=== PATIENT | male | born 1960 | race Caucasian/White ===

== ENCOUNTER 2016-05-22 15:28 | Emergency (ER) | payer MEDICARE, MEDICAID ==
[2016-05-22] MEDS ORDERED: IPRATROPIUM/ALBUTEROL 0.5-2.5 MG/3 ML AMPUL NEB ONE (18:13)
[2016-05-22 18:19] LABS: ABSOLUTE BASOPHILS # (AUTO) 0.1 10^3/uL (0.0-0.2); ABSOLUTE EOSINOPHILS # (AUTO) 0.2 10^3/uL (0.0-0.6); ABSOLUTE LYMPHOCYTES (AUTO) 1.6 10^3/uL (0.5-4.7); ABSOLUTE MONOCYTES (AUTO) 0.6 10^3/uL (0.1-1.4); BASOPHILS % (AUTO) 0.9 % (0-2); EOSINOPHILS % (AUTO) 2.5 % (0-6); HEMATOCRIT 30.4 % (37.9-51.0); HEMOGLOBIN 9.9 g/dL (13.5-17.0); HGB HCT DIFFERENCE -0.7; LYMPHOCYTES % (AUTO) 21.8 % (13-45); MEAN CORPUSCULAR HEMOGLOBIN 24.6 pg (27.0-33.4); MEAN CORPUSCULAR HGB CONC 32.6 g/dL (32.0-36.0); MEAN CORPUSCULAR VOLUME 75 fl (80-97); MONOCYTES % (AUTO) 7.7 % (3-13); RED BLOOD COUNT 4.03 10^6/uL (4.35-5.55); RED CELL DISTRIBUTION WIDTH 18.9 % (11.5-14.0); SEGMENTED NEUTROPHILS % (AUTO) 67.1 % (42-78); WHITE BLOOD COUNT 7.4 10^3/uL (4.0-10.5)
[2016-05-22 19:02] LABS: ALANINE AMINOTRANSFERASE 32 U/L (21-72); ALBUMIN 3.4 g/dL (3.5-5.0); ALKALINE PHOSPHATASE 98 U/L (38-126); ANION GAP 8 (5-19); ASPARTATE AMINO TRANSFERASE 22 U/L (17-59); BILIRUBIN,TOTAL 0.2 mg/dL (0.2-1.3); BLOOD UREA NITROGEN 16 mg/dL (7-20); CARBON DIOXIDE 29 mmol/L (22-30); CHLORIDE 105 mmol/L (98-107); CREATININE RESULT 0.74 mg/dL (0.52-1.25); GLUCOSE 92 mg/dL (75-110); POTASSIUM 4.6 mmol/L (3.6-5.0); SODIUM 141.5 mmol/L (137-145); TOTAL PROTEIN 6.7 g/dL (6.3-8.2)
[2016-05-22 20:03] LABS: PROTHROMBIN TIME 13.1 SEC (11.4-15.4)
[2016-05-22 20:04] LABS: PARTIAL THROMBOPLASTIN TIME 32.1 SEC (23.5-35.8)
--- NOTE | 2016-05-22 20:05 | ER Document Report ---
ED Extremity Problem, Lower - General TRAVEL OUTSIDE OF THE [place] IN LAST 30 DAYS: No <KATHI MINER - Last Filed: 05/23/16 00:26> <ARSLAN WEST - Last Filed: 05/23/16 02:15> - General Chief Complaint: Leg Swelling Stated Complaint: SHORTNESS OF BREATH Notes: This is a 55-year-old male with a history of CHF COPD CVA and myocardial infarction in 2004 that presents today with shortness of breath and cough for the past 4 days. Cough is productive. Denies nausea vomiting fever or chills loss of consciousness. He is also complaining of a painful right lower extremity. He states that this has been going on for a while, but does not recall onset. Patient denies loss of consciousness. Primary care physician is Dr. Phillips. (KATHI MINER) - Related Data Allergies/Adverse Reactions: ketorolac tromethamine [From Toradol] Allergy (Unknown, Verified 05/10/16 16:48) morphine [Morphine] Allergy (Unknown, Verified 05/10/16 16:48) acetaminophen [From Tylenol] Allergy (Verified 05/10/16 16:48) lorazepam [From Ativan] Adverse Reaction (Verified 05/10/16 16:48) Past Medical History - General Information source: Patient - Social History Smoking Status: Current Every Day Smoker Family History: Reviewed & Not Pertinent - Past Medical History Cardiac Medical History: Reports: Hx Congestive Heart Failure, Hx DVT, Hx Heart Attack, Hx Hypercholesterolemia, Hx Hypertension Pulmonary Medical History: Reports: Hx COPD, Hx Pneumonia, Hx Intubation, Hx Respiratory Failure Neurological Medical History: Reports: Hx Cerebrovascular Accident Endocrine Medical History: Reports: Hx Diabetes Mellitus Type 2 Renal/ Medical History: Reports: Hx Kidney Stones Musculoskeltal Medical History: Reports Hx Arthritis Psychiatric Medical History: Reports: Hx Bipolar Disorder Denies: Hx Depression Past Surgical History: Reports: Hx Appendectomy, Hx Cholecystectomy, Hx Orthopedic Surgery - Immunizations Immunizations up to date: Yes Hx Diphtheria, Pertussis, Tetanus Vaccination: Yes Hx Pneumococcal Vaccination: 05/13/11 <KATHI MINER - Last Filed: 05/23/16 00:26> Review of Systems - Review of Systems Constitutional: denies: Chills, Fever EENT: denies: Blurred vision Cardiovascular: See HPI Respiratory: Cough, Hurts to breathe Gastrointestinal: denies: Abdominal pain Musculoskeletal: No symptoms reported Skin: No symptoms reported Hematologic/Lymphatic: No symptoms reported Neurological/Psychological: No symptoms reported <KATHI MINER - Last Filed: 05/23/16 00:26> Physical Exam - General General appearance: Appears well In distress: None - HEENT Head: Normocephalic, Atraumatic Eyes: Normal Conjunctiva: Normal - Respiratory Respiratory status: No respiratory distress. No: Tachypnea Breath sounds: Normal, Wheezing - Left expiratory wheezes - Cardiovascular Rhythm: Regular Heart sounds: Normal auscultation - Abdominal Inspection: Normal Bowel sounds: Normal Tenderness: Nontender - Back Back: Normal, CVA tenderness - Extremities General upper extremity: Normal inspection, Normal strength General lower extremity: Normal inspection, Normal strength - Neurological Cognition: Normal - Psychological Associated symptoms: Normal affect, Normal mood - Skin Skin Temperature: Warm Skin Moisture: Dry Skin Color: Normal <KATHI MINER - Last Filed: 05/23/16 00:26> Course - Laboratory Result Diagrams: 05/22/16 16:40 05/22/16 18:35 <KATHI MINER - Last Filed: 05/23/16 00:26> - Laboratory Result Diagrams: 05/22/16 16:40 05/22/16 18:35 <ARSLAN WEST - Last Filed: 05/23/16 02:15> - Re-evaluation Re-evalutation: 05/22/16 11:55 Patient was discussed with Rosalind VARGAS (KATHI MINER) 05/23/16 02:11 Patient refuses to be stuck anymore and refuses IV for CTA. At this time patient has not been tachycardic since arrival, has no chest pain and pulse oxygenation is normal on room air 96%. Patient is already on Xarelto, discussed with Dr. Iniguez, who agrees that patient does not have enough evidence for PE and is already being treated with correct medication even if he had one, with pt refusing any more care, he is stable for discharge. (ARSLAN WEST) - Vital Signs Vital signs: Temp Pulse Resp BP Pulse Ox 98.4 F 13 133/89 H 94 05/23/16 02:07 05/23/16 02:01 05/23/16 02:00 05/23/16 01:13 (KATHI MINER) (ARSLAN WEST) - Laboratory Laboratory results interpreted by me: 05/22/16 05/22/16 05/22/16 16:40 16:40 18:35 RBC 4.03 L Hgb 9.9 L Hct 30.4 L MCV 75 L MCH 24.6 L RDW 18.9 H D-Dimer 2.20 H Creatine Kinase Albumin 3.4 L 05/22/16 18:35 RBC Hgb Hct MCV MCH RDW D-Dimer Creatine Kinase 184 H Albumin (KATHI MINER) (ARSLAN WEST) Discharge <KATHI MINER - Last Filed: 05/23/16 00:26> <ARSLAN WEST - Last Filed: 05/23/16 02:15> - Discharge Clinical Impression: COPD (chronic obstructive pulmonary disease) Qualifiers: COPD type: unspecified COPD Qualified Code(s): J44.9 - Chronic obstructive pulmonary disease, unspecified Condition: Stable Instructions: Chronic Obstructive Lung Disease ([facility]) Additional Instructions: Return immediately for any new or worsening symptoms. Follow up with primary care provider, call tomorrow to make followup appointment.
[2016-05-22 20:37] LABS: CREATINE KINASE MB 3.37 ng/mL (<4.55)
[2016-05-22 20:40] LABS: TROPONIN I < 0.012 ng/mL
[2016-05-23 01:00] LABS: APPEARANCE,URINE CLEAR; BILIRUBIN,URINE NEGATIVE (NEGATIVE); GLUCOSE, URINE NEGATIVE (NEGATIVE); KETONES,URINE NEGATIVE (NEGATIVE); LEUKOCYTE ESTERASE,URINE NEGATIVE (NEGATIVE); NITRITE,URINE NEGATIVE (NEGATIVE); PROTEIN,URINE NEGATIVE (NEGATIVE); URINE SPECIFIC GRAVITY 1.011; UROBILINOGEN,URINE NEGATIVE mg/dL (<2.0)
[2016-05-23] MEDS ORDERED: ALBUTEROL SULFATE HFA (90 MCG/PUFF) 8 GM MDI (1 MDI/ER DISP) IH PRN (02:14)
[2016-05-23 03:54] VITALS: BP 130/82
--- NOTE | 2016-05-23 13:37 | EKG REPORT ---
SEVERITY:- OTHERWISE NORMAL ECG - SINUS RHYTHM LEFT AXIS DEVIATION : Confirmed by: Charlette Lorenzo MD 23-May-2016 13:37:33
== END 2016-05-23 03:54 | disposition home or self-care (01) ==
LOC: ER 15:28
DX: J44.9 Chronic obstructive pulmonary disease, unspecified (principal); I25.2 Old myocardial infarction; I10 Essential (primary) hypertension; R06.02 Shortness of breath; M79.604 Pain in right leg; R05 Cough; R07.1 Chest pain on breathing; E11.9 Type 2 diabetes mellitus without complications; F17.200 Nicotine dependence, unspecified, uncomplicated; Z86.718 Personal history of other venous thrombosis and embolism; Z87.01 Personal history of pneumonia (recurrent); Z88.8 Allergy status to other drugs, medicaments and biological substances; Z88.5 Allergy status to narcotic agent; Z88.6 Allergy status to analgesic agent; Z86.73 Personal history of transient ischemic attack (TIA), and cerebral infarction without residual deficits; Z79.01 Long term (current) use of anticoagulants
CPT/HCPCS: 93005; 94640; 99285; 36415; 82553; 82550; 85025; 85610; 85730; 80053; 81001; 84484; 85379; 83880; 93971; 71020; 93010; J3490; A9270; J7620

== ENCOUNTER 2016-05-31 12:19 | Emergency (ER) | payer MEDICARE, MEDICAID ==
[2016-05-31] MEDS ORDERED: ACETAMINOPHEN 325 MG TABLET PO ONE (12:45)
--- NOTE | 2016-05-31 12:51 | ER Document Report ---
ED Fall - General TRAVEL OUTSIDE OF THE [place] IN LAST 30 DAYS: No - General Chief Complaint: Fall Stated Complaint: FALL/ HEAD INJURY Notes: patient is a 55 year old male presents emergency department after a fall. He is at a cardiac clinic for follow-up appointment and his foot got caught and he fell out of his wheelchair. Patient's past medical history is significant for CVA with left-sided residual weakness and he is not ambulatory and dependent to his wheelchair. Patient has a 4 cm laceration on the anterior frontal part of his head with associated headache as a 5 out of 5 in severity. Patient is not on blood thinners. Denies any nausea, vomiting, confusion, altered mental status, LOC. Otherwise he denies any other complaints in regards to his fall. Also today he is complaining of left upper extremity swelling. Patient states that he has swelling that fluctuates on and off of the left arm that improves with elevation. However he states that his left hand has been persistently swollen with pain described as a vice/pressure from Mahamed in his wrist for the past 2 weeks it is not improved with his normal measures and is different from his baseline. Past medical history: CHF, COPD, CVA with left-sided residual, SC in 2004, GERD , hypertension, bipolar, depression Tetanus is up-to-date within the year (FILI RIVERA) - Related data Allergies/Adverse Reactions: ketorolac tromethamine [From Toradol] Allergy (Unknown, Verified 05/10/16 16:48) morphine [Morphine] Allergy (Unknown, Verified 05/10/16 16:48) acetaminophen [From Tylenol] Allergy (Verified 05/10/16 16:48) lorazepam [From Ativan] Adverse Reaction (Verified 05/10/16 16:48) Past Medical History - General Information source: Patient - Social History Smoking Status: Unknown if Ever Smoked Family History: Reviewed & Not Pertinent - Past Medical History Cardiac Medical History: Reports: Hx Congestive Heart Failure, Hx DVT, Hx Heart Attack, Hx Hypercholesterolemia, Hx Hypertension Pulmonary Medical History: Reports: Hx COPD, Hx Pneumonia, Hx Intubation, Hx Respiratory Failure Neurological Medical History: Reports: Hx Cerebrovascular Accident Endocrine Medical History: Reports: Hx Diabetes Mellitus Type 2 Renal/ Medical History: Reports: Hx Kidney Stones Musculoskeltal Medical History: Reports Hx Arthritis Psychiatric Medical History: Reports: Hx Bipolar Disorder Denies: Hx Depression Past Surgical History: Reports: Hx Appendectomy, Hx Cholecystectomy, Hx Orthopedic Surgery - Immunizations Immunizations up to date: Yes Hx Diphtheria, Pertussis, Tetanus Vaccination: Yes Hx Pneumococcal Vaccination: 05/13/11 Review of Systems - Review of Systems Constitutional: No symptoms reported EENT: No symptoms reported Cardiovascular: No symptoms reported Respiratory: No symptoms reported Gastrointestinal: No symptoms reported Genitourinary: No symptoms reported Male Genitourinary: No symptoms reported Musculoskeletal: No symptoms reported Skin: No symptoms reported Hematologic/Lymphatic: No symptoms reported Neurological/Psychological: See HPI Physical Exam - Vital signs Vitals: Temp Pulse Resp BP Pulse Ox 97.3 F 85 18 168/101 H 95 05/31/16 12:35 05/31/16 12:35 05/31/16 12:35 05/31/16 12:35 05/31/16 12:35 (RAMA WHITE) - Notes Notes: PHYSICAL EXAM GENERAL: Alert, interacts well. HEAD: Normocephalic, 4 cm laceration into the dermis with dried blood EYES: Pupils equal, round, and reactive to light. Extraocular movements intact. ENT: Oral mucosa moist, tongue midline. NECK: Full range of motion. Supple. Trachea midline. LUNGS: Clear to auscultation bilaterally, no wheezes, rales, or rhonchi. No respiratory distress. HEART: Regular rate and rhythm. No murmurs, gallops, or rubs. Cap reill < 2seconds ABDOMEN: Soft, nondistended, nontender. No guarding, rebound, or rigidity.. Bowel sounds present in all 4 quadrants. EXTREMITIES: Moves right extremities spontaneously, not able to move left side consistent with stroke injury. 1+ pitting edema in BLE's, tense edema of the left hand and wirst with pain to palpaiton, radial and dorsalis pedis pulses 2/ 4 bilaterally. No cyanosis. NEUROLOGICAL: Alert and oriented x3. Normal speech. PSYCH: Normal affect, normal mood. SKIN: Warm, dry, normal turgor. No rashes or lesions noted. (FILI RIVERA) Course - Laboratory Result Diagrams: 05/31/16 14:20 05/31/16 14:20 - Diagnostic Test Radiology reviewed: Reports reviewed - Re-evaluation Re-evalutation: 05/31/16 14:29 Patient was presented to me by the advanced practitioner, we discussed the patient's case imaging and lab work concerns. Patient was evaluated by myself and I agree with the providers care plan (RAMA WHITE) 05/31/16 15:26 Patient is a 55-year-old male who is hemodynamically stable, no acute distress. Head is Dr. following accident male was wheelchair and suffered a [address] of the head and neck did not show any acute injury. Lack was closed with denice. In regards to his left upper extremity swelling. No evidence of DVT on this ultrasound. Patient's headache is being controlled his by mouth medication tolerating by mouth without any difficulty without nausea or vomiting. Patient will be discharged home and can follow-up with his primary care provider as needed and as scheduled. 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 (FILI RIVERA) - Vital Signs Vital signs: Temp Pulse Resp BP Pulse Ox 97.3 F 85 18 168/101 H 95 05/31/16 12:35 05/31/16 12:35 05/31/16 12:35 05/31/16 12:35 05/31/16 12:35 (RAMA WHITE) - Laboratory Laboratory results interpreted by me: 05/31/16 05/31/16 05/31/16 14:20 14:20 14:20 RBC 4.07 L Hgb 9.6 L Hct 31.2 L MCV 77 L MCH 23.7 L MCHC 30.8 L RDW 18.2 H D-Dimer 1.55 H ALT 20 L Procedures - Laceration/Wound Repair Left Head Wound length (cm): 5 Wound's Depth, Shape: Linear Laceration pre-procedure: Betadine prep applied Wound explored: Clean, No foreign body removed Irrigated w/ Saline (mLs): 20 Wound Repaired With: Edison Number of Sutures: 8 Post-procedure wound care: Sterile dressing applied Complications: No Discharge - Discharge Clinical Impression: Laceration, Swelling of upper extremity Headache Qualifiers: Headache type: post-traumatic Headache chronicity pattern: acute headache Intractability: intractable Qualified Code(s): G44.311 - Acute post-traumatic headache, intractable Condition: Good Disposition: HOME, SELF-CARE Instructions: Antibiotic Ointment Protection ([facility]), Laceration Care ([facility]), Prophylactic Antibiotic ([facility]), Soap Cleansing ([facility]), Edema, Peripheral ([facility]) Additional Instructions: HEADACHE: The physician does not feel that the headache you are experiencing has a serious underlying cause. Most headaches are due to emotional stress, with resultant muscle tension (tension headache). Occasionally, headaches are secondary to changes in the blood vessels of the scalp (vascular headache and migraine headache). Sometimes, a headache is the first symptom of another developing illness, such as a viral infection. You have no evidence of stroke, bleeding, meningitis, or other serious cause of your headache. The treatment of headaches varies with the severity and cause of the pain. Not all headaches need pain shots. In fact, there is evidence that using narcotics for headaches may make them worse in the long run. The physician will determine the therapy that's in your best interest. If you develop a fever, if the headache is different from any you've previously experienced, or if the headache progressively worsens, then call your physician at once or go to the emergency room. ORAL NARCOTIC MEDICATION: You have been given a prescription for pain control. This medication is a narcotic. It's best taken with food, as nausea can result if taken on an empty stomach. Don't operate machinery or drive within six hours of taking this medication. Do not combine this medicine with alcohol, or with any medication which can cause sedation (such as cold tablets or sleeping pills) unless you get permission from the physician. Narcotics tend to cause constipation. If possible, drink plenty of fluids and eat a diet high in fiber and fruits. Please be aware that prescription narcotics also have the potential for abuse. People become addicted to these medications because of the general sense of wellbeing that they induce. This feeling along with a significant reduction in tension, anxiety, and aggression provides a stimulating seductive quality to these drugs. Once your pain is under control, we encourage you to discard your unused narcotics. FOLLOW-UP CARE: If you have been referred to a physician for follow-up care, call the physician s office for an appointment as you were instructed or within the next two days. If you experience worsening or a significant change in your symptoms, notify the physician immediately or return to the Emergency Department at any time for re-evaluation. Referrals: WILNER ORDAZ MD [Primary Care Provider] - Follow up as needed
[2016-05-31 14:48] LABS: ABSOLUTE EOSINOPHILS # (AUTO) 0.2 10^3/uL (0.0-0.6); ABSOLUTE LYMPHOCYTES (AUTO) 1.3 10^3/uL (0.5-4.7); ABSOLUTE MONOCYTES (AUTO) 0.7 10^3/uL (0.1-1.4); ABSOLUTE NEUT (AUTO) 5.7 10^3/uL (1.7-8.2); BASOPHILS % (AUTO) 0.5 % (0-2); EOSINOPHILS % (AUTO) 2.5 % (0-6); HEMATOCRIT 31.2 % (37.9-51.0); HEMOGLOBIN 9.6 g/dL (13.5-17.0); HGB HCT DIFFERENCE -2.4; LYMPHOCYTES % (AUTO) 16.2 % (13-45); MEAN CORPUSCULAR HEMOGLOBIN 23.7 pg (27.0-33.4); MEAN CORPUSCULAR HGB CONC 30.8 g/dL (32.0-36.0); MEAN CORPUSCULAR VOLUME 77 fl (80-97); MONOCYTES % (AUTO) 8.4 % (3-13); RED BLOOD COUNT 4.07 10^6/uL (4.35-5.55); RED CELL DISTRIBUTION WIDTH 18.2 % (11.5-14.0); SEGMENTED NEUTROPHILS % (AUTO) 72.4 % (42-78); WHITE BLOOD COUNT 7.9 10^3/uL (4.0-10.5)
[2016-05-31] MEDS ORDERED: OXYCODONE-ACETAMINOPHEN 5-325 MG TABLET PO ONE (15:08)
[2016-05-31] MEDS ORDERED: IPRATROPIUM/ALBUTEROL 0.5-2.5 MG/3 ML AMPUL NEB ONE (15:12)
[2016-05-31 15:14] LABS: ALANINE AMINOTRANSFERASE 20 U/L (21-72); ALBUMIN 3.8 g/dL (3.5-5.0); ALKALINE PHOSPHATASE 101 U/L (38-126); ANION GAP 9 (5-19); ASPARTATE AMINO TRANSFERASE 18 U/L (17-59); BILIRUBIN,TOTAL 0.4 mg/dL (0.2-1.3); BLOOD UREA NITROGEN 10 mg/dL (7-20); CARBON DIOXIDE 29 mmol/L (22-30); CHLORIDE 104 mmol/L (98-107); CREATININE RESULT 0.78 mg/dL (0.52-1.25); GLUCOSE 103 mg/dL (75-110); POTASSIUM 4.1 mmol/L (3.6-5.0); SODIUM 142.2 mmol/L (137-145); TOTAL PROTEIN 6.9 g/dL (6.3-8.2)
[2016-05-31 16:48] VITALS: BP 142/92
== END 2016-05-31 17:47 | disposition home or self-care (01) ==
LOC: ER 12:19
PROC: 0HQ1XZZ Repair Face Skin, External Approach (ICD-10-PCS; principal; 2016-05-31)
DX: G44.311 Acute post-traumatic headache, intractable (principal); S01.81XA Laceration without foreign body of other part of head, initial encounter; M79.89 Other specified soft tissue disorders; W05.0XXA Fall from non-moving wheelchair, initial encounter; I69.954 Hemiplegia and hemiparesis following unspecified cerebrovascular disease affecting left non-dominant side
CPT/HCPCS: 94640; 99285; 36415; 85025; 80053; 85379; 93971; 70450; 72125; 12013; A9270 ×2; J7620

== ENCOUNTER 2016-06-05 13:34 | Observation (INO) | payer MEDICARE, MEDICAID ==
--- NOTE | 2016-06-05 14:43 | ER Document Report ---
ED General - General Stated Complaint: CHEST PAIN TRAVEL OUTSIDE OF THE [place] IN LAST 30 DAYS: No - HPI Patient complains to provider of: chest pain Notes: Patient presents today for chest pain ongoing since 2 AM this morning. Patient was evaluated by EMS given 1 nitroglycerin. Patient states chest pain substernal now resolved. Patient denies any shortness of breath. Patient does have a history of COPD stroke with limited range of motion on the left side due to deficits. Patient states he has had a heart attack in the past with Motrin testing of his heart and greater than 2 years. Patient does state he has history of fibrillation and is on blood thinning medication. Patient denies fevers chills nausea vomiting diarrhea. Patient states he has been compliant with his medication states he also will be evaluated for swelling in his legs. Patient is a smoker continues to smoke patient is on Xarelto - Related Data Allergies/Adverse Reactions: ketorolac tromethamine [From Toradol] Allergy (Unknown, Verified 06/05/16 20:27) morphine [Morphine] Allergy (Unknown, Verified 06/05/16 20:27) acetaminophen [From Tylenol] Allergy (Verified 06/05/16 20:27) lorazepam [From Ativan] Adverse Reaction (Verified 06/05/16 20:27) Home Medications: Current Home Medications Albuterol Sulfate [Albuterol Sulfate 2.5mg/3 mL] 1 vial IH Q4HP PRN 06/05/16 [ History] Buprenorphine HCl/Naloxone HCl [Suboxone 8 mg-2 mg Sl Film] 1 each SL BID [History] Clonidine HCl [Catapres 0.2 mg Tablet] 0.2 mg PO Q12 06/05/16 [History] Cyclobenzaprine HCl [Flexeril 10 mg Tablet] 10 mg PO BID 06/05/16 [History] Dextromethorphan HBr/Quinidine [Nuedexta 20-10 mg Capsule] 1 each PO BID [History] Docusate Sodium [Colace 100 mg Capsule] 100 mg PO BID 06/05/16 [History] Doxepin HCl 100 mg PO HSP PRN 06/05/16 [History] Furosemide [Lasix 20 mg Tablet] 20 mg PO Q2HP PRN 06/05/16 [History] Lamotrigine [Lamictal] 50 mg PO QAM 06/05/16 [History] Lansoprazole [Prevacid 30 Mg Odt Tablet] 30 mg PO QAM 06/05/16 [History] Lisinopril [Prinivil] 20 mg PO QAM 06/05/16 [History] Metoprolol Succinate [Toprol Xl 50 mg Tab.sr] 50 mg PO QAM 06/05/16 [History] Paroxetine HCl [Paxil] 20 mg PO QHS 06/05/16 [History] Pregabalin [Lyrica] 300 mg PO BID 06/05/16 [History] Quetiapine Fumarate [Seroquel Xr] 300 mg PO QHS 06/05/16 [History] Past Medical History - Social History Smoking Status: Unknown if Ever Smoked Family History: Reviewed & Not Pertinent - Past Medical History Cardiac Medical History: Reports: Hx Congestive Heart Failure, Hx DVT, Hx Heart Attack, Hx Hypercholesterolemia, Hx Hypertension Pulmonary Medical History: Reports: Hx COPD, Hx Pneumonia, Hx Intubation, Hx Respiratory Failure Neurological Medical History: Reports: Hx Cerebrovascular Accident Endocrine Medical History: Reports: Hx Diabetes Mellitus Type 2 Renal/ Medical History: Reports: Hx Kidney Stones GI Medical History: Reports: Hx Gastroesophageal Reflux Disease Musculoskeltal Medical History: Reports Hx Arthritis Psychiatric Medical History: Reports: Hx Bipolar Disorder Denies: Hx Depression Past Surgical History: Reports: Hx Appendectomy, Hx Cholecystectomy, Hx Orthopedic Surgery - Immunizations Immunizations up to date: Yes Hx Diphtheria, Pertussis, Tetanus Vaccination: Yes Hx Pneumococcal Vaccination: 05/13/11 Review of Systems - Review of Systems Constitutional: No symptoms reported EENT: No symptoms reported Cardiovascular: Chest pain Respiratory: No symptoms reported Gastrointestinal: No symptoms reported Genitourinary: No symptoms reported Male Genitourinary: No symptoms reported Musculoskeletal: Leg swelling Skin: No symptoms reported Hematologic/Lymphatic: No symptoms reported Neurological/Psychological: No symptoms reported -: Yes All other systems reviewed and negative Physical Exam - Vital signs Vitals: Pulse Ox 94 06/05/16 14:28 Interpretation: Normal - General General appearance: Appears well, Alert - HEENT Head: Normocephalic, Atraumatic Eyes: Normal Pupils: PERRL - Respiratory Respiratory status: No respiratory distress Chest status: Nontender Breath sounds: Normal Chest palpation: Normal - Cardiovascular Rhythm: Regular Heart sounds: Normal auscultation Murmur: No - Abdominal Inspection: Normal Distension: No distension Bowel sounds: Normal Tenderness: Nontender Organomegaly: No organomegaly - Back Back: Normal, Nontender - Extremities General upper extremity: Normal inspection, Nontender, Normal color, Normal ROM , Normal temperature General lower extremity: Normal inspection, Nontender, Normal color, Normal ROM , Normal temperature, Normal weight bearing. No: Ezekiel's sign - Neurological Neuro grossly intact: Yes Cognition: Normal Orientation: AAOx4 [place] Coma Scale Eye Opening: Spontaneous [place] Coma Scale Verbal: Oriented [place] Coma Scale Motor: Obeys Commands [place] Coma Scale Total: 15 Sensory: Normal - Psychological Associated symptoms: Normal affect, Normal mood - Skin Skin Temperature: Warm Skin Moisture: Dry Skin Color: Normal Notes: Patient has discoloration on the second and third finger of the right hand is consistent with chronic nicotine use. Patient also has discoloration of the skin around his mouth consistent with chronic nicotine and tobacco use. Patient does have a lee was ulcer right but cheek stage I no signs of infection Course - Re-evaluation Re-evalutation: 06/05/16 22:15 Patient coming in for evaluation of chest pain. Patient is Piotr on Xarelto. Patient stories not consistent with PE. Initial lab work is negative. Discussed with PCP recommend admission for chest pain rule out. - Vital Signs Vital signs: Temp Pulse Resp BP Pulse Ox 97.6 F 4 L 142/97 H 86 L 06/05/16 17:13 06/05/16 20:01 06/05/16 20:01 06/05/16 20:01 - Laboratory Result Diagrams: 06/05/16 15:44 06/05/16 15:44 Laboratory results interpreted by me: 06/05/16 06/05/16 15:44 15:44 RBC 4.19 L Hgb 9.9 L Hct 31.8 L MCV 76 L MCH 23.6 L MCHC 31.2 L RDW 17.7 H Chloride 108 H Discharge - Discharge Clinical Impression: Sacral decubitus ulcer, stage II Obesity Qualifiers: Obesity type: unspecified obesity type Obesity severity: unspecified obesity severity Qualified Code(s): E66.9 - Obesity, unspecified Chest pain Qualifiers: Chest pain type: unspecified Qualified Code(s): R07.9 - Chest pain, unspecified Condition: Good Disposition: ADMITTED OBSERVATION Admitting Provider: [facility] Unit Admitted: Telemetry
[2016-06-05 15:56] LABS: ABSOLUTE EOSINOPHILS # (AUTO) 0.3 10^3/uL (0.0-0.6); ABSOLUTE LYMPHOCYTES (AUTO) 1.2 10^3/uL (0.5-4.7); ABSOLUTE MONOCYTES (AUTO) 0.6 10^3/uL (0.1-1.4); ABSOLUTE NEUT (AUTO) 5.1 10^3/uL (1.7-8.2); BASOPHILS % (AUTO) 0.6 % (0-2); EOSINOPHILS % (AUTO) 4.5 % (0-6); HEMATOCRIT 31.8 % (37.9-51.0); HEMOGLOBIN 9.9 g/dL (13.5-17.0); HGB HCT DIFFERENCE -2.1; LYMPHOCYTES % (AUTO) 16.3 % (13-45); MEAN CORPUSCULAR HEMOGLOBIN 23.6 pg (27.0-33.4); MEAN CORPUSCULAR HGB CONC 31.2 g/dL (32.0-36.0); MEAN CORPUSCULAR VOLUME 76 fl (80-97); MONOCYTES % (AUTO) 8.5 % (3-13); RED BLOOD COUNT 4.19 10^6/uL (4.35-5.55); RED CELL DISTRIBUTION WIDTH 17.7 % (11.5-14.0); SEGMENTED NEUTROPHILS % (AUTO) 70.1 % (42-78); WHITE BLOOD COUNT 7.2 10^3/uL (4.0-10.5)
[2016-06-05 16:02] LABS: PARTIAL THROMBOPLASTIN TIME 29.7 SEC (23.5-35.8); PROTHROMBIN TIME 12.4 SEC (11.4-15.4)
[2016-06-05 16:18] LABS: ALANINE AMINOTRANSFERASE 26 U/L (21-72); ALBUMIN 3.9 g/dL (3.5-5.0); ALKALINE PHOSPHATASE 107 U/L (38-126); ANION GAP 10 (5-19); ASPARTATE AMINO TRANSFERASE 23 U/L (17-59); BILIRUBIN,TOTAL 0.4 mg/dL (0.2-1.3); BLOOD UREA NITROGEN 9 mg/dL (7-20); CALCIUM 9.1 mg/dL (8.4-10.2); CARBON DIOXIDE 26 mmol/L (22-30); CHLORIDE 108 mmol/L (98-107); CREATINE KINASE 105 U/L (55-170); CREATININE RESULT 0.75 mg/dL (0.52-1.25); GLUCOSE 94 mg/dL (75-110); POTASSIUM 4.5 mmol/L (3.6-5.0); SODIUM 144.1 mmol/L (137-145); TOTAL PROTEIN 7.2 g/dL (6.3-8.2)
[2016-06-05 16:28] LABS: CREATINE KINASE MB 3.45 ng/mL (<4.55)
[2016-06-05 16:29] LABS: TROPONIN I < 0.012 ng/mL
--- NOTE | 2016-06-05 18:40 | EKG REPORT ---
SEVERITY:- OTHERWISE NORMAL ECG - SINUS RHYTHM LEFT AXIS DEVIATION : Confirmed by: Charlette Lorenzo MD 05-Jun-2016 18:39:51
[2016-06-05] MEDS ORDERED: (PENDING PHARMACY ID) (Doxepin Hcl [Doxepin Hcl] 100 MG) PO PRN (19:49)
[2016-06-05] MEDS ORDERED: ALBUTEROL SULFATE 0.083% NEB 2.5 MG/3 ML AMPUL NEB PRN ×2 (19:49→20:20)
[2016-06-05] MEDS ORDERED: FUROSEMIDE 20 MG TABLET PO PRN (19:49)
[2016-06-05] MEDS ORDERED: NALOXONE HCL SL SCH ×2 (20:00→21:00)
[2016-06-05] MEDS ORDERED: BUPRENORPHINE HCL SL SCH ×2 (20:00→21:00)
[2016-06-05] MEDS ORDERED: [UNRECOGNIZED DRUG - OTHER] PO SCH ×2 (20:00→21:00)
[2016-06-05] MEDS ORDERED: (PENDING PHARMACY ID) (Lisinopril [Prinivil] 20 MG) PO SCH (20:00)
[2016-06-05] MEDS ORDERED: QUINIDINE PO SCH ×2 (20:00→21:00)
[2016-06-05] MEDS ORDERED: (PENDING PHARMACY ID) (Lamotrigine [Lamictal] 50 MG) PO SCH (20:00)
[2016-06-05] MEDS ORDERED: DEXTROMETHORPHAN HBR PO SCH ×2 (20:00→21:00)
[2016-06-05] MEDS ORDERED: [UNRECOGNIZED DRUG - OTHER] SL SCH ×2 (20:00→21:00)
[2016-06-05] MEDS ORDERED: DOXEPIN HCL 25 MG CAPSULE PO PRN (20:15)
[2016-06-05] MEDS ORDERED: CLONIDINE HCL 0.2 MG TABLET PO ONE (20:45)
[2016-06-05] MEDS ORDERED: CYCLOBENZAPRINE HCL 10 MG TABLET PO ONE (20:45)
[2016-06-05] MEDS ORDERED: DOCUSATE SODIUM 100 MG CAPSULE PO ONE (21:00)
[2016-06-05] MEDS ORDERED: (PENDING PHARMACY ID) (Quetiapine Fumarate [Seroquel Xr] 300 MG) PO SCH ×2 (21:00→22:00)
[2016-06-05] MEDS ORDERED: LANSOPRAZOLE 30 MG TAB.RAP.DR PO ONE (21:00)
[2016-06-05] MEDS ORDERED: METOPROLOL SUCCINATE 50 MG TAB.SR.24H PO ONE (21:00)
[2016-06-05] MEDS: CLONIDINE HCL 0.2 MG TABLET PO SCH (22:00)
[2016-06-05] MEDS ORDERED: PAROXETINE HCL 20 MG TABLET PO SCH (22:00)
[2016-06-05 22:49] LABS: PARTIAL THROMBOPLASTIN TIME 22.6 SEC (23.5-35.8)
[2016-06-05 22:56] LABS: ANION GAP 9 (5-19); BLOOD UREA NITROGEN 11 mg/dL (7-20); CALCIUM 9.2 mg/dL (8.4-10.2); CARBON DIOXIDE 25 mmol/L (22-30); CHLORIDE 108 mmol/L (98-107); CREATININE RESULT 0.71 mg/dL (0.52-1.25); GLUCOSE 92 mg/dL (75-110); PHOSPHORUS 5.2 mg/dL (2.5-4.5); POTASSIUM 4.4 mmol/L (3.6-5.0); SODIUM 142.3 mmol/L (137-145)
[2016-06-05 23:10] LABS: CREATINE KINASE MB 3.08 ng/mL (<4.55)
[2016-06-05 23:11] LABS: TROPONIN I < 0.012 ng/mL
[2016-06-05 23:59] LABS: ABSOLUTE BASOPHILS # (AUTO) 0.1 10^3/uL (0.0-0.2); ABSOLUTE EOSINOPHILS # (AUTO) 0.3 10^3/uL (0.0-0.6); ABSOLUTE LYMPHOCYTES (AUTO) 1.5 10^3/uL (0.5-4.7); ABSOLUTE MONOCYTES (AUTO) 0.7 10^3/uL (0.1-1.4); ABSOLUTE NEUT (AUTO) 5.1 10^3/uL (1.7-8.2); BASOPHILS % (AUTO) 0.7 % (0-2); EOSINOPHILS % (AUTO) 4.4 % (0-6); HEMOGLOBIN 9.9 g/dL (13.5-17.0); HGB HCT DIFFERENCE -2.3; LYMPHOCYTES % (AUTO) 19.8 % (13-45); MEAN CORPUSCULAR HEMOGLOBIN 23.5 pg (27.0-33.4); MEAN CORPUSCULAR HGB CONC 30.8 g/dL (32.0-36.0); MEAN CORPUSCULAR VOLUME 76 fl (80-97); MONOCYTES % (AUTO) 9.4 % (3-13); RED BLOOD COUNT 4.19 10^6/uL (4.35-5.55); RED CELL DISTRIBUTION WIDTH 18.1 % (11.5-14.0); SEGMENTED NEUTROPHILS % (AUTO) 65.7 % (42-78); WHITE BLOOD COUNT 7.7 10^3/uL (4.0-10.5)
[2016-06-06] LABS: APPEARANCE,URINE CLEAR; BILIRUBIN,URINE NEGATIVE (NEGATIVE); GLUCOSE, URINE NEGATIVE (NEGATIVE); KETONES,URINE NEGATIVE (NEGATIVE); LEUKOCYTE ESTERASE,URINE NEGATIVE (NEGATIVE); NITRITE,URINE NEGATIVE (NEGATIVE); PROTEIN,URINE NEGATIVE (NEGATIVE); URINE SPECIFIC GRAVITY 1.015; UROBILINOGEN,URINE NEGATIVE mg/dL (<2.0)
[2016-06-06 05:48] LABS: CHOLESTEROL 227.34 mg/dL (0-200); Direct HDL 56 mg/dL (>40); TRIGLYCERIDES 235 mg/dL (<150)
[2016-06-06 05:58] LABS: DIRECT LDL 48 mg/dL (<100)
[2016-06-06 05:59] LABS: CREATINE KINASE MB 3.01 ng/mL (<4.55)
[2016-06-06 06:02] LABS: TROPONIN I < 0.012 ng/mL
[2016-06-06] MEDS ORDERED: LISINOPRIL 10 MG TABLET PO SCH (08:00)
[2016-06-06] MEDS ORDERED: LANSOPRAZOLE 30 MG TAB.RAP.DR PO SCH (08:00)
[2016-06-06] MEDS ORDERED: LAMOTRIGINE 100 MG TABLET PO SCH (08:00)
[2016-06-06] MEDS ORDERED: METOPROLOL SUCCINATE 50 MG TAB.SR.24H PO SCH (08:00)
[2016-06-06 08:02] VITALS: BP 177/108
[2016-06-06] MEDS ORDERED: ASPIRIN 81 MG TABLET, CHEWABLE PO SCH (10:00)
[2016-06-06] MEDS ORDERED: CYCLOBENZAPRINE HCL 10 MG TABLET PO SCH (10:00)
[2016-06-06] MEDS ORDERED: DOCUSATE SODIUM 100 MG CAPSULE PO SCH (10:00)
[2016-06-06] MEDS ORDERED: PREGABALIN 100 MG CAPSULE PO SCH (10:00)
[2016-06-06] MEDS: CLONIDINE HCL 0.2 MG TABLET PO SCH (11:51)
[2016-06-06 12:04] LABS: CREATINE KINASE MB 2.85 ng/mL (<4.55)
[2016-06-06 12:07] LABS: TROPONIN I < 0.012 ng/mL
--- NOTE | 2016-06-06 14:19 | Physician Advisory Note ---
Physician Advisor ProgressNote .: Pursuant to the plan for Kavin Messer, I have reviewed the medical record for this patient. Physician Advisor Statement: Possible documentation opportunities if attending agrees: 1. "CP, most likely due to ____" 2. "chronic Afib" [or is it paroxysmal, or ...] 3. "chronic Lt hemiparesis due to previous CVA" 4. "chronic diastolic CHF" 5. "chronic ____ anemia" [nutritional/blood loss Fe defic type? nutritional folate defic? ...] 6. ? - "Chronic Hypoxemic Respiratory Failure, with O2 sat 88% RA & slightly labored breathing in triage" [& document what doing about it] - Pt w/COPD, ongoing smoking, sat 88% & "respirations slightly labored (pt states not abnormal for him)" in initial nursing eval @ 14:28), repeated low O2 sats & low RR.... 7. "Stage I-II sacral [or Rt/Lt buttock?] decub ulcer, present on arrival..." - was noted by ED dr, but doesn't get picked up unless attending document it was truly present. As always, if concerned about any unstable VS or abnormal labs, please comment on them & note what doing about them, & please document each day the potential clinical problems you are concerned could occur if pt not kept in hospital for tx at this time. Thanks for your help with documentation accuracy/specificity improvement! Yvette Márquez MD [facility] Physician Advisor, Fellow of Hospital Medicine
--- NOTE | 2016-06-06 15:35 | PDOC H&P ---
History of Present Illness Admission Date/PCP: 06/05/16 20:19 WILNER ORDAZ, History of Present Illness: DAVIS PAGE is a 55 year old male with history of CVA, COPD, tobacco abuse, he came to the emergency room because of chest pain, the chest pain is nondescript, it is associated with coughing, the cough is dry, patient is a smoker, in the emergency room he was evaluated, a twelve-lead EKG was done it was sinus rhythm, there is no acute ST segment changes on EKG. Patient was admitted for evaluation and to rule out acute coronary syndrome done unlikely Past Medical History Cardiac Medical History: Reports: Congestive Heart Failure, DVT, Myocardial Infarction, Hyperlipidema, Hypertension Pulmonary Medical History: Reports: Chronic Obstructive Pulmonary Disease (COPD) , Intubation, Pneumonia, Respiratory Failure Neurological Medical History: Denies: Seizures Endocrine Medical History: Reports: Diabetes Mellitus Type 2 GI Medical History: Reports: Gastroesophageal Reflux Disease Musculoskeltal Medical History: Reports: Arthritis Psychiatric Medical History: Reports: Bipolar Disorder, Depression Past Surgical History Past Surgical History: Reports: Appendectomy, Cholecystectomy, Orthopedic Surgery Social History Smoking Status: Current Every Day Smoker Frequency of Alcohol Use: Occasional Hx Recreational Drug Use: - Uknown Drugs: None Hx Prescription Drug Abuse: No - uknown - Advance Directive Resuscitation Status: Full Code Family History Family History: Reviewed & Not Pertinent Parental Family History Reviewed: Yes Children Family History Reviewed: Yes Sibling(s) Family History Reviewed.: Yes Medication/Allergy Home Medications: RX: Albuterol Sulfate [Albuterol Sulfate 2.5mg/3 mL] 1 vial IH Q4HP PRN RX: Buprenorphine HCl/Naloxone HCl [Suboxone 8 mg-2 mg Sl Film] 1 each SL BID RX: Clonidine HCl [Catapres 0.2 mg Tablet] 0.2 mg PO Q12 06/05/16 RX: Cyclobenzaprine HCl [Flexeril 10 mg Tablet] 10 mg PO BID 06/05/16 RX: Dextromethorphan HBr/Quinidine [Nuedexta 20-10 mg Capsule] 1 each PO BID RX: Docusate Sodium [Colace 100 mg Capsule] 100 mg PO BID 06/05/16 RX: Doxepin HCl 100 mg PO HSP PRN 06/05/16 RX: Furosemide [Lasix 20 mg Tablet] 20 mg PO Q2HP PRN 06/05/16 RX: Lamotrigine [Lamictal] 50 mg PO QAM 06/05/16 RX: Lansoprazole [Prevacid 30 mg Odt Tablet] 30 mg PO QAM 06/05/16 RX: Lisinopril [Prinivil] 20 mg PO QAM 06/05/16 RX: Metoprolol Succinate [Toprol Xl 50 mg Tab.sr] 50 mg PO QAM 06/05/16 RX: Paroxetine HCl [Paxil] 20 mg PO QHS 06/05/16 RX: Pregabalin [Lyrica] 300 mg PO BID 06/05/16 RX: Quetiapine Fumarate [Seroquel Xr] 300 mg PO QHS 06/05/16 Azithromycin [Zithromax] 250 mg PO DAILY #0 tablet 06/06/16 Allergies/Adverse Reactions: ketorolac tromethamine [From Toradol] Allergy (Unknown, Verified 06/05/16 20:27) morphine [Morphine] Allergy (Unknown, Verified 06/05/16 20:27) acetaminophen [From Tylenol] Allergy (Verified 06/05/16 20:27) lorazepam [From Ativan] Adverse Reaction (Verified 06/05/16 20:27) Review of Systems Constitutional: ABSENT: chills, fever(s), headache(s), weight gain, weight loss Eyes: ABSENT: visual disturbances Ears: ABSENT: hearing changes Cardiovascular: PRESENT: chest pain Respiratory: PRESENT: cough Gastrointestinal: ABSENT: abdominal pain, constipation, diarrhea, hematemesis, hematochezia, nausea, vomiting Genitourinary: ABSENT: dysuria, hematuria Musculoskeletal: ABSENT: joint swelling Integumentary: ABSENT: rash, wounds Neurological: ABSENT: abnormal gait, abnormal speech, confusion, dizziness, focal weakness, syncope Psychiatric: ABSENT: anxiety, depression, homidical ideation, suicidal ideation Endocrine: ABSENT: cold intolerance, heat intolerance, menstrual abnormalities, polydipsia, polyuria Hematologic/Lymphatic: ABSENT: easy bleeding, easy bruising, lymphadenopathy Physical Exam Vital Signs: Temp Pulse Resp BP Pulse Ox 98.2 F 88 18 152/85 H 93 06/06/16 05:44 06/06/16 13:18 06/06/16 13:18 06/06/16 05:44 06/06/16 05:44 Intake & Output 06/05/16 06/06/16 06/07/16 06:59 06:59 06:59 Output Total 500 600 Balance -500 -600 Weight 115.212 kg General appearance: PRESENT: no acute distress, well-developed, well-nourished Head exam: PRESENT: atraumatic, normocephalic Eye exam: PRESENT: conjunctiva pink, EOMI, PERRLA Ear exam: PRESENT: normal external ear exam Mouth exam: PRESENT: moist, tongue midline Neck exam: PRESENT: full ROM Cardiovascular exam: PRESENT: RRR, +S1, +S2 Pulses: PRESENT: normal dorsalis pedis pul, +2 pedal pulses bilateral Vascular exam: PRESENT: normal capillary refill GI/Abdominal exam: PRESENT: normal bowel sounds, soft Rectal exam: PRESENT: deferred Extremities exam: PRESENT: other - Stage 2 sacral decubitus ulcer Neurological exam: PRESENT: alert, oriented to person, oriented to time Psychiatric exam: PRESENT: appropriate affect, normal mood Skin exam: PRESENT: dry, intact, warm Results Laboratory Results: 06/05/16 23:46 06/05/16 22:20 06/05/16 06/05/16 06/05/16 22:20 23:00 23:46 WBC 7.7 RBC 4.19 L Hgb 9.9 L Hct 32.0 L MCV 76 L MCH 23.5 L MCHC 30.8 L RDW 18.1 H Plt Count 236 Seg Neutrophils % 65.7 Lymphocytes % 19.8 Monocytes % 9.4 Eosinophils % 4.4 Basophils % 0.7 Absolute Neutrophils 5.1 Absolute Lymphocytes 1.5 Absolute Monocytes 0.7 Absolute Eosinophils 0.3 Absolute Basophils 0.1 Sodium 142.3 Potassium 4.4 Chloride 108 H Carbon Dioxide 25 Anion Gap 9 BUN 11 Creatinine 0.71 Est GFR ( Amer) > 60 Est GFR (Non-Af Amer) > 60 Glucose 92 Calcium 9.2 Phosphorus 5.2 H Triglycerides Cholesterol LDL Cholesterol Direct VLDL Cholesterol HDL Cholesterol Urine Color YELLOW Urine Appearance CLEAR Urine pH 6.0 Ur Specific [place] 1.015 Urine Protein NEGATIVE Urine Glucose (UA) NEGATIVE Urine Ketones NEGATIVE Urine Blood NEGATIVE Urine Nitrite NEGATIVE Ur Leukocyte Esterase NEGATIVE Urine WBC (Auto) 1 06/06/16 05:20 WBC RBC Hgb Hct MCV MCH MCHC RDW Plt Count Seg Neutrophils % Lymphocytes % Monocytes % Eosinophils % Basophils % Absolute Neutrophils Absolute Lymphocytes Absolute Monocytes Absolute Eosinophils Absolute Basophils Sodium Potassium Chloride Carbon Dioxide Anion Gap BUN Creatinine Est GFR ( Amer) Est GFR (Non-Af Amer) Glucose Calcium Phosphorus Triglycerides 235 H Cholesterol 227.34 H LDL Cholesterol Direct 48 VLDL Cholesterol 47.0 H HDL Cholesterol 56 Urine Color Urine Appearance Urine pH Ur Specific [place] Urine Protein Urine Glucose (UA) Urine Ketones Urine Blood Urine Nitrite Ur Leukocyte Esterase Urine WBC (Auto) 06/05/16 06/06/16 06/06/16 22:20 05:20 11:16 CK-MB (CK-2) 3.08 3.01 2.85 Troponin I < 0.012 < 0.012 < 0.012 Impressions: Chest X-Ray 06/05/16 14:28 IMPRESSION: NO ACUTE RADIOGRAPHIC FINDING IN THE CHEST. Assessment & Plan - Diagnosis (1) Chest pain Qualifiers: Chest pain type: unspecified Qualified Code(s): R07.9 - Chest pain, unspecified Is this a current diagnosis for this admission?: YesPlan: Patient was admitted because of chest pain, the chest pain is atypical in character and it is associated with cough, suggesting bronchitis (2) Acute bronchitis Qualifiers: Bronchitis organism: unspecified organism Qualified Code(s): J20.9 - Acute bronchitis, unspecified Is this a current diagnosis for this admission?: Yes
--- NOTE | 2016-06-06 15:41 | PDOC DISCHARGE SUMMARY ---
General - Admit/Disc Date/PCP Admission Date/Primary Care Provider: 06/05/16 20:19 WILNER ORDAZ, Discharge Date: 06/06/16 - Discharge Diagnosis (1) Chest pain Is this a current diagnosis for this admission?: Yes (2) Acute bronchitis Is this a current diagnosis for this admission?: Yes (3) Sacral decubitus ulcer, stage II Is this a current diagnosis for this admission?: YesSummary: This was present on admission - Additional Information Resuscitation Status: Full Code Home Medications: RX: Albuterol Sulfate [Albuterol Sulfate 2.5mg/3 mL] 1 vial IH Q4HP PRN RX: Buprenorphine HCl/Naloxone HCl [Suboxone 8 mg-2 mg Sl Film] 1 each SL BID RX: Clonidine HCl [Catapres 0.2 mg Tablet] 0.2 mg PO Q12 06/05/16 RX: Cyclobenzaprine HCl [Flexeril 10 mg Tablet] 10 mg PO BID 06/05/16 RX: Dextromethorphan HBr/Quinidine [Nuedexta 20-10 mg Capsule] 1 each PO BID RX: Docusate Sodium [Colace 100 mg Capsule] 100 mg PO BID 06/05/16 RX: Doxepin HCl 100 mg PO HSP PRN 06/05/16 RX: Furosemide [Lasix 20 mg Tablet] 20 mg PO Q2HP PRN 06/05/16 RX: Lamotrigine [Lamictal] 50 mg PO QAM 06/05/16 RX: Lansoprazole [Prevacid 30 mg Odt Tablet] 30 mg PO QAM 06/05/16 RX: Lisinopril [Prinivil] 20 mg PO QAM 06/05/16 RX: Metoprolol Succinate [Toprol Xl 50 mg Tab.sr] 50 mg PO QAM 06/05/16 RX: Paroxetine HCl [Paxil] 20 mg PO QHS 06/05/16 RX: Pregabalin [Lyrica] 300 mg PO BID 06/05/16 RX: Quetiapine Fumarate [Seroquel Xr] 300 mg PO QHS 06/05/16 Azithromycin [Zithromax] 250 mg PO DAILY #0 tablet 06/06/16 History of Present Illness History of Present Illness: DAVIS PAGE is a 55 year old male with history of CVA, COPD, tobacco abuse, he came to the emergency room because of chest pain, the chest pain is nondescript, it is associated with coughing, the cough is dry, patient is a smoker, in the emergency room he was evaluated, a twelve-lead EKG was done it was sinus rhythm, there is no acute ST segment changes on EKG. Patient was admitted for evaluation and to rule out acute coronary syndrome done unlikely Hospital Course Hospital Course: Patient was admitted for observation because of chest pain, 3 sets of cardiac enzymes were negative for acute [place]. That was associated cough that suggest acute bronchitis, he was prescribed Z-Kelby, he has stage 2 sacral decubitus ulcer that was present on admission. Physical Exam Vital Signs: Temp Pulse Resp BP Pulse Ox 98.2 F 88 18 152/85 H 93 06/06/16 05:44 06/06/16 13:18 06/06/16 13:18 06/06/16 05:44 06/06/16 05:44 Intake & Output 06/05/16 06/06/16 06/07/16 06:59 06:59 06:59 Output Total 500 600 Balance -500 -600 Weight 115.212 kg General appearance: PRESENT: no acute distress Eye exam: PRESENT: PERRLA Respiratory exam: PRESENT: clear to auscultation jarett Cardiovascular exam: PRESENT: +S1, +S2 GI/Abdominal exam: PRESENT: soft Neurological exam: PRESENT: alert Results Laboratory Results: 06/05/16 23:46 06/05/16 22:20 06/05/16 06/05/16 06/05/16 22:20 23:00 23:46 WBC 7.7 RBC 4.19 L Hgb 9.9 L Hct 32.0 L MCV 76 L MCH 23.5 L MCHC 30.8 L RDW 18.1 H Plt Count 236 Seg Neutrophils % 65.7 Lymphocytes % 19.8 Monocytes % 9.4 Eosinophils % 4.4 Basophils % 0.7 Absolute Neutrophils 5.1 Absolute Lymphocytes 1.5 Absolute Monocytes 0.7 Absolute Eosinophils 0.3 Absolute Basophils 0.1 Sodium 142.3 Potassium 4.4 Chloride 108 H Carbon Dioxide 25 Anion Gap 9 BUN 11 Creatinine 0.71 Est GFR ( Amer) > 60 Est GFR (Non-Af Amer) > 60 Glucose 92 Calcium 9.2 Phosphorus 5.2 H Triglycerides Cholesterol LDL Cholesterol Direct VLDL Cholesterol HDL Cholesterol Urine Color YELLOW Urine Appearance CLEAR Urine pH 6.0 Ur Specific [place] 1.015 Urine Protein NEGATIVE Urine Glucose (UA) NEGATIVE Urine Ketones NEGATIVE Urine Blood NEGATIVE Urine Nitrite NEGATIVE Ur Leukocyte Esterase NEGATIVE Urine WBC (Auto) 1 06/06/16 05:20 WBC RBC Hgb Hct MCV MCH MCHC RDW Plt Count Seg Neutrophils % Lymphocytes % Monocytes % Eosinophils % Basophils % Absolute Neutrophils Absolute Lymphocytes Absolute Monocytes Absolute Eosinophils Absolute Basophils Sodium Potassium Chloride Carbon Dioxide Anion Gap BUN Creatinine Est GFR ( Amer) Est GFR (Non-Af Amer) Glucose Calcium Phosphorus Triglycerides 235 H Cholesterol 227.34 H LDL Cholesterol Direct 48 VLDL Cholesterol 47.0 H HDL Cholesterol 56 Urine Color Urine Appearance Urine pH Ur Specific [place] Urine Protein Urine Glucose (UA) Urine Ketones Urine Blood Urine Nitrite Ur Leukocyte Esterase Urine WBC (Auto) 06/05/16 06/06/16 06/06/16 22:20 05:20 11:16 CK-MB (CK-2) 3.08 3.01 2.85 Troponin I < 0.012 < 0.012 < 0.012 Impressions: Chest X-Ray 06/05/16 14:28 IMPRESSION: NO ACUTE RADIOGRAPHIC FINDING IN THE CHEST.
== END 2016-06-06 17:35 | disposition home or self-care (01) ==
LOC: ER 13:34 → UNDOADMOB 18:06 → EH 18:06
PROVIDERS: ADMIT Internal Medicine; ATTEND Internal Medicine
DX: R07.9 Chest pain, unspecified (principal); J20.9 Acute bronchitis, unspecified; J44.0 Chronic obstructive pulmonary disease with (acute) lower respiratory infection; L89.152 Pressure ulcer of sacral region, stage 2; Z86.73 Personal history of transient ischemic attack (TIA), and cerebral infarction without residual deficits; Z72.0 Tobacco use; I50.9 Heart failure, unspecified; Z86.718 Personal history of other venous thrombosis and embolism; I25.2 Old myocardial infarction; E78.5 Hyperlipidemia, unspecified; I10 Essential (primary) hypertension; E11.9 Type 2 diabetes mellitus without complications; K21.9 Gastro-esophageal reflux disease without esophagitis; M19.90 Unspecified osteoarthritis, unspecified site; F31.9 Bipolar disorder, unspecified
CPT/HCPCS: 93005; 99285; 36415 ×2; 82553 ×2; 82550; 84100; 85025; 85610; 85730; 80048; 80053; 81001; 84484 ×2; 80061; 71010; 93010; G0378 ×2; A9270 ×14; J3490 ×2

== ENCOUNTER 2016-06-30 21:35 | Inpatient (IN) | payer MEDICARE, MEDICAID ==
[2016-06-30] MEDS ORDERED: NORMAL SALINE 1000 ML 1,000 ML IV ONE (23:19)
[2016-06-30] MEDS ORDERED: FENTANYL CITRATE INJ/PF 100 MCG/2 ML AMPUL IV PRN (23:19)
[2016-07-01 00:36] LABS: ALANINE AMINOTRANSFERASE 25 U/L (21-72); ALBUMIN 4.4 g/dL (3.5-5.0); ALKALINE PHOSPHATASE 119 U/L (38-126); ANION GAP 10 (5-19); ASPARTATE AMINO TRANSFERASE 28 U/L (17-59); BILIRUBIN,TOTAL 0.7 mg/dL (0.2-1.3); BLOOD UREA NITROGEN 12 mg/dL (7-20); CALCIUM 9.3 mg/dL (8.4-10.2); CARBON DIOXIDE 26 mmol/L (22-30); CHLORIDE 105 mmol/L (98-107); GLUCOSE 126 mg/dL (75-110); POTASSIUM 3.7 mmol/L (3.6-5.0); SODIUM 140.9 mmol/L (137-145); TOTAL PROTEIN 8.2 g/dL (6.3-8.2)
--- NOTE | 2016-07-01 00:37 | ER Document Report ---
ED General - General Chief Complaint: Rib Pain Stated Complaint: DIFFICULTY BREATHING Notes: Patient is a 55-year-old male with past medical history of hypertension, hyperlipidemia, prior CVA with residual left sided weakness who presents after he had a mechanical fall approximately 12 hours ago falling onto his left lower ribs. States that since that time he has had a constant, severe, sharp pain to the affected area. No history of similar injury in the past. Denies hitting his head or neck. He did not lose consciousness and has not had any vomiting, new weakness or numbness. Nothing improves the pain. States any movement or deep breath worsen the pain. He has not seen his primary care physician regarding today's concerns. TRAVEL OUTSIDE OF THE [place] IN LAST 30 DAYS: No - Related Data Allergies/Adverse Reactions: ketorolac tromethamine [From Toradol] Allergy (Unknown, Verified 06/05/16 20:27) morphine [Morphine] Allergy (Unknown, Verified 06/05/16 20:27) acetaminophen [From Tylenol] Allergy (Verified 06/05/16 20:27) lorazepam [From Ativan] Adverse Reaction (Verified 06/05/16 20:27) Past Medical History - General Information source: Patient - Social History Smoking Status: Current Every Day Smoker Frequency of alcohol use: None Drug Abuse: None Lives with: Alone Family History: Reviewed & Not Pertinent - Past Medical History Cardiac Medical History: Reports: Hx Congestive Heart Failure, Hx DVT, Hx Heart Attack, Hx Hypercholesterolemia, Hx Hypertension Pulmonary Medical History: Reports: Hx COPD, Hx Pneumonia, Hx Intubation, Hx Respiratory Failure Neurological Medical History: Reports: Hx Cerebrovascular Accident. Denies: Hx Seizures Endocrine Medical History: Reports: Hx Diabetes Mellitus Type 2 Renal/ Medical History: Reports: Hx Kidney Stones GI Medical History: Reports: Hx Gastroesophageal Reflux Disease Musculoskeltal Medical History: Reports Hx Arthritis Psychiatric Medical History: Reports: Hx Bipolar Disorder, Hx Depression Denies: Hx Schizophrenia Past Surgical History: Reports: Hx Appendectomy, Hx Cholecystectomy, Hx Orthopedic Surgery - Immunizations Immunizations up to date: Yes Hx Diphtheria, Pertussis, Tetanus Vaccination: Yes Hx Pneumococcal Vaccination: 05/13/11 Review of Systems - Review of Systems Notes: Constitutional: Negative for fever. Eyes: Negative for visual changes. ENT: Negative for facial injury Cardiovascular: Negative for chest injury. Respiratory: Negative for shortness of breath. Gastrointestinal: Negative for abdominal injury. Genitourinary: Negative for genital injury Musculoskeletal: Positive for left rib injury Skin: Negative for laceration/abrasions. Neurological: Negative for head injury. Physical Exam - Vital signs Vitals: Resp 16 06/30/16 22:11 Interpretation: Hypertensive, Tachycardic, Hypoxic, Tachypneic Notes: PHYSICAL EXAMINATION: GENERAL: Appears uncomfortable but in no acute distress HEAD: Atraumatic, normocephalic. EYES: Pupils equal round and reactive to light, extraocular movements intact, sclera anicteric, conjunctiva are normal. ENT: nares patent, no oral pharyngeal trauma. No hemotympanum, no Harvey's sign , no raccoon eyes. NECK: No midline cervical spine tenderness. Patient able to move their head to 45 bilaterally without any discomfort. LUNGS: Breath sounds clear to auscultation bilaterally and equal. No wheezes rales or rhonchi. HEART: Regular tachycardia without murmurs. CHEST WALL: There is bruising over the left lower rib spaces and over the left upper quadrant abdominal wall ABDOMEN: Soft, nontender, normoactive bowel sounds. No guarding, no rebound. EXTREMITIES: 1+ pitting edema in the bilateral lower extremities that is symmetric No long bone deformities. BACK: No midline spinal tenderness, step-offs, or deformities. NEUROLOGICAL: Face symmetric. Tongue protrudes midline. Extraocular motions intact. Pupils are 2 mm and equally reactive. Normal speech. Left-sided hemiparesis. PSYCH: Normal mood, normal affect. SKIN: Warm, Dry, normal turgor, no rashes or lesions noted. Course - Re-evaluation Re-evalutation: 07/01/16 00:35 Patient presents after a fall with left lower rib pain, sob, and luq abdominal pain. Tachycardic on arrival at 120 with associated tachypnea and hypoxemia requiring oxygen which patient does not normally use. Concern for possible splenic injury in the setting of a left lower rib injury prompted an immediate bedside FAST exam which did not demonstrate any intra-abdominal fluid. Patient' s saturations were maintained in the low 90s on nasal cannula at 2-3 L. Pain control, antiemetics, and IV fluids are being administered. A stat CT of the chest and abdomen and pelvis will be obtained given patient's tachycardia, oxygen dependence, tachypnea, and the degree of pain on palpation of the affected area with concern for possible lower rib fracture with possible splenic injury. 07/01/16 02:43 CT of the chest abdomen and pelvis does not show any acute splenic injury or bleed in the abdomen. Does show a 10th 11th rib fracture explain patient's splinting and pain as well as oxygen dependence. Patient will be admitted to the hospital given his need for supplemental oxygen and pain control. - Vital Signs Vital signs: Temp Pulse Resp BP Pulse Ox 21 H 169/99 H 91 L 07/01/16 03:00 06/30/16 23:00 07/01/16 03:00 - Laboratory Result Diagrams: 07/01/16 00:48 06/30/16 23:50 Laboratory results interpreted by me: 06/30/16 07/01/16 23:50 00:48 WBC 10.8 H RBC 4.34 L Hgb 10.2 L Hct 30.7 L MCV 71 L D MCH 23.4 L RDW 18.0 H Glucose 126 H - Diagnostic Test Radiology reviewed: Reports reviewed Discharge - Discharge Clinical Impression: Hypoxemia Ribs, multiple fractures Qualifiers: Encounter type: initial encounter Fracture type: closed Laterality: left Qualified Code(s): S22.42XA - Multiple fractures of ribs, left side, initial encounter for closed fracture Condition: Fair Disposition: ADMITTED INPATIENT Admitting Provider: Alan Unit Admitted: [facility] Referrals: WILNER ORDAZ MD [Primary Care Provider] - Follow up as needed
[2016-07-01 00:56] LABS: ABSOLUTE BASOPHILS # (AUTO) 0.1 10^3/uL (0.0-0.2); ABSOLUTE LYMPHOCYTES (AUTO) 1.5 10^3/uL (0.5-4.7); ABSOLUTE MONOCYTES (AUTO) 1.1 10^3/uL (0.1-1.4); BASOPHILS % (AUTO) 0.7 % (0-2); EOSINOPHILS % (AUTO) 0.5 % (0-6); HEMATOCRIT 30.7 % (37.9-51.0); HEMOGLOBIN 10.2 g/dL (13.5-17.0); HGB HCT DIFFERENCE -0.1; LYMPHOCYTES % (AUTO) 14.3 % (13-45); MEAN CORPUSCULAR HEMOGLOBIN 23.4 pg (27.0-33.4); MEAN CORPUSCULAR HGB CONC 33.1 g/dL (32.0-36.0); MONOCYTES % (AUTO) 10.4 % (3-13); RED BLOOD COUNT 4.34 10^6/uL (4.35-5.55); SEGMENTED NEUTROPHILS % (AUTO) 74.1 % (42-78); WHITE BLOOD COUNT 10.8 10^3/uL (4.0-10.5)
[2016-07-01 01:05] LABS: MEAN CORPUSCULAR VOLUME 71 fl (80-97)
[2016-07-01] MEDS: HYDROMORPHONE HCL INJ/PF 2 MG/ML AMPULE IV PRN ×12 (03:50→23:33)
[2016-07-01] MEDS ORDERED: HYDROMORPHONE HCL INJ/PF 2 MG/ML AMPULE IV PRN (05:29)
[2016-07-01 06:12] LABS: PROTHROMBIN TIME 14.3 SEC (11.4-15.4)
[2016-07-01 06:33] LABS: THYROID STIMULATING HORMONE 3.17 uIU/mL (0.47-4.68)
[2016-07-01] MEDS: NORMAL SALINE 1000 ML 1,000 ML IV PRN ×2 (06:35→08:11)
--- NOTE | 2016-07-01 10:33 | EKG REPORT ---
SEVERITY:- BORDERLINE ECG - SINUS TACHYCARDIA LEFT AXIS DEVIATION BORDERLINE T ABNORMALITIES, ANTERIOR LEADS : Confirmed by: Carl Goldstein 01-Jul-2016 10:33:19
[2016-07-01] MEDS ORDERED: ENOXAPARIN SODIUM INJ 40 MG/0.4 ML DISP.SYRIN SUBCUT ONE (11:00)
[2016-07-01] MEDS ORDERED: CLONIDINE HCL 0.1 MG TABLET PO ONE (11:00)
[2016-07-01] MEDS: IPRATROPIUM/ALBUTEROL 0.5-2.5 MG/3 ML AMPUL NEB PRN ×2 (11:00→19:24)
[2016-07-01] MEDS ORDERED: (PENDING PHARMACY ID) (Doxepin Hcl [Doxepin Hcl] 50 MG) PO PRN (17:16)
[2016-07-01] MEDS ORDERED: FUROSEMIDE 20 MG TABLET PO PRN (17:16)
--- NOTE | 2016-07-01 17:26 | PDOC H&P ---
[id number] History of Present Illness: DAVIS PAGE is a 55 year old male with history of hypertension, CVA with residual left-sided hemiplegia. He fell at home and he sustained fracture of left ribs, he was seen in emergency room, evaluated and he had episode of severe shortness of breath with wheezing. The acute respiratory distress could not be control in the emergency room and because of that,He was advised to be admitted into the hospital for management. He has multiple comorbid conditions including COPD, CVA with left-sided weakness, hypertension and chronic sacral decubiti ulcer Past Medical History Cardiac Medical History: Reports: Congestive Heart Failure, DVT, Myocardial Infarction, Hyperlipidema, Hypertension Pulmonary Medical History: Reports: Chronic Obstructive Pulmonary Disease (COPD) , Intubation, Pneumonia, Respiratory Failure Endocrine Medical History: Reports: Diabetes Mellitus Type 2 GI Medical History: Reports: Gastroesophageal Reflux Disease Musculoskeltal Medical History: Reports: Arthritis Psychiatric Medical History: Reports: Bipolar Disorder, Depression Past Surgical History Past Surgical History: Reports: Appendectomy, Cholecystectomy, Orthopedic Surgery Social History Lives with: Alone Smoking Status: Current Every Day Smoker Frequency of Alcohol Use: Occasional Hx Recreational Drug Use: - Uknown Drugs: None Hx Prescription Drug Abuse: No - uknown - Advance Directive Resuscitation Status: Full Code Family History Family History: Reviewed & Not Pertinent Parental Family History Reviewed: Yes Children Family History Reviewed: Yes Sibling(s) Family History Reviewed.: Yes Medication/Allergy Home Medications: Buprenorphine HCl/Naloxone HCl [Suboxone 8 mg-2 mg Sl Film] 1 film SL BID Clonidine HCl [Catapres 0.2 mg Tablet] 0.2 mg PO Q12 07/01/16 Cyclobenzaprine HCl [Flexeril 10 mg Tablet] 10 mg PO BID 07/01/16 Dextromethorphan HBr/Quinidine [Nuedexta 20-10 mg Capsule] 1 each PO BID Doxepin HCl 50 mg PO HSP PRN 07/01/16 Furosemide [Lasix] 20 mg PO Q48HP PRN 07/01/16 Lamotrigine [Lamictal] 50 mg PO QAM 07/01/16 Lansoprazole [Prevacid 30 mg Odt Tablet] 30 mg PO QAM 07/01/16 Lisinopril [Prinivil] 20 mg PO QAM 07/01/16 Metoprolol Succinate [Toprol Xl 50 mg Tab.sr] 50 mg PO QAM 07/01/16 Paroxetine HCl [Paxil] 20 mg PO DAILY 07/01/16 Pregabalin [Lyrica] 300 mg PO Q12 07/01/16 Quetiapine Fumarate [Seroquel] 600 mg PO QHS 07/01/16 Allergies/Adverse Reactions: ketorolac tromethamine [From Toradol] Allergy (Unknown, Verified 06/05/16 20:27) morphine [Morphine] Allergy (Unknown, Verified 06/05/16 20:27) acetaminophen [From Tylenol] Allergy (Verified 06/05/16 20:27) lorazepam [From Ativan] Adverse Reaction (Verified 06/05/16 20:27) Review of Systems Ears: PRESENT: as per HPI Respiratory: PRESENT: dyspnea Gastrointestinal: ABSENT: as per HPI, abdominal pain, bloating, coffee ground emesis, constipation, diarrhea, dysphagia, heartburn, hematemesis, hematochezia , melena, nausea, vomiting, other Neurological: PRESENT: abnormal gait Physical Exam Vital Signs: Temp Pulse Resp BP Pulse Ox 98.2 F 113 H 20 174/107 H 90 L 07/01/16 16:02 07/01/16 16:02 07/01/16 16:02 07/01/16 16:02 07/01/16 16:02 Intake & Output 06/30/16 07/01/16 07/02/16 06:59 06:59 06:59 Intake Total 640 Output Total 300 400 Balance -300 240 Weight 115.6 kg 115.6 kg General appearance: PRESENT: mild distress Eye exam: PRESENT: PERRLA Respiratory exam: PRESENT: chest wall tenderness, wheezes Cardiovascular exam: PRESENT: +S1, +S2 GI/Abdominal exam: PRESENT: soft Neurological exam: PRESENT: alert, other - Left side hemiplegia Results Laboratory Results: 07/01/16 07/01/16 07/01/16 06:50 06:50 11:46 Creatine Kinase 370 H 339 H Troponin I < 0.012 07/01/16 11:46 Creatine Kinase Troponin I < 0.012 Impressions: Ribs w/Chest X-Ray 06/30/16 00:00 IMPRESSION: NO PNEUMOTHORAX. NO DISPLACED RIB FRACTURES. Abdomen/Pelvis CT 07/01/16 00:00 IMPRESSION: Nondisplaced transverse fractures of the left 10th and 11th ribs posteriorly with overlying subcutaneous fat stranding likely on the basis of bruising. No evidence of trauma to solid or hollow visceral structures. No intra abdominal or retroperitoneal hemorrhage. Chest CT 07/01/16 00:00 IMPRESSION: Nondisplaced transverse fractures of the left 10th and 11th ribs posteriorly. No pneumothorax. Bibasilar dependent atelectasis. No hemothorax or pneumothorax. Assessment & Plan - Diagnosis (1) Ribs, multiple fractures Qualifiers: Encounter type: initial encounter Fracture type: closed Laterality : left Qualified Code(s): S22.42XA - Multiple fractures of ribs, left side, initial encounter for closed fracture Is this a current diagnosis for this admission?: YesPlan: Patient fell and sustained fracture of multiple ribs on the left side, he was brought in for observation because in the emergency room he developed acute wheezing episode that could not be controlled in the ER and they want him admitted to control his wheezing (2) COPD exacerbation Is this a current diagnosis for this admission?: Yes (3) Hemiplegia affecting left nondominant side Qualifiers: Hemiplegia type: flaccid Hemiplegia etiology: cerebrovascular Cerebrovascular disease type: unspecified type Qualified Code(s): G81.04 - Flaccid hemiplegia affecting left nondominant side; I67.9 - Cerebrovascular disease, unspecified Is this a current diagnosis for this admission?: Yes
[2016-07-01] MEDS ORDERED: PREGABALIN 100 MG CAPSULE PO ONE (17:45)
[2016-07-01] MEDS ORDERED: METOPROLOL SUCCINATE 50 MG TAB.SR.24H PO ONE (17:45)
[2016-07-01] MEDS ORDERED: LISINOPRIL 10 MG TABLET PO ONE (17:45)
[2016-07-01] MEDS ORDERED: DOXEPIN HCL 25 MG CAPSULE PO PRN (17:51)
[2016-07-01] MEDS ORDERED: QUINIDINE PO SCH (18:00)
[2016-07-01] MEDS ORDERED: (PENDING PHARMACY ID) (Buprenorphine Hcl/Naloxone Hcl [Suboxone 8 Mg-2 Mg Sl Film] 1 FILM) SL SCH (18:00)
[2016-07-01] MEDS ORDERED: [UNRECOGNIZED DRUG - OTHER] PO SCH (18:00)
[2016-07-01] MEDS ORDERED: DEXTROMETHORPHAN HBR PO SCH (18:00)
[2016-07-01] MEDS ORDERED: PAROXETINE HCL 20 MG TABLET PO ONE (18:00)
[2016-07-01] MEDS ORDERED: CLONIDINE HCL 0.2 MG TABLET PO SCH (18:00)
[2016-07-01] MEDS ORDERED: LAMOTRIGINE 100 MG TABLET PO ONE (18:00)
[2016-07-01] MEDS: CYCLOBENZAPRINE HCL 10 MG TABLET PO SCH (18:19)
[2016-07-01] MEDS ORDERED: LAMOTRIGINE 100 MG TABLET ONE (19:08)
[2016-07-01] MEDS: CLONIDINE HCL 0.2 MG TABLET PO SCH (21:24)
[2016-07-01] MEDS ORDERED: (PENDING PHARMACY ID) (Quetiapine Fumarate [Seroquel] 600 MG) PO SCH (22:00)
[2016-07-02] MEDS: HYDROMORPHONE HCL INJ/PF 2 MG/ML AMPULE IV PRN ×7 (02:25→17:33)
[2016-07-02] MEDS: PREGABALIN 100 MG CAPSULE PO SCH ×2 (05:03→17:33)
[2016-07-02] MEDS: CYCLOBENZAPRINE HCL 10 MG TABLET PO SCH ×2 (05:04→17:33)
[2016-07-02] MEDS ORDERED: LANSOPRAZOLE 30 MG TAB.RAP.DR PO SCH (06:00)
[2016-07-02 06:10] LABS: ABSOLUTE BASOPHILS # (AUTO) 0.2 10^3/uL (0.0-0.2); ABSOLUTE EOSINOPHILS # (AUTO) 0.3 10^3/uL (0.0-0.6); ABSOLUTE LYMPHOCYTES (AUTO) 1.5 10^3/uL (0.5-4.7); ABSOLUTE NEUT (AUTO) 7.5 10^3/uL (1.7-8.2); BASOPHILS % (AUTO) 1.6 % (0-2); EOSINOPHILS % (AUTO) 2.4 % (0-6); HEMATOCRIT 30.4 % (37.9-51.0); HEMOGLOBIN 9.6 g/dL (13.5-17.0); HGB HCT DIFFERENCE -1.6; LYMPHOCYTES % (AUTO) 14.5 % (13-45); MEAN CORPUSCULAR HEMOGLOBIN 22.7 pg (27.0-33.4); MEAN CORPUSCULAR HGB CONC 31.5 g/dL (32.0-36.0); MEAN CORPUSCULAR VOLUME 72 fl (80-97); MONOCYTES % (AUTO) 9.8 % (3-13); RED BLOOD COUNT 4.23 10^6/uL (4.35-5.55); RED CELL DISTRIBUTION WIDTH 17.8 % (11.5-14.0); SEGMENTED NEUTROPHILS % (AUTO) 71.7 % (42-78); WHITE BLOOD COUNT 10.5 10^3/uL (4.0-10.5)
[2016-07-02 06:29] LABS: ALANINE AMINOTRANSFERASE 29 U/L (21-72); ALBUMIN 3.2 g/dL (3.5-5.0); ALKALINE PHOSPHATASE 90 U/L (38-126); ANION GAP 7 (5-19); ASPARTATE AMINO TRANSFERASE 17 U/L (17-59); BILIRUBIN,TOTAL 0.5 mg/dL (0.2-1.3); BLOOD UREA NITROGEN 11 mg/dL (7-20); CARBON DIOXIDE 25 mmol/L (22-30); CHLORIDE 107 mmol/L (98-107); CREATININE RESULT 0.64 mg/dL (0.52-1.25); GLUCOSE 101 mg/dL (75-110); POTASSIUM 4.5 mmol/L (3.6-5.0); SODIUM 138.7 mmol/L (137-145)
[2016-07-02] MEDS ORDERED: (PENDING PHARMACY ID) (Lamotrigine [Lamictal] 50 MG) PO SCH (08:00)
[2016-07-02] MEDS ORDERED: ENOXAPARIN SODIUM INJ 40 MG/0.4 ML DISP.SYRIN SUBCUT SCH (08:00)
[2016-07-02] MEDS: CLONIDINE HCL 0.2 MG TABLET PO SCH ×2 (09:46→21:00)
[2016-07-02] MEDS ORDERED: LISINOPRIL 10 MG TABLET PO SCH (10:00)
[2016-07-02] MEDS ORDERED: PAROXETINE HCL 20 MG TABLET PO SCH (10:00)
[2016-07-02] MEDS ORDERED: METOPROLOL SUCCINATE 50 MG TAB.SR.24H PO SCH (10:00)
[2016-07-02] MEDS ORDERED: LAMOTRIGINE 100 MG TABLET PO SCH (10:00)
--- NOTE | 2016-07-02 19:43 | PDOC DISCHARGE SUMMARY ---
General - Admit/Disc Date/PCP Admission Date/Primary Care Provider: 07/01/16 05:25 WILNER ORDAZ MD Discharge Date: 07/02/16 - Discharge Diagnosis (1) Ribs, multiple fractures Is this a current diagnosis for this admission?: Yes (2) COPD exacerbation Is this a current diagnosis for this admission?: Yes (3) Hemiplegia affecting left nondominant side Is this a current diagnosis for this admission?: Yes - Additional Information Resuscitation Status: Full Code Discharge Diet: As Tolerated Discharge Activity: Activity As Tolerated Home Medications: Buprenorphine HCl/Naloxone HCl [Suboxone 8 mg-2 mg Sl Film] 1 film SL BID Clonidine HCl [Catapres 0.2 mg Tablet] 0.2 mg PO Q12 07/01/16 Cyclobenzaprine HCl [Flexeril 10 mg Tablet] 10 mg PO BID 07/01/16 Dextromethorphan HBr/Quinidine [Nuedexta 20-10 mg Capsule] 1 each PO BID Doxepin HCl 50 mg PO HSP PRN 07/01/16 Furosemide [Lasix] 20 mg PO Q48HP PRN 07/01/16 Lamotrigine [Lamictal] 50 mg PO QAM 07/01/16 Lansoprazole [Prevacid 30 mg Odt Tablet] 30 mg PO QAM 07/01/16 Lisinopril [Prinivil] 20 mg PO QAM 07/01/16 Metoprolol Succinate [Toprol Xl 50 mg Tab.sr] 50 mg PO QAM 07/01/16 Paroxetine HCl [Paxil] 20 mg PO DAILY 07/01/16 Pregabalin [Lyrica] 300 mg PO Q12 07/01/16 Quetiapine Fumarate [Seroquel] 600 mg PO QHS 07/01/16 History of Present Illness History of Present Illness: ADVIS PAGE is a 55 year old male with history of hypertension, CVA with residual left-sided hemiplegia. He fell at home and he sustained fracture of left ribs, he was seen in emergency room, evaluated and he had episode of severe shortness of breath with wheezing. The acute respiratory distress could not be control in the emergency room and because of that,He was advised to be admitted into the hospital for management. He has multiple comorbid conditions including COPD, CVA with left-sided weakness, hypertension and chronic sacral decubiti ulcer Hospital Course Hospital Course: Patient was admitted when he fell and sustained fracture of the left ribs, and in the emergency room he had episode of wheezing, the ED providers could not come to be wheezing and this suggested that patient needed admitted into the hospital to have controlled the wheezing. He was admitted and he was treated with bronchodilators, DuoNeb with very good results. The wheezing resolved, I saw patient on the floor today. He could be discharged home, he takes Suboxone , because of history of opioid abuse, I did not feel comfortable to prescribing opioid for pain control Physical Exam Vital Signs: Temp Pulse Resp BP Pulse Ox 97.9 F 90 18 159/88 H 97 07/02/16 12:51 07/02/16 14:00 07/02/16 12:51 07/02/16 12:51 07/02/16 12:51 Intake & Output 07/01/16 07/02/16 07/03/16 06:59 06:59 06:59 Intake Total 1688 1352 Output Total 300 850 400 Balance -300 838 952 Weight 115.6 kg 115.6 kg General appearance: PRESENT: no acute distress Eye exam: PRESENT: PERRLA Respiratory exam: PRESENT: clear to auscultation jarett Cardiovascular exam: PRESENT: +S1, +S2 GI/Abdominal exam: PRESENT: soft Neurological exam: PRESENT: alert Results Laboratory Results: 07/02/16 05:30 07/02/16 05:30 07/02/16 07/02/16 05:30 05:30 WBC 10.5 RBC 4.23 L Hgb 9.6 L Hct 30.4 L MCV 72 L MCH 22.7 L MCHC 31.5 L RDW 17.8 H Plt Count 202 Seg Neutrophils % 71.7 Lymphocytes % 14.5 Monocytes % 9.8 Eosinophils % 2.4 Basophils % 1.6 Absolute Neutrophils 7.5 Absolute Lymphocytes 1.5 Absolute Monocytes 1.0 Absolute Eosinophils 0.3 Absolute Basophils 0.2 Sodium 138.7 Potassium 4.5 Chloride 107 Carbon Dioxide 25 Anion Gap 7 BUN 11 Creatinine 0.64 Est GFR ( Amer) > 60 Est GFR (Non-Af Amer) > 60 Glucose 101 Calcium 9.0 Total Bilirubin 0.5 AST 17 ALT 29 Alkaline Phosphatase 90 Total Protein 7.0 Albumin 3.2 L 07/01/16 07/01/16 07/01/16 06:50 06:50 11:46 Creatine Kinase 370 H 339 H Troponin I < 0.012 07/01/16 11:46 Creatine Kinase Troponin I < 0.012 Impressions: Ribs w/Chest X-Ray 06/30/16 00:00 IMPRESSION: NO PNEUMOTHORAX. NO DISPLACED RIB FRACTURES. Abdomen/Pelvis CT 07/01/16 00:00 IMPRESSION: Nondisplaced transverse fractures of the left 10th and 11th ribs posteriorly with overlying subcutaneous fat stranding likely on the basis of bruising. No evidence of trauma to solid or hollow visceral structures. No intra abdominal or retroperitoneal hemorrhage. Chest CT 07/01/16 00:00 IMPRESSION: Nondisplaced transverse fractures of the left 10th and 11th ribs posteriorly. No pneumothorax. Bibasilar dependent atelectasis. No hemothorax or pneumothorax.
[2016-07-02 21:19] VITALS: BP 188/107
== END 2016-07-02 21:25 | disposition home or self-care (01) | DRG 184 ==
LOC: ER 21:35 → EH 07-01 03:40 → UNDOADMIN 07-01 03:40 → EH 07-01 05:25 → 5 07-01 09:37
PROVIDERS: ADMIT Internal Medicine; ATTEND Internal Medicine
DX: S22.42XA Multiple fractures of ribs, left side, initial encounter for closed fracture (principal); I69.354 Hemiplegia and hemiparesis following cerebral infarction affecting left non-dominant side; I10 Essential (primary) hypertension; E78.5 Hyperlipidemia, unspecified; F17.210 Nicotine dependence, cigarettes, uncomplicated; I50.9 Heart failure, unspecified; J44.9 Chronic obstructive pulmonary disease, unspecified; L89.159 Pressure ulcer of sacral region, unspecified stage; F31.9 Bipolar disorder, unspecified; K21.9 Gastro-esophageal reflux disease without esophagitis; W19.XXXA Unspecified fall, initial encounter; Y93.9 Activity, unspecified; Y92.009 Unspecified place in unspecified non-institutional (private) residence as the place of occurrence of the external cause; I25.2 Old myocardial infarction; Z86.718 Personal history of other venous thrombosis and embolism
CPT/HCPCS: 36415; 71260; 74177; 80048; 80053; 80076; 82550; 83036; 83735; 84439; 84443; 84484; 85025; 85610; 93005; 93010; 94640; 94799; 96361; 96374; 99285; J1170; J1650; J3010; J3490; J7030; J7620

== ENCOUNTER 2016-07-04 10:31 | Inpatient (IN) | payer MEDICARE, MEDICAID ==
[2016-07-04 14:18] LABS: ABSOLUTE BASOPHILS # (AUTO) 0.1 10^3/uL (0.0-0.2); ABSOLUTE EOSINOPHILS # (AUTO) 0.1 10^3/uL (0.0-0.6); ABSOLUTE LYMPHOCYTES (AUTO) 0.9 10^3/uL (0.5-4.7); ABSOLUTE NEUT (AUTO) 13.7 10^3/uL (1.7-8.2); BASOPHILS % (AUTO) 0.4 % (0-2); EOSINOPHILS % (AUTO) 0.5 % (0-6); HEMATOCRIT 29.7 % (37.9-51.0); HEMOGLOBIN 9.4 g/dL (13.5-17.0); HGB HCT DIFFERENCE -1.5; LYMPHOCYTES % (AUTO) 5.9 % (13-45); MEAN CORPUSCULAR HEMOGLOBIN 22.9 pg (27.0-33.4); MEAN CORPUSCULAR HGB CONC 31.5 g/dL (32.0-36.0); MEAN CORPUSCULAR VOLUME 73 fl (80-97); MONOCYTES % (AUTO) 6.4 % (3-13); RED BLOOD COUNT 4.08 10^6/uL (4.35-5.55); RED CELL DISTRIBUTION WIDTH 18.1 % (11.5-14.0); SEGMENTED NEUTROPHILS % (AUTO) 86.8 % (42-78); WHITE BLOOD COUNT 15.8 10^3/uL (4.0-10.5)
[2016-07-04 14:20] LABS: PROTHROMBIN TIME 13.9 SEC (11.4-15.4)
[2016-07-04 14:25] LABS: ALANINE AMINOTRANSFERASE 21 U/L (21-72); ALKALINE PHOSPHATASE 91 U/L (38-126); ANION GAP 10 (5-19); ASPARTATE AMINO TRANSFERASE 18 U/L (17-59); BILIRUBIN,TOTAL 0.4 mg/dL (0.2-1.3); BLOOD UREA NITROGEN 39 mg/dL (7-20); CALCIUM 8.9 mg/dL (8.4-10.2); CARBON DIOXIDE 24 mmol/L (22-30); CHLORIDE 102 mmol/L (98-107); CREATINE KINASE 259 U/L (55-170); GLUCOSE 90 mg/dL (75-110); POTASSIUM 4.9 mmol/L (3.6-5.0); SODIUM 135.6 mmol/L (137-145); TOTAL PROTEIN 6.7 g/dL (6.3-8.2)
[2016-07-04 14:36] LABS: CREATINE KINASE MB 6.32 ng/mL (<4.55)
[2016-07-04 14:37] LABS: TROPONIN I < 0.012 ng/mL
--- NOTE | 2016-07-04 17:03 | ER Document Report ---
ED General - General Chief Complaint: Rib Pain Stated Complaint: WEAKNESS Time seen by provider: 15:00 Mode of Arrival: Stretcher Information source: Transfer Record Notes: This is a 55-year-old man with a complicated history including CVA (left hemiparesis), diabetes, hypertension, CHF, recent fall with left-sided rib fractures, sacral decubiti, remote history of drug abuse. The patient was brought in by EMS for altered mental status and hypoxia. The patient apparently had gone to the wound clinic for evaluation. They had noted that the patient was lethargic and hypoxic and it called the ambulance. The patient is quite lethargic in the ER. When he is awoken, he does become belligerent and states that he took is Seroquel which is made him tired. He does complain of left rib pain and pain over sacral decub. He denies fever. TRAVEL OUTSIDE OF THE [place] IN LAST 30 DAYS: No - HPI Onset: Just prior to arrival Onset/Duration: Sudden Quality of pain: Dull Severity: Moderate Pain Level: 3 Associated symptoms: denies: Chills, Fever, Shortness of breath Exacerbated by: Movement Relieved by: Denies Similar symptoms previously: Yes Recently seen / treated by doctor: Yes - Related Data Allergies/Adverse Reactions: ketorolac tromethamine [From Toradol] Allergy (Unknown, Verified 07/04/16 11:13) morphine [Morphine] Allergy (Unknown, Verified 07/04/16 11:13) acetaminophen [From Tylenol] Allergy (Verified 07/04/16 11:13) lorazepam [From Ativan] Adverse Reaction (Verified 07/04/16 11:13) Home Medications: Current Home Medications Albuterol Sulfate [Proair HFA] 1 puff IH Q4 07/04/16 [History] Buprenorphine HCl/Naloxone HCl [Suboxone 8 mg-2 mg Sl Film] 1 film SL BID [History] Clonidine HCl [Catapres 0.2 mg Tablet] 0.2 mg PO Q12 07/04/16 [History] Cyclobenzaprine HCl [Flexeril 10 mg Tablet] 10 mg PO BID 07/04/16 [History] Dextromethorphan HBr/Quinidine [Nuedexta 20-10 mg Capsule] 1 tab PO Q12 [History] Doxepin HCl 50 mg PO HSP PRN 07/04/16 [History] Furosemide [Lasix] 20 mg PO Q2D 07/04/16 [History] Lamotrigine [Lamictal] 50 mg PO QAM 07/04/16 [History] Lansoprazole [Prevacid] 30 mg PO QAM 07/04/16 [History] Lisinopril [Prinivil] 20 mg PO QAM 07/04/16 [History] Metoprolol Succinate [Toprol Xl 50 mg Tab.sr] 50 mg PO QAM 07/04/16 [History] Paroxetine HCl [Paxil 20 mg Tablet] 20 mg PO DAILY 07/04/16 [History] Pregabalin [Lyrica] 300 mg PO Q12 07/04/16 [History] Quetiapine Fumarate [Seroquel] 600 mg PO QHS 07/04/16 [History] Umeclidinium Brm/Vilanterol Tr [Anoro Ellipta 62.5-25 Mcg INH] 1 puff IH DAILY 07/04/16 [History] Past Medical History - General Information source: Patient - Social History Smoking Status: Current Every Day Smoker Cigarette use (# per day): No Chew tobacco use (# tins/day): No Frequency of alcohol use: None Drug Abuse: Other - History of opiate abuse in the past: He is on Suboxone Lives with: Family Family History: Reviewed & Not Pertinent Patient has suicidal ideation: No Patient has homicidal ideation: No - Past Medical History Cardiac Medical History: Reports: Hx Congestive Heart Failure, Hx DVT, Hx Heart Attack, Hx Hypercholesterolemia, Hx Hypertension Pulmonary Medical History: Reports: Hx COPD, Hx Pneumonia, Hx Intubation, Hx Respiratory Failure Neurological Medical History: Reports: Hx Cerebrovascular Accident. Denies: Hx Seizures Endocrine Medical History: Reports: Hx Diabetes Mellitus Type 2 Renal/ Medical History: Reports: Hx Kidney Stones. Denies: Hx Peritoneal Dialysis GI Medical History: Reports: Hx Gastroesophageal Reflux Disease Musculoskeltal Medical History: Reports Hx Arthritis Psychiatric Medical History: Reports: Hx Bipolar Disorder, Hx Depression Denies: Hx Schizophrenia Past Surgical History: Reports: Hx Appendectomy, Hx Cholecystectomy, Hx Orthopedic Surgery - Immunizations Immunizations up to date: Yes Hx Diphtheria, Pertussis, Tetanus Vaccination: Yes Hx Pneumococcal Vaccination: 05/13/11 Review of Systems - Review of Systems Constitutional: denies: Chills, Fever EENT: No symptoms reported Cardiovascular: No symptoms reported Respiratory: No symptoms reported Gastrointestinal: See HPI Genitourinary: No symptoms reported Musculoskeletal: No symptoms reported Skin: See HPI Hematologic/Lymphatic: No symptoms reported Neurological/Psychological: See HPI Physical Exam - Vital signs Vitals: Pulse Ox 100 07/04/16 10:31 Notes: Physical exam: GENERAL: 55-year-old man, lethargic (sleeping), arousable with slurred speech. He is afebrile. HEAD: Atraumatic, normocephalic. EYES: Pupils equal round and reactive to light, extraocular movements intact, sclera anicteric, conjunctiva are normal. ENT: TMs normal, nares patent, oropharynx clear without exudates. Moist mucous membranes. NECK: Normal range of motion, supple without lymphadenopathy or JVD. LUNGS: Breath sounds clear to auscultation bilaterally and equal. No wheezes rales or rhonchi. HEART: Regular rate and rhythm without murmurs, rubs or gallops. ABDOMEN: Soft, normoactive bowel sounds. No tenderness to palpation. No guarding, no rebound. No masses appreciated. Sacrum: He does have an ulcer over the proximal right buttock. There is no pus drainage. There is no overlying warmth. There is a superficial eschar. EXTREMITIES: Normal range of motion, no pitting or edema. No clubbing or cyanosis. NEUROLOGICAL: Lethargic. He has left-sided hemiparesis which is chronic. He is moving his right upper and right lower extremity. Cranial nerves II through XII grossly intact. Slurred speech (I think more this is due to altered sensorium and not acute stroke). SKIN: Decubitus as mentioned above. Course - Re-evaluation Re-evalutation: 07/04/16 19:24 Note: This is a 55-year-old man that has a complicated past medical history including a recent fall with multiple left-sided rib fractures that comes in with a significantly altered mental status. Of significance, the patient does have bilateral atelectasis on chest x-ray, he does have acute kidney injury from dehydration. He does have a sacral decubitus. He does have an elevated white blood count. I do think his volume status is probably consistent with dehydration and I am concerned that as we give him fluids, it will be evident that he has an underlying pneumonia that will blossom. I have started him on IV ceftriaxone and IV azithromycin for pneumonia. I've still initiated some IV fluids. The patient has absolutely no IV access. A right groin central line was placed under ultrasound guidance under sterile technique. The right groin was used because the patient was moving his head and also in the setting of rib fractures and hypoxia, I did not want to risk hitting his lung. - Vital Signs Vital signs: Temp Pulse Resp BP Pulse Ox 98.1 F 15 128/84 H 99 07/04/16 12:35 07/04/16 19:01 07/04/16 19:01 07/04/16 19:01 - Laboratory Result Diagrams: 07/04/16 13:12 07/04/16 13:12 Laboratory results interpreted by me: 07/04/16 07/04/16 07/04/16 13:12 13:12 13:12 WBC 15.8 H RBC 4.08 L Hgb 9.4 L Hct 29.7 L MCV 73 L MCH 22.9 L MCHC 31.5 L RDW 18.1 H Seg Neutrophils % 86.8 H Lymphocytes % 5.9 L Absolute Neutrophils 13.7 H Sodium 135.6 L BUN 39 H Creatinine 1.60 H Est GFR ( Amer) 54 L Est GFR (Non-Af Amer) 45 L Creatine Kinase 259 H CK-MB (CK-2) 6.32 H Albumin 3.0 L - Diagnostic Test Radiology reviewed: Image reviewed, Reports reviewed - CT of the abdomen shows no acute intra-abdominal process. CT of the chest shows bilateral atelectasis. CT of the head shows no acute bleed. - EKG Interpretation by Me Rate: Normal Rhythm: NSR - EKG shows normal sinus rhythm with a ventricular rate of 82, no acute ST-T wave changes Procedures - Central Line Right Femoral Time completed: 15:00 Consent obtained: Yes - verbal consent obtained Central line pre-insertion: Sterile PPE donned, Chloraprep applied, Sterile drapes applied Central line size (Fr.): 18 Central line lumen type: Triple Anesthetic type: 1% Lidocaine mL's of anesthesia: 5 Ultrasound guided: Yes CM at insertion site: 21 Line secured with sutures: Yes Central line post-insertion: Blood return from lumens, Biopatch applied, Sutured , Sterile dressing applied Number of attempts: 1 Complications: No Notes: 07/04/16 19:27 MSBT (maximum sterile barrier technique) followed including cap, mask, sterile gloves, large sterile sheet, hand hygiene, sterile ultrasound probe sleeve, sterile saline for probe visualization, liberal ChloraPrep for cutaneous antisepsis both during procedure set up and immediately before Biopatch application, line stabilization with suture and sterile Tegaderm placement. Critical Care Note - Critical Care Note Total time excluding time spent on procedures (mins): 90 Discharge - Discharge Clinical Impression: pneumonia, acute kidney injury, dehydration, altered mental status Condition: Serious Disposition: ADMITTED INPATIENT [facility]mitting [facility] Admitted: [facility]
[2016-07-04] MEDS ORDERED: CEFTRIAXONE 1 GM/D5W RTU 50 ML IV ONE (17:32)
[2016-07-04] MEDS ORDERED: AZITHROMYCIN INJ 500 MG VIAL IV ONE (17:33)
[2016-07-04] MEDS: NORMAL SALINE 1000 ML 1,000 ML IV PRN (18:43)
[2016-07-04] MEDS ORDERED: IPRATROPIUM/ALBUTEROL 0.5-2.5 MG/3 ML AMPUL NEB PRN (22:00)
[2016-07-04] MEDS ORDERED: DEXTROMETHORPHAN HBR PO SCH (22:15)
[2016-07-04] MEDS ORDERED: PAROXETINE HCL 20 MG TABLET PO SCH (22:15)
[2016-07-04] MEDS ORDERED: [UNRECOGNIZED DRUG - OTHER] PO SCH (22:15)
[2016-07-04] MEDS ORDERED: (PENDING PHARMACY ID) (Umeclidinium Brm/Vilanterol Tr [Anoro Ellipta 62.5-25 Mcg Inh] 1 PU IH SCH (22:15)
[2016-07-04] MEDS ORDERED: QUINIDINE PO SCH (22:15)
[2016-07-04] MEDS ORDERED: (PENDING PHARMACY ID) (Buprenorphine Hcl/Naloxone Hcl [Suboxone 8 Mg-2 Mg Sl Film] 1 FILM) SL SCH (22:15)
[2016-07-04] MEDS ORDERED: LISINOPRIL 10 MG TABLET PO SCH (22:45)
[2016-07-04] MEDS ORDERED: LANSOPRAZOLE 30 MG TAB.RAP.DR PO SCH (22:45)
[2016-07-04] MEDS ORDERED: LEVOFLOXACIN 750 MG/D5W RTU 750 MG/150 ML RTUPB IV SCH (23:00)
[2016-07-04] MEDS ORDERED: LAMOTRIGINE 100 MG TABLET PO SCH (23:00)
[2016-07-04 23:14] LABS: THYROID STIMULATING HORMONE 1.09 uIU/mL (0.47-4.68)
[2016-07-05 02:37] LABS: ARTERIAL BLOOD BASE EXCESS -0.8 mmol/L; ARTERIAL BLOOD O2 SATURATION 91.6 % (94-98)
[2016-07-05 02:46] LABS: APPEARANCE,URINE CLEAR; BILIRUBIN,URINE NEGATIVE (NEGATIVE); GLUCOSE, URINE NEGATIVE (NEGATIVE); KETONES,URINE NEGATIVE (NEGATIVE); LEUKOCYTE ESTERASE,URINE NEGATIVE (NEGATIVE); NITRITE,URINE NEGATIVE (NEGATIVE); PROTEIN,URINE NEGATIVE (NEGATIVE); URINE SPECIFIC GRAVITY 1.012; UROBILINOGEN,URINE NEGATIVE mg/dL (<2.0)
[2016-07-05 03:07] LABS: URINE BARBITURATES SCREEN NEGATIVE; URINE METHADONE SCREEN NEGATIVE; URINE PHENCYCLIDINE SCREEN NEGATIVE
[2016-07-05 03:20] LABS: URINE OPIATES LOW UNCONFIRMED POSITIVE
[2016-07-05 05:56] LABS: ABSOLUTE EOSINOPHILS # (AUTO) 0.2 10^3/uL (0.0-0.6); ABSOLUTE LYMPHOCYTES (AUTO) 1.2 10^3/uL (0.5-4.7); ABSOLUTE MONOCYTES (AUTO) 0.7 10^3/uL (0.1-1.4); BASOPHILS % (AUTO) 0.5 % (0-2); EOSINOPHILS % (AUTO) 1.9 % (0-6); HEMATOCRIT 28.9 % (37.9-51.0); HEMOGLOBIN 9.1 g/dL (13.5-17.0); HGB HCT DIFFERENCE -1.6; MEAN CORPUSCULAR HEMOGLOBIN 22.8 pg (27.0-33.4); MEAN CORPUSCULAR HGB CONC 31.4 g/dL (32.0-36.0); MEAN CORPUSCULAR VOLUME 73 fl (80-97); MONOCYTES % (AUTO) 7.7 % (3-13); RED BLOOD COUNT 3.99 10^6/uL (4.35-5.55); RED CELL DISTRIBUTION WIDTH 17.9 % (11.5-14.0); SEGMENTED NEUTROPHILS % (AUTO) 76.9 % (42-78); WHITE BLOOD COUNT 9.1 10^3/uL (4.0-10.5)
[2016-07-05 06:11] LABS: ALANINE AMINOTRANSFERASE 20 U/L (21-72); ALBUMIN 3.3 g/dL (3.5-5.0); ALKALINE PHOSPHATASE 87 U/L (38-126); ANION GAP 7 (5-19); ASPARTATE AMINO TRANSFERASE 16 U/L (17-59); BILIRUBIN,TOTAL 0.5 mg/dL (0.2-1.3); BLOOD UREA NITROGEN 20 mg/dL (7-20); CALCIUM 8.7 mg/dL (8.4-10.2); CARBON DIOXIDE 25 mmol/L (22-30); CHLORIDE 110 mmol/L (98-107); CHOLESTEROL 171.16 mg/dL (0-200); CREATINE KINASE 200 U/L (55-170); CREATININE RESULT 0.66 mg/dL (0.52-1.25); Direct HDL 51 mg/dL (>40); GLUCOSE 87 mg/dL (75-110); LIPASE 23.2 U/L (23-300); MAGNESIUM 2.1 mg/dL (1.6-2.3); PHOSPHORUS 3.4 mg/dL (2.5-4.5); POTASSIUM 4.2 mmol/L (3.6-5.0); SODIUM 142.3 mmol/L (137-145); TOTAL PROTEIN 6.4 g/dL (6.3-8.2); TRIGLYCERIDES 158 mg/dL (<150)
[2016-07-05 06:19] LABS: DIRECT LDL 42 mg/dL (<100)
[2016-07-05 06:20] LABS: AMYLASE < 30 U/L (30-110); VLDL CHOLESTEROL 31.6 mg/dL (10-31)
[2016-07-05] MEDS ORDERED: ENOXAPARIN SODIUM INJ 40 MG/0.4 ML DISP.SYRIN SUBCUT SCH (08:00)
[2016-07-05] MEDS ORDERED: METOPROLOL SUCCINATE 50 MG TAB.SR.24H PO SCH (08:00)
--- NOTE | 2016-07-05 08:12 | EKG REPORT ---
SEVERITY:- NORMAL ECG - SINUS RHYTHM : Confirmed by: Charlette Lorenzo MD 05-Jul-2016 08:12:00
[2016-07-05] MEDS: PREGABALIN 100 MG CAPSULE PO SCH ×2 (09:05→22:46)
[2016-07-05] MEDS: NORMAL SALINE 1000 ML 1,000 ML IV PRN ×2 (09:41→17:38)
[2016-07-05] MEDS ORDERED: LEVOFLOXACIN 750 MG TABLET PO SCH (10:00)
--- NOTE | 2016-07-05 19:30 | PDOC H&P ---
History of Present Illness Admission Date/PCP: 07/04/16 22:01 WILNER ORDAZ MD History of Present Illness: DAVIS PAGE is a 55 year old male patient is well-known to me, he was just recently discharged from this hospital after he fell and sustained right-sided rib fracture. He will return to the wound clinic for evaluation of his sacral decubiti ulcer and it was noted to be altered mental status and also hypoxemic. He was then transferred to emergency room in emergency room was evaluated he was found to be lethargic CT scan of the chest was done which was negative for any acute pathology. Patient took seroquel and that is why he was lethargic . He was also found to have leukocytosis, because of leukocytosis admission was advised Past Medical History Cardiac Medical History: Reports: Congestive Heart Failure, DVT, Myocardial Infarction, Hyperlipidema, Hypertension Pulmonary Medical History: Reports: Chronic Obstructive Pulmonary Disease (COPD) , Intubation, Pneumonia, Respiratory Failure Endocrine Medical History: Reports: Diabetes Mellitus Type 2 GI Medical History: Reports: Gastroesophageal Reflux Disease Musculoskeltal Medical History: Reports: Arthritis Psychiatric Medical History: Reports: Bipolar Disorder, Depression Past Surgical History Past Surgical History: Reports: Appendectomy, Cholecystectomy, Orthopedic Surgery Social History Lives with: Family Smoking Status: Current Every Day Smoker Cigarettes Packs Per Day: 1 Frequency of Alcohol Use: Occasional Hx Recreational Drug Use: Yes - Uknown Drugs: None Hx Prescription Drug Abuse: No - uknown Family History Family History: Reviewed & Not Pertinent Parental Family History Reviewed: Yes Children Family History Reviewed: Yes Sibling(s) Family History Reviewed.: Yes Medication/Allergy Home Medications: Albuterol Sulfate [Proair HFA] 1 puff IH Q4 07/04/16 Buprenorphine HCl/Naloxone HCl [Suboxone 8 mg-2 mg Sl Film] 1 film SL BID Clonidine HCl [Catapres 0.2 mg Tablet] 0.2 mg PO Q12 07/04/16 Cyclobenzaprine HCl [Flexeril 10 mg Tablet] 10 mg PO BID 07/04/16 Dextromethorphan HBr/Quinidine [Nuedexta 20-10 mg Capsule] 1 tab PO Q12 Doxepin HCl 50 mg PO HSP PRN 07/04/16 Furosemide [Lasix] 20 mg PO Q2D 07/04/16 Lamotrigine [Lamictal] 50 mg PO QAM 07/04/16 Lansoprazole [Prevacid] 30 mg PO QAM 07/04/16 Lisinopril [Prinivil] 20 mg PO QAM 07/04/16 Metoprolol Succinate [Toprol Xl 50 mg Tab.sr] 50 mg PO QAM 07/04/16 Paroxetine HCl [Paxil 20 mg Tablet] 20 mg PO DAILY 07/04/16 Pregabalin [Lyrica] 300 mg PO Q12 07/04/16 Quetiapine Fumarate [Seroquel] 600 mg PO QHS 07/04/16 Umeclidinium Brm/Vilanterol Tr [Anoro Ellipta 62.5-25 Mcg INH] 1 puff IH DAILY 07/04/16 Levofloxacin [Levaquin 750 mg Tablet] 750 mg PO DAILY #10 tab 07/05/16 Allergies/Adverse Reactions: ketorolac tromethamine [From Toradol] Allergy (Unknown, Verified 07/04/16 11:13) morphine [Morphine] Allergy (Unknown, Verified 07/04/16 11:13) acetaminophen [From Tylenol] Allergy (Verified 07/04/16 11:13) lorazepam [From Ativan] Adverse Reaction (Verified 07/04/16 11:13) Review of Systems Constitutional: PRESENT: fatigue Ears: PRESENT: as per HPI Respiratory: PRESENT: cough Gastrointestinal: PRESENT: nausea Neurological: PRESENT: abnormal gait Endocrine: ABSENT: as per HPI, cold intolerance, flushing, heat intolerance, menstrual abnormalities, polydipsia, polyphagia, polyuria, other Physical Exam Vital Signs: Temp Pulse Resp BP Pulse Ox 97.2 F 90 18 131/80 H 94 07/05/16 15:37 07/05/16 16:00 07/05/16 16:00 07/05/16 15:37 07/05/16 16:00 Intake & Output 07/04/16 07/05/16 07/06/16 06:59 06:59 06:59 Intake Total 638 2468 Output Total 1300 Balance 638 1168 Weight 110.9 kg General appearance: PRESENT: no acute distress Head exam: PRESENT: atraumatic, normocephalic Eye exam: PRESENT: PERRLA Neck exam: PRESENT: full ROM Cardiovascular exam: PRESENT: RRR, +S1, +S2 Vascular exam: PRESENT: normal capillary refill GI/Abdominal exam: PRESENT: normal bowel sounds, soft Rectal exam: PRESENT: deferred Neurological exam: PRESENT: alert, other - Left-sided hemiplegia Results Laboratory Results: 07/05/16 05:20 07/05/16 05:20 07/05/16 07/05/16 07/05/16 01:45 02:25 05:20 WBC RBC Hgb Hct MCV MCH MCHC RDW Plt Count Seg Neutrophils % Lymphocytes % Monocytes % Eosinophils % Basophils % Absolute Neutrophils Absolute Lymphocytes Absolute Monocytes Absolute Eosinophils Absolute Basophils Carbonic Acid 1.19 HCO3/H2CO3 Ratio 20:1 ABG pH 7.40 ABG pCO2 39.7 ABG pO2 61.4 L ABG HCO3 23.9 ABG O2 Saturation 91.6 L ABG Base Excess -0.8 FiO2 0.5L Sodium 142.3 Potassium 4.2 Chloride 110 H Carbon Dioxide 25 Anion Gap 7 BUN 20 Creatinine 0.66 Est GFR ( Amer) > 60 Est GFR (Non-Af Amer) > 60 Glucose 87 Calcium 8.7 Phosphorus 3.4 Magnesium 2.1 Total Bilirubin 0.5 AST 16 L ALT 20 L Alkaline Phosphatase 87 Ammonia Total Protein 6.4 Albumin 3.3 L Triglycerides 158 H Cholesterol 171.16 LDL Cholesterol Direct 42 VLDL Cholesterol 31.6 H HDL Cholesterol 51 Amylase < 30 L Lipase 23.2 Urine Color YELLOW Urine Appearance CLEAR Urine pH 6.0 Ur Specific [place] 1.012 Urine Protein NEGATIVE Urine Glucose (UA) NEGATIVE Urine Ketones NEGATIVE Urine Blood NEGATIVE Urine Nitrite NEGATIVE Ur Leukocyte Esterase NEGATIVE 07/05/16 07/05/16 05:20 05:20 WBC 9.1 RBC 3.99 L Hgb 9.1 L Hct 28.9 L MCV 73 L MCH 22.8 L MCHC 31.4 L RDW 17.9 H Plt Count 199 Seg Neutrophils % 76.9 Lymphocytes % 13.0 Monocytes % 7.7 Eosinophils % 1.9 Basophils % 0.5 Absolute Neutrophils 7.0 Absolute Lymphocytes 1.2 Absolute Monocytes 0.7 Absolute Eosinophils 0.2 Absolute Basophils 0.0 Carbonic Acid HCO3/H2CO3 Ratio ABG pH ABG pCO2 ABG pO2 ABG HCO3 ABG O2 Saturation ABG Base Excess FiO2 Sodium Potassium Chloride Carbon Dioxide Anion Gap BUN Creatinine Est GFR ( Amer) Est GFR (Non-Af Amer) Glucose Calcium Phosphorus Magnesium Total Bilirubin AST ALT Alkaline Phosphatase Ammonia < 8.7 L Total Protein Albumin Triglycerides Cholesterol LDL Cholesterol Direct VLDL Cholesterol HDL Cholesterol Amylase Lipase Urine Color Urine Appearance Urine pH Ur Specific [place] Urine Protein Urine Glucose (UA) Urine Ketones Urine Blood Urine Nitrite Ur Leukocyte Esterase 07/05/16 07/05/16 07/05/16 00:10 00:10 05:20 Creatine Kinase 241 H 200 H Troponin I < 0.012 07/05/16 07/05/16 07/05/16 05:20 11:40 11:40 Creatine Kinase 168 Troponin I < 0.012 < 0.012 Impressions: Head CT 07/04/16 13:56 IMPRESSION: CHRONIC CHANGES OF ATROPHY AND MICROVASCULAR ISCHEMIA. Old right MCA infarct which appears stable. NO ACUTE PROCESS. Abdomen/Pelvis CT 07/04/16 13:57 IMPRESSION: No significant intra-abdominal or pelvic posttraumatic changes are identified. Findings as noted above Chest CT 07/04/16 13:57 IMPRESSION: Nondisplaced acute fracture posterior left 11th rib Bilateral dependent atelectasis. No pleural effusions. No pneumothorax. Assessment & Plan - Diagnosis (1) Toxic encephalopathy Is this a current diagnosis for this admission?: YesPlan: The excessive somnolence is most likely from seroquel, he get full consciousness in the hospital (2) Chronic obstructive pulmonary disease Qualifiers: COPD type: unspecified COPD Qualified Code(s): J44.9 - Chronic obstructive pulmonary disease, unspecified Is this a current diagnosis for this admission?: Yes (3) Sacral decubitus ulcer, stage II Is this a current diagnosis for this admission?: YesPlan: Leukocytosis is probably from the sacral decubitus ulcer
--- NOTE | 2016-07-05 19:34 | PDOC DISCHARGE SUMMARY ---
General - Admit/Disc Date/PCP Admission Date/Primary Care Provider: 07/04/16 22:01 WILNER ORDAZ MD Discharge Date: 07/05/16 - Discharge Diagnosis (1) Toxic encephalopathy Is this a current diagnosis for this admission?: Yes (2) Chronic obstructive pulmonary disease Is this a current diagnosis for this admission?: Yes (3) Sacral decubitus ulcer, stage II Is this a current diagnosis for this admission?: Yes - Additional Information Home Medications: Albuterol Sulfate [Proair HFA] 1 puff IH Q4 07/04/16 Buprenorphine HCl/Naloxone HCl [Suboxone 8 mg-2 mg Sl Film] 1 film SL BID Clonidine HCl [Catapres 0.2 mg Tablet] 0.2 mg PO Q12 07/04/16 Cyclobenzaprine HCl [Flexeril 10 mg Tablet] 10 mg PO BID 07/04/16 Dextromethorphan HBr/Quinidine [Nuedexta 20-10 mg Capsule] 1 tab PO Q12 Doxepin HCl 50 mg PO HSP PRN 07/04/16 Furosemide [Lasix] 20 mg PO Q2D 07/04/16 Lamotrigine [Lamictal] 50 mg PO QAM 07/04/16 Lansoprazole [Prevacid] 30 mg PO QAM 07/04/16 Lisinopril [Prinivil] 20 mg PO QAM 07/04/16 Metoprolol Succinate [Toprol Xl 50 mg Tab.sr] 50 mg PO QAM 07/04/16 Paroxetine HCl [Paxil 20 mg Tablet] 20 mg PO DAILY 07/04/16 Pregabalin [Lyrica] 300 mg PO Q12 07/04/16 Quetiapine Fumarate [Seroquel] 600 mg PO QHS 07/04/16 Umeclidinium Brm/Vilanterol Tr [Anoro Ellipta 62.5-25 Mcg INH] 1 puff IH DAILY 07/04/16 Levofloxacin [Levaquin 750 mg Tablet] 750 mg PO DAILY #10 tab 07/05/16 History of Present Illness History of Present Illness: DAVIS PAGE is a 55 year old male patient is well-known to me, he was just recently discharged from this hospital after he fell and sustained right-sided rib fracture. He will return to the wound clinic for evaluation of his sacral decubiti ulcer and it was noted to be altered mental status and also hypoxemic. He was then transferred to emergency room in emergency room was evaluated he was found to be lethargic CT scan of the chest was done which was negative for any acute pathology. Patient took seroquel and that is why he was lethargic . He was also found to have leukocytosis, because of leukocytosis admission was advised Hospital Course Hospital Course: Patient was admitted because of toxic encephalopathy and leukocytosis, probably due to sacral decubiti ulcer. The toxic encephalopathy is most likely from Seroquel, he was treated with IV antibiotic and the leukocytosis resolved. He had IV Levaquin. Patient wants to go home if is much better. He does not see any reason for him to stay any longer Physical Exam Vital Signs: Temp Pulse Resp BP Pulse Ox 97.2 F 90 18 131/80 H 94 07/05/16 15:37 07/05/16 16:00 07/05/16 16:00 07/05/16 15:37 07/05/16 16:00 Intake & Output 07/04/16 07/05/16 07/06/16 06:59 06:59 06:59 Intake Total 638 2468 Output Total 1300 Balance 638 1168 Weight 110.9 kg General appearance: PRESENT: no acute distress Eye exam: PRESENT: PERRLA Respiratory exam: PRESENT: clear to auscultation jarett Cardiovascular exam: PRESENT: +S1, systolic murmur GI/Abdominal exam: PRESENT: soft Results Laboratory Results: 07/05/16 05:20 07/05/16 05:20 07/05/16 07/05/16 07/05/16 01:45 02:25 05:20 WBC RBC Hgb Hct MCV MCH MCHC RDW Plt Count Seg Neutrophils % Lymphocytes % Monocytes % Eosinophils % Basophils % Absolute Neutrophils Absolute Lymphocytes Absolute Monocytes Absolute Eosinophils Absolute Basophils Carbonic Acid 1.19 HCO3/H2CO3 Ratio 20:1 ABG pH 7.40 ABG pCO2 39.7 ABG pO2 61.4 L ABG HCO3 23.9 ABG O2 Saturation 91.6 L ABG Base Excess -0.8 FiO2 0.5L Sodium 142.3 Potassium 4.2 Chloride 110 H Carbon Dioxide 25 Anion Gap 7 BUN 20 Creatinine 0.66 Est GFR ( Amer) > 60 Est GFR (Non-Af Amer) > 60 Glucose 87 Calcium 8.7 Phosphorus 3.4 Magnesium 2.1 Total Bilirubin 0.5 AST 16 L ALT 20 L Alkaline Phosphatase 87 Ammonia Total Protein 6.4 Albumin 3.3 L Triglycerides 158 H Cholesterol 171.16 LDL Cholesterol Direct 42 VLDL Cholesterol 31.6 H HDL Cholesterol 51 Amylase < 30 L Lipase 23.2 Urine Color YELLOW Urine Appearance CLEAR Urine pH 6.0 Ur Specific [place] 1.012 Urine Protein NEGATIVE Urine Glucose (UA) NEGATIVE Urine Ketones NEGATIVE Urine Blood NEGATIVE Urine Nitrite NEGATIVE Ur Leukocyte Esterase NEGATIVE 07/05/16 07/05/16 05:20 05:20 WBC 9.1 RBC 3.99 L Hgb 9.1 L Hct 28.9 L MCV 73 L MCH 22.8 L MCHC 31.4 L RDW 17.9 H Plt Count 199 Seg Neutrophils % 76.9 Lymphocytes % 13.0 Monocytes % 7.7 Eosinophils % 1.9 Basophils % 0.5 Absolute Neutrophils 7.0 Absolute Lymphocytes 1.2 Absolute Monocytes 0.7 Absolute Eosinophils 0.2 Absolute Basophils 0.0 Carbonic Acid HCO3/H2CO3 Ratio ABG pH ABG pCO2 ABG pO2 ABG HCO3 ABG O2 Saturation ABG Base Excess FiO2 Sodium Potassium Chloride Carbon Dioxide Anion Gap BUN Creatinine Est GFR ( Amer) Est GFR (Non-Af Amer) Glucose Calcium Phosphorus Magnesium Total Bilirubin AST ALT Alkaline Phosphatase Ammonia < 8.7 L Total Protein Albumin Triglycerides Cholesterol LDL Cholesterol Direct VLDL Cholesterol HDL Cholesterol Amylase Lipase Urine Color Urine Appearance Urine pH Ur Specific [place] Urine Protein Urine Glucose (UA) Urine Ketones Urine Blood Urine Nitrite Ur Leukocyte Esterase 07/05/16 07/05/16 07/05/16 00:10 00:10 05:20 Creatine Kinase 241 H 200 H Troponin I < 0.012 07/05/16 07/05/16 07/05/16 05:20 11:40 11:40 Creatine Kinase 168 Troponin I < 0.012 < 0.012 Impressions: Head CT 07/04/16 13:56 IMPRESSION: CHRONIC CHANGES OF ATROPHY AND MICROVASCULAR ISCHEMIA. Old right MCA infarct which appears stable. NO ACUTE PROCESS. Abdomen/Pelvis CT 07/04/16 13:57 IMPRESSION: No significant intra-abdominal or pelvic posttraumatic changes are identified. Findings as noted above Chest CT 07/04/16 13:57 IMPRESSION: Nondisplaced acute fracture posterior left 11th rib Bilateral dependent atelectasis. No pleural effusions. No pneumothorax.
[2016-07-05 23:46] VITALS: BP 141/71
== END 2016-07-05 23:35 | disposition home or self-care (01) | DRG 92 ==
LOC: ER 10:31 → EH 17:28 → UNDOADMIN 17:28 → EH 22:01 → 3N 23:00
PROVIDERS: ADMIT Internal Medicine; ATTEND Internal Medicine
PROC: 06HM33Z Insertion of Infusion Device into Right Femoral Vein, Percutaneous Approach (ICD-10-PCS; principal; 2016-07-04)
DX: G92 Toxic encephalopathy (principal); I69.354 Hemiplegia and hemiparesis following cerebral infarction affecting left non-dominant side; F11.20 Opioid dependence, uncomplicated; N17.9 Acute kidney failure, unspecified; T43.595A Adverse effect of other antipsychotics and neuroleptics, initial encounter; Y92.89 Other specified places as the place of occurrence of the external cause; J44.9 Chronic obstructive pulmonary disease, unspecified; I25.2 Old myocardial infarction; E11.9 Type 2 diabetes mellitus without complications; K21.9 Gastro-esophageal reflux disease without esophagitis; F31.9 Bipolar disorder, unspecified; F17.210 Nicotine dependence, cigarettes, uncomplicated; M19.90 Unspecified osteoarthritis, unspecified site; I25.9 Chronic ischemic heart disease, unspecified; D72.829 Elevated white blood cell count, unspecified; I87.2 Venous insufficiency (chronic) (peripheral); E78.5 Hyperlipidemia, unspecified; I11.0 Hypertensive heart disease with heart failure; I50.9 Heart failure, unspecified; L89.152 Pressure ulcer of sacral region, stage 2; E86.0 Dehydration; S22.31XD Fracture of one rib, right side, subsequent encounter for fracture with routine healing; W19.XXXD Unspecified fall, subsequent encounter; Z88.8 Allergy status to other drugs, medicaments and biological substances; Z88.6 Allergy status to analgesic agent; Z86.718 Personal history of other venous thrombosis and embolism; Z90.49 Acquired absence of other specified parts of digestive tract
CPT/HCPCS: 36415; 70450; 71260; 74177; 80048; 80053; 80061; 80076; 80307; 81001; 82140; 82150; 82550; 82553; 82803; 83036; 83690; 83735; 83880; 84100; 84439; 84443; 84484; 85025; 85610; 87040; 87086; 93005; 93010; 99291; C1751; J0456; J0696; J1650; J3490; J7030; J7620

== ENCOUNTER 2016-07-24 16:48 | Inpatient (IN) | payer MEDICARE, MEDICAID ==
[2016-07-24] MEDS ORDERED: IPRATROPIUM/ALBUTEROL 0.5-2.5 MG/3 ML AMPUL NEB ONE (19:17)
[2016-07-24] MEDS ORDERED: PREDNISONE 20 MG TABLET PO ONE (19:17)
--- NOTE | 2016-07-24 19:19 | ER Document Report ---
ED General - General Chief Complaint: Shortness Of Breath Stated Complaint: SHORTNESS OF BREATH Notes: Patient is a 55-year-old male with past medical history of prior CVA, frequent emergency department visits for COPD exacerbations who presents with 2 days of progressively worsening shortness of breath. States that he's been using home nebulizers without improvement of his symptoms. States this feels very similar prior COPD exacerbations. He has not seen his primary care doctor as an outpatient for this concern. He does not normally require oxygen at home and does not have available to him at home. He denies any chest pain, vomiting, fever or diaphoresis. TRAVEL OUTSIDE OF THE [place] IN LAST 30 DAYS: No - Related Data Allergies/Adverse Reactions: ketorolac tromethamine [From Toradol] Allergy (Unknown, Verified 07/04/16 11:13) morphine [Morphine] Allergy (Unknown, Verified 07/04/16 11:13) acetaminophen [From Tylenol] Allergy (Verified 07/04/16 11:13) lorazepam [From Ativan] Adverse Reaction (Verified 07/04/16 11:13) Past Medical History - General Information source: Patient - Social History Smoking Status: Current Every Day Smoker Frequency of alcohol use: None Drug Abuse: None Lives with: Alone Family History: Reviewed & Not Pertinent - Past Medical History Cardiac Medical History: Reports: Hx Congestive Heart Failure, Hx DVT, Hx Heart Attack, Hx Hypercholesterolemia, Hx Hypertension Pulmonary Medical History: Reports: Hx COPD, Hx Pneumonia, Hx Intubation, Hx Respiratory Failure Neurological Medical History: Reports: Hx Cerebrovascular Accident. Denies: Hx Seizures Endocrine Medical History: Reports: Hx Diabetes Mellitus Type 2 Renal/ Medical History: Reports: Hx Kidney Stones. Denies: Hx Peritoneal Dialysis GI Medical History: Reports: Hx Gastroesophageal Reflux Disease Musculoskeltal Medical History: Reports Hx Arthritis Psychiatric Medical History: Reports: Hx Bipolar Disorder, Hx Depression Denies: Hx Schizophrenia Past Surgical History: Reports: Hx Appendectomy, Hx Cholecystectomy, Hx Orthopedic Surgery - Immunizations Immunizations up to date: Yes Hx Diphtheria, Pertussis, Tetanus Vaccination: Yes Hx Pneumococcal Vaccination: 05/13/11 Review of Systems - Review of Systems Notes: Constitutional: Negative for fever. HENT: Negative for sore throat. Eyes: Negative for visual changes. Cardiovascular: Negative for chest pain. Respiratory: Positive for shortness of breath. Gastrointestinal: Negative for abdominal pain, vomiting or diarrhea. Genitourinary: Negative for dysuria. Musculoskeletal: Negative for back pain. Skin: Negative for rash. Neurological: Negative for headaches, weakness or numbness. 10 point ROS negative except as marked above and in HPI. Physical Exam - Vital signs Vitals: Resp 17 07/24/16 17:21 Interpretation: Hypoxic Notes: PHYSICAL EXAMINATION: GENERAL: Morbidly obese man who appears older than stated age HEAD: Atraumatic, normocephalic. EYES: Pupils equal round and reactive to light, extraocular movements intact, sclera anicteric, conjunctiva are normal. ENT: nares patent, oropharynx clear without exudates. Moderately dry mucous membranes. NECK: Normal range of motion, supple without lymphadenopathy LUNGS: Diffuse wheezing in all lung [place] moderately diminished air movement throughout. Prolonged expiratory phase. No respiratory distress. HEART: Regular rate and rhythm without murmurs ABDOMEN: Soft, nontender, normoactive bowel sounds. No guarding, no rebound. No masses appreciated. EXTREMITIES: Normal range of motion, no pitting or edema. No cyanosis. NEUROLOGICAL: Moves all extremities on command. PSYCH: Normal mood, normal affect. SKIN: Warm, Dry, normal turgor, no rashes or lesions noted. Course - Re-evaluation Re-evalutation: 07/24/16 19:17 Patient presents with a mild exacerbation of their baseline COPD. patient without significant respiratory distress although noted to be hypoxemic requiring 3-4 L by nasal cannula to maintain oxygen saturation in the 90s. Multiple attempts were made titrating the oxygen off after receiving nebulized albuterol ipratropium without any improvement. Patient continued to desaturate to the upper 70s on room air a does not have access to oxygen at home. Chest x- ray without evidence of acute pneumonia or pneumothorax. EKG unremarkable. Labs are pending at this time. Patient will likely require readmission. 07/24/16 22:34 Patient continues to have a 3-4 L oxygen requirement by nasal cannula. His laboratories are unremarkable. I discussed this case with patient's primary care physician agrees that his exacerbation today is likely due to his continued smoking and will admit given his oxygen dependence. - Vital Signs Vital signs: Temp Pulse Resp BP Pulse Ox 98.8 F 17 150/98 H 86 L 07/24/16 17:43 07/24/16 22:31 07/24/16 23:31 07/24/16 23:31 - Laboratory Result Diagrams: 07/24/16 21:56 07/24/16 21:56 Laboratory results interpreted by me: 07/24/16 07/24/16 21:56 21:56 RBC 4.31 L Hgb 9.4 L Hct 30.4 L MCV 70 L MCH 21.8 L MCHC 31.0 L RDW 18.4 H Plt Count 142 L Glucose 129 H - Diagnostic Test Radiology reviewed: Image reviewed, Reports reviewed Radiology results interpreted by me: 07/24/16 19:18 Chest x-ray: No acute infiltrate or pneumothorax - EKG Interpretation by Me Additional EKG results interpreted by me: 07/24/16 19:18 Normal sinus rhythm. Rate 88. No ST elevations or depressions. QTC is 465. Discharge - Discharge Clinical Impression: COPD with acute exacerbation, Hypoxemia Disposition: ADMITTED INPATIENT Admitting Provider: [facility] Unit Admitted: Telemetry
[2016-07-24 22:12] LABS: VENOUS BLOOD BASE EXCESS 1.3 mmol/L; VENOUS BLOOD HCO3 27.6 mmol/L (20-32); VENOUS BLOOD PCO2 52.4 mmHg (35-63); VENOUS BLOOD PH 7.34 (7.30-7.42)
[2016-07-24 22:14] LABS: HEMATOCRIT 30.4 % (37.9-51.0); HEMOGLOBIN 9.4 g/dL (13.5-17.0); HGB HCT DIFFERENCE -2.2; MEAN CORPUSCULAR HEMOGLOBIN 21.8 pg (27.0-33.4); MEAN CORPUSCULAR VOLUME 70 fl (80-97); RED BLOOD COUNT 4.31 10^6/uL (4.35-5.55); RED CELL DISTRIBUTION WIDTH 18.4 % (11.5-14.0); WHITE BLOOD COUNT 9.7 10^3/uL (4.0-10.5)
[2016-07-24 22:30] LABS: ANION GAP 10 (5-19); BLOOD UREA NITROGEN 11 mg/dL (7-20); CALCIUM 9.1 mg/dL (8.4-10.2); CARBON DIOXIDE 25 mmol/L (22-30); CHLORIDE 107 mmol/L (98-107); CREATININE RESULT 0.69 mg/dL (0.52-1.25); GLUCOSE 129 mg/dL (75-110); POTASSIUM 4.7 mmol/L (3.6-5.0); SODIUM 141.8 mmol/L (137-145)
[2016-07-24] MEDS ORDERED: MAGNESIUM SULFATE/D5W 100 ML IV SCH (22:45)
[2016-07-25] MEDS ORDERED: IPRATROPIUM/ALBUTEROL 0.5-2.5 MG/3 ML AMPUL NEB PRN (07:48)
[2016-07-25] MEDS ORDERED: DEXTROSE 50%-WATER 25 GM/50 ML DISP.SYRIN IV PRN ×2 (07:51)
[2016-07-25] MEDS ORDERED: DEXTROSE 40% GEL 15 GM TUBE PO PRN ×2 (07:51)
[2016-07-25] MEDS ORDERED: GLUCAGON,HUMAN RECOMB 1 MG INJ IM PRN (07:51)
--- NOTE | 2016-07-25 07:53 | EKG REPORT ---
SEVERITY:- OTHERWISE NORMAL ECG - SINUS RHYTHM BORDERLINE LEFT AXIS DEVIATION : Confirmed by: Charlette Lorenzo MD 25-Jul-2016 07:52:50
[2016-07-25] MEDS ORDERED: DEXTROMETHORPHAN HBR PO SCH (08:00)
[2016-07-25] MEDS ORDERED: [UNRECOGNIZED DRUG - OTHER] PO SCH (08:00)
[2016-07-25] MEDS ORDERED: ENOXAPARIN SODIUM INJ 40 MG/0.4 ML DISP.SYRIN SUBCUT SCH (08:00)
[2016-07-25] MEDS ORDERED: QUINIDINE PO SCH (08:00)
[2016-07-25] MEDS ORDERED: (PENDING PHARMACY ID) (Umeclidinium Brm/Vilanterol Tr [Anoro Ellipta 62.5-25 Mcg Inh] 1 PU IH SCH (08:00)
[2016-07-25] MEDS ORDERED: ENOXAPARIN SODIUM INJ 40 MG/0.4 ML DISP.SYRIN SUBCUT ONE (09:00)
[2016-07-25] MEDS: IPRATROPIUM/ALBUTEROL 0.5-2.5 MG/3 ML AMPUL NEB SCH ×6 (09:04→22:29)
[2016-07-25] MEDS ORDERED: PREGABALIN 100 MG CAPSULE PO ONE (10:00)
[2016-07-25] MEDS ORDERED: LAMOTRIGINE 100 MG TABLET PO ONE (10:00)
[2016-07-25] MEDS ORDERED: LISINOPRIL 10 MG TABLET PO ONE (10:00)
[2016-07-25] MEDS ORDERED: LANSOPRAZOLE 30 MG TAB.RAP.DR PO ONE (10:00)
[2016-07-25] MEDS ORDERED: (PENDING PHARMACY ID) (Buprenorphine Hcl/Naloxone Hcl [Suboxone 8 Mg-2 Mg Sl Film] 1 FILM) SL SCH (10:00)
[2016-07-25] MEDS ORDERED: QUETIAPINE FUMARATE 100 MG TABLET PO ONE (10:00)
[2016-07-25 10:53] LABS: PROTHROMBIN TIME 13.6 SEC (11.4-15.4)
[2016-07-25 10:54] LABS: PARTIAL THROMBOPLASTIN TIME 33.9 SEC (23.5-35.8)
[2016-07-25] MEDS: PREGABALIN 100 MG CAPSULE PO SCH ×2 (11:08→22:16)
[2016-07-25] MEDS: LEVOFLOXACIN 750 MG TABLET PO SCH (11:09)
[2016-07-25] MEDS: METOPROLOL SUCCINATE 50 MG TAB.SR.24H PO SCH (11:10)
[2016-07-25] MEDS: CLONIDINE HCL 0.2 MG TABLET PO SCH ×2 (11:10→22:16)
[2016-07-25] MEDS: PAROXETINE HCL 20 MG TABLET PO SCH (11:10)
[2016-07-25] MEDS: METHYLPREDNISOLONE INJ 125 MG/2 ML SDV IV SCH ×2 (11:14→19:03)
[2016-07-25 11:16] LABS: MAGNESIUM 2.5 mg/dL (1.6-2.3); PHOSPHORUS 3.9 mg/dL (2.5-4.5)
[2016-07-25 11:17] LABS: AMYLASE < 30 U/L (30-110); LIPASE < 10.0 U/L (23-300)
[2016-07-25 11:23] LABS: CREATINE KINASE MB 2.99 ng/mL (<4.55)
[2016-07-25 11:28] LABS: TROPONIN I < 0.012 ng/mL
[2016-07-25 11:41] LABS: ARTERIAL BLOOD O2 SATURATION 93.2 % (94-98)
[2016-07-25 11:45] LABS: THYROID STIMULATING HORMONE 0.89 uIU/mL (0.47-4.68)
[2016-07-25 15:42] LABS: CREATINE KINASE MB 3.62 ng/mL (<4.55)
[2016-07-25 15:46] LABS: TROPONIN I < 0.012 ng/mL
[2016-07-25] MEDS: QUETIAPINE FUMARATE 100 MG TABLET PO SCH (22:16)
[2016-07-25 23:37] LABS: TROPONIN I < 0.012 ng/mL
[2016-07-26] MEDS: IPRATROPIUM/ALBUTEROL 0.5-2.5 MG/3 ML AMPUL NEB SCH ×6 (02:16→20:48)
[2016-07-26] MEDS: METHYLPREDNISOLONE INJ 125 MG/2 ML SDV IV SCH ×3 (03:04→18:10)
[2016-07-26 06:57] LABS: ABSOLUTE LYMPHOCYTES (AUTO) 0.4 10^3/uL (0.5-4.7); ABSOLUTE MONOCYTES (AUTO) 0.2 10^3/uL (0.1-1.4); ABSOLUTE NEUT (AUTO) 5.4 10^3/uL (1.7-8.2); BASOPHILS % (AUTO) 0.2 % (0-2); HEMATOCRIT 28.4 % (37.9-51.0); HEMOGLOBIN 8.9 g/dL (13.5-17.0); HGB HCT DIFFERENCE -1.7; LYMPHOCYTES % (AUTO) 7.3 % (13-45); MEAN CORPUSCULAR HEMOGLOBIN 21.9 pg (27.0-33.4); MEAN CORPUSCULAR HGB CONC 31.3 g/dL (32.0-36.0); MEAN CORPUSCULAR VOLUME 70 fl (80-97); MONOCYTES % (AUTO) 3.6 % (3-13); RED BLOOD COUNT 4.05 10^6/uL (4.35-5.55); RED CELL DISTRIBUTION WIDTH 18.4 % (11.5-14.0); SEGMENTED NEUTROPHILS % (AUTO) 88.9 % (42-78)
[2016-07-26 07:19] LABS: ALANINE AMINOTRANSFERASE 26 U/L (21-72); ALBUMIN 3.6 g/dL (3.5-5.0); ALKALINE PHOSPHATASE 99 U/L (38-126); ANION GAP 7 (5-19); ASPARTATE AMINO TRANSFERASE 14 U/L (17-59); BILIRUBIN,TOTAL 0.4 mg/dL (0.2-1.3); BLOOD UREA NITROGEN 17 mg/dL (7-20); CALCIUM 9.6 mg/dL (8.4-10.2); CARBON DIOXIDE 26 mmol/L (22-30); CHLORIDE 108 mmol/L (98-107); CHOLESTEROL 205.55 mg/dL (0-200); CREATININE RESULT 0.64 mg/dL (0.52-1.25); Direct HDL 62 mg/dL (>40); GLUCOSE 179 mg/dL (75-110); POTASSIUM 4.7 mmol/L (3.6-5.0); SODIUM 140.9 mmol/L (137-145); TRIGLYCERIDES 68 mg/dL (<150)
[2016-07-26 07:30] LABS: DIRECT LDL 63 mg/dL (<100)
[2016-07-26 10:52] LABS: APPEARANCE,URINE CLEAR; BILIRUBIN,URINE NEGATIVE (NEGATIVE); GLUCOSE, URINE NEGATIVE (NEGATIVE); KETONES,URINE NEGATIVE (NEGATIVE); LEUKOCYTE ESTERASE,URINE NEGATIVE (NEGATIVE); NITRITE,URINE NEGATIVE (NEGATIVE); PROTEIN,URINE NEGATIVE (NEGATIVE); URINE SPECIFIC GRAVITY 1.017; UROBILINOGEN,URINE NEGATIVE mg/dL (<2.0)
[2016-07-26 11:13] LABS: URINE BARBITURATES SCREEN NEGATIVE; URINE METHADONE SCREEN NEGATIVE; URINE OPIATES LOW NEGATIVE; URINE PHENCYCLIDINE SCREEN NEGATIVE
[2016-07-26] MEDS: ENOXAPARIN SODIUM INJ 40 MG/0.4 ML DISP.SYRIN SUBCUT SCH (12:28)
[2016-07-26] MEDS: PAROXETINE HCL 20 MG TABLET PO SCH (12:29)
[2016-07-26] MEDS: CLONIDINE HCL 0.2 MG TABLET PO SCH ×2 (12:29→21:44)
[2016-07-26] MEDS: LANSOPRAZOLE 30 MG TAB.RAP.DR PO SCH (12:29)
[2016-07-26] MEDS: LISINOPRIL 10 MG TABLET PO SCH (12:30)
[2016-07-26] MEDS: METOPROLOL SUCCINATE 50 MG TAB.SR.24H PO SCH (12:30)
[2016-07-26] MEDS: LEVOFLOXACIN 750 MG TABLET PO SCH (12:30)
[2016-07-26] MEDS: PREGABALIN 100 MG CAPSULE PO SCH ×2 (12:31→21:44)
--- NOTE | 2016-07-26 13:05 | PDOC H&P ---
History of Present Illness Admission Date/PCP: 07/24/16 23:11 WILNER ORDAZ MD History of Present Illness: DAVIS PAGE is a 55 year old male, He came to the emergency room because of shortness of breath, He has very severe chronic obstructive lung disease, CVA with residual paralysis, sacral decubital ulcer. He continued to smoke cigarettes despite very severe COPD, in the emergency room he was treated for his symptoms without improvement and the emergency room physician does not feel comfortable enough to discharge him home, he wanted him admitted to the hospital. CT of the chest was done and showed no pneumonia. Past Medical History Cardiac Medical History: Reports: Congestive Heart Failure, DVT, Myocardial Infarction, Hyperlipidema, Hypertension Pulmonary Medical History: Reports: Chronic Obstructive Pulmonary Disease (COPD) , Intubation, Pneumonia, Respiratory Failure Neurological Medical History: Denies: Seizures Endocrine Medical History: Reports: Diabetes Mellitus Type 2 GI Medical History: Reports: Gastroesophageal Reflux Disease Musculoskeltal Medical History: Reports: Arthritis Psychiatric Medical History: Reports: Bipolar Disorder, Depression Past Surgical History Past Surgical History: Reports: Appendectomy, Cholecystectomy, Orthopedic Surgery Social History Lives with: Alone Smoking Status: Current Every Day Smoker Frequency of Alcohol Use: None Hx Recreational Drug Use: No Drugs: None Hx Prescription Drug Abuse: No - Advance Directive Resuscitation Status: Full Code Family History Family History: Reviewed & Not Pertinent Parental Family History Reviewed: Yes Children Family History Reviewed: Yes Sibling(s) Family History Reviewed.: Yes Medication/Allergy Home Medications: Albuterol Sulfate [Proair HFA Inhalation Aerosol 8.5 gm MDI] 1 puff IH Q4 Buprenorphine HCl/Naloxone HCl [Suboxone 8 mg-2 mg Sl Film] 1 film SL BID Clonidine HCl [Catapres 0.2 mg Tablet] 0.2 mg PO BID 07/25/16 Cyclobenzaprine HCl [Flexeril 10 mg Tablet] 10 mg PO BID PRN 07/25/16 Dextromethorphan HBr/Quinidine [Nuedexta 20-10 mg Capsule] 1 cap PO BID Furosemide [Lasix] 20 mg PO Q48HP PRN 07/25/16 Lamotrigine [Lamictal] 50 mg PO QAM 07/25/16 Lansoprazole [Prevacid] 30 mg PO QAM 07/25/16 Metoprolol Succinate [Toprol Xl 50 mg Tab.sr] 50 mg PO QAM 07/25/16 Paroxetine HCl [Paxil] 20 mg PO DAILY 07/25/16 Pregabalin [Lyrica] 300 mg PO BID 07/25/16 Quetiapine Fumarate [Seroquel] 600 mg PO QHS 07/25/16 RX: Doxepin HCl 50 mg PO QHS PRN 07/25/16 RX: Lisinopril [Prinivil] 20 mg PO QAM 07/25/16 Umeclidinium Brm/Vilanterol Tr [Anoro Ellipta 62.5-25 Mcg INH] 1 puff IH DAILY 07/25/16 Allergies/Adverse Reactions: ketorolac tromethamine [From Toradol] Allergy (Unknown, Verified 07/04/16 11:13) morphine [Morphine] Allergy (Unknown, Verified 07/04/16 11:13) acetaminophen [From Tylenol] Allergy (Verified 07/04/16 11:13) lorazepam [From Ativan] Adverse Reaction (Verified 07/04/16 11:13) Review of Systems Constitutional: ABSENT: chills, fever(s), headache(s), weight gain, weight loss Eyes: ABSENT: visual disturbances Ears: ABSENT: hearing changes Cardiovascular: PRESENT: dyspnea on exertion Respiratory: PRESENT: cough, dyspnea, sputum Gastrointestinal: ABSENT: abdominal pain, constipation, diarrhea, hematemesis, hematochezia, nausea, vomiting Genitourinary: ABSENT: dysuria, hematuria Musculoskeletal: ABSENT: joint swelling Integumentary: ABSENT: rash, wounds Neurological: ABSENT: abnormal gait, abnormal speech, confusion, dizziness, focal weakness, syncope Psychiatric: ABSENT: anxiety, depression, homidical ideation, suicidal ideation Endocrine: ABSENT: cold intolerance, heat intolerance, menstrual abnormalities, polydipsia, polyuria Hematologic/Lymphatic: ABSENT: easy bleeding, easy bruising, lymphadenopathy Physical Exam Vital Signs: Temp Pulse Resp BP Pulse Ox 98.7 F 78 18 139/98 H 92 07/26/16 08:00 07/26/16 11:56 07/26/16 11:56 07/26/16 08:00 07/26/16 11:56 Intake & Output 07/25/16 07/26/16 07/27/16 06:59 06:59 06:59 Intake Total 405 480 Output Total 500 600 Balance -500 -195 480 Weight 116.6 kg General appearance: PRESENT: mild distress Head exam: PRESENT: atraumatic, normocephalic Eye exam: PRESENT: conjunctiva pink, EOMI, PERRLA Ear exam: PRESENT: normal external ear exam Mouth exam: PRESENT: moist, tongue midline Neck exam: PRESENT: full ROM Respiratory exam: PRESENT: wheezes Cardiovascular exam: PRESENT: RRR, +S1, +S2 Pulses: PRESENT: normal dorsalis pedis pul, +2 pedal pulses bilateral Vascular exam: PRESENT: normal capillary refill GI/Abdominal exam: PRESENT: normal bowel sounds, soft Rectal exam: PRESENT: deferred Neurological exam: PRESENT: alert, awake, oriented to person, oriented to place , oriented to time, oriented to situation, CN II-XII grossly intact Psychiatric exam: PRESENT: appropriate affect, normal mood Skin exam: PRESENT: dry, intact, warm Results Laboratory Results: 07/26/16 06:24 07/26/16 06:24 07/26/16 07/26/16 07/26/16 06:24 06:24 08:56 WBC 6.0 RBC 4.05 L Hgb 8.9 L Hct 28.4 L MCV 70 L MCH 21.9 L MCHC 31.3 L RDW 18.4 H Plt Count 164 Seg Neutrophils % 88.9 H Lymphocytes % 7.3 L Monocytes % 3.6 Eosinophils % 0.0 Basophils % 0.2 Absolute Neutrophils 5.4 Absolute Lymphocytes 0.4 L Absolute Monocytes 0.2 Absolute Eosinophils 0.0 Absolute Basophils 0.0 Sodium 140.9 Potassium 4.7 Chloride 108 H Carbon Dioxide 26 Anion Gap 7 BUN 17 Creatinine 0.64 Est GFR ( Amer) > 60 Est GFR (Non-Af Amer) > 60 Glucose 179 H Calcium 9.6 Total Bilirubin 0.4 AST 14 L ALT 26 Alkaline Phosphatase 99 Total Protein 7.0 Albumin 3.6 Triglycerides 68 Cholesterol 205.55 H LDL Cholesterol Direct 63 VLDL Cholesterol 14.0 HDL Cholesterol 62 Urine Color YELLOW Urine Appearance CLEAR Urine pH 7.0 Ur Specific [place] 1.017 Urine Protein NEGATIVE Urine Glucose (UA) NEGATIVE Urine Ketones NEGATIVE Urine Blood NEGATIVE Urine Nitrite NEGATIVE Ur Leukocyte Esterase NEGATIVE Urine WBC (Auto) 0 Urine RBC (Auto) 0 03/15/17 03/15/17 03/15/17 10:32 10:32 10:32 Creatine Kinase 133 CK-MB (CK-2) 2.99 Troponin I < 0.012 NT-Pro-B Natriuret Pep 1270 H 07/25/16 07/25/16 07/25/16 15:07 16:37 22:30 Creatine Kinase 125 99 CK-MB (CK-2) 3.62 Troponin I < 0.012 NT-Pro-B Natriuret Pep 07/25/16 22:30 Creatine Kinase CK-MB (CK-2) 3.40 Troponin I < 0.012 NT-Pro-B Natriuret Pep Impressions: Chest X-Ray 07/24/16 18:38 IMPRESSION: NO ACUTE RADIOGRAPHIC FINDING IN THE CHEST. Chest CT 07/25/16 00:00 IMPRESSION: No acute consolidations or pleural effusions are identified. Chronic appearing changes are identified. There are multiple borderline enlarged mediastinal lymph nodes as noted above which appears slightly larger on the current study. Other findings as noted above Assessment & Plan - Diagnosis (1) COPD with acute exacerbation Is this a current diagnosis for this admission?: YesPlan: Patient is admitted and started on intravenous Solu-Medrol, bronchodilators (2) Chronic diastolic heart failure Is this a current diagnosis for this admission?: Yes (3) Hemiplegia affecting left nondominant side Qualifiers: Hemiplegia type: flaccid Hemiplegia etiology: cerebrovascular Cerebrovascular disease type: unspecified type Qualified Code(s): G81.04 - Flaccid hemiplegia affecting left nondominant side; I60.9 - Nontraumatic subarachnoid hemorrhage, unspecified Is this a current diagnosis for this admission?: Yes (4) Sacral decubitus ulcer, stage II Is this a current diagnosis for this admission?: Yes
[2016-07-26] MEDS ORDERED: IPRATROPIUM/ALBUTEROL 0.5-2.5 MG/3 ML AMPUL NEB PRN (13:34)
[2016-07-26] MEDS: LAMOTRIGINE 100 MG TABLET PO SCH (14:46)
[2016-07-26] MEDS: INSULIN LISPRO 100 UNIT/ML 3 ML VIAL SUBCUT PRN (16:17)
--- NOTE | 2016-07-26 19:08 | PDOC PROGRESS REPORT ---
Subjective Progress Note for:: 07/26/16 Subjective:: Patient was admitted because of acute COPD exacerbation with acute hypercapnic failure, he was seen by the bedside is responding to IV Solu-Medrol Physical Exam Vital Signs: Temp Pulse Resp BP Pulse Ox 97.5 F 91 15 129/80 H 91 L 07/26/16 12:00 07/26/16 16:54 07/26/16 16:54 07/26/16 16:54 07/26/16 16:54 Intake & Output 07/25/16 07/26/16 07/27/16 06:59 06:59 06:59 Intake Total 405 1060 Output Total 500 600 800 Balance -500 -195 260 Weight 116.6 kg General appearance: PRESENT: no acute distress Eye exam: PRESENT: PERRLA Respiratory exam: PRESENT: wheezes Cardiovascular exam: PRESENT: +S1, +S2 GI/Abdominal exam: PRESENT: soft Neurological exam: PRESENT: alert Results Laboratory Results: 07/26/16 06:24 07/26/16 06:24 07/26/16 07/26/16 07/26/16 06:24 06:24 08:56 WBC 6.0 RBC 4.05 L Hgb 8.9 L Hct 28.4 L MCV 70 L MCH 21.9 L MCHC 31.3 L RDW 18.4 H Plt Count 164 Seg Neutrophils % 88.9 H Lymphocytes % 7.3 L Monocytes % 3.6 Eosinophils % 0.0 Basophils % 0.2 Absolute Neutrophils 5.4 Absolute Lymphocytes 0.4 L Absolute Monocytes 0.2 Absolute Eosinophils 0.0 Absolute Basophils 0.0 Sodium 140.9 Potassium 4.7 Chloride 108 H Carbon Dioxide 26 Anion Gap 7 BUN 17 Creatinine 0.64 Est GFR ( Amer) > 60 Est GFR (Non-Af Amer) > 60 Glucose 179 H Calcium 9.6 Total Bilirubin 0.4 AST 14 L ALT 26 Alkaline Phosphatase 99 Total Protein 7.0 Albumin 3.6 Triglycerides 68 Cholesterol 205.55 H LDL Cholesterol Direct 63 VLDL Cholesterol 14.0 HDL Cholesterol 62 Urine Color YELLOW Urine Appearance CLEAR Urine pH 7.0 Ur Specific [place] 1.017 Urine Protein NEGATIVE Urine Glucose (UA) NEGATIVE Urine Ketones NEGATIVE Urine Blood NEGATIVE Urine Nitrite NEGATIVE Ur Leukocyte Esterase NEGATIVE Urine WBC (Auto) 0 Urine RBC (Auto) 0 03/15/17 03/15/17 03/15/17 10:32 10:32 10:32 Creatine Kinase 133 CK-MB (CK-2) 2.99 Troponin I < 0.012 NT-Pro-B Natriuret Pep 1270 H 07/25/16 07/25/16 07/25/16 15:07 16:37 22:30 Creatine Kinase 125 99 CK-MB (CK-2) 3.62 Troponin I < 0.012 NT-Pro-B Natriuret Pep 07/25/16 22:30 Creatine Kinase CK-MB (CK-2) 3.40 Troponin I < 0.012 NT-Pro-B Natriuret Pep Impressions: Chest X-Ray 07/24/16 18:38 IMPRESSION: NO ACUTE RADIOGRAPHIC FINDING IN THE CHEST. Chest CT 07/25/16 00:00 IMPRESSION: No acute consolidations or pleural effusions are identified. Chronic appearing changes are identified. There are multiple borderline enlarged mediastinal lymph nodes as noted above which appears slightly larger on the current study. Other findings as noted above Assessment & Plan - Diagnosis (1) COPD with acute exacerbation Is this a current diagnosis for this admission?: YesPlan: Continue treatment (2) Chronic diastolic heart failure Is this a current diagnosis for this admission?: Yes (3) Hemiplegia affecting left nondominant side Qualifiers: Hemiplegia type: flaccid Hemiplegia etiology: cerebrovascular Cerebrovascular disease type: unspecified type Qualified Code(s): G81.04 - Flaccid hemiplegia affecting left nondominant side; I60.9 - Nontraumatic subarachnoid hemorrhage, unspecified Is this a current diagnosis for this admission?: Yes (4) Sacral decubitus ulcer, stage II Is this a current diagnosis for this admission?: Yes
[2016-07-26] MEDS: QUETIAPINE FUMARATE 100 MG TABLET PO SCH (21:45)
[2016-07-27] MEDS: METHYLPREDNISOLONE INJ 125 MG/2 ML SDV IV SCH ×3 (02:01→17:14)
[2016-07-27] MEDS: IPRATROPIUM/ALBUTEROL 0.5-2.5 MG/3 ML AMPUL NEB SCH ×3 (07:45→19:54)
[2016-07-27] MEDS: LISINOPRIL 10 MG TABLET PO SCH (08:12)
[2016-07-27] MEDS: ENOXAPARIN SODIUM INJ 40 MG/0.4 ML DISP.SYRIN SUBCUT SCH (08:13)
[2016-07-27] MEDS: LANSOPRAZOLE 30 MG TAB.RAP.DR PO SCH (08:13)
[2016-07-27] MEDS: LAMOTRIGINE 100 MG TABLET PO SCH (08:26)
[2016-07-27] MEDS: PAROXETINE HCL 20 MG TABLET PO SCH (09:17)
[2016-07-27] MEDS: LEVOFLOXACIN 750 MG TABLET PO SCH (09:17)
[2016-07-27] MEDS: CLONIDINE HCL 0.2 MG TABLET PO SCH (09:17)
[2016-07-27] MEDS: METOPROLOL SUCCINATE 50 MG TAB.SR.24H PO SCH (09:17)
[2016-07-27] MEDS: PREGABALIN 100 MG CAPSULE PO SCH (09:17)
[2016-07-27] MEDS: INSULIN LISPRO 100 UNIT/ML 3 ML VIAL SUBCUT PRN (16:47)
--- NOTE | 2016-07-27 19:15 | PDOC PROGRESS REPORT ---
Subjective Progress Note for:: 07/27/16 Subjective:: Patient was seen by the bedside, is still wheezing, he is not ready for discharge yet Physical Exam Vital Signs: Temp Pulse Resp BP Pulse Ox 98.5 F 81 21 H 178/105 H 99 07/27/16 16:13 07/27/16 16:13 07/27/16 16:13 07/27/16 16:13 07/27/16 16:13 Intake & Output 07/26/16 07/27/16 07/28/16 06:59 06:59 06:59 Intake Total 405 1750 567 Output Total 600 1250 800 Balance -195 500 -233 Weight 116.6 kg 116.2 kg General appearance: PRESENT: mild distress Eye exam: PRESENT: PERRLA Respiratory exam: PRESENT: wheezes Cardiovascular exam: PRESENT: +S1, +S2 GI/Abdominal exam: PRESENT: soft Neurological exam: PRESENT: alert Results Laboratory Results: 07/26/16 06:24 07/26/16 06:24 07/25/16 07/25/16 07/25/16 10:32 10:32 10:32 Creatine Kinase 133 CK-MB (CK-2) 2.99 Troponin I < 0.012 NT-Pro-B Natriuret Pep 1270 H 07/25/16 07/25/16 07/25/16 15:07 16:37 22:30 Creatine Kinase 125 99 CK-MB (CK-2) 3.62 Troponin I < 0.012 NT-Pro-B Natriuret Pep 07/25/16 22:30 Creatine Kinase CK-MB (CK-2) 3.40 Troponin I < 0.012 NT-Pro-B Natriuret Pep Impressions: Chest X-Ray 07/24/16 18:38 IMPRESSION: NO ACUTE RADIOGRAPHIC FINDING IN THE CHEST. Chest CT 07/25/16 00:00 IMPRESSION: No acute consolidations or pleural effusions are identified. Chronic appearing changes are identified. There are multiple borderline enlarged mediastinal lymph nodes as noted above which appears slightly larger on the current study. Other findings as noted above Assessment & Plan - Diagnosis (1) COPD with acute exacerbation Is this a current diagnosis for this admission?: Yes (2) Chronic diastolic heart failure Is this a current diagnosis for this admission?: Yes (3) Hemiplegia affecting left nondominant side Qualifiers: Hemiplegia type: flaccid Hemiplegia etiology: cerebrovascular Cerebrovascular disease type: unspecified type Qualified Code(s): G81.04 - Flaccid hemiplegia affecting left nondominant side; I60.9 - Nontraumatic subarachnoid hemorrhage, unspecified Is this a current diagnosis for this admission?: Yes (4) Sacral decubitus ulcer, stage II Is this a current diagnosis for this admission?: Yes
[2016-07-28] MEDS: CLONIDINE HCL 0.2 MG TABLET PO SCH ×2 (00:28→09:24)
[2016-07-28] MEDS: QUETIAPINE FUMARATE 100 MG TABLET PO SCH (00:31)
[2016-07-28] MEDS: PREGABALIN 100 MG CAPSULE PO SCH ×2 (00:31→09:25)
[2016-07-28] MEDS ORDERED: ONDANSETRON HCL INJ/PF 4 MG/2 ML SDV ONE (04:52)
[2016-07-28] MEDS: METHYLPREDNISOLONE INJ 125 MG/2 ML SDV IV SCH ×2 (05:04→09:26)
[2016-07-28] MEDS ORDERED: ONDANSETRON HCL INJ/PF 4 MG/2 ML SDV IV ONE (05:15)
[2016-07-28] MEDS: LAMOTRIGINE 100 MG TABLET PO SCH (08:58)
[2016-07-28] MEDS: ENOXAPARIN SODIUM INJ 40 MG/0.4 ML DISP.SYRIN SUBCUT SCH (08:58)
[2016-07-28] MEDS: LANSOPRAZOLE 30 MG TAB.RAP.DR PO SCH (08:58)
[2016-07-28] MEDS: LISINOPRIL 10 MG TABLET PO SCH (08:58)
[2016-07-28] MEDS: PAROXETINE HCL 20 MG TABLET PO SCH (09:25)
[2016-07-28] MEDS: METOPROLOL SUCCINATE 50 MG TAB.SR.24H PO SCH (09:25)
[2016-07-28] MEDS: LEVOFLOXACIN 750 MG TABLET PO SCH (09:25)
[2016-07-28] MEDS: IPRATROPIUM/ALBUTEROL 0.5-2.5 MG/3 ML AMPUL NEB SCH ×2 (09:26→14:30)
--- NOTE | 2016-07-28 15:15 | PDOC DISCHARGE SUMMARY ---
General - Admit/Disc Date/PCP Admission Date/Primary Care Provider: 07/24/16 23:11 WILNER ORDAZ MD Discharge Date: 07/28/16 - Discharge Diagnosis (1) COPD with acute exacerbation Is this a current diagnosis for this admission?: Yes (2) Chronic diastolic heart failure Is this a current diagnosis for this admission?: Yes (3) Hemiplegia affecting left nondominant side Is this a current diagnosis for this admission?: Yes (4) Sacral decubitus ulcer, stage II Is this a current diagnosis for this admission?: Yes - Additional Information Resuscitation Status: Full Code Home Medications: Albuterol Sulfate [Proair HFA Inhalation Aerosol 8.5 gm MDI] 1 puff IH Q4 Buprenorphine HCl/Naloxone HCl [Suboxone 8 mg-2 mg Sl Film] 1 film SL BID Clonidine HCl [Catapres 0.2 mg Tablet] 0.2 mg PO BID 07/25/16 Dextromethorphan HBr/Quinidine [Nuedexta 20-10 mg Capsule] 1 cap PO BID Doxepin HCl 50 mg PO QHS PRN 07/25/16 Furosemide [Lasix] 20 mg PO Q48HP PRN 07/25/16 Lamotrigine [Lamictal] 50 mg PO QAM 07/25/16 Lansoprazole [Prevacid] 30 mg PO QAM 07/25/16 Lisinopril [Prinivil] 20 mg PO QAM 07/25/16 Metoprolol Succinate [Toprol Xl 50 mg Tab.sr] 50 mg PO QAM 07/25/16 Paroxetine HCl [Paxil] 20 mg PO DAILY 07/25/16 Pregabalin [Lyrica] 300 mg PO BID 07/25/16 Quetiapine Fumarate [Seroquel] 600 mg PO QHS 07/25/16 Metformin HCl [Metformin HCl ER] 1,000 mg PO DAILY #90 [id number] 07/28/16 Prednisone 20 mg PO DAILY #30 tablet 07/28/16 Umeclidinium Brm/Vilanterol Tr [Anoro Ellipta 62.5-25 Mcg INH] 1 puff IH DAILY # 1 07/28/16 History of Present Illness History of Present Illness: DAVIS PAGE is a 55 year old male, He came to the emergency room because of shortness of breath, He has very severe chronic obstructive lung disease, CVA with residual paralysis, sacral decubital ulcer. He continued to smoke cigarettes despite very severe COPD, in the emergency room he was treated for his symptoms without improvement and the emergency room physician does not feel comfortable enough to discharge him home, he wanted him admitted to the hospital. CT of the chest was done and showed no pneumonia. Hospital Course Hospital Course: Patient was admitted because of acute exacerbation of chronic obstructive pulmonary disease, he was treated with intravenous Solu-Medrol, bronchodilators , and IV antibiotic Levaquin with very good results. He continues to smoke cigarettes despite very severe COPD and CVA with residual hemiplegia, patient wants to go home today and to be discharged home today. Physical Exam Vital Signs: Temp Pulse Resp BP Pulse Ox 98.0 F 82 18 171/102 H 95 07/28/16 04:23 07/28/16 14:36 07/28/16 14:36 07/28/16 04:23 07/28/16 14:36 Intake & Output 07/27/16 07/28/16 07/29/16 06:59 06:59 06:59 Intake Total 1750 987 Output Total 1250 1450 Balance 500 -463 Weight 116.2 kg 118.6 kg General appearance: PRESENT: no acute distress Eye exam: PRESENT: PERRLA Respiratory exam: PRESENT: rhonchi Cardiovascular exam: PRESENT: +S1, +S2 GI/Abdominal exam: PRESENT: soft Neurological exam: PRESENT: alert, CN II-XII grossly intact Results Laboratory Results: 07/26/16 06:24 07/26/16 06:24 07/26/16 21:30 Nasophary (Mrsa Only) MRSA Surveillance Culture - Final NO MRSA RECOVERED 07/26/16 08:56 Catheterized Urine Urine Culture - Final Staph Coagulase Negative 07/25/16 07/25/16 07/25/16 10:32 10:32 10:32 Creatine Kinase 133 CK-MB (CK-2) 2.99 Troponin I < 0.012 NT-Pro-B Natriuret Pep 1270 H 07/25/16 07/25/16 07/25/16 15:07 16:37 22:30 Creatine Kinase 125 99 CK-MB (CK-2) 3.62 Troponin I < 0.012 NT-Pro-B Natriuret Pep 07/25/16 22:30 Creatine Kinase CK-MB (CK-2) 3.40 Troponin I < 0.012 NT-Pro-B Natriuret Pep Impressions: Chest X-Ray 07/24/16 18:38 IMPRESSION: NO ACUTE RADIOGRAPHIC FINDING IN THE CHEST. Chest CT 07/25/16 00:00 IMPRESSION: No acute consolidations or pleural effusions are identified. Chronic appearing changes are identified. There are multiple borderline enlarged mediastinal lymph nodes as noted above which appears slightly larger on the current study. Other findings as noted above
[2016-07-28 16:28] VITALS: BP 143/92
== END 2016-07-28 16:30 | disposition home or self-care (01) | DRG 191 ==
LOC: ER 16:48 → EH 23:11 → 5 07-25 19:48
PROVIDERS: ADMIT Internal Medicine; ATTEND Internal Medicine
PROC: 3E0F73Z Introduction of Anti-inflammatory into Respiratory Tract, Via Natural or Artificial Opening (ICD-10-PCS; principal; 2016-07-25)
DX: J44.1 Chronic obstructive pulmonary disease with (acute) exacerbation (principal); I50.32 Chronic diastolic (congestive) heart failure; I69.354 Hemiplegia and hemiparesis following cerebral infarction affecting left non-dominant side; Z68.41 Body mass index [BMI] 40.0-44.9, adult; L89.152 Pressure ulcer of sacral region, stage 2; E78.5 Hyperlipidemia, unspecified; I11.0 Hypertensive heart disease with heart failure; F31.9 Bipolar disorder, unspecified; E11.9 Type 2 diabetes mellitus without complications; I25.2 Old myocardial infarction; K21.9 Gastro-esophageal reflux disease without esophagitis; M19.90 Unspecified osteoarthritis, unspecified site; F17.210 Nicotine dependence, cigarettes, uncomplicated; E78.00 Pure hypercholesterolemia, unspecified; E66.01 Morbid (severe) obesity due to excess calories; Z86.718 Personal history of other venous thrombosis and embolism; Z79.899 Other long term (current) drug therapy; Z90.49 Acquired absence of other specified parts of digestive tract; Z88.8 Allergy status to other drugs, medicaments and biological substances; Z88.6 Allergy status to analgesic agent; Z99.81 Dependence on supplemental oxygen
CPT/HCPCS: 36415; 36600; 51701; 71010; 71250; 80048; 80061; 80076; 80307; 81001; 82140; 82150; 82550; 82553; 82803; 82962; 83036; 83690; 83735; 83880; 84100; 84439; 84443; 84484; 85025; 85027; 85610; 85730; 87040; 87086; 93005; 93010; 94640; 99285; J1650; J1815; J2405; J2930; J3490; J7512; J7620

== ENCOUNTER 2016-09-10 13:22 | Inpatient (IN) | payer MEDICARE, MEDICAID ==
--- NOTE | 2016-09-10 14:11 | ER Document Report ---
ED General - General Mode of Arrival: Medic Information source: Patient TRAVEL OUTSIDE OF THE [place] IN LAST 30 DAYS: No - HPI Patient complains to provider of: Lower back pain and hypotension Onset: Other - see notes above Associated symptoms: Other - see notes above <ANDRE LACKEY - Last Filed: 09/10/16 19:52> <RICHY VILLEGAS - Last Filed: 09/10/16 20:33> - General Chief Complaint: Low Back Pain Stated Complaint: BLOOD PRESSURE CONCERNS Notes: 56 year old male with history of a CVA (left lower extremity weakness), CHF, hypertension, hyperlipidemia, RI, and a back fracture (1990) presents to the ED via EMS complaining of lower back pain and hypotension. Patient reports that his niece called EMS because she was concerned over his back pain even though the patient did not want to come to the ED. Patient states that the pain radiates to his bilateral lower legs, and claims that this has never happened before. Patient additionally complains of having a fever yesterday, but denies shortness of breath, dizziness, diarrhea, vomiting, or changes to his bowel movements. Patient claims to have fallen 1 month ago. Patient states that his left leg is chronically weak secondary to the CVA. According to EMS report, patient was found seeping in his wheelchair on his front yard. Patient was saturating at 69% and had a pressure of 64/36. Patient's Suboxone prescription was refilled 3 days ago, but there were no pills remaining today. (ANDRE LACKEY) - Related Data Allergies/Adverse Reactions: ketorolac tromethamine [From Toradol] Allergy (Unknown, Verified 09/10/16 14:13) morphine [Morphine] Allergy (Unknown, Verified 09/10/16 14:13) acetaminophen [From Tylenol] Allergy (Verified 09/10/16 14:13) lorazepam [From Ativan] Adverse Reaction (Verified 09/10/16 14:13) Home Medications: Current Home Medications Albuterol Sulfate [Proair HFA] 1 puff IH Q4 09/10/16 [History] Buprenorphine HCl/Naloxone HCl [Buprenorphin-Naloxon 8-2 mg Sl] 1 tab SL Q12 05/29 [History] Clonidine HCl [Clonidine HCl] 0.2 mg PO Q12 09/10/16 [History] Cyclobenzaprine HCl [Flexeril 10 mg Tablet] 10 mg PO Q12 09/10/16 [History] Dextromethorphan HBr/Quinidine [Nuedexta 20-10 mg Capsule] 1 cap PO Q12 [History] Doxepin HCl 200 mg PO HSP PRN 09/10/16 [History] Furosemide [Furosemide] 20 mg PO Q48HP PRN 09/10/16 [History] Lamotrigine [Lamotrigine] 50 mg PO DAILY 09/10/16 [History] Lansoprazole [Lansoprazole] 30 mg PO DAILY 09/10/16 [History] Lisinopril [Lisinopril] 20 mg PO DAILY 09/10/16 [History] Metformin HCl [Metformin HCl ER] 1,000 mg PO DAILY 09/10/16 [History] Metoprolol Succinate [Metoprolol Succinate] 50 mg PO DAILY 09/10/16 [History] Paroxetine HCl [Paxil 20 mg Tablet] 20 mg PO DAILY 09/10/16 [History] Pregabalin [Lyrica] 300 mg PO Q12 09/10/16 [History] Quetiapine Fumarate [Quetiapine Fumarate] 600 mg PO QHS 09/10/16 [History] Umeclidinium Brm/Vilanterol Tr [Anoro Ellipta 62.5-25 Mcg INH] 1 puff IH DAILY 09/10/16 [History] Past Medical History - General Information source: Patient - Social History Smoking Status: Current Every Day Smoker Chew tobacco use (# tins/day): No Frequency of alcohol use: None Drug Abuse: None Family History: Reviewed & Not Pertinent - Past Medical History Cardiac Medical History: Reports: Hx Congestive Heart Failure, Hx DVT, Hx Heart Attack, Hx Hypercholesterolemia, Hx Hypertension Pulmonary Medical History: Reports: Hx COPD, Hx Pneumonia, Hx Intubation, Hx Respiratory Failure Neurological Medical History: Reports: Hx Cerebrovascular Accident. Denies: Hx Seizures Endocrine Medical History: Reports: Hx Diabetes Mellitus Type 2 Renal/ Medical History: Reports: Hx Kidney Stones. Denies: Hx Peritoneal Dialysis GI Medical History: Reports: Hx Gastroesophageal Reflux Disease Musculoskeltal Medical History: Reports Hx Arthritis Psychiatric Medical History: Reports: Hx Bipolar Disorder, Hx Depression Denies: Hx Schizophrenia Past Surgical History: Reports: Hx Appendectomy, Hx Cholecystectomy, Hx Orthopedic Surgery - Immunizations Immunizations up to date: Yes Hx Diphtheria, Pertussis, Tetanus Vaccination: Yes Hx Pneumococcal Vaccination: 05/13/11 <LACKEYANDRE - Last Filed: 09/10/16 19:52> Review of Systems - Review of Systems Constitutional: See HPI, Fever - Yesterday EENT: No symptoms reported Cardiovascular: No symptoms reported. denies: Dizziness Respiratory: No symptoms reported. denies: Short of breath Gastrointestinal: No symptoms reported. denies: Diarrhea, Vomiting Genitourinary: No symptoms reported Male Genitourinary: No symptoms reported Musculoskeletal: See HPI, Back pain - Lower Skin: No symptoms reported Hematologic/Lymphatic: No symptoms reported Neurological/Psychological: No symptoms reported <ANDRE LACKEY - Last Filed: 09/10/16 19:52> Physical Exam <ANDRE LACKEY - Last Filed: 09/10/16 19:52> <RICHY VILLEGAS - Last Filed: 09/10/16 20:33> - Vital signs Vitals: Temp Pulse Resp BP Pulse Ox 97.3 F 76 20 92/56 L 96 09/10/16 13:40 09/10/16 13:40 09/10/16 13:40 09/10/16 13:40 09/10/16 13:40 - Notes Notes: GENERAL: Somnolent, but interacts well. No acute distress. HEAD: Normocephalic, atraumatic. EYES: Pupils equal, round, and reactive to light. Extraocular movements intact. ENT: Oral mucosa moist, tongue midline. NECK: Full range of motion. Supple. Trachea midline. BACK: Surgical scar to the midline of the thoracolumbar junction. No step-offs , deformity, tenderness to palpation, or erythema. LUNGS: Clear to auscultation bilaterally, no wheezes, rales, or rhonchi. No respiratory distress. HEART: Regular rate and rhythm. No murmurs, gallops, or rubs. ABDOMEN: Soft, non-tender. Non-distended. Bowel sounds present in all 4 quadrants. EXTREMITIES: No edema, radial and dorsalis pedis pulses 2/4 bilaterally. No cyanosis. Negative straight leg raise on left, but positive straight-leg raise on right. 5/5 muscle strength of the right foot. No movement to the left foot (which the patient states is normal). Left knee abrasion. Right elbow abrasion and ecchymosis. NEUROLOGICAL: Alert and oriented x3. Slurred speech. Patellar DTRs 2+ bilaterally. PSYCH: Normal affect, normal mood. SKIN: Warm, dry, normal turgor. Chronic erythema to the bilateral lower extremity. 1 cm ulcer with surrounding 7 cm of erythema to the right buttock medially with no sign of exudate. (ANDRE LACKEY) Course - Laboratory Result Diagrams: 09/10/16 14:05 09/10/16 14:05 - Diagnostic Test Radiology reviewed: Image reviewed, Reports reviewed - Chest x-ray impression: Acute opacities bibasilar which are superimposed on chronic changes. Pneumonia superimposed on COPD. <ANDRE LACKEY - Last Filed: 09/10/16 19:52> - Laboratory Result Diagrams: 09/10/16 14:05 09/10/16 14:05 <RICHY VILLEGAS - Last Filed: 09/10/16 20:33> - Re-evaluation Re-evalutation: 09/10/16 17:01 Informed by the nurse that the patient has responded positively to Narcan. ( ANDRE LACKEY) 09/10/16 15:31 Patient presented with altered mental status and possible overdose of Suboxone as he had his Suboxone filled recently and is already out of it. Patient states his family still the Suboxone. Patient denies wanting to come to the hospital but states that he had some back pain. After laboratory studies have returned patient appears to be septic, he is hypotensive, has an increased oxygen requirement, has acute renal failure, chest x-ray reveals bibasilar pneumonia likely causing his hypotension and his hypoxia. I did check salicylate level as he states he is taking more BC powders than usual and this was negative. I spoke with Dr. Andres the patient's primary care physician, I recommended that the patient be admitted and go to the ICU, Dr. Andres says the patient responds very well to fluid, recommends placing the patient on IMCU instead, accepts the patient as a full admission to his service. Patient has been started on Levaquin and cefepime. (RICHY VILLEGAS) - Vital Signs Vital signs: Temp Pulse Resp BP Pulse Ox 97.4 F 76 20 119/86 H 100 09/10/16 19:09 09/10/16 19:09 09/10/16 19:09 09/10/16 19:09 09/10/16 19:09 - Laboratory Laboratory results interpreted by me: 09/10/16 09/10/16 14:05 14:05 Hgb 9.5 L Hct 30.7 L MCV 68 L MCH 21.0 L MCHC 30.8 L RDW 21.9 H BUN 22 H Creatinine 1.71 H Est GFR ( Amer) 50 L Est GFR (Non-Af Amer) 41 L Salicylates < 1.0 L Acetaminophen < 10 L - EKG Interpretation by Me Additional EKG results interpreted by me: 09/10/16 15:32 EKG shows sinus rhythm rate 78, left axis deviation, normal intervals, no ST segment elevations or depressions, there are T wave inversions noted in lead 3, aVF which are new from prior EKG on 07/24/2016. Per my interpretation. (RICHY VILLEGAS) - Consults Dr. Phillips Reason for consultation: 09/10/16 15:25 Patient was discussed with Dr. Phillips and agrees to admit the patient to IMCU. (ANDRE LACKEY) Critical Care Note - Critical Care Note Total time excluding time spent on procedures (mins): 45 <RICHY VILLEGAS - Last Filed: 09/10/16 20:33> Discharge <ANDRE LACKEY - Last Filed: 09/10/16 19:52> - Discharge Admitting Provider: Alan Unit Admitted: IMCU <RICHY VILLEGAS - Last Filed: 09/10/16 20:33> - Discharge Clinical Impression: Bilateral pneumonia Qualifiers: Pneumonia type: due to unspecified organism Lung location: lower lobe of lung Qualified Code(s): J18.9 - Pneumonia, unspecified organism Acute renal failure Qualifiers: Acute renal failure type: unspecified Qualified Code(s): N17.9 - Acute kidney failure, unspecified Sepsis Qualifiers: Sepsis type: sepsis due to unspecified organism Qualified Code(s): A41.9 - Sepsis, unspecified organism Condition: Serious Disposition: ADMITTED INPATIENT Scribe Attestation: 09/10/16 20:33 I personally performed the services described in the documentation, reviewed and edited the documentation which was dictated to the scribe in my presence, and it accurately records my words and actions. (RICHY VILLEGAS) Scribe Documentation - Scribe Written by Kezia:: Kezia Aldrich, 09/10/2016 1629 acting as scribe for :: Ravi <ANDRE LACKEY - Last Filed: 09/10/16 19:52>
[2016-09-10 14:20] LABS: ABSOLUTE BASOPHILS # (AUTO) 0.1 10^3/uL (0.0-0.2); ABSOLUTE EOSINOPHILS # (AUTO) 0.1 10^3/uL (0.0-0.6); ABSOLUTE LYMPHOCYTES (AUTO) 1.6 10^3/uL (0.5-4.7); BASOPHILS % (AUTO) 0.8 % (0-2); EOSINOPHILS % (AUTO) 1.3 % (0-6); HEMATOCRIT 30.7 % (37.9-51.0); HEMOGLOBIN 9.5 g/dL (13.5-17.0); HGB HCT DIFFERENCE -2.2; LYMPHOCYTES % (AUTO) 18.7 % (13-45); MEAN CORPUSCULAR HGB CONC 30.8 g/dL (32.0-36.0); MEAN CORPUSCULAR VOLUME 68 fl (80-97); MONOCYTES % (AUTO) 11.2 % (3-13); RED BLOOD COUNT 4.51 10^6/uL (4.35-5.55); RED CELL DISTRIBUTION WIDTH 21.9 % (11.5-14.0); WHITE BLOOD COUNT 8.8 10^3/uL (4.0-10.5)
[2016-09-10 14:21] LABS: PROTHROMBIN TIME 13.7 SEC (11.4-15.4)
[2016-09-10 14:42] LABS: ALANINE AMINOTRANSFERASE 28 U/L (21-72); ALBUMIN 3.6 g/dL (3.5-5.0); ALKALINE PHOSPHATASE 106 U/L (38-126); ANION GAP 11 (5-19); ASPARTATE AMINO TRANSFERASE 29 U/L (17-59); BILIRUBIN,DIRECT 0.2 mg/dL (0.0-0.4); BILIRUBIN,TOTAL 0.4 mg/dL (0.2-1.3); BLOOD UREA NITROGEN 22 mg/dL (7-20); CALCIUM 8.7 mg/dL (8.4-10.2); CARBON DIOXIDE 24 mmol/L (22-30); CHLORIDE 104 mmol/L (98-107); CREATININE RESULT 1.71 mg/dL (0.52-1.25); GLUCOSE 77 mg/dL (75-110); POTASSIUM 4.4 mmol/L (3.6-5.0); TOTAL PROTEIN 6.6 g/dL (6.3-8.2)
[2016-09-10] MEDS ORDERED: NALOXONE HCL INJ/PF 0.4 MG/1 ML SDV IV ONE (14:42)
[2016-09-10] MEDS ORDERED: NORMAL SALINE 1000 ML 1,000 ML IV ONE (14:42)
[2016-09-10 14:53] LABS: ALCOHOL < 10 mg/dL (NONE DETECTED)
[2016-09-10] MEDS ORDERED: CEFEPIME 1 GM/D5W RTU 50 ML IV ONE (15:23)
[2016-09-10] MEDS ORDERED: NORMAL SALINE 1000 ML 1,000 ML IV PRN (15:24)
[2016-09-10] MEDS ORDERED: LEVOFLOXACIN 750 MG/D5W RTU 150 ML IV SCH (16:00)
[2016-09-10 16:19] LABS: VENOUS BLOOD BASE EXCESS -1.8 mmol/L; VENOUS BLOOD HCO3 24.7 mmol/L (20-32); VENOUS BLOOD PCO2 49.7 mmHg (35-63); VENOUS BLOOD PH 7.31 (7.30-7.42)
--- NOTE | 2016-09-10 18:16 | EKG REPORT ---
SEVERITY:- BORDERLINE ECG - SINUS RHYTHM BORDERLINE LEFT AXIS DEVIATION BORDERLINE T ABNORMALITIES, INFERIOR LEADS : Confirmed by: Jose Luis White MD 10-Sep-2016 18:15:51
[2016-09-10] MEDS ORDERED: DEXTROSE 50%-WATER 25 GM/50 ML DISP.SYRIN IV PRN ×2 (20:26)
[2016-09-10] MEDS ORDERED: DEXTROSE 40% GEL 15 GM TUBE PO PRN ×2 (20:26)
[2016-09-10] MEDS ORDERED: GLUCAGON,HUMAN RECOMB 1 MG INJ SUBCUT PRN (20:26)
[2016-09-10] MEDS: ALBUTEROL SULFATE 0.083% NEB 2.5 MG/3 ML AMPUL NEB SCH (21:48)
[2016-09-10] MEDS ORDERED: ENOXAPARIN SODIUM INJ 40 MG/0.4 ML DISP.SYRIN SUBCUT ONE (22:00)
[2016-09-10 22:04] LABS: ARTERIAL BLOOD BASE EXCESS -7.6 mmol/L; ARTERIAL BLOOD O2 SATURATION 93.4 % (94-98)
[2016-09-11] MEDS: ALBUTEROL SULFATE 0.083% NEB 2.5 MG/3 ML AMPUL NEB SCH ×6 (00:12→10:00)
[2016-09-11 01:56] LABS: APPEARANCE,URINE CLEAR; BILIRUBIN,URINE NEGATIVE (NEGATIVE); GLUCOSE, URINE NEGATIVE (NEGATIVE); KETONES,URINE NEGATIVE (NEGATIVE); LEUKOCYTE ESTERASE,URINE NEGATIVE (NEGATIVE); NITRITE,URINE NEGATIVE (NEGATIVE); PROTEIN,URINE NEGATIVE (NEGATIVE); URINE SPECIFIC GRAVITY 1.005; UROBILINOGEN,URINE NEGATIVE mg/dL (<2.0)
[2016-09-11 06:01] LABS: ABSOLUTE EOSINOPHILS # (AUTO) 0.1 10^3/uL (0.0-0.6); ABSOLUTE LYMPHOCYTES (AUTO) 1.6 10^3/uL (0.5-4.7); ABSOLUTE MONOCYTES (AUTO) 0.8 10^3/uL (0.1-1.4); ABSOLUTE NEUT (AUTO) 3.8 10^3/uL (1.7-8.2); BASOPHILS % (AUTO) 0.7 % (0-2); EOSINOPHILS % (AUTO) 1.2 % (0-6); HEMATOCRIT 33.2 % (37.9-51.0); HEMOGLOBIN 10.1 g/dL (13.5-17.0); HGB HCT DIFFERENCE -2.9; MEAN CORPUSCULAR HEMOGLOBIN 21.1 pg (27.0-33.4); MEAN CORPUSCULAR HGB CONC 30.5 g/dL (32.0-36.0); MEAN CORPUSCULAR VOLUME 69 fl (80-97); RED CELL DISTRIBUTION WIDTH 21.6 % (11.5-14.0); SEGMENTED NEUTROPHILS % (AUTO) 60.1 % (42-78); WHITE BLOOD COUNT 6.3 10^3/uL (4.0-10.5)
[2016-09-11] MEDS: NORMAL SALINE 1000 ML 1,000 ML IV PRN ×2 (06:14→10:17)
[2016-09-11 06:18] LABS: ALANINE AMINOTRANSFERASE 31 U/L (21-72); ALBUMIN 3.6 g/dL (3.5-5.0); ALKALINE PHOSPHATASE 105 U/L (38-126); ANION GAP 12 (5-19); ASPARTATE AMINO TRANSFERASE 34 U/L (17-59); BILIRUBIN,DIRECT 0.3 mg/dL (0.0-0.4); BILIRUBIN,TOTAL 0.5 mg/dL (0.2-1.3); BLOOD UREA NITROGEN 13 mg/dL (7-20); CALCIUM 8.9 mg/dL (8.4-10.2); CARBON DIOXIDE 24 mmol/L (22-30); CHLORIDE 112 mmol/L (98-107); CREATININE RESULT 0.83 mg/dL (0.52-1.25); GLUCOSE 95 mg/dL (75-110); SODIUM 147.9 mmol/L (137-145); TOTAL PROTEIN 6.9 g/dL (6.3-8.2)
[2016-09-11 06:27] LABS: POTASSIUM 5.4 mmol/L (3.6-5.0)
--- NOTE | 2016-09-11 07:49 | EKG REPORT ---
SEVERITY:- OTHERWISE NORMAL ECG - SINUS RHYTHM BORDERLINE LEFT AXIS DEVIATION : Confirmed by: Jose Luis White MD 11-Sep-2016 07:48:48
[2016-09-11] MEDS ORDERED: ENOXAPARIN SODIUM INJ 40 MG/0.4 ML DISP.SYRIN SUBCUT SCH (08:00)
[2016-09-11] MEDS ORDERED: CEFTRIAXONE 1 GM/D5W RTU 50 ML IV SCH (10:00)
[2016-09-11] MEDS ORDERED: ALBUTEROL SULFATE 0.083% NEB 2.5 MG/3 ML AMPUL NEB PRN (11:50)
[2016-09-11] MEDS ORDERED: ALBUTEROL SULFATE 0.083% NEB 2.5 MG/3 ML AMPUL NEB SCH (14:00)
[2016-09-11] MEDS ORDERED: LEVOFLOXACIN 750 MG/D5W RTU 750 MG/150 ML RTUPB IV SCH (18:00)
[2016-09-11 18:51] VITALS: BP 119/86
--- NOTE | 2016-09-11 19:17 | PDOC H&P ---
History of Present Illness Admission Date/PCP: 09/10/16 20:26 WILNER ORDAZ MD History of Present Illness: DAVIS PAGE is a 56 year old male, he came to the emergency room because of low blood pressure on low back pain, ERS multiple comorbid conditions including CVA with left sided hemiplegia. In the emergency room he was evaluated the blood work revealed serum creatinine of 1.7 there was a concern he may have pneumonia I reviewed the record from the emergency room according to EMS report when EMS arrived at his residence he was found sleeping in his wheelchair on his front yard the oxygen saturation was 69% on the blood pressure was 64/36, both the blood pressure recorded emergency room was 119/86, there is no fever he was afebrile on the pulse oximetry was 100% oxygen saturation. When I saw him on the floor it was virtually lethargic hardly able to get any history from this patient due to in the record it was stated that the Suboxone prescription bottle that was filled 3 days ago was already empty. Patient does not look septic to me, his condition is more consistent with toxic encephalopathy, is on medication for blood pressure the blood pressure is relatively low but is still perfusing he was treated with IV fluid normal saline there was improvement in the blood pressure., He has no chest symptoms the chest x-ray that was done suggests infiltrate at the bases but he has chronic obstructive lung disease still actively smoking cigarettes . In the emergency room he was given Narcan on he responded to the antidote but when he arrived on the floor he became lethargic again suggesting to me that it is more consistent with toxic encephalopathy. He was monitored for 24 hours, when I saw him today on the floor, he is awake responsive coherent, back to his baseline and he wants to go home. As I indicated he probably overdosed himself on suboxone, I again advised him of the need for complete smoking cessation and initiate therapeutic lifestyle modification otherwise he would not do well. He could be discharged home, he is clinically stable, is not short of breath, there is no wheezing, is sitting down eating normally the blood pressure is normal Past Medical History Cardiac Medical History: Reports: DVT, Myocardial Infarction, Hyperlipidema, Hypertension, Other - Chronic diastolic heart failure Pulmonary Medical History: Reports: Chronic Obstructive Pulmonary Disease (COPD) , Intubation, Pneumonia, Respiratory Failure Endocrine Medical History: Reports: Diabetes Mellitus Type 2 GI Medical History: Reports: Gastroesophageal Reflux Disease Musculoskeltal Medical History: Reports: Arthritis Psychiatric Medical History: Reports: Bipolar Disorder, Depression Past Surgical History Past Surgical History: Reports: Appendectomy, Cholecystectomy, Orthopedic Surgery Social History Smoking Status: Current Every Day Smoker Cigarettes Packs Per Day: 1 Number of Years Smokin Last Time Smoked: 09/10/16 Frequency of Alcohol Use: None Hx Recreational Drug Use: No Drugs: None Hx Prescription Drug Abuse: No Family History Family History: Reviewed & Not Pertinent Parental Family History Reviewed: Yes Children Family History Reviewed: Yes Sibling(s) Family History Reviewed.: Yes Medication/Allergy Home Medications: Albuterol Sulfate [Proair HFA] 1 puff IH Q4 09/10/16 Buprenorphine HCl/Naloxone HCl [Buprenorphin-Naloxon 8-2 mg Sl] 1 tab SL Q12 05/29 Clonidine HCl 0.2 mg PO Q12 09/10/16 Dextromethorphan HBr/Quinidine [Nuedexta 20-10 mg Capsule] 1 cap PO Q12 Furosemide 20 mg PO Q48HP PRN 09/10/16 Lamotrigine 50 mg PO DAILY 09/10/16 Lansoprazole 30 mg PO DAILY 09/10/16 Lisinopril 20 mg PO DAILY 09/10/16 Metformin HCl [Metformin HCl ER] 1,000 mg PO DAILY 09/10/16 Metoprolol Succinate 50 mg PO DAILY 09/10/16 Paroxetine HCl [Paxil 20 mg Tablet] 20 mg PO DAILY 09/10/16 Pregabalin [Lyrica] 300 mg PO Q12 09/10/16 Quetiapine Fumarate 600 mg PO QHS 09/10/16 Umeclidinium Brm/Vilanterol Tr [Anoro Ellipta 62.5-25 Mcg INH] 1 puff IH DAILY 09/10/16 Allergies/Adverse Reactions: ketorolac tromethamine [From Toradol] Allergy (Unknown, Verified 09/10/16 14:13) morphine [Morphine] Allergy (Unknown, Verified 09/10/16 14:13) acetaminophen [From Tylenol] Allergy (Verified 09/10/16 14:13) lorazepam [From Ativan] Adverse Reaction (Verified 09/10/16 14:13) Review of Systems ROS unobtainable: Due to mental status Physical Exam Vital Signs: Temp Pulse Resp BP Pulse Ox 98.2 F 90 20 119/86 H 96 09/11/16 18:48 09/11/16 18:48 09/11/16 18:48 09/11/16 18:48 09/11/16 18:48 Intake & Output 09/10/16 09/11/16 09/12/16 06:59 06:59 06:59 Intake Total 1440 2281 Output Total 2200 Balance 1440 81 Weight 116.2 kg General appearance: PRESENT: other - Patient in a state of stupor Eye exam: PRESENT: PERRLA Respiratory exam: PRESENT: clear to auscultation jarett Cardiovascular exam: PRESENT: +S1, +S2 Neurological exam: PRESENT: alert, other - Left-sided paralysis Results Laboratory Results: 09/11/16 05:04 09/11/16 05:04 09/10/16 09/11/16 09/11/16 21:45 01:30 05:04 WBC 6.3 RBC 4.80 Hgb 10.1 L Hct 33.2 L MCV 69 L MCH 21.1 L MCHC 30.5 L RDW 21.6 H Plt Count 192 Seg Neutrophils % 60.1 Lymphocytes % 26.0 Monocytes % 12.0 Eosinophils % 1.2 Basophils % 0.7 Absolute Neutrophils 3.8 Absolute Lymphocytes 1.6 Absolute Monocytes 0.8 Absolute Eosinophils 0.1 Absolute Basophils 0.0 Carbonic Acid 1.17 HCO3/H2CO3 Ratio 15:1 ABG pH 7.29 L ABG pCO2 38.9 ABG pO2 73.8 L ABG HCO3 18.4 L ABG O2 Saturation 93.4 L ABG Base Excess -7.6 FiO2 3.5 L Sodium Potassium Chloride Carbon Dioxide Anion Gap BUN Creatinine Est GFR ( Amer) Est GFR (Non-Af Amer) Glucose Calcium Total Bilirubin AST ALT Alkaline Phosphatase Total Protein Albumin Urine Color STRAW Urine Appearance CLEAR Urine pH 6.0 Ur Specific [place] 1.005 Urine Protein NEGATIVE Urine Glucose (UA) NEGATIVE Urine Ketones NEGATIVE Urine Blood NEGATIVE Urine Nitrite NEGATIVE Ur Leukocyte Esterase NEGATIVE Urine WBC (Auto) 0 Urine RBC (Auto) 0 09/11/16 05:04 WBC RBC Hgb Hct MCV MCH MCHC RDW Plt Count Seg Neutrophils % Lymphocytes % Monocytes % Eosinophils % Basophils % Absolute Neutrophils Absolute Lymphocytes Absolute Monocytes Absolute Eosinophils Absolute Basophils Carbonic Acid HCO3/H2CO3 Ratio ABG pH ABG pCO2 ABG pO2 ABG HCO3 ABG O2 Saturation ABG Base Excess FiO2 Sodium 147.9 H Potassium 5.4 H D Chloride 112 H Carbon Dioxide 24 Anion Gap 12 BUN 13 Creatinine 0.83 Est GFR ( Amer) > 60 Est GFR (Non-Af Amer) > 60 Glucose 95 Calcium 8.9 Total Bilirubin 0.5 AST 34 ALT 31 Alkaline Phosphatase 105 Total Protein 6.9 Albumin 3.6 Urine Color Urine Appearance Urine pH Ur Specific [place] Urine Protein Urine Glucose (UA) Urine Ketones Urine Blood Urine Nitrite Ur Leukocyte Esterase Urine WBC (Auto) Urine RBC (Auto) 09/10/16 09/10/16 20:42 20:42 Creatine Kinase 1041 H Troponin I < 0.012 Impressions: Chest X-Ray 09/10/16 13:25 IMPRESSION: Acute opacities bibasilar which are superimposed on chronic changes. Pneumonia superimposed on COPD. Lumbar Spine X-Ray 09/10/16 14:34 IMPRESSION: No acute finding. Assessment & Plan - Diagnosis (1) Toxic encephalopathy Is this a current diagnosis for this admission?: YesPlan: He has toxic encephalopathy, with associated metabolic acidosis, most likely from drug overdose. Patient was monitored for 24 hours and is stable now is awake oriented to be discharged to home he was empirically treated with IV antibiotic because of concern he may have pneumonia but he has no chest symptoms patient is awake is not coughing so pneumonitis is rule out (2) Chronic diastolic heart failure Is this a current diagnosis for this admission?: Yes (3) HTN (hypertension) Qualifiers: Hypertension type: essential hypertension Qualified Code(s): I10 - Essential (primary) hypertension Is this a current diagnosis for this admission?: Yes
--- NOTE | 2016-09-11 19:20 | PDOC DISCHARGE SUMMARY ---
General - Admit/Disc Date/PCP Admission Date/Primary Care Provider: 09/10/16 20:26 WILNER ORDAZ MD Discharge Date: 09/11/16 - Discharge Diagnosis (1) Toxic encephalopathy Is this a current diagnosis for this admission?: Yes (2) Chronic diastolic heart failure Is this a current diagnosis for this admission?: Yes (3) HTN (hypertension) Is this a current diagnosis for this admission?: Yes (4) Acute kidney injury Is this a current diagnosis for this admission?: YesSummary: Due to dehydration - Additional Information Discharge Activity: Activity As Tolerated, Balance Activity w/Rest Home Medications: Albuterol Sulfate [Proair HFA] 1 puff IH Q4 09/10/16 Buprenorphine HCl/Naloxone HCl [Buprenorphin-Naloxon 8-2 mg Sl] 1 tab SL Q12 05/29 Clonidine HCl 0.2 mg PO Q12 09/10/16 Dextromethorphan HBr/Quinidine [Nuedexta 20-10 mg Capsule] 1 cap PO Q12 Furosemide 20 mg PO Q48HP PRN 09/10/16 Lamotrigine 50 mg PO DAILY 09/10/16 Lansoprazole 30 mg PO DAILY 09/10/16 Lisinopril 20 mg PO DAILY 09/10/16 Metformin HCl [Metformin HCl ER] 1,000 mg PO DAILY 09/10/16 Metoprolol Succinate 50 mg PO DAILY 09/10/16 Paroxetine HCl [Paxil 20 mg Tablet] 20 mg PO DAILY 09/10/16 Pregabalin [Lyrica] 300 mg PO Q12 09/10/16 Quetiapine Fumarate 600 mg PO QHS 09/10/16 Umeclidinium Brm/Vilanterol Tr [Anoro Ellipta 62.5-25 Mcg INH] 1 puff IH DAILY 09/10/16 History of Present Illness History of Present Illness: DAVIS PAGE is a 56 year old male, he came to the emergency room because of low blood pressure on low back pain, ERS multiple comorbid conditions including CVA with left sided hemiplegia. In the emergency room he was evaluated the blood work revealed serum creatinine of 1.7 there was a concern he may have pneumonia I reviewed the record from the emergency room according to EMS report when EMS arrived at his residence he was found sleeping in his wheelchair on his front yard the oxygen saturation was 69% on the blood pressure was 64/36, both the blood pressure recorded emergency room was 119/86, there is no fever he was afebrile on the pulse oximetry was 100% oxygen saturation. When I saw him on the floor it was virtually lethargic hardly able to get any history from this patient due to in the record it was stated that the Suboxone prescription bottle that was filled 3 days ago was already empty. Patient does not look septic to me, his condition is more consistent with toxic encephalopathy, is on medication for blood pressure the blood pressure is relatively low but is still perfusing he was treated with IV fluid normal saline there was improvement in the blood pressure., He has no chest symptoms the chest x-ray that was done suggests infiltrate at the bases but he has chronic obstructive lung disease still actively smoking cigarettes . In the emergency room he was given Narcan on he responded to the antidote but when he arrived on the floor he became lethargic again suggesting to me that it is more consistent with toxic encephalopathy. He was monitored for 24 hours, when I saw him today on the floor, he is awake responsive coherent, back to his baseline and he wants to go home. As I indicated he probably overdosed himself on suboxone, I again advised him of the need for complete smoking cessation and initiate therapeutic lifestyle modification otherwise he would not do well. He could be discharged home, he is clinically stable, is not short of breath, there is no wheezing, is sitting down eating normally the blood pressure is normal Hospital Course Hospital Course: Patient was admitted for observation and management of toxic encephalopathy, there was no clinical evidence of pneumonia, it was suspected on the basis of chest x-ray, he was empirically treated with IV antibiotic but more importantly he was today with IV fluid, kidney failure and is improved that was acute kidney injury due to dehydration Physical Exam Vital Signs: Temp Pulse Resp BP Pulse Ox 98.2 F 90 20 119/86 H 96 09/11/16 18:48 09/11/16 18:48 09/11/16 18:48 09/11/16 18:48 09/11/16 18:48 Intake & Output 09/10/16 09/11/16 09/12/16 06:59 06:59 06:59 Intake Total 1440 2281 Output Total 2200 Balance 1440 81 Weight 116.2 kg General appearance: PRESENT: no acute distress, well-developed, well-nourished Head exam: PRESENT: atraumatic, normocephalic Eye exam: PRESENT: conjunctiva pink, EOMI, PERRLA. ABSENT: scleral icterus Ear exam: PRESENT: normal external ear exam Mouth exam: PRESENT: moist, tongue midline Neck exam: PRESENT: full ROM Respiratory exam: PRESENT: clear to auscultation jarett Cardiovascular exam: PRESENT: RRR, +S1, +S2 Pulses: PRESENT: normal dorsalis pedis pul, +2 pedal pulses bilateral Vascular exam: PRESENT: normal capillary refill GI/Abdominal exam: PRESENT: normal bowel sounds, soft Rectal exam: PRESENT: deferred Neurological exam: PRESENT: alert, other - Left-sided paralysis Psychiatric exam: PRESENT: appropriate affect, normal mood Skin exam: PRESENT: dry, intact, warm Results Laboratory Results: 09/11/16 05:04 09/11/16 05:04 09/10/16 09/11/16 09/11/16 21:45 01:30 05:04 WBC 6.3 RBC 4.80 Hgb 10.1 L Hct 33.2 L MCV 69 L MCH 21.1 L MCHC 30.5 L RDW 21.6 H Plt Count 192 Seg Neutrophils % 60.1 Lymphocytes % 26.0 Monocytes % 12.0 Eosinophils % 1.2 Basophils % 0.7 Absolute Neutrophils 3.8 Absolute Lymphocytes 1.6 Absolute Monocytes 0.8 Absolute Eosinophils 0.1 Absolute Basophils 0.0 Carbonic Acid 1.17 HCO3/H2CO3 Ratio 15:1 ABG pH 7.29 L ABG pCO2 38.9 ABG pO2 73.8 L ABG HCO3 18.4 L ABG O2 Saturation 93.4 L ABG Base Excess -7.6 FiO2 3.5 L Sodium Potassium Chloride Carbon Dioxide Anion Gap BUN Creatinine Est GFR ( Amer) Est GFR (Non-Af Amer) Glucose Calcium Total Bilirubin AST ALT Alkaline Phosphatase Total Protein Albumin Urine Color STRAW Urine Appearance CLEAR Urine pH 6.0 Ur Specific [place] 1.005 Urine Protein NEGATIVE Urine Glucose (UA) NEGATIVE Urine Ketones NEGATIVE Urine Blood NEGATIVE Urine Nitrite NEGATIVE Ur Leukocyte Esterase NEGATIVE Urine WBC (Auto) 0 Urine RBC (Auto) 0 09/11/16 05:04 WBC RBC Hgb Hct MCV MCH MCHC RDW Plt Count Seg Neutrophils % Lymphocytes % Monocytes % Eosinophils % Basophils % Absolute Neutrophils Absolute Lymphocytes Absolute Monocytes Absolute Eosinophils Absolute Basophils Carbonic Acid HCO3/H2CO3 Ratio ABG pH ABG pCO2 ABG pO2 ABG HCO3 ABG O2 Saturation ABG Base Excess FiO2 Sodium 147.9 H Potassium 5.4 H D Chloride 112 H Carbon Dioxide 24 Anion Gap 12 BUN 13 Creatinine 0.83 Est GFR ( Amer) > 60 Est GFR (Non-Af Amer) > 60 Glucose 95 Calcium 8.9 Total Bilirubin 0.5 AST 34 ALT 31 Alkaline Phosphatase 105 Total Protein 6.9 Albumin 3.6 Urine Color Urine Appearance Urine pH Ur Specific [place] Urine Protein Urine Glucose (UA) Urine Ketones Urine Blood Urine Nitrite Ur Leukocyte Esterase Urine WBC (Auto) Urine RBC (Auto) 09/10/16 09/10/16 20:42 20:42 Creatine Kinase 1041 H Troponin I < 0.012 Impressions: Chest X-Ray 09/10/16 13:25 IMPRESSION: Acute opacities bibasilar which are superimposed on chronic changes. Pneumonia superimposed on COPD. Lumbar Spine X-Ray 09/10/16 14:34 IMPRESSION: No acute finding.
== END 2016-09-11 19:45 | disposition home or self-care (01) | DRG 917 ==
LOC: ER 13:22 → EH 16:12 → UNDOADMIN 16:12 → EH 19:07 → 3W 19:07 → EH 20:26 → 3W 20:26
PROVIDERS: ADMIT Internal Medicine; ATTEND Internal Medicine
PROC: 3E0F73Z Introduction of Anti-inflammatory into Respiratory Tract, Via Natural or Artificial Opening (ICD-10-PCS; principal; 2016-09-10)
DX: T50.7X1A Poisoning by analeptics and opioid receptor antagonists, accidental (unintentional), initial encounter (principal); G92 Toxic encephalopathy; I50.32 Chronic diastolic (congestive) heart failure; N17.9 Acute kidney failure, unspecified; I69.354 Hemiplegia and hemiparesis following cerebral infarction affecting left non-dominant side; J44.9 Chronic obstructive pulmonary disease, unspecified; I11.0 Hypertensive heart disease with heart failure; F17.210 Nicotine dependence, cigarettes, uncomplicated; E86.0 Dehydration; E78.5 Hyperlipidemia, unspecified; E11.9 Type 2 diabetes mellitus without complications; K21.9 Gastro-esophageal reflux disease without esophagitis; M19.90 Unspecified osteoarthritis, unspecified site; F31.9 Bipolar disorder, unspecified; I25.2 Old myocardial infarction; Z86.718 Personal history of other venous thrombosis and embolism; Z90.49 Acquired absence of other specified parts of digestive tract; Z88.8 Allergy status to other drugs, medicaments and biological substances; Z88.6 Allergy status to analgesic agent; Z79.899 Other long term (current) drug therapy
CPT/HCPCS: 36415; 36600; 71010; 72110; 80053; 80307; 81001; 82550; 82803; 82962; 83036; 83605; 84484; 85025; 85610; 87040; 87086; 93005; 93010; 94640; 99291; J0692; J0696; J1650; J1956; J2310; J3490; J7030

== ENCOUNTER 2016-09-13 11:05 | Emergency (ER) | payer MEDICARE, MEDICAID ==
--- NOTE | 2016-09-13 11:39 | ER Document Report ---
ED Fall - General Chief Complaint: Fall Stated Complaint: FALL Mode of Arrival: Medic Information source: Patient, Transfer Record Notes: [facility] and states that he got tangled in his wheelchair and fell. Patient does have a history of occasional falls at home due to his left-sided weakness after a CVA in the past. Witnesses state that they felt that patient might have had a stroke as he seemed to be out of it at the time. Patient presently awake, alert and oriented. Patient's only complaint is of sacral pain that he attributes to his decubitus ulcer to the sacral area. Patient is treating his sacral wound with dressings at home that his niece helps him with. Patient denies any chest pain , back pain, abdominal pain, or shortness of breath. Family does report that patient still smokes anywhere from 3-4 packs of cigarettes a day. Patient does wear home oxygen as needed at home. Patient denies any injury after the fall. TRAVEL OUTSIDE OF THE [place] IN LAST 30 DAYS: No - HPI Occurred: Just prior to arrival Where: Public place Context: Tripped Associated symptoms: None Quality of pain: Other Pain Level: 2 - Pain only to chronic decubitus ulcer - Related data Allergies/Adverse Reactions: ketorolac tromethamine [From Toradol] Allergy (Unknown, Verified 09/10/16 14:13) morphine [Morphine] Allergy (Unknown, Verified 09/10/16 14:13) acetaminophen [From Tylenol] Allergy (Verified 09/10/16 14:13) lorazepam [From Ativan] Adverse Reaction (Verified 09/10/16 14:13) Past Medical History - General Information source: Patient, Relative - Social History Smoking Status: Current Every Day Smoker - 4 packs per day Cigarette use (# per day): Yes Smoking Education Provided: Yes - for at least 4 minutes Frequency of alcohol use: None Drug Abuse: Prescription drugs - Narcotics in the past Lives with: Family Family History: Reviewed & Not Pertinent - Past Medical History Cardiac Medical History: Reports: Hx Congestive Heart Failure, Hx DVT, Hx Heart Attack, Hx Hypercholesterolemia, Hx Hypertension Pulmonary Medical History: Reports: Hx COPD, Hx Pneumonia, Hx Intubation, Hx Respiratory Failure Neurological Medical History: Reports: Hx Cerebrovascular Accident. Denies: Hx Seizures Endocrine Medical History: Reports: Hx Diabetes Mellitus Type 2 Renal/ Medical History: Reports: Hx Kidney Stones. Denies: Hx Peritoneal Dialysis GI Medical History: Reports: Hx Gastroesophageal Reflux Disease Musculoskeltal Medical History: Reports Hx Arthritis Psychiatric Medical History: Reports: Hx Bipolar Disorder, Hx Depression Denies: Hx Schizophrenia Past Surgical History: Reports: Hx Appendectomy, Hx Cholecystectomy, Hx Orthopedic Surgery - Immunizations Immunizations up to date: Yes Hx Diphtheria, Pertussis, Tetanus Vaccination: Yes Hx Pneumococcal Vaccination: 05/13/11 Review of Systems - Review of Systems Constitutional: No symptoms reported. denies: Fever, Recent illness EENT: No symptoms reported Cardiovascular: No symptoms reported. denies: Chest pain, Dizziness Respiratory: No symptoms reported. denies: Cough, Short of breath Gastrointestinal: No symptoms reported. denies: Abdominal pain, Diarrhea, Nausea, Vomiting Genitourinary: No symptoms reported. denies: Dysuria, Flank pain Male Genitourinary: No symptoms reported Musculoskeletal: No symptoms reported. denies: Back pain Skin: Other - Decubitus ulcer Hematologic/Lymphatic: No symptoms reported Neurological/Psychological: Confusion - Family report that patient will occasionally have episodes where he seems confused that this started even when he was in the hospital. Family states that they were told that he early dementia., Dementia - Mild early Physical Exam - Vital signs Vitals: Pulse Ox 97 09/13/16 06:00 - General General appearance: Appears well, Alert In distress: None - HEENT Head: Normocephalic, Atraumatic - Respiratory Respiratory status: No respiratory distress Chest status: Nontender Breath sounds: Rhonchi, Other - Coarse breath sounds bilaterally with occasional rhonchi Chest palpation: Normal - Cardiovascular Rhythm: Tachycardia Heart sounds: S1 appreciated, S2 appreciated Murmur: No - Abdominal Inspection: Obese Distension: No distension Bowel sounds: Normal Tenderness: Nontender Organomegaly: No organomegaly - Back Back: Normal, Nontender. No: CVA tenderness - Extremities General upper extremity: Other - Left upper extremity hemiparesis General lower extremity: Other - Left lower extremity hemiparesis Shoulder: Normal, Nontender Arm: Normal, Nontender Elbow: Normal, Nontender Forearm: Normal, Nontender Wrist: Normal, Nontender Hand: Normal, Nontender Hip: Nontender Thigh: Nontender Knee: Normal, Nontender Ankle: Normal, Nontender Foot: Normal, Nontender - Neurological Neuro grossly intact: Yes Baker Coma Scale Eye Opening: Spontaneous Manuelito Coma Scale Verbal: Oriented Baker Coma Scale Motor: Obeys Commands - L hemiparesis Manuelito Coma Scale Total: 15 Motor strength normal: RUE, RLE Additional motor exam normals: Hemiplegia - Left-sided weakness - Psychological Associated symptoms: Normal affect, Normal mood - Skin Skin Temperature: Warm Skin Moisture: Dry Skin Color: Ecchymosis - RUE (consistent with hx of recent hospital admission/ iv attempts) Skin irregularity: Decubitus ulcer - stage II Sacral decubitus ulcer 7x6 cm, with 1.5 cm stage III decubitus ulcer to right buttock, Erythema Course - Re-evaluation Re-evalutation: 09/13/16 13:42 Patient assisted to stand at bedside by nurse, urine specimen collected. Patient became dyspneic standing at bedside, heart rate 130s and oxygen saturation 90% on room air. After patient returned to resting position on stretcher, heart rate return back to 90's and oxygen saturation returned to 95% on room air. 09/13/16 14:[address] Shaw regarding patient presentation, reviewed patient's CT head report and comparison CT head report from June this year. No significant change in asymmetric ventricle enlargement on scan. Suspects that patient's dyspnea on exertion and tachycardia with exertion that resolves when he is at rest is likely a result of his chronic long-standing COPD in the setting of continued heavy smoking. Does not recommend any additional testing at this time. Does recommend consultation with patient's primary doctor prior to discharge patient home once ABG results are reported. 09/13/16 15:[address] Ordaz recommends outpatient follow-up with him in the office on Saturday or Saturday of next week. Does not recommend any additional testing. Discussed patient's treatment for her headache pain management. Given patient's allergies and the fact that he is on Suboxone, patient is unable to take [id number] pain medication or prescription narcotics. - Vital Signs Vital signs: Temp Pulse Resp BP Pulse Ox 97.8 F 105 H 18 187/121 H 97 09/13/16 11:10 09/13/16 15:55 09/13/16 15:55 09/13/16 15:55 09/13/16 15:55 - Laboratory Result Diagrams: 09/13/16 11:44 09/13/16 12:59 Laboratory results interpreted by me: 09/13/16 09/13/16 09/13/16 11:44 12:59 13:14 Hgb 10.3 L Hct 33.4 L MCV 67 L MCH 20.9 L MCHC 31.0 L RDW 22.0 H ABG pH ABG pO2 ABG HCO3 ABG Total CO2 ABG O2 Saturation Sodium 145.2 H BUN 4 L Creatine Kinase 254 H Urine Blood SMALL H Ur Leukocyte Esterase TRACE H 09/13/16 14:20 Hgb Hct MCV MCH MCHC RDW ABG pH 7.47 H ABG pO2 59.5 L ABG HCO3 27.5 H ABG Total CO2 28.6 H ABG O2 Saturation 92.3 L Sodium BUN Creatine Kinase Urine Blood Ur Leukocyte Esterase Labs- Entire Visit 09/13/16 09/13/16 09/13/16 11:44 11:44 11:44 WBC 9.0 RBC 4.96 Hgb 10.3 L Hct 33.4 L MCV 67 L MCH 20.9 L MCHC 31.0 L RDW 22.0 H Plt Count 246 Seg Neutrophils % 67.0 Lymphocytes % 19.8 Monocytes % 10.6 Eosinophils % 0.8 Basophils % 1.8 Absolute Neutrophils 6.0 Absolute Lymphocytes 1.8 Absolute Monocytes 0.9 Absolute Eosinophils 0.1 Absolute Basophils 0.2 Carbonic Acid HCO3/H2CO3 Ratio ABG pH ABG pCO2 ABG pO2 ABG HCO3 ABG Total CO2 ABG O2 Saturation ABG Base Excess FiO2 Sodium Cancelled Potassium Cancelled Chloride Cancelled Carbon Dioxide Cancelled Anion Gap Cancelled BUN Cancelled Creatinine Cancelled Est GFR ( Amer) Cancelled Est GFR (Non-Af Amer) Cancelled Glucose Cancelled Lactic Acid Calcium Cancelled Magnesium Cancelled Total Bilirubin Cancelled Direct Bilirubin Cancelled Indirect Bilirubin Cancelled Neonat Total Bilirubin Cancelled AST Cancelled ALT Cancelled Alkaline Phosphatase Cancelled Creatine Kinase Cancelled CK-MB (CK-2) 2.21 Troponin I < 0.012 Total Protein Cancelled Albumin Cancelled Urine Color Urine Appearance Urine pH Ur Specific [place] Urine Protein Urine Glucose (UA) Urine Ketones Urine Blood Urine Nitrite Urine Bilirubin Urine Urobilinogen Ur Leukocyte Esterase Urine WBC (Auto) Urine RBC (Auto) Squamous Epi Cells Auto Urine Ascorbic Acid Urine Opiates Screen Urine Methadone Screen Ur Barbiturates Screen Ur Phencyclidine Scrn Ur Amphetamines Screen U Benzodiazepines Scrn Urine Cocaine Screen U Marijuana (THC) Screen Serum Alcohol Cancelled 09/13/16 09/13/16 09/13/16 12:59 12:59 13:14 WBC RBC Hgb Hct MCV MCH MCHC RDW Plt Count Seg Neutrophils % Lymphocytes % Monocytes % Eosinophils % Basophils % Absolute Neutrophils Absolute Lymphocytes Absolute Monocytes Absolute Eosinophils Absolute Basophils Carbonic Acid HCO3/H2CO3 Ratio ABG pH ABG pCO2 ABG pO2 ABG HCO3 ABG Total CO2 ABG O2 Saturation ABG Base Excess FiO2 Sodium 145.2 H Potassium 4.0 Chloride 106 Carbon Dioxide 25 Anion Gap 14 BUN 4 L Creatinine 0.68 Est GFR ( Amer) > 60 Est GFR (Non-Af Amer) > 60 Glucose 109 Lactic Acid 1.1 Calcium 9.7 Magnesium 1.7 Total Bilirubin 0.7 Direct Bilirubin 0.3 Indirect Bilirubin Not Reportable Neonat Total Bilirubin Not Reportable AST 24 ALT 39 Alkaline Phosphatase 116 Creatine Kinase 254 H CK-MB (CK-2) Troponin I Total Protein 7.5 Albumin 4.2 Urine Color YELLOW Urine Appearance CLEAR Urine pH 7.0 Ur Specific [place] 1.004 Urine Protein NEGATIVE Urine Glucose (UA) NEGATIVE Urine Ketones NEGATIVE Urine Blood SMALL H Urine Nitrite NEGATIVE Urine Bilirubin NEGATIVE Urine Urobilinogen NEGATIVE Ur Leukocyte Esterase TRACE H Urine WBC (Auto) 8 Urine RBC (Auto) 1 Squamous Epi Cells Auto <1 Urine Ascorbic Acid NEGATIVE Urine Opiates Screen Urine Methadone Screen Ur Barbiturates Screen Ur Phencyclidine Scrn Ur Amphetamines Screen U Benzodiazepines Scrn Urine Cocaine Screen U Marijuana (THC) Screen Serum Alcohol < 10 09/13/16 09/13/16 13:14 14:20 WBC RBC Hgb Hct MCV MCH MCHC RDW Plt Count Seg Neutrophils % Lymphocytes % Monocytes % Eosinophils % Basophils % Absolute Neutrophils Absolute Lymphocytes Absolute Monocytes Absolute Eosinophils Absolute Basophils Carbonic Acid 1.16 HCO3/H2CO3 Ratio 23:1 ABG pH 7.47 H ABG pCO2 38.6 ABG pO2 59.5 L ABG HCO3 27.5 H ABG Total CO2 28.6 H ABG O2 Saturation 92.3 L ABG Base Excess 3.6 FiO2 ROOM AIR Sodium Potassium Chloride Carbon Dioxide Anion Gap BUN Creatinine Est GFR ( Amer) Est GFR (Non-Af Amer) Glucose Lactic Acid Calcium Magnesium Total Bilirubin Direct Bilirubin Indirect Bilirubin Neonat Total Bilirubin AST ALT Alkaline Phosphatase Creatine Kinase CK-MB (CK-2) Troponin I Total Protein Albumin Urine Color Urine Appearance Urine pH Ur Specific [place] Urine Protein Urine Glucose (UA) Urine Ketones Urine Blood Urine Nitrite Urine Bilirubin Urine Urobilinogen Ur Leukocyte Esterase Urine WBC (Auto) Urine RBC (Auto) Squamous Epi Cells Auto Urine Ascorbic Acid Urine Opiates Screen NEGATIVE Urine Methadone Screen NEGATIVE Ur Barbiturates Screen NEGATIVE Ur Phencyclidine Scrn NEGATIVE Ur Amphetamines Screen NEGATIVE U Benzodiazepines Scrn NEGATIVE Urine Cocaine Screen NEGATIVE U Marijuana (THC) Screen NEGATIVE Serum Alcohol 09/13/16 19:31 - Diagnostic Test Radiology reviewed: Reports reviewed Discharge - Discharge Clinical Impression: Tobacco abuse, Sacral decubitus ulcer, stage II, History of COPD Fall Qualifiers: Encounter type: initial encounter Qualified Code(s): W19.XXXA - Unspecified fall, initial encounter HTN (hypertension) Qualifiers: Hypertension type: unspecified secondary hypertension Qualified Code(s): I15.9 - Secondary hypertension, unspecified Condition: Stable Disposition: HOME, SELF-CARE Instructions: Chronic Obstructive Lung Disease ([facility]), Stop Smoking ([facility]), High Blood Pressure, Requiring Treatment ([facility]) Additional Instructions: Return immediately for any new or worsening symptoms Followup with your primary care provider, call tomorrow to make a followup appointment Follow up with Dr. Wakefield on Saturday for recheck Wear your oxygen at home as prescribed continue to dress your sacral wound at home Blood pressure was elevated today, have your doctor recheck this on Saturday You have had your evening dose of clonidine here in the ER today Forms: Elevated Blood Pressure Referrals: WILNER ORDAZ MD [Primary Care Provider] - 09/17/16
[2016-09-13 12:07] LABS: ABSOLUTE BASOPHILS # (AUTO) 0.2 10^3/uL (0.0-0.2); ABSOLUTE EOSINOPHILS # (AUTO) 0.1 10^3/uL (0.0-0.6); ABSOLUTE LYMPHOCYTES (AUTO) 1.8 10^3/uL (0.5-4.7); ABSOLUTE MONOCYTES (AUTO) 0.9 10^3/uL (0.1-1.4); BASOPHILS % (AUTO) 1.8 % (0-2); EOSINOPHILS % (AUTO) 0.8 % (0-6); HEMATOCRIT 33.4 % (37.9-51.0); HEMOGLOBIN 10.3 g/dL (13.5-17.0); HGB HCT DIFFERENCE -2.5; LYMPHOCYTES % (AUTO) 19.8 % (13-45); MEAN CORPUSCULAR HEMOGLOBIN 20.9 pg (27.0-33.4); MEAN CORPUSCULAR VOLUME 67 fl (80-97); MONOCYTES % (AUTO) 10.6 % (3-13); RED BLOOD COUNT 4.96 10^6/uL (4.35-5.55)
[2016-09-13 12:36] LABS: CREATINE KINASE MB 2.21 ng/mL (<4.55); TROPONIN I < 0.012 ng/mL
[2016-09-13] MEDS ORDERED: CEFTRIAXONE RTU 1 GM/D5W 50 ML IV ONE (13:21)
[2016-09-13 13:39] LABS: APPEARANCE,URINE CLEAR; BILIRUBIN,URINE NEGATIVE (NEGATIVE); GLUCOSE, URINE NEGATIVE (NEGATIVE); KETONES,URINE NEGATIVE (NEGATIVE); LEUKOCYTE ESTERASE,URINE TRACE (NEGATIVE); NITRITE,URINE NEGATIVE (NEGATIVE); PROTEIN,URINE NEGATIVE (NEGATIVE); URINE SPECIFIC GRAVITY 1.004; UROBILINOGEN,URINE NEGATIVE mg/dL (<2.0)
[2016-09-13 13:41] LABS: ALANINE AMINOTRANSFERASE 39 U/L (21-72); ALBUMIN 4.2 g/dL (3.5-5.0); ALKALINE PHOSPHATASE 116 U/L (38-126); ANION GAP 14 (5-19); ASPARTATE AMINO TRANSFERASE 24 U/L (17-59); BILIRUBIN,DIRECT 0.3 mg/dL (0.0-0.4); BILIRUBIN,TOTAL 0.7 mg/dL (0.2-1.3); BLOOD UREA NITROGEN 4 mg/dL (7-20); CALCIUM 9.7 mg/dL (8.4-10.2); CARBON DIOXIDE 25 mmol/L (22-30); CHLORIDE 106 mmol/L (98-107); CREATINE KINASE 254 U/L (55-170); CREATININE RESULT 0.68 mg/dL (0.52-1.25); GLUCOSE 109 mg/dL (75-110); MAGNESIUM 1.7 mg/dL (1.6-2.3); SODIUM 145.2 mmol/L (137-145); TOTAL PROTEIN 7.5 g/dL (6.3-8.2)
[2016-09-13 13:42] LABS: ALCOHOL < 10 mg/dL (NONE DETECTED)
[2016-09-13 13:50] LABS: URINE BARBITURATES SCREEN NEGATIVE; URINE METHADONE SCREEN NEGATIVE; URINE OPIATES LOW NEGATIVE; URINE PHENCYCLIDINE SCREEN NEGATIVE
[2016-09-13 14:32] LABS: ARTERIAL BLOOD BASE EXCESS 3.6 mmol/L; ARTERIAL BLOOD O2 SATURATION 92.3 % (94-98)
[2016-09-13] MEDS ORDERED: CLONIDINE HCL 0.1 MG TABLET PO ONE ×2 (15:20→15:43)
[2016-09-13 16:33] VITALS: BP 187/121
--- NOTE | 2016-09-14 08:02 | EKG REPORT ---
SEVERITY:- ABNORMAL ECG - SINUS TACHYCARDIA LEFT ANTERIOR FASCICULAR BLOCK BORDERLINE T ABNORMALITIES, DIFFUSE LEADS : Confirmed by: Jose Luis White MD 14-Sep-2016 08:01:19
== END 2016-09-13 16:30 | disposition home or self-care (01) ==
LOC: ER 11:05
DX: L89.152 Pressure ulcer of sacral region, stage 2 (principal); I15.9 Secondary hypertension, unspecified; J44.9 Chronic obstructive pulmonary disease, unspecified; M53.3 Sacrococcygeal disorders, not elsewhere classified; R53.1 Weakness; W05.0XXA Fall from non-moving wheelchair, initial encounter; Z91.81 History of falling; F17.210 Nicotine dependence, cigarettes, uncomplicated; Z99.81 Dependence on supplemental oxygen
CPT/HCPCS: 93005; 99285; 96374; 36415; 87040; 82553; 80307 ×2; 82803; 82550; 83605; 83735; 85025; 80053; 81001; 84484; 71010; 70450; 93010; A9270; J0696

== ENCOUNTER → 2016-09-20 | Outpatient (CLI) | payer MEDICARE, MEDICAID ==
[2016-09-20 14:29] LABS: ALANINE AMINOTRANSFERASE 31 U/L (21-72); ALBUMIN 4.4 g/dL (3.5-5.0); ALKALINE PHOSPHATASE 118 U/L (38-126); ANION GAP 13 (5-19); ASPARTATE AMINO TRANSFERASE 23 U/L (17-59); BILIRUBIN,DIRECT 0.3 mg/dL (0.0-0.4); BILIRUBIN,TOTAL 0.3 mg/dL (0.2-1.3); BLOOD UREA NITROGEN 14 mg/dL (7-20); CALCIUM 9.8 mg/dL (8.4-10.2); CARBON DIOXIDE 26 mmol/L (22-30); CHLORIDE 106 mmol/L (98-107); CHOLESTEROL 272.89 mg/dL (0-200); CREATININE RESULT 0.72 mg/dL (0.52-1.25); Direct HDL 69 mg/dL (>40); GLUCOSE 85 mg/dL (75-110); POTASSIUM 4.8 mmol/L (3.6-5.0); SODIUM 145.2 mmol/L (137-145); TOTAL PROTEIN 7.8 g/dL (6.3-8.2); TRIGLYCERIDES 339 mg/dL (<150)
[2016-09-20 14:41] LABS: DIRECT LDL 44 mg/dL (<100)
[2016-09-20 14:42] LABS: APPEARANCE,URINE CLEAR; BILIRUBIN,URINE NEGATIVE (NEGATIVE); GLUCOSE, URINE NEGATIVE (NEGATIVE); KETONES,URINE NEGATIVE (NEGATIVE); LEUKOCYTE ESTERASE,URINE TRACE (NEGATIVE); NITRITE,URINE NEGATIVE (NEGATIVE); PROTEIN,URINE NEGATIVE (NEGATIVE); URINE SPECIFIC GRAVITY 1.003; UROBILINOGEN,URINE NEGATIVE mg/dL (<2.0)
[2016-09-20 14:47] LABS: FREE T3 3.69 pg/mL (2.77-5.27)
[2016-09-20 15:00] LABS: THYROID STIMULATING HORMONE 1.35 uIU/mL (0.47-4.68)
[2016-09-20 15:05] LABS: THYROID STIMULATING HORMONE 1.35 uIU/mL (0.47-4.68)
[2016-09-20 15:09] LABS: ADD HIVPANEL? NO; HIV (1 AND 2) ANTIBODY NEGATIVE (NEGATIVE)
[2016-09-20 15:18] LABS: VLDL CHOLESTEROL 67.8 mg/dL (10-31)
[2016-09-20 15:19] LABS: ADD HIVPANEL? NO; ALANINE AMINOTRANSFERASE 31 U/L (21-72); ALBUMIN 4.4 g/dL (3.5-5.0); ALKALINE PHOSPHATASE 118 U/L (38-126); ANION GAP 13 (5-19); ASPARTATE AMINO TRANSFERASE 23 U/L (17-59); BILIRUBIN,DIRECT 0.3 mg/dL (0.0-0.4); BILIRUBIN,TOTAL 0.3 mg/dL (0.2-1.3); BLOOD UREA NITROGEN 14 mg/dL (7-20); CALCIUM 9.8 mg/dL (8.4-10.2); CARBON DIOXIDE 26 mmol/L (22-30); CHLORIDE 106 mmol/L (98-107); CHOLESTEROL 272.89 mg/dL (0-200); CREATININE RESULT 0.72 mg/dL (0.52-1.25); DIRECT LDL 44 mg/dL (<100); Direct HDL 69 mg/dL (>40); GLUCOSE 85 mg/dL (75-110); HIV (1 AND 2) ANTIBODY NEGATIVE (NEGATIVE); POTASSIUM 4.8 mmol/L (3.6-5.0); SODIUM 145.2 mmol/L (137-145); TOTAL PROTEIN 7.8 g/dL (6.3-8.2); TRIGLYCERIDES 339 mg/dL (<150); VLDL CHOLESTEROL 67.8 mg/dL (10-31)
== END ==
LOC: OD 11:59
PROVIDERS: ATTEND Emergency Medicine
DX: E11.42 Type 2 diabetes mellitus with diabetic polyneuropathy (principal); B18.2 Chronic viral hepatitis C; F11.20 Opioid dependence, uncomplicated
CPT/HCPCS: 36415; 80053; 80061; 81001; 82977; 84439; 84443; 84481; 86592; 86701

== ENCOUNTER 2016-11-20 14:33 | Emergency (ER) | payer MEDICARE, MEDICAID ==
[2016-11-20] MEDS ORDERED: NORMAL SALINE 1000 ML 1,000 ML IV PRN (14:59)
[2016-11-20 15:43] LABS: ALANINE AMINOTRANSFERASE 45 U/L (21-72); ALKALINE PHOSPHATASE 99 U/L (38-126); ANION GAP 12 (5-19); ASPARTATE AMINO TRANSFERASE 31 U/L (17-59); BILIRUBIN,DIRECT 0.3 mg/dL (0.0-0.4); BILIRUBIN,TOTAL 0.4 mg/dL (0.2-1.3); BLOOD UREA NITROGEN 17 mg/dL (7-20); CALCIUM 9.1 mg/dL (8.4-10.2); CARBON DIOXIDE 21 mmol/L (22-30); CHLORIDE 109 mmol/L (98-107); CREATININE RESULT 1.15 mg/dL (0.52-1.25); GLUCOSE 73 mg/dL (75-110); POTASSIUM 4.7 mmol/L (3.6-5.0); SODIUM 141.7 mmol/L (137-145); TOTAL PROTEIN 7.3 g/dL (6.3-8.2)
[2016-11-20 15:58] LABS: ABSOLUTE BASOPHILS # (AUTO) 0.1 10^3/uL (0.0-0.2); ABSOLUTE EOSINOPHILS # (AUTO) 0.2 10^3/uL (0.0-0.6); ABSOLUTE LYMPHOCYTES (AUTO) 1.7 10^3/uL (0.5-4.7); ABSOLUTE MONOCYTES (AUTO) 0.7 10^3/uL (0.1-1.4); ABSOLUTE NEUT (AUTO) 5.3 10^3/uL (1.7-8.2); BASOPHILS % (AUTO) 1.2 % (0-2); EOSINOPHILS % (AUTO) 2.1 % (0-6); HEMATOCRIT 34.5 % (37.9-51.0); HEMOGLOBIN 10.5 g/dL (13.5-17.0); LYMPHOCYTES % (AUTO) 21.6 % (13-45); MEAN CORPUSCULAR HEMOGLOBIN 21.4 pg (27.0-33.4); MEAN CORPUSCULAR HGB CONC 30.4 g/dL (32.0-36.0); MEAN CORPUSCULAR VOLUME 71 fl (80-97); MONOCYTES % (AUTO) 9.1 % (3-13); RED BLOOD COUNT 4.89 10^6/uL (4.35-5.55); RED CELL DISTRIBUTION WIDTH 20.9 % (11.5-14.0); VENOUS BLOOD BASE EXCESS -3.1 mmol/L; VENOUS BLOOD HCO3 23.2 mmol/L (20-32); VENOUS BLOOD PH 7.31 (7.30-7.42)
--- NOTE | 2016-11-20 16:39 | RADIOLOGY REPORT (SQ) ---
EXAM DESCRIPTION: CHEST SINGLE VIEW COMPLETED DATE/TIME: 11/20/2016 4:30 pm REASON FOR STUDY: altered COMPARISON: 09/13/2016. EXAM PARAMETERS: NUMBER OF VIEWS: One view. TECHNIQUE: Single frontal radiographic view of the chest acquired. RADIATION DOSE: NA LIMITATIONS: None. FINDINGS: LUNGS AND PLEURA: Mild chronic scarring. No infiltrates, masses or pneumothorax. No pleur al effusion. MEDIASTINUM AND HILAR STRUCTURES: No masses. Contour normal. HEART AND VASCULAR STRUCTURES: Heart upper limits of normal in size. Normal vasculature. BONES: No acute findings. HARDWARE: None in the chest. OTHER: No other significant finding. IMPRESSION: NO ACUTE RADIOGRAPHIC FINDING IN THE CHEST. TECHNICAL DOCUMENTATION: JOB ID: [id number]
[2016-11-20 16:47] LABS: APPEARANCE,URINE CLEAR; BILIRUBIN,URINE NEGATIVE (NEGATIVE); GLUCOSE, URINE NEGATIVE (NEGATIVE); KETONES,URINE NEGATIVE (NEGATIVE); LEUKOCYTE ESTERASE,URINE NEGATIVE (NEGATIVE); NITRITE,URINE NEGATIVE (NEGATIVE); PROTEIN,URINE NEGATIVE (NEGATIVE); URINE SPECIFIC GRAVITY 1.009; UROBILINOGEN,URINE NEGATIVE mg/dL (<2.0)
--- NOTE | 2016-11-20 16:47 | ER Document Report ---
ED General - General Chief Complaint: Low Blood Pressure Stated Complaint: ALTERED MENTAL STATUS Time Seen by Provider: 11/20/16 14:34 Mode of Arrival: Medic Information source: Patient Notes: 56-year-old male history of UTIs hypotension sepsis in the past presents with complaints of low blood pressure. Patient notes that his needle loom setter doubled his blood pressure medication. Patient denies any fevers or chills nausea vomiting diarrhea patient wishes to be discharged immediately upon arrival TRAVEL OUTSIDE OF THE [place] IN LAST 30 DAYS: No - HPI Onset: Just prior to arrival Onset/Duration: Sudden Quality of pain: No pain Severity: Mild Pain Level: Denies Associated symptoms: Weakness Exacerbated by: Denies Relieved by: Denies Similar symptoms previously: Yes Recently seen / treated by doctor: Yes - Related Data Allergies/Adverse Reactions: ketorolac tromethamine [From Toradol] Allergy (Unknown, Verified 11/20/16 15:34) morphine [Morphine] Allergy (Unknown, Verified 11/20/16 15:34) acetaminophen [From Tylenol] Allergy (Verified 11/20/16 15:34) lorazepam [From Ativan] Adverse Reaction (Verified 11/20/16 15:34) Past Medical History - Social History Smoking Status: Current Every Day Smoker Cigarette use (# per day): Yes Chew tobacco use (# tins/day): No Smoking Education Provided: No Frequency of alcohol use: None Drug Abuse: None Family History: Reviewed & Not Pertinent - Past Medical History Cardiac Medical History: Reports: Hx Congestive Heart Failure, Hx DVT, Hx Heart Attack, Hx Hypercholesterolemia, Hx Hypertension Pulmonary Medical History: Reports: Hx COPD, Hx Pneumonia, Hx Intubation, Hx Respiratory Failure Neurological Medical History: Reports: Hx Cerebrovascular Accident. Denies: Hx Seizures Endocrine Medical History: Reports: Hx Diabetes Mellitus Type 2 Renal/ Medical History: Reports: Hx Kidney Stones. Denies: Hx Peritoneal Dialysis GI Medical History: Reports: Hx Gastroesophageal Reflux Disease Musculoskeltal Medical History: Reports Hx Arthritis Psychiatric Medical History: Reports: Hx Bipolar Disorder, Hx Depression Denies: Hx Schizophrenia Past Surgical History: Reports: Hx Appendectomy, Hx Cholecystectomy, Hx Orthopedic Surgery - Immunizations Immunizations up to date: Yes Hx Diphtheria, Pertussis, Tetanus Vaccination: Yes Hx Pneumococcal Vaccination: 05/13/11 Review of Systems - Review of Systems Notes: REVIEW OF SYSTEMS: CONSTITUTIONAL : Denies fever, chills, or sweats. Denies recent illness. EENT: Denies eye, ear, throat, or mouth pain or symptoms. Denies nasal or sinus congestion or discharge. Denies throat, tongue, or mouth swelling or difficulty swallowing. CARDIOVASCULAR: Denies chest pain. Denies palpitations or racing or irregular heart beat. Denies ankle edema. RESPIRATORY: Denies cough, cold, or chest congestion. Denies shortness of breath, difficulty breathing, or wheezing. GASTROINTESTINAL: Denies abdominal pain or distention. Denies nausea, vomiting , or diarrhea. Denies blood in vomitus, stools, or per rectum. Denies black, tarry stools. Denies constipation. GENITOURINARY: Denies difficulty urinating, painful urination, burning, frequency, blood in urine, or discharge. MUSCULOSKELETAL: Denies back or neck pain or stiffness. Denies joint pain or swelling. SKIN: Denies rash, lesions or sores. HEMATOLOGIC : Denies easy bruising or bleeding. LYMPHATIC: Denies swollen, enlarged glands. NEUROLOGICAL: Admits to weakness PSYCHIATRIC: Denies anxiety or stress. Denies depression, suicidal ideation, or homicidal ideation. ALL OTHER SYSTEMS REVIEWED AND NEGATIVE. Dictation was performed using [employer] voice recognition software PHYSICAL EXAMINATION: GENERAL: Chronically ill-appearing male with a hypotensive HEAD: Atraumatic, normocephalic. EYES: Pupils equal round and reactive to light, extraocular movements intact, sclera anicteric, conjunctiva are normal. ENT: Nares patent, oropharynx clear without exudates. Moist mucous membranes. NECK: Normal range of motion, supple without lymphadenopathy LUNGS: Breath sounds clear to auscultation bilaterally and equal. No wheezes rales or rhonchi. HEART: Regular rate and rhythm without murmurs ABDOMEN: Soft, nontender, nondistended abdomen. No guarding, no rebound. No masses appreciated. Musculoskeletal: Normal range of motion, no pitting or edema. No cyanosis. NEUROLOGICAL: Cranial nerves grossly intact. Normal speech, normal gait. Normal sensory, motor exams PSYCH: Normal mood, normal affect. SKIN: Warm, Dry, normal turgor, no rashes or lesions noted. Physical Exam - Vital signs Vitals: Resp Pulse Ox 12 93 11/20/16 14:49 11/20/16 14:49 Course - Re-evaluation Re-evalutation: 11/20/16 16:45 Patient was initially noted to be hypotensive, it appears his home medication blood pressures were increased by his needle loom setter yesterday, I believe this is the cause that he has no symptoms otherwise. Patient is not willing to wait for complete evaluation, he is demanding to leave, has already fallen once since he refuses to stay in bed. Patient is alert oriented has no neurological deficits wishes to leave and is normotensive After performing a Medical Screening Examination, I spoke with the patient at length in regards to leaving the hospital against medical advice. I do not believe the patient should leave but the patient is alert oriented x4, understands the risks and benefits of staying and leaving including disability and . Pt understands that he can return at any time for further care and is more than welcome to do so. Pt verbalizes this understanding. 11/20/16 16:47 Patient has an abrasion to the left knee after a fall, maximus able to ambulate 11/20/16 19:24 - Vital Signs Vital signs: Temp Pulse Resp BP Pulse Ox 17 114/51 L 100 11/20/16 19:05 11/20/16 19:05 11/20/16 15:42 - Laboratory Result Diagrams: 11/20/16 15:40 11/20/16 15:06 Laboratory results interpreted by me: 11/20/16 11/20/16 15:06 15:40 Hgb 10.5 L Hct 34.5 L MCV 71 L MCH 21.4 L MCHC 30.4 L RDW 20.9 H Chloride 109 H Carbon Dioxide 21 L Glucose 73 L - Diagnostic Test Radiology reviewed: Image reviewed, Reports reviewed Discharge - Discharge Clinical Impression: leaving ama, Weakness Hypotension Qualifiers: Hypotension type: unspecified hypotension type Qualified Code(s): I95.9 - Hypotension, unspecified Condition: Fair Disposition: AGAINST MEDICAL ADVICE Referrals: WILNER ORDAZ MD [Primary Care Provider] - Follow up tomorrow
--- NOTE | 2016-11-20 19:06 | EKG REPORT ---
SEVERITY:- ABNORMAL ECG - SINUS RHYTHM BORDERLINE LEFT AXIS DEVIATION EARLY TRANSITION : Confirmed by: Jose Luis White MD 20-Nov-2016 19:05:20
[2016-11-20 19:57] VITALS: BP 155/108
== END 2016-11-20 19:57 | disposition left against medical advice (07) ==
LOC: ER 14:33
DX: R53.1 Weakness (principal); I95.9 Hypotension, unspecified; R41.82 Altered mental status, unspecified; S80.212A Abrasion, left knee, initial encounter; W19.XXXA Unspecified fall, initial encounter; F17.210 Nicotine dependence, cigarettes, uncomplicated; I50.9 Heart failure, unspecified; E11.9 Type 2 diabetes mellitus without complications; E78.00 Pure hypercholesterolemia, unspecified; I11.0 Hypertensive heart disease with heart failure; J44.9 Chronic obstructive pulmonary disease, unspecified; I25.2 Old myocardial infarction; Z88.6 Allergy status to analgesic agent; Z86.73 Personal history of transient ischemic attack (TIA), and cerebral infarction without residual deficits; Z86.718 Personal history of other venous thrombosis and embolism; Z87.442 Personal history of urinary calculi; Z90.49 Acquired absence of other specified parts of digestive tract; Z87.440 Personal history of urinary (tract) infections
CPT/HCPCS: 93005; 99285; 96360; 36415; 87040; 87086; 85025; 80053; 81001; 82803; 83605; 71010; 93010; J7030

== ENCOUNTER 2016-12-10 22:26 | Emergency (ER) | payer MEDICARE, MEDICAID ==
--- NOTE | 2016-12-10 22:40 | ER Document Report ---
ED General - General Stated Complaint: CHEST PAIN Time Seen by Provider: 12/10/16 22:32 Notes: Patient is a 56-year-old male who has a history of previous VT as well as CHF and COPD. He still smokes. He said around midday today he started having some pressure in his chest which gradually worsened and he started to feel short of breath. He is also had increased fluid accumulation in his lower extremities. He does not wear oxygen at home. Paramedics arrived he had shortness of breath and his oxygen saturation was around 89-90%. No recent fevers or infections. No vomiting. He says he had an VT in 2004 but no cardiac stents. No other complaints at this time. His primary care doctor is Dr. Ordaz. TRAVEL OUTSIDE OF THE [place] IN LAST 30 DAYS: No - Related Data Allergies/Adverse Reactions: ketorolac tromethamine [From Toradol] Allergy (Unknown, Verified 11/20/16 15:34) morphine [Morphine] Allergy (Unknown, Verified 11/20/16 15:34) acetaminophen [From Tylenol] Allergy (Verified 11/20/16 15:34) lorazepam [From Ativan] Adverse Reaction (Verified 11/20/16 15:34) Past Medical History - Social History Smoking Status: Current Every Day Smoker Frequency of alcohol use: None Drug Abuse: None Family History: Reviewed & Not Pertinent - Past Medical History Cardiac Medical History: Reports: Hx Congestive Heart Failure, Hx DVT, Hx Heart Attack, Hx Hypercholesterolemia, Hx Hypertension Pulmonary Medical History: Reports: Hx COPD, Hx Pneumonia, Hx Intubation, Hx Respiratory Failure Neurological Medical History: Reports: Hx Cerebrovascular Accident. Denies: Hx Seizures Endocrine Medical History: Reports: Hx Diabetes Mellitus Type 2 Renal/ Medical History: Reports: Hx Kidney Stones. Denies: Hx Peritoneal Dialysis GI Medical History: Reports: Hx Gastroesophageal Reflux Disease Musculoskeltal Medical History: Reports Hx Arthritis Psychiatric Medical History: Reports: Hx Bipolar Disorder, Hx Depression Denies: Hx Schizophrenia Past Surgical History: Reports: Hx Appendectomy, Hx Cholecystectomy, Hx Orthopedic Surgery - Immunizations Immunizations up to date: Yes Hx Diphtheria, Pertussis, Tetanus Vaccination: Yes Hx Pneumococcal Vaccination: 05/13/11 Review of Systems - Review of Systems Notes: My Normal Review Basic REVIEW OF SYSTEMS: CONSTITUTIONAL : Denies fever, chills, or sweats. Denies recent illness. EENT: Denies eye, ear, throat, or mouth pain or symptoms. Denies nasal or sinus congestion. CARDIOVASCULAR: Chest pressure RESPIRATORY: Difficulty breathing. GASTROINTESTINAL: Denies abdominal pain. Denies nausea, vomiting, or diarrhea. Denies constipation. Last BM: GENITOURINARY: Denies difficulty urinating, painful urination, burning, frequency, or blood in urine. MUSCULOSKELETAL: Lower extremity edema SKIN: Denies rash or skin lesions. NEUROLOGICAL: Denies altered mental status or loss of consciousness. Denies headache. Denies weakness or paralysis or loss of use of either side. Denies problems with gait or speech. Denies sensory or motor loss. ALL OTHER SYSTEMS REVIEWED AND NEGATIVE. Physical Exam - Vital signs Vitals: Resp BP Pulse Ox 12 162/98 H 100 12/10/16 22:36 12/10/16 22:36 12/10/16 22:36 - Notes Notes: General Appearance: Well nourished, alert, cooperative, no acute distress, no obvious discomfort. Vitals: reviewed, See vital signs table. Head: no swelling or tenderness to the head Eyes: PERRL, EOMI, Conjuctiva clear Mouth: No decreasd moisture Neck: Supple, no neck tenderness, No thyromegaly Lungs: some scattered wheezing, No rales, No rhonci, No accessory muscle use, good air exchange bilaterally. Heart: Normal rate, Regular rythm, No murmur, no rub Abdomen: Normal BS, soft, No rigidity, No abdominal tenderness, No guarding, no rebound, no abdominal masses, no organomegaly Extremities: strength 5/5 in all extremities, good pulses in all extremities, no swelling or tenderness in the extremities, 3+ bilateral lower extremity edema. Skin: warm, dry, appropriate color, no rash Neuro: speech clear, oriented x 3, normal affect, responds appropriately to questions. Course - Re-evaluation Re-evalutation: 12/11/16 02:48 I went to reevaluate the patient. He was sitting in the hallway because he had urinated in his bed. Patient says that his chest pain is gone and he feels better and he wants to go home. When I listen to his lungs he still some wheezing. I talked to him at length about my concern that he has multiple cardiac risk factors they had chest pain was pressure sensation and was uncomfortable. I informed him that I cannot fully rule out impending VT without admitting him to the hospital. Patient says that he still wants to go home. I informed him that if he goes home there is potential that he could have a heart attack and or that his breathing to get worse and he could . Patient shows understanding of this but still refuses to stay. I informed him that I cannot hold him against as well as he is awake alert and appropriate in answering my questions appropriately. I informed him that despite him want to leave AGAINST MEDICAL ADVICE I still strongly encourage him to return to ER anytime so that we can give him help as needed. Patient agrees and will be discharged AGAINST MEDICAL ADVICE as he requests. Dictation of this chart was performed using voice recognition software; therefore, there may be some unintended grammatical errors. - Vital Signs Vital signs: Temp Pulse Resp BP Pulse Ox 12 134/77 H 95 12/11/16 01:04 12/11/16 01:04 12/11/16 01:04 - Laboratory Result Diagrams: 12/10/16 23:15 12/10/16 23:15 Laboratory results interpreted by me: 12/10/16 23:15 Hgb 11.4 L Hct 35.4 L MCV 72 L MCH 23.0 L RDW 21.3 H Discharge - Discharge Clinical Impression: Chest pain, Bronchitis, Lower extremity edema Condition: Stable Disposition: AGAINST MEDICAL ADVICE Additional Instructions: You have some bronchitis with wheezing and also presented with chest pain. As discussed with you, I feel that you should stay in the hospital to have your heart more thoroughly checked out to help rule out impending heart attack. If you go home there is a chance you could have a heart attack and . Also, your breathing could get worse which could lead to a heart beauty specialist and cause your . I respect your decision to go home,but still want you to have a very low threshold to return to the ER if you have any recurrent chest pain, difficulty breathing, or change your mind about being admitted. Referrals: WILNER ORDAZ MD [Primary Care Provider] - Follow up tomorrow
--- NOTE | 2016-12-10 22:58 | RADIOLOGY REPORT (SQ) ---
EXAM DESCRIPTION: CHEST SINGLE VIEW COMPLETED DATE/TIME: 12/10/2016 10:50 pm REASON FOR STUDY: cp COMPARISON: None. EXAM PARAMETERS: NUMBER OF VIEWS: One view. TECHNIQUE: Single frontal radiographic view of the chest acquired. RADIATION DOSE: NA LIMITATIONS: None. FINDINGS: LUNGS AND PLEURA: No opacities, masses or pneumothorax. No pleural effusion. Minimal line ar density is identified in the left lung base most consistent with subsegmental atelectasis MEDIASTINUM AND HILAR STRUCTURES: No masses. Contour normal. HEART AND VASCULAR STRUCTURES: Heart normal in size. Normal vasculature. BONES: No acute findings. HARDWARE: None in the chest. OTHER: No other significant finding. IMPRESSION: NO ACUTE RADIOGRAPHIC FINDING IN THE CHEST. TECHNICAL DOCUMENTATION: JOB ID: [id number]
[2016-12-10 23:27] LABS: ABSOLUTE BASOPHILS # (AUTO) 0.1 10^3/uL (0.0-0.2); ABSOLUTE EOSINOPHILS # (AUTO) 0.3 10^3/uL (0.0-0.6); ABSOLUTE LYMPHOCYTES (AUTO) 1.8 10^3/uL (0.5-4.7); ABSOLUTE MONOCYTES (AUTO) 0.8 10^3/uL (0.1-1.4); ABSOLUTE NEUT (AUTO) 4.4 10^3/uL (1.7-8.2); BASOPHILS % (AUTO) 1.1 % (0-2); HEMATOCRIT 35.4 % (37.9-51.0); HEMOGLOBIN 11.4 g/dL (13.5-17.0); HGB HCT DIFFERENCE -1.2; LYMPHOCYTES % (AUTO) 24.1 % (13-45); MEAN CORPUSCULAR HGB CONC 32.1 g/dL (32.0-36.0); MEAN CORPUSCULAR VOLUME 72 fl (80-97); RED BLOOD COUNT 4.94 10^6/uL (4.35-5.55); RED CELL DISTRIBUTION WIDTH 21.3 % (11.5-14.0); SEGMENTED NEUTROPHILS % (AUTO) 59.8 % (42-78); WHITE BLOOD COUNT 7.3 10^3/uL (4.0-10.5)
[2016-12-10] MEDS ORDERED: NITROGLYCERIN 2% OINTMENT 1 GM PACKET TP ONE (23:34)
[2016-12-10 23:39] LABS: ALANINE AMINOTRANSFERASE 30 U/L (21-72); ALBUMIN 4.1 g/dL (3.5-5.0); ALKALINE PHOSPHATASE 89 U/L (38-126); ANION GAP 8 (5-19); ASPARTATE AMINO TRANSFERASE 19 U/L (17-59); BILIRUBIN,DIRECT 0.3 mg/dL (0.0-0.4); BILIRUBIN,TOTAL 0.4 mg/dL (0.2-1.3); BLOOD UREA NITROGEN 11 mg/dL (7-20); CALCIUM 9.2 mg/dL (8.4-10.2); CARBON DIOXIDE 28 mmol/L (22-30); CHLORIDE 104 mmol/L (98-107); CREATINE KINASE 144 U/L (55-170); CREATININE RESULT 0.86 mg/dL (0.52-1.25); GLUCOSE 95 mg/dL (75-110); POTASSIUM 4.7 mmol/L (3.6-5.0); SODIUM 139.8 mmol/L (137-145); TOTAL PROTEIN 7.4 g/dL (6.3-8.2)
[2016-12-11] MEDS ORDERED: IPRATROPIUM/ALBUTEROL 0.5-2.5 MG/3 ML AMPUL NEB ONE ×2 (00:14→02:40)
[2016-12-11] MEDS ORDERED: FUROSEMIDE INJ/PF 40 MG/4 ML SDV IV ONE (00:14)
[2016-12-11 01:14] LABS: CREATINE KINASE MB 1.61 ng/mL (<4.55)
[2016-12-11 01:15] LABS: TROPONIN I < 0.012 ng/mL
[2016-12-11 02:00] VITALS: BP 134/77
--- NOTE | 2016-12-11 08:03 | EKG REPORT ---
SEVERITY:- OTHERWISE NORMAL ECG - SINUS RHYTHM LEFT AXIS DEVIATION : Confirmed by: Jose Luis White MD 11-Dec-2016 08:03:17
== END 2016-12-11 03:31 | disposition left against medical advice (07) ==
LOC: ER 22:26
DX: R07.9 Chest pain, unspecified (principal); J40 Bronchitis, not specified as acute or chronic; R60.0 Localized edema; I25.2 Old myocardial infarction; I50.9 Heart failure, unspecified; J44.9 Chronic obstructive pulmonary disease, unspecified; F17.200 Nicotine dependence, unspecified, uncomplicated; Z99.81 Dependence on supplemental oxygen
CPT/HCPCS: 93005; 94640; 99285; 96374; 36415; 82553; 82550; 85025; 80053; 84484; 83880; 71010; 93010; A9270 ×2; J1940; J7620

== ENCOUNTER 2016-12-11 16:51 | Observation (INO) | payer MEDICARE, MEDICAID ==
--- NOTE | 2016-12-11 18:52 | ER Document Report ---
ED General - General Stated Complaint: LEG PAIN Time Seen by Provider: 12/11/16 17:57 Notes: This is a 56-year-old male with heart failure who was seen here in the ED last night for intermittent chest pressure and leg edema, returns for further evaluation. He complains of 1 week of leg redness and pain, there is water in my legs" which is constant and worsening. Reports compliance with all of his medications. He still having intermittent chest pressure the last episode which was 2-3 hours ago and he is not sure if he had a stress test recently. TRAVEL OUTSIDE OF THE [place] IN LAST 30 DAYS: No - Related Data Allergies/Adverse Reactions: ketorolac tromethamine [From Toradol] Allergy (Unknown, Verified 11/20/16 15:34) morphine [Morphine] Allergy (Unknown, Verified 11/20/16 15:34) acetaminophen [From Tylenol] Allergy (Verified 11/20/16 15:34) lorazepam [From Ativan] Adverse Reaction (Verified 11/20/16 15:34) Past Medical History - General Information source: Patient - Social History Smoking Status: Current Every Day Smoker Smoking Education Provided: Yes - The patient ED visit today was directly related to their abuse of tobacco. Family History: Reviewed & Not Pertinent - Past Medical History Cardiac Medical History: Reports: Hx Congestive Heart Failure, Hx DVT, Hx Heart Attack, Hx Hypercholesterolemia, Hx Hypertension Pulmonary Medical History: Reports: Hx COPD, Hx Pneumonia, Hx Intubation, Hx Respiratory Failure Neurological Medical History: Reports: Hx Cerebrovascular Accident. Denies: Hx Seizures Endocrine Medical History: Reports: Hx Diabetes Mellitus Type 2 Renal/ Medical History: Reports: Hx Kidney Stones. Denies: Hx Peritoneal Dialysis GI Medical History: Reports: Hx Gastroesophageal Reflux Disease Musculoskeltal Medical History: Reports Hx Arthritis Psychiatric Medical History: Reports: Hx Bipolar Disorder, Hx Depression Denies: Hx Schizophrenia Past Surgical History: Reports: Hx Appendectomy, Hx Cholecystectomy, Hx Orthopedic Surgery - Immunizations Immunizations up to date: Yes Hx Diphtheria, Pertussis, Tetanus Vaccination: Yes Hx Pneumococcal Vaccination: 05/13/11 Review of Systems - Review of Systems Notes: REVIEW OF SYSTEMS GEN: Weakness and functional decline ENT: Denies sore throat, nasal discharge, ear pain EYES: Denies blurry vision, eye pain, discharge CV: Denies chest pain, palpitations, edema RESP: Denies cough, shortness of breath, wheezing GI: Denies abdominal pain, nausea, vomiting, diarrhea MSK: Leg edema SKIN: Denies rash, skin lesions LYMPH: Denies swollen glands/lymph nodes NEURO: Denies headache, focal weakness or numbness, dizziness PSYCH: Denies depression, suicidal or homicidal ideation PHYSICAL EXAMINATION General: No acute distress, well-nourished Head: Atraumatic, normocephalic ENT: Mouth normal, oropharynx moist, no exudates or tonsillar enlargement Eyes: Conjunctiva normal, pupils equal, lids normal Neck: No JVD, supple, no guarding CVS: Normal rate, regular rhythm, no murmurs Resp: No resp distress, equal and normal breath sounds bilaterally GI: Nondistended, soft, no tenderness to palpation, no rebound or guarding Ext: Pitting bilateral leg edema from the knees down, warm erythema of both legs equally which ends abruptly at the sock line bilaterally. No tenderness or fluctuance. Back: No CVA or midline TTP Skin: No rash, warm Lymphatic: No lymphadeopathy noted Neuro: Awake, alert. Face symmetric. GCS 15. Physical Exam - Vital signs Vitals: Resp Pulse Ox 21 H 99 12/11/16 18:29 12/11/16 18:29 Course - Re-evaluation Re-evalutation: 12/11/16 18:52 56-year-old male with history of heart failure intermittent chest pressure returns with similar symptoms. His leg edema is likely chronic and given its bilateral nature and lack of tenderness or fever is not likely related to cellulitis. More likely to be venous stasis versus heart failure in the setting of chronic venous disease with some dermatitis. I believe he requires antibiotics. Most concerning is his intermittent history of chest pressure in the setting of known cardiac disease, which will necessitate admission. Today rather than repeating his entire workup from yesterday, I will simply repeat an EKG and admit him. 12/11/16 19:29 EKG is unchanged. Troponin and BNP are pending. Patient was seen by Dr. Ordaz I will page for admission. 12/11/16 20:56 Troponin and BNP are negative the patient is still slightly short of breath on oxygen. He was accepted by Dr. Ordaz for admission. - Vital Signs Vital signs: Temp Pulse Resp BP Pulse Ox 13 167/106 H 99 12/11/16 20:01 12/11/16 20:01 12/11/16 20:01 - EKG Interpretation by Me Rate: Normal - If acute ST or T-wave changes. Discharge - Discharge Clinical Impression: Chest pain Qualifiers: Chest pain type: other chest pain Qualified Code(s): R07.89 - Other chest pain ; R07.8 - Other chest pain Condition: Good Disposition: ADMITTED OBSERVATION Admitting Provider: Alan Unit Admitted: Telemetry Referrals: WILNER ORDAZ MD [Primary Care Provider] - Follow up as needed
[2016-12-11] MEDS ORDERED: HYDRALAZINE HCL INJ/PF 20 MG/1 ML SDV IV ONE (22:55)
[2016-12-11] MEDS ORDERED: HYDRALAZINE HCL INJ/PF 20 MG/1 ML SDV ONE (22:59)
[2016-12-12] MEDS ORDERED: DEXTROSE 50%-WATER SYRINGE 25 GM/50 ML DOSE IV PRN (01:06)
[2016-12-12] MEDS ORDERED: GLUCAGON,HUMAN RECOMB 1 MG INJ IM PRN (01:06)
[2016-12-12] MEDS ORDERED: DEXTROSE 50%-WATER SYRINGE 12.5 GM/25 ML DOSE IV PRN (01:06)
[2016-12-12] MEDS ORDERED: DEXTROSE 40% GEL 15 GM TUBE PO PRN (01:06)
[2016-12-12] MEDS ORDERED: DEXTROSE 40% GEL 15 GM TUBE X 2 PO PRN (01:06)
[2016-12-12] MEDS ORDERED: INSULIN LISPRO 100 UNIT/ML 3 ML VIAL SUBCUT PRN (01:06)
[2016-12-12 01:46] LABS: CREATINE KINASE MB 1.53 ng/mL (<4.55)
[2016-12-12 01:50] LABS: TROPONIN I < 0.012 ng/mL
--- NOTE | 2016-12-12 07:47 | EKG REPORT ---
SEVERITY:- OTHERWISE NORMAL ECG - SINUS RHYTHM BORDERLINE LEFT AXIS DEVIATION : Confirmed by: Jose Luis White MD 12-Dec-2016 07:47:18
[2016-12-12] MEDS ORDERED: DOXEPIN HCL 200 MG PO PRN (10:16)
[2016-12-12] MEDS ORDERED: DOXEPIN HCL 25 MG CAPSULE PO PRN (10:27)
[2016-12-12 10:29] LABS: CREATINE KINASE MB 1.12 ng/mL (<4.55)
[2016-12-12 10:33] LABS: TROPONIN I < 0.012 ng/mL
[2016-12-12] MEDS ORDERED: CYCLOBENZAPRINE HCL 10 MG TABLET PO ONE (11:00)
[2016-12-12] MEDS ORDERED: LANSOPRAZOLE 30 MG TAB.RAP.DR PO ONE (11:00)
[2016-12-12] MEDS ORDERED: LISINOPRIL 10 MG TABLET PO ONE (11:00)
[2016-12-12] MEDS ORDERED: METOPROLOL SUCCINATE 50 MG TAB.SR.24H PO ONE (11:00)
[2016-12-12] MEDS ORDERED: PREGABALIN 100 MG CAPSULE PO ONE (11:00)
[2016-12-12] MEDS ORDERED: CLONIDINE HCL 0.2 MG TABLET PO ONE (11:00)
[2016-12-12] MEDS: FUROSEMIDE 20 MG TABLET PO PRN (11:16)
[2016-12-12] MEDS ORDERED: LAMOTRIGINE 100 MG TABLET PO ONE (11:30)
[2016-12-12 16:49] LABS: ABSOLUTE BASOPHILS # (AUTO) 0.1 10^3/uL (0.0-0.2); ABSOLUTE EOSINOPHILS # (AUTO) 0.1 10^3/uL (0.0-0.6); ABSOLUTE LYMPHOCYTES (AUTO) 1.5 10^3/uL (0.5-4.7); ABSOLUTE MONOCYTES (AUTO) 0.6 10^3/uL (0.1-1.4); ABSOLUTE NEUT (AUTO) 4.6 10^3/uL (1.7-8.2); BASOPHILS % (AUTO) 0.9 % (0-2); EOSINOPHILS % (AUTO) 1.9 % (0-6); HEMATOCRIT 36.2 % (37.9-51.0); HEMOGLOBIN 11.5 g/dL (13.5-17.0); HGB HCT DIFFERENCE -1.7; MEAN CORPUSCULAR HEMOGLOBIN 22.7 pg (27.0-33.4); MEAN CORPUSCULAR HGB CONC 31.7 g/dL (32.0-36.0); MEAN CORPUSCULAR VOLUME 72 fl (80-97); MONOCYTES % (AUTO) 8.8 % (3-13); RED BLOOD COUNT 5.05 10^6/uL (4.35-5.55); RED CELL DISTRIBUTION WIDTH 20.8 % (11.5-14.0); SEGMENTED NEUTROPHILS % (AUTO) 66.4 % (42-78); WHITE BLOOD COUNT 6.9 10^3/uL (4.0-10.5)
[2016-12-12 17:01] LABS: ALANINE AMINOTRANSFERASE 26 U/L (21-72); ALKALINE PHOSPHATASE 79 U/L (38-126); ANION GAP 11 (5-19); ASPARTATE AMINO TRANSFERASE 22 U/L (17-59); BILIRUBIN,DIRECT 0.4 mg/dL (0.0-0.4); BILIRUBIN,TOTAL 0.4 mg/dL (0.2-1.3); BLOOD UREA NITROGEN 12 mg/dL (7-20); CALCIUM 9.2 mg/dL (8.4-10.2); CARBON DIOXIDE 22 mmol/L (22-30); CHLORIDE 107 mmol/L (98-107); CREATINE KINASE 106 U/L (55-170); CREATININE RESULT 0.79 mg/dL (0.52-1.25); GLUCOSE 133 mg/dL (75-110); POTASSIUM 4.6 mmol/L (3.6-5.0); SODIUM 139.6 mmol/L (137-145); TOTAL PROTEIN 7.1 g/dL (6.3-8.2)
[2016-12-12 17:13] LABS: CREATINE KINASE MB 1.37 ng/mL (<4.55)
[2016-12-12 17:19] LABS: TROPONIN I < 0.012 ng/mL
--- NOTE | 2016-12-12 17:48 | PDOC H&P ---
History of Present Illness Admission Date/PCP: 12/12/16 00:20 WILNER ORDAZ MD History of Present Illness: DAVIS PAGE is a 56 year old male, He came to the emergency room for evaluation of chest pain, he has multiple comorbid conditions including CVA, COPD, tobacco abuse. He presently resides at assisted living facility, he was in the emergency room the day before, at that time he was offered hospital admission but in left emergency room AGAINST MEDICAL ADVICE he returned to the emergency room today because of the chest pain persisted and was again advised to be admitted to the hospital and at this time he is agreeable to being hospitalized for evaluation of the chest pain. Past Medical History Cardiac Medical History: Reports: DVT, Myocardial Infarction, Hyperlipidema, Hypertension Pulmonary Medical History: Reports: Chronic Obstructive Pulmonary Disease (COPD) , Intubation, Pneumonia, Respiratory Failure Neurological Medical History: Denies: Seizures Endocrine Medical History: Reports: Diabetes Mellitus Type 2 GI Medical History: Reports: Gastroesophageal Reflux Disease Musculoskeltal Medical History: Reports: Arthritis Psychiatric Medical History: Reports: Bipolar Disorder, Depression Past Surgical History Past Surgical History: Reports: Appendectomy, Cholecystectomy, Orthopedic Surgery Social History Smoking Status: Current Every Day Smoker Frequency of Alcohol Use: None Hx Recreational Drug Use: No Drugs: None Hx Prescription Drug Abuse: No Family History Family History: Reviewed & Not Pertinent Parental Family History Reviewed: Yes Children Family History Reviewed: Yes Sibling(s) Family History Reviewed.: Yes Medication/Allergy Home Medications: Albuterol Sulfate [Proair Hfa Inhalation Aerosol 8.5 gm Mdi] 1 puff IH Q4 Buprenorphine HCl [Subutex 8 mg Sublingual Tablet] 1 tab SL BID 12/12/16 Clonidine HCl [Catapres 0.2 mg Tablet] 0.2 mg PO Q12 12/12/16 Cyclobenzaprine HCl [Flexeril 10 mg Tablet] 10 mg PO Q12 12/12/16 Dextromethorphan HBr/Quinidine [Nuedexta 20-10 mg Capsule] 1 each PO Q12 Doxepin HCl 200 mg PO HSP PRN 12/12/16 Furosemide [Lasix 20 mg Tablet] 20 mg PO Q2DAYS PRN 12/12/16 Lamotrigine [Lamictal 100 mg Tablet] 200 mg PO QAM 12/12/16 Lansoprazole [Prevacid] 30 mg PO QAM 12/12/16 Lisinopril [Prinivil] 20 mg PO QAM 12/12/16 Metformin HCl [Metformin HCl ER] 1,000 mg PO DAILY 12/12/16 Metoprolol Succinate [Toprol Xl 50 mg Tab.sr] 50 mg PO QAM 12/12/16 Paroxetine HCl [Paxil] 20 mg PO QHS 12/12/16 Pregabalin [Lyrica 100 Mg Capsule] 300 mg PO Q12 12/12/16 Quetiapine Fumarate 400 mg PO QHS 12/12/16 Umeclidinium Brm/Vilanterol Tr [Anoro Ellipta 62.5-25 Mcg INH] 1 each IH DAILY 12/12/16 Allergies/Adverse Reactions: ketorolac tromethamine [From Toradol] Allergy (Unknown, Verified 11/20/16 15:34) morphine [Morphine] Allergy (Unknown, Verified 11/20/16 15:34) acetaminophen [From Tylenol] Allergy (Verified 11/20/16 15:34) lorazepam [From Ativan] Adverse Reaction (Verified 11/20/16 15:34) Review of Systems Constitutional: ABSENT: chills, fever(s), headache(s), weight gain, weight loss Eyes: ABSENT: visual disturbances Ears: ABSENT: hearing changes Cardiovascular: PRESENT: chest pain Respiratory: ABSENT: cough, hemoptysis Gastrointestinal: ABSENT: abdominal pain, constipation, diarrhea, hematemesis, hematochezia, nausea, vomiting Genitourinary: ABSENT: dysuria, hematuria Musculoskeletal: ABSENT: joint swelling Integumentary: ABSENT: rash, wounds Neurological: ABSENT: abnormal gait, abnormal speech, confusion, dizziness, focal weakness, syncope Psychiatric: ABSENT: anxiety, depression, homidical ideation, suicidal ideation Endocrine: ABSENT: cold intolerance, heat intolerance, menstrual abnormalities, polydipsia, polyuria Hematologic/Lymphatic: ABSENT: easy bleeding, easy bruising, lymphadenopathy Physical Exam Vital Signs: Temp Pulse Resp BP Pulse Ox 97.7 F 71 17 124/69 98 12/12/16 15:28 12/12/16 15:28 12/12/16 15:28 12/12/16 15:28 12/12/16 15:28 Intake & Output 12/11/16 12/12/16 12/13/16 06:59 06:59 06:59 Intake Total 240 Output Total 1100 Balance -860 Weight 113.3 kg General appearance: PRESENT: no acute distress Head exam: PRESENT: atraumatic, normocephalic Eye exam: PRESENT: PERRLA Ear exam: PRESENT: normal external ear exam Mouth exam: PRESENT: moist, tongue midline Neck exam: PRESENT: full ROM Respiratory exam: PRESENT: clear to auscultation jarett Cardiovascular exam: PRESENT: RRR, +S1, +S2 Vascular exam: PRESENT: normal capillary refill GI/Abdominal exam: PRESENT: normal bowel sounds, soft Rectal exam: PRESENT: deferred Neurological exam: PRESENT: alert Skin exam: PRESENT: dry, intact, warm Results Laboratory Results: 12/12/16 16:38 12/12/16 16:38 12/12/16 12/12/16 16:38 16:38 WBC 6.9 RBC 5.05 Hgb 11.5 L Hct 36.2 L MCV 72 L MCH 22.7 L MCHC 31.7 L RDW 20.8 H Plt Count 147 L Seg Neutrophils % 66.4 Lymphocytes % 22.0 Monocytes % 8.8 Eosinophils % 1.9 Basophils % 0.9 Absolute Neutrophils 4.6 Absolute Lymphocytes 1.5 Absolute Monocytes 0.6 Absolute Eosinophils 0.1 Absolute Basophils 0.1 Sodium 139.6 Potassium 4.6 Chloride 107 Carbon Dioxide 22 Anion Gap 11 BUN 12 Creatinine 0.79 Est GFR ( Amer) > 60 Est GFR (Non-Af Amer) > 60 Glucose 133 H Calcium 9.2 Total Bilirubin 0.4 AST 22 ALT 26 Alkaline Phosphatase 79 Total Protein 7.1 Albumin 4.0 12/12/16 12/12/16 12/12/16 00:48 00:48 09:17 Creatine Kinase 129 119 CK-MB (CK-2) 1.53 Troponin I < 0.012 12/12/16 12/12/16 12/12/16 09:17 16:38 16:38 Creatine Kinase 106 CK-MB (CK-2) 1.12 1.37 Troponin I < 0.012 < 0.012 Assessment & Plan - Diagnosis (1) Chest pain Qualifiers: Chest pain type: unspecified Qualified Code(s): R07.9 - Chest pain, unspecified Is this a current diagnosis for this admission?: YesPlan: Patient of multiple risk factors for ischemic heart disease he be admitted to the hospital on a nuclear cardiac stress test will be done before discharge
[2016-12-12] MEDS ORDERED: (PENDING PHARMACY ID) (Buprenorphine Hcl [Subutex 8 Mg Sublingual Tablet] 1 TAB) SL SCH (18:00)
[2016-12-12] MEDS: METFORMIN HCL 500 MG TABLET PO SCH (18:30)
[2016-12-12] MEDS: ALBUTEROL SULFATE HFA (90 MCG/PUFF) 200 PUFF/8.5 GM MDI IH SCH ×3 (18:31→22:11)
[2016-12-12] MEDS ORDERED: DEXTROMETHORPHAN HBR PO SCH (22:00)
[2016-12-12] MEDS ORDERED: QUETIAPINE FUMARATE 100 MG TABLET PO SCH (22:00)
[2016-12-12] MEDS ORDERED: PAROXETINE HCL 20 MG TABLET PO SCH (22:00)
[2016-12-12] MEDS ORDERED: [UNRECOGNIZED DRUG - OTHER] PO SCH (22:00)
[2016-12-12] MEDS ORDERED: QUINIDINE PO SCH (22:00)
[2016-12-12] MEDS: CYCLOBENZAPRINE HCL 10 MG TABLET PO SCH (22:11)
[2016-12-12] MEDS: PREGABALIN 100 MG CAPSULE PO SCH (22:11)
[2016-12-12] MEDS: CLONIDINE HCL 0.2 MG TABLET PO SCH (22:11)
[2016-12-13] MEDS: ALBUTEROL SULFATE HFA (90 MCG/PUFF) 200 PUFF/8.5 GM MDI IH SCH ×5 (01:36→17:21)
[2016-12-13] MEDS ORDERED: (PENDING PHARMACY ID) (Lansoprazole [Prevacid] 30 MG) PO SCH (08:00)
[2016-12-13] MEDS ORDERED: LANSOPRAZOLE 30 MG TAB.RAP.DR PO SCH (08:00)
[2016-12-13] MEDS ORDERED: (PENDING PHARMACY ID) (Lisinopril [Prinivil] 20 MG) PO SCH (08:00)
[2016-12-13] MEDS ORDERED: METOPROLOL SUCCINATE 50 MG TAB.SR.24H PO SCH (10:00)
[2016-12-13] MEDS ORDERED: LISINOPRIL 10 MG TABLET PO SCH (10:00)
[2016-12-13] MEDS ORDERED: (PENDING PHARMACY ID) (Metformin Hcl [Metformin Hcl Er] 1,000 MG) PO SCH (10:00)
[2016-12-13] MEDS ORDERED: (PENDING PHARMACY ID) (Umeclidinium Brm/Vilanterol Tr [Anoro Ellipta 62.5-25 Mcg Inh] 1 EA IH SCH (10:00)
[2016-12-13] MEDS ORDERED: LAMOTRIGINE 100 MG TABLET PO SCH (10:00)
[2016-12-13] MEDS: CYCLOBENZAPRINE HCL 10 MG TABLET PO SCH (10:26)
[2016-12-13] MEDS: CLONIDINE HCL 0.2 MG TABLET PO SCH (10:26)
[2016-12-13] MEDS: PREGABALIN 100 MG CAPSULE PO SCH (10:27)
[2016-12-13] MEDS: FUROSEMIDE 20 MG TABLET PO PRN (10:27)
[2016-12-13] MEDS: METFORMIN HCL 500 MG TABLET PO SCH ×2 (10:27→17:21)
[2016-12-13] MEDS ORDERED: REGADENOSON INJ 0.4 MG/5 ML DISP.SYRIN IV ONE (11:32)
[2016-12-13] MEDS ORDERED: AMINOPHYLLINE INJ/PF 250 MG/10 ML SDV IV ONE (11:32)
--- NOTE | 2016-12-13 12:25 | DRAGON STRESS TEST REPORT ---
INTRAVENOUS LEXISCAN CARDIOLITE STRESS TEST USING SINGLE PHOTON EMMISION COMPUTERIZED TOMOGRAPHIC. DATE OF PROCEDURE: December 13, 2016 INDICATION : Chest pain CARDIAC RISK FACTORS: Diabetes, hypertension, tobacco abuse. RESTING EKG: Sinus rhythm, no baseline ST-T wave changes noted. STRESS EKG: No significant changes noted with LexiScan bolus REASON FOR TERMINATION: Protocol. PROCEDURE REPORT: Baseline heart rate 86 beats per minute with blood pressure of 93/57. Patient had no significant complaints. Heart rate at 2 minutes post bolus 104 with a blood pressure of 80/48. 3 minutes post bolus heart rate 102 with blood pressure of 104/54. No significant EKG changes were noted. Patient had no significant complaints during the procedure or postprocedure. Patient injected with Aminophyllin 75 mg at 3 minutes or later after Lexiscan bolus. CONCLUSIONS: Normal EKG and hemodynamic response to IV LexiScan. NUCLEAR DATA: At rest the patient was given 14.77 millicuries of technetium 99 sestamibi injected intravenously. As per protocol rest gated SPECT images were obtained. Subsequently the patient was given intravenous LexiScan at a dose of 0.4 mg in 5 mL intravenously, followed by flush with normal saline. Subsequently the stress dose of 46.2 millicuries of technetium 99 sestamibi was injected intravenously. As per protocol stress gated images were obtained. NUCLEAR INTERPRETATION: Both raw and processed data were used for interpretation. Visual, qualitative, computer-generated quantitative data was used. There was good myocardial uptake of technetium compound. Motion artifact and soft tissue attenuations were noted. Increased visceral uptake was noted. Mild to moderate decreased uptake was noted in the inferior wall, part of which is due to diaphragmatic attenuation. Feel that patient had mild ischemia in the distal inferior wall along with a mild to moderate fixed defect in the basal and mid inferior wall. EKG gated imaging showed LV EF at 59 %, rest and stress gated EF similar visually with mild basal inferior wall hypokinesia. T. I D. ratio was 1.14. Lung heart ratio noted to be within normal limits 0.38. No significant extracardiac and abnormal radiotracer activities were noted. RV free wall uptake was noted to be WNL. IMPRESSION: Also refer to comments under nuclear interpretation. Also test results needs to be interpreted in the context of pretest probability. 1. There is scintigraphic evidence of LexiScan induced mild myocardial ischemia in the distal inferior wall. 2. There is scintigraphic evidence of mild myocardial infarction/scar, involving the basal and mid inferior wall. 3. EKG gated imaging shows left ejection fraction of approximately 59 % with mild basal inferior wall hypokinesia. 4. Clinical correlation requested as occasionally single vessel disease or balanced ischemia could be missed. In approximately 10% of the cases Lexiscan may not cause adequate vasodilatory stress. RECOMMENDATIONS: Aggressive risk factor modification, medical therapy. Clinical correlation with echocardiogram derived ejection fraction. Inability to exercise by itself can lead to increased cardiovascular event risks. Consider cardiology consultation and or follow-up if clinically indicated. I AM AVAILABLE FOR CARDIOLOGY CONSULTATION AND FOLLOWUP IF REQUESTED BY PMD Carl Goldstein M.D., PAULA Hamper Maker master control engineer, Board certified in cardiovascular diseases, Nuclear cardiology, Echocardiography Cardiac CT and cardiac MRI Ph. [phone] [facility] PSYCHIATR[facility] CENTERMassimo
[2016-12-13 16:03] VITALS: BP 97/67
--- NOTE | 2016-12-13 19:35 | PDOC CONSULTATION ---
Consultation Consult Date: 12/13/16 Attending physician:: WILNER ORDAZ Consult reason:: Abn Stress Test History of Present Illness Admission Date/PCP: 12/12/16 00:20 WILNER ORDAZ MD Patient complains of: History of chest pain History of Present Illness: DAVIS PAGE is a 56 year old male, He came to the emergency room for evaluation of chest pain, he has multiple comorbid conditions including CVA, COPD, tobacco abuse. He presently resides at assisted living facility, he was in the emergency room the day before, at that time he was offered hospital admission but in left emergency room AGAINST MEDICAL ADVICE he returned to the emergency room today because of the chest pain persisted and was again advised to be admitted to the hospital and at this time he is agreeable to being hospitalized for evaluation of the chest pain. I interviewed patient at around 7 PM. He claims that he is no longer having chest pain. He denied any shortness of breath. He is noted to ambulate but drags his left feet. He is wanting to go home and claims that he would sign out AMA. Patient chart was reviewed. His cardiac enzymes have been negative. His electrocardiogram does not show any acute ST-T wave changes. Past Medical History Cardiac Medical History: Reports: Congestive Heart Failure, DVT, Myocardial Infarction, Hyperlipidema, Hypertension Pulmonary Medical History: Reports: Chronic Obstructive Pulmonary Disease (COPD) , Intubation, Pneumonia, Respiratory Failure Neurological Medical History: Denies: Seizures Endocrine Medical History: Reports: Diabetes Mellitus Type 2 GI Medical History: Reports: Gastroesophageal Reflux Disease Musculoskeltal Medical History: Reports: Arthritis Psychiatric Medical History: Reports: Bipolar Disorder, Depression Past Surgical History Past Surgical History: Reports: Appendectomy, Cholecystectomy, Orthopedic Surgery Social History Information Source: Patient Smoking Status: Current Every Day Smoker Frequency of Alcohol Use: None Hx Recreational Drug Use: No Drugs: None Hx Prescription Drug Abuse: No - Advance Directive Resuscitation Status: Full Code Surrogate healthcare decision maker:: Patient does not want to identify a surrogate decision-maker. Family History Family History: CAD Parental Family History Reviewed: Yes Children Family History Reviewed: Yes Sibling(s) Family History Reviewed.: Yes Medication/Allergy Home Medications: Albuterol Sulfate [Proair Hfa Inhalation Aerosol 8.5 gm Mdi] 1 puff IH Q4 Buprenorphine HCl [Subutex 8 mg Sublingual Tablet] 1 tab SL BID 12/12/16 Clonidine HCl [Catapres 0.2 mg Tablet] 0.2 mg PO Q12 12/12/16 Cyclobenzaprine HCl [Flexeril 10 mg Tablet] 10 mg PO Q12 12/12/16 Dextromethorphan HBr/Quinidine [Nuedexta 20-10 mg Capsule] 1 each PO Q12 Doxepin HCl 200 mg PO HSP PRN 12/12/16 Furosemide [Lasix 20 mg Tablet] 20 mg PO Q2DAYS PRN 12/12/16 Lamotrigine [Lamictal 100 mg Tablet] 200 mg PO QAM 12/12/16 Lansoprazole [Prevacid] 30 mg PO QAM 12/12/16 Lisinopril [Prinivil] 20 mg PO QAM 12/12/16 Metformin HCl [Metformin HCl ER] 1,000 mg PO DAILY 12/12/16 Metoprolol Succinate [Toprol Xl 50 mg Tab.sr] 50 mg PO QAM 12/12/16 Paroxetine HCl [Paxil] 20 mg PO QHS 12/12/16 Pregabalin [Lyrica 100 Mg Capsule] 300 mg PO Q12 12/12/16 Quetiapine Fumarate 400 mg PO QHS 12/12/16 Umeclidinium Brm/Vilanterol Tr [Anoro Ellipta 62.5-25 Mcg INH] 1 each IH DAILY 12/12/16 Allergies/Adverse Reactions: ketorolac tromethamine [From Toradol] Allergy (Unknown, Verified 11/20/16 15:34) morphine [Morphine] Allergy (Unknown, Verified 11/20/16 15:34) acetaminophen [From Tylenol] Allergy (Verified 11/20/16 15:34) lorazepam [From Ativan] Adverse Reaction (Verified 11/20/16 15:34) Review of Systems Review of Systems: Please see history of present illness and past medical history as wall. Constitutional: No fever or chills reported. Head : No recent chronic headaches, recent head injury. Eyes: No recent eye pain, diplopia, redness, discharge, acute visual changes. Ears: No recent chronic ear pain, acute hearing loss, ear discharge. Oral cavity: No recent ulcerations, bleeding, oral cavity discomfort. Neck: No recent acute neck pain reported. Hematologic: No recent easy bruising or bleeding or hematologic malignancy reported. Lymphatic: No recent lymphatic malignancy, chronic lymphadenopathy reported yet Cardiovascular system review: See history of present illness. Respiratory system review: No recent chronic cough, hemoptysis, blood clots in the lungs reported. Mild Shortness of breath on exertion Gastrointestinal system review: Negative for any recent acute or chronic abdominal pain, hematemesis, melena, recent change in bowel habits. Genitourinary system review: No recent acute or chronic hematuria, flank pain, UTI etc. reported. Skin system review: Negative for any recent abnormal bruising, no rash, no pruritus reported. Neurologic: Positive prior history of strokes, patient denies seizure disorder. Psychologic: History of bipolar disorder reported. Musculoskeletal: Minor aches and pains reported. No acute joint swelling reported. Endocrine: No recent polyuria, polydipsia, recent heat or cold intolerance. Physical Exam Vital Signs: Temp Pulse Resp BP Pulse Ox 98.2 F 81 16 97/67 L 96 12/13/16 15:52 12/13/16 15:52 12/13/16 15:52 12/13/16 15:52 12/13/16 15:52 Intake & Output 12/12/16 12/13/16 12/14/16 06:59 06:59 06:59 Intake Total 240 1333 845 Output Total 1100 1825 275 Balance -860 -492 570 Weight 113.3 kg Exam: GENERAL: well-nourished and in no acute distress. Alert and oriented x3 HEAD: Atraumatic, normocephalic. EYES: Pupils equal round and reactive to light, extraocular movements intact, sclera anicteric, conjunctiva are normal. ENT: TMs normal, nares patent, oropharynx clear without exudates. Moist mucous membranes. No oral ulcerations or bleeding gums noted NECK: supple without lymphadenopathy. Trachea is central. No cervical or axillary lymphadenopathy noted. Carotids are 2+, JVD WNL LUNGS: Respiration seems nonlabored, no significant accessory muscle action noted. Breath sounds clear to auscultation bilaterally and equal noted. No wheezes rales or rhonchi noted. No significant dullness noted on percussion. CHEST: Palpation of the chest wall shows no significant chest wall tenderness. No other significant abnormalities noted. HEART: [place] [employer], No PSH, 1/6 KATLYN aortic area, 1/6 ramos systolic murmur mitral area, no rubs, no gallops. ABDOMEN: Soft, no significant tenderness appreciated, normoactive bowel sounds. No guarding, no rebound. No rigidity noted . No masses appreciated. EXTREMITIES: Pedal pulses are 1-2+, no calf tenderness noted. No clubbing or cyanosis.trace to 1+ pedal edema noted NEUROLOGICAL: Focused neurological exam showed evidence of left hemiparesis, left upper extremity much more weaker. Patient able to ambulate but drags his left. His speech just slightly impaired. PSYCH: Normal mood, normal affect. Judgment and insight within normal limits. SKIN: No significant ecchymosis, rash, ulcerations or signs of pruritus noted. MUSCULOSKELETAL EXAM: No significant joint swelling noted. Results Laboratory Results: 12/12/16 16:38 12/12/16 16:38 12/12/16 04:10 Nasophary (Mrsa Only) MRSA Surveillance Culture - Final NO MRSA RECOVERED 12/12/16 12/12/16 12/12/16 00:48 00:48 09:17 Creatine Kinase 129 119 CK-MB (CK-2) 1.53 Troponin I < 0.012 12/12/16 12/12/16 12/12/16 09:17 16:38 16:38 Creatine Kinase 106 CK-MB (CK-2) 1.12 1.37 Troponin I < 0.012 < 0.012 EKG Comments: Sinus rhythm, left axis deviation, cannot rule out prior inferior FL, no acute ST-T wave changes are noted. Assessment & Plan - Diagnosis (1) Chest pain, unspecified Qualifiers: Chest pain type: other chest pain Qualified Code(s): R07.89 - Other chest pain; R07.8 - Other chest pain Is this a current diagnosis for this admission?: Yes (2) Hypertension Qualifiers: Hypertension type: essential hypertension Qualified Code(s): I10 - Essential (primary) hypertension Is this a current diagnosis for this admission?: Yes (3) Chronic obstructive pulmonary disease Qualifiers: COPD type: unspecified COPD Qualified Code(s): J44.9 - Chronic obstructive pulmonary disease, unspecified Is this a current diagnosis for this admission?: Yes (4) Hemiplegia affecting left nondominant side Qualifiers: Hemiplegia type: unspecified type Hemiplegia etiology: cerebrovascular Cerebrovascular disease type: unspecified Qualified Code(s): I69.954 - Hemiplegia and hemiparesis following unspecified cerebrovascular disease affecting left non-dominant side Is this a current diagnosis for this admission?: Yes - Notes Notes: Chest pain: Clinically felt to be noncardiac. Patient may have underlying CAD based on stress test report. Stress test interpretation was somewhat technically difficult but did show distal inferior wall ischemia and mild to moderate fixed defect in the basal and mid inferior wall. No other high-risk features were noted. Feel that based on patient comorbid diagnosis and cardiac enzymes, EKG are negative and also since patient not having any chest pain anymore, feel that medical management is appropriate at this time with aggressive risk factor modification. Recommend statins, beta-chandan, MADAY inhibitor and antiplatelet therapy which patient is already on. Patient will benefit from smoking cessation. Hypertension: Reasonably well controlled. Blood pressure goal in this patient is 135/85 or less. This was discussed with the patient. Currently blood pressure under reasonable control. Better medication for this patient are MADAY inhibitor/ARB/beta chandan etc. discussed side effects of uncontrolled hypertension and also severe hypotension. History of cerebrovascular accident: Recommend statin therapy. Review of chart shows that patient has a history of paroxysmal atrial fibrillation, therefore may consider chronic anticoagulation. However patient is noted to be somewhat noncompliant. COPD: patient encouraged to avoid first-hand and secondhand smoking. Patient also advised to avoid environmental pollutants. Patient to use bronchodilator and steroid therapy as has been prescribed by PMD and other specialists. - Time Time Spent: 30 to 50 Minutes - CODE STATUS was discussed, patient remains full code. Surrogate decision-maker unchanged. Multiple medical problems were addressed. More than 50% of the time spent coordinating care, discussing management plans with involved caregivers. Management plans discussed with involved personnels. Medical decision making was of moderate to high complexity , patient's has multiple comorbidities. Medications reviewed and adjusted accordingly: Yes
--- NOTE | 2016-12-13 20:42 | PDOC DISCHARGE SUMMARY ---
General - Admit/Disc Date/PCP Admission Date/Primary Care Provider: 12/12/16 00:20 WILNER ORDAZ MD Discharge Date: 12/13/16 - Discharge Diagnosis (1) Chest pain Is this a current diagnosis for this admission?: Yes (2) Hypertension Is this a current diagnosis for this admission?: Yes (3) Chronic obstructive pulmonary disease Is this a current diagnosis for this admission?: Yes (4) Hemiplegia affecting left nondominant side Is this a current diagnosis for this admission?: Yes - Additional Information Resuscitation Status: Full Code Home Medications: Albuterol Sulfate [Proair Hfa Inhalation Aerosol 8.5 gm Mdi] 1 puff IH Q4 Buprenorphine HCl [Subutex 8 mg Sublingual Tablet] 1 tab SL BID 12/12/16 Clonidine HCl [Catapres 0.2 mg Tablet] 0.2 mg PO Q12 12/12/16 Cyclobenzaprine HCl [Flexeril 10 mg Tablet] 10 mg PO Q12 12/12/16 Dextromethorphan HBr/Quinidine [Nuedexta 20-10 mg Capsule] 1 each PO Q12 Doxepin HCl 200 mg PO HSP PRN 12/12/16 Furosemide [Lasix 20 mg Tablet] 20 mg PO Q2DAYS PRN 12/12/16 Lamotrigine [Lamictal 100 mg Tablet] 200 mg PO QAM 12/12/16 Lansoprazole [Prevacid] 30 mg PO QAM 12/12/16 Lisinopril [Prinivil] 20 mg PO QAM 12/12/16 Metformin HCl [Metformin HCl ER] 1,000 mg PO DAILY 12/12/16 Metoprolol Succinate [Toprol Xl 50 mg Tab.sr] 50 mg PO QAM 12/12/16 Paroxetine HCl [Paxil] 20 mg PO QHS 12/12/16 Pregabalin [Lyrica 100 Mg Capsule] 300 mg PO Q12 12/12/16 Quetiapine Fumarate 400 mg PO QHS 12/12/16 Umeclidinium Brm/Vilanterol Tr [Anoro Ellipta 62.5-25 Mcg INH] 1 each IH DAILY 12/12/16 History of Present Illness History of Present Illness: DAVIS PAGE is a 56 year old male, He came to the emergency room for evaluation of chest pain, he has multiple comorbid conditions including CVA, COPD, tobacco abuse. He presently resides at assisted living facility, he was in the emergency room the day before, at that time he was offered hospital admission but in left emergency room AGAINST MEDICAL ADVICE he returned to the emergency room today because of the chest pain persisted and was again advised to be admitted to the hospital and at this time he is agreeable to being hospitalized for evaluation of the chest pain. Hospital Course Hospital Course: Patient was admitted for evaluation of chest pain he had a Cardiolite Lexiscan stress test done today, it showed reversible ischemia consultation was requested from cardiology. Patient left AMA before evaluation was complete. Physical Exam Vital Signs: Temp Pulse Resp BP Pulse Ox 98.2 F 81 16 97/67 L 96 12/13/16 15:52 12/13/16 15:52 12/13/16 15:52 12/13/16 15:52 12/13/16 15:52 Intake & Output 12/12/16 12/13/16 12/14/16 06:59 06:59 06:59 Intake Total 240 1333 845 Output Total 1100 1825 275 Balance -860 -492 570 Weight 113.3 kg General appearance: PRESENT: no acute distress Eye exam: PRESENT: PERRLA Respiratory exam: PRESENT: clear to auscultation jarett Cardiovascular exam: PRESENT: +S1, +S2 GI/Abdominal exam: PRESENT: soft Results Laboratory Results: 12/12/16 16:38 12/12/16 16:38 12/12/16 04:10 Nasophary (Mrsa Only) MRSA Surveillance Culture - Final NO MRSA RECOVERED 12/12/16 12/12/16 12/12/16 00:48 00:48 09:17 Creatine Kinase 129 119 CK-MB (CK-2) 1.53 Troponin I < 0.012 12/12/16 12/12/16 12/12/16 09:17 16:38 16:38 Creatine Kinase 106 CK-MB (CK-2) 1.12 1.37 Troponin I < 0.012 < 0.012 Plan Time Spent: Less than 30 Minutes - Patient left AMA, AGAINST MEDICAL ADVICE
== END 2016-12-13 19:45 | disposition left against medical advice (07) ==
LOC: ER 16:51 → UNDOADMOB 21:34 → EH 21:34 → 5 12-12 → EH 12-12 → 5 12-12 00:20
PROVIDERS: ADMIT Internal Medicine; ATTEND Internal Medicine
DX: R07.89 Other chest pain (principal); J44.9 Chronic obstructive pulmonary disease, unspecified; I69.954 Hemiplegia and hemiparesis following unspecified cerebrovascular disease affecting left non-dominant side; R94.39 Abnormal result of other cardiovascular function study; I11.0 Hypertensive heart disease with heart failure; I50.9 Heart failure, unspecified; E11.9 Type 2 diabetes mellitus without complications; K21.9 Gastro-esophageal reflux disease without esophagitis; F17.200 Nicotine dependence, unspecified, uncomplicated; I25.2 Old myocardial infarction; R01.1 Cardiac murmur, unspecified; I48.0 Paroxysmal atrial fibrillation; F31.9 Bipolar disorder, unspecified; L30.9 Dermatitis, unspecified; Z79.899 Other long term (current) drug therapy; Z79.84 Long term (current) use of oral hypoglycemic drugs; Z53.21 Procedure and treatment not carried out due to patient leaving prior to being seen by health care provider; Z86.718 Personal history of other venous thrombosis and embolism; Z90.49 Acquired absence of other specified parts of digestive tract; Z82.49 Family history of ischemic heart disease and other diseases of the circulatory system
CPT/HCPCS: 93005; 99285; 96374; 36415 ×2; 82553; 82962 ×2; 82550; 85025; 80053; 84484 ×2; 83880; 93017; 78452; 93010; G0378 ×3; A9500; J2785; A9270 ×20; J0360; J0280; J3490; Q9969

== ENCOUNTER → 2016-12-27 | Outpatient (CLI) | payer MEDICARE, MEDICAID ==
[2016-12-27 13:24] LABS: ALANINE AMINOTRANSFERASE 28 U/L (21-72); ALKALINE PHOSPHATASE 65 U/L (38-126); ANION GAP 10 (5-19); ASPARTATE AMINO TRANSFERASE 30 U/L (17-59); BILIRUBIN,DIRECT 0.4 mg/dL (0.0-0.4); BILIRUBIN,TOTAL 0.4 mg/dL (0.2-1.3); BLOOD UREA NITROGEN 12 mg/dL (7-20); CALCIUM 9.3 mg/dL (8.4-10.2); CARBON DIOXIDE 24 mmol/L (22-30); CHLORIDE 107 mmol/L (98-107); CREATININE RESULT 0.82 mg/dL (0.52-1.25); GLUCOSE 95 mg/dL (75-110); POTASSIUM 4.9 mmol/L (3.6-5.0); SODIUM 140.5 mmol/L (137-145)
== END ==
LOC: OD 10:44
PROVIDERS: ATTEND Internal Medicine Cardiovascular Disease
DX: R06.02 Shortness of breath (principal)
CPT/HCPCS: 36415; 80053; 83880

== ENCOUNTER 2017-02-04 14:46 | Observation (INO) | payer MEDICARE, MEDICAID ==
--- NOTE | 2017-02-04 15:15 | ER Document Report ---
ED General - General Stated Complaint: CHEST PAIN Time Seen by Provider: 02/04/17 15:02 Mode of Arrival: Medic Information source: Patient Notes: This is a 56-year-old man with a history of diabetes, CVA (left hemiparesis), COPD, [place] in the past. The patient is brought in by EMS with left-sided chest pain since 8 PM last night. Patient states he was given 3 nitroglycerin without relief. Patient states that his left-sided pain radiating to the left shoulder. The patient also complains of fevers, chills And worsening infection to the lower legs. TRAVEL OUTSIDE OF THE [place] IN LAST 30 DAYS: No - HPI Onset: Yesterday Onset/Duration: Gradual Quality of pain: Dull Severity: Mild Pain Level: 2 Associated symptoms: Chills, Fever. denies: Nausea, Vomiting, Shortness of breath Exacerbated by: Denies Relieved by: Denies Similar symptoms previously: Yes Recently seen / treated by doctor: Yes - Related Data Allergies/Adverse Reactions: ketorolac tromethamine [From Toradol] Allergy (Unknown, Verified 11/20/16 15:34) morphine [Morphine] Allergy (Unknown, Verified 11/20/16 15:34) acetaminophen [From Tylenol] Allergy (Verified 11/20/16 15:34) lorazepam [From Ativan] Adverse Reaction (Verified 11/20/16 15:34) Past Medical History - General Information source: Patient - Social History Smoking Status: Current Every Day Smoker Cigarette use (# per day): Yes - 1 pack per day Chew tobacco use (# tins/day): No Smoking Education Provided: Yes - 5 minutes Frequency of alcohol use: None Drug Abuse: None Lives with: Other Family History: CAD Patient has suicidal ideation: No Patient has homicidal ideation: No - Past Medical History Cardiac Medical History: Reports: Hx Congestive Heart Failure, Hx DVT, Hx Heart Attack, Hx Hypercholesterolemia, Hx Hypertension Pulmonary Medical History: Reports: Hx COPD, Hx Pneumonia, Hx Intubation, Hx Respiratory Failure Neurological Medical History: Reports: Hx Cerebrovascular Accident. Denies: Hx Seizures Endocrine Medical History: Reports: Hx Diabetes Mellitus Type 2 Renal/ Medical History: Reports: Hx Kidney Stones. Denies: Hx Peritoneal Dialysis GI Medical History: Reports: Hx Gastroesophageal Reflux Disease Musculoskeltal Medical History: Reports Hx Arthritis Psychiatric Medical History: Reports: Hx Bipolar Disorder, Hx Depression Denies: Hx Schizophrenia Past Surgical History: Reports: Hx Appendectomy, Hx Cholecystectomy, Hx Orthopedic Surgery - Immunizations Immunizations up to date: Yes Hx Diphtheria, Pertussis, Tetanus Vaccination: Yes Hx Pneumococcal Vaccination: 05/13/11 Review of Systems - Review of Systems Constitutional: Chills, Fever EENT: No symptoms reported Cardiovascular: See HPI Respiratory: No symptoms reported Gastrointestinal: No symptoms reported Genitourinary: No symptoms reported Male Genitourinary: No symptoms reported Musculoskeletal: See HPI Skin: See HPI Hematologic/Lymphatic: No symptoms reported Neurological/Psychological: No symptoms reported Physical Exam - Vital signs Vitals: Temp Pulse Resp BP Pulse Ox 97.6 F 76 24 H 117/63 97 02/04/17 15:17 02/04/17 15:17 02/04/17 15:17 02/04/17 15:17 02/04/17 15:17 Notes: Physical exam: GENERAL: 56-year-old man, alert and oriented 3, no acute distress HEAD: Atraumatic, normocephalic. EYES: Pupils equal round and reactive to light, extraocular movements intact, sclera anicteric, conjunctiva are normal. ENT: TMs normal, nares patent, oropharynx clear without exudates. Moist mucous membranes. NECK: Normal range of motion, supple without obvious mass or JVD. LUNGS: Breath sounds clear to auscultation bilaterally and equal. No wheezes rales or rhonchi. HEART: Regular rate and rhythm without murmurs, rubs or gallops. ABDOMEN: Soft, normoactive bowel sounds. No tenderness to palpation. No guarding, no rebound. No masses appreciated. EXTREMITIES: Left toe amputations Right lower extremity: Erythema to the lower extremity with loss of nails to the toes with some discharge. Chronic lower extremity edema. NEUROLOGICAL: Cranial nerves II through XII grossly intact. Slurred speech ( baseline per patient), left hemiparesis PSYCH: Normal mood, normal affect. Course - Vital Signs Vital signs: Temp Pulse Resp BP Pulse Ox 97.6 F 76 24 H 117/63 97 02/04/17 15:17 02/04/17 15:36 02/04/17 15:17 02/04/17 15:17 02/04/17 15:17 - Laboratory Result Diagrams: 02/04/17 16:55 02/04/17 16:55 Laboratory results interpreted by me: 02/04/17 02/04/17 16:55 16:55 Hgb 10.5 L Hct 32.8 L MCV 74 L MCH 23.8 L RDW 21.3 H Direct Bilirubin 0.5 H - Diagnostic Test Radiology reviewed: Image reviewed, Reports reviewed - Chest x-ray shows no infiltrates. Good placement of IJ line - EKG Interpretation by Me Rate: Normal Rhythm: NSR - EKG shows normal sinus rhythm with a left anterior hemiblock, no acute ST-T wave changes Procedures - Central Line Right Time completed: 18:33 Consent obtained: No Central line pre-insertion: Chloraprep applied, Sterile drapes applied Central line size (Fr.): 18 Central line lumen type: Triple Anesthetic type: 1% Lidocaine mL's of anesthesia: 4 Ultrasound guided: Yes CM at insertion site: 17 Line secured with sutures: Yes Central line post-insertion: Blood return from lumens, Biopatch applied, Sutured , Sterile dressing applied, Position confirmed w/ CXR Number of attempts: 1 Complications: No Discharge - Discharge Clinical Impression: Diabetic foot, acute chest pain Condition: Stable Disposition: ADMITTED INPATIENT Admitting Provider: [facility] Unit Admitted: Telemetry
[2017-02-04] MEDS ORDERED: ASPIRIN 81 MG TABLET, CHEWABLE PO ONE (15:16)
[2017-02-04] MEDS ORDERED: HYDROMORPHONE HCL INJ/PF 2 MG/ML AMPULE IV ONE (15:18)
--- NOTE | 2017-02-04 16:16 | RADIOLOGY REPORT (SQ) ---
EXAM DESCRIPTION: CHEST SINGLE VIEW/ portable COMPLETED DATE/TIME: 02/04/2017 3:59 pm REASON FOR STUDY: cp COMPARISON: 12/10/2016 EXAM PARAMETERS: NUMBER OF VIEWS: One view. TECHNIQUE: Single frontal radiographic view of the chest acquired. RADIATION DOSE: NA LIMITATIONS: Shallow inspiration. Patient body habitus. FINDINGS: LUNGS AND PLEURA: No developing infiltrates or pleural effusion. Few heavy bibasilar edwin ings again seen, stable finding. MEDIASTINUM AND HILAR STRUCTURES: Stable appearance. HEART AND VASCULAR STRUCTURES: Heart is stable. No overt CHF. BONES: No acute findings. HARDWARE: None in the chest. OTHER: No other significant finding. IMPRESSION: Limited filming. Nothing acute. TECHNICAL DOCUMENTATION: JOB ID: [id number]
[2017-02-04 17:18] LABS: ABSOLUTE EOSINOPHILS # (AUTO) 0.1 10^3/uL (0.0-0.6); ABSOLUTE MONOCYTES (AUTO) 0.6 10^3/uL (0.1-1.4); ABSOLUTE NEUT (AUTO) 3.7 10^3/uL (1.7-8.2); BASOPHILS % (AUTO) 0.7 % (0-2); EOSINOPHILS % (AUTO) 2.2 % (0-6); HEMATOCRIT 32.8 % (37.9-51.0); HEMOGLOBIN 10.5 g/dL (13.5-17.0); HGB HCT DIFFERENCE -1.3; LYMPHOCYTES % (AUTO) 30.9 % (13-45); MEAN CORPUSCULAR HEMOGLOBIN 23.8 pg (27.0-33.4); MEAN CORPUSCULAR HGB CONC 32.2 g/dL (32.0-36.0); MEAN CORPUSCULAR VOLUME 74 fl (80-97); MONOCYTES % (AUTO) 8.6 % (3-13); RED BLOOD COUNT 4.44 10^6/uL (4.35-5.55); RED CELL DISTRIBUTION WIDTH 21.3 % (11.5-14.0); SEGMENTED NEUTROPHILS % (AUTO) 57.6 % (42-78); WHITE BLOOD COUNT 6.5 10^3/uL (4.0-10.5)
[2017-02-04 17:26] LABS: ALANINE AMINOTRANSFERASE 27 U/L (21-72); ALBUMIN 3.9 g/dL (3.5-5.0); ALKALINE PHOSPHATASE 52 U/L (38-126); ANION GAP 8 (5-19); ASPARTATE AMINO TRANSFERASE 21 U/L (17-59); BILIRUBIN,DIRECT 0.5 mg/dL (0.0-0.4); BILIRUBIN,TOTAL 0.5 mg/dL (0.2-1.3); BLOOD UREA NITROGEN 19 mg/dL (7-20); CALCIUM 9.1 mg/dL (8.4-10.2); CARBON DIOXIDE 28 mmol/L (22-30); CHLORIDE 106 mmol/L (98-107); CREATINE KINASE 148 U/L (55-170); CREATININE RESULT 1.15 mg/dL (0.52-1.25); GLUCOSE 88 mg/dL (75-110); POTASSIUM 4.6 mmol/L (3.6-5.0); SODIUM 141.8 mmol/L (137-145); TOTAL PROTEIN 6.8 g/dL (6.3-8.2)
--- NOTE | 2017-02-04 17:33 | RADIOLOGY REPORT (SQ) ---
EXAM DESCRIPTION: CHEST SINGLE VIEW COMPLETED DATE/TIME: 02/04/2017 5:20 pm REASON FOR STUDY: s/p right IJ COMPARISON: 02/04/2017: 1552 hours EXAM PARAMETERS: NUMBER OF VIEWS: One view. TECHNIQUE: Single frontal radiographic view of the chest acquired. RADIATION DOSE: NA LIMITATIONS: None. FINDINGS: LUNGS AND PLEURA: Right IJ tubing now seen, the tip overlying the SVC. No pneumothorax. Lungs Stable. MEDIASTINUM AND HILAR STRUCTURES: Stable HEART AND VASCULAR STRUCTURES: Heart stable. BONES: No acute findings. HARDWARE: Right IJ tubing. Tip overlying the SVC. OTHER: No other significant finding. IMPRESSION: Right IJ tubing. Tip overlying the SVC. No pneumothorax. TECHNICAL DOCUMENTATION: JOB ID: [id number]
[2017-02-04 17:38] LABS: CREATINE KINASE MB 2.14 ng/mL (<4.55)
[2017-02-04 17:42] LABS: TROPONIN I < 0.012 ng/mL
[2017-02-04] MEDS ORDERED: PIPERACILLIN/TAZOBACTAM 3.375 GM VIAL IV ONE (18:35)
--- NOTE | 2017-02-04 21:01 | EKG REPORT ---
SEVERITY:- ABNORMAL ECG - SINUS RHYTHM LEFT ANTERIOR FASCICULAR BLOCK : Confirmed by: Charlette Lorenzo MD 04-Feb-2017 21:00:46
[2017-02-04] MEDS ORDERED: MAG HYDROX/AL HYDROX/SIMETH SUSP 30 ML UDCUP PO PRN (21:45)
[2017-02-04] MEDS ORDERED: [UNRECOGNIZED DRUG - OTHER] PO SCH (21:45)
[2017-02-04] MEDS ORDERED: ACETAMINOPHEN 325 MG TABLET PO PRN (21:45)
[2017-02-04] MEDS ORDERED: BUPRENORPHINE HCL 8 MG SL SCH (21:45)
[2017-02-04] MEDS ORDERED: (PENDING PHARMACY ID) (Ranolazine [Ranexa] 1,000 MG) PO SCH (21:45)
[2017-02-04] MEDS ORDERED: NITROGLYCERIN 0.4 MG/TAB 25 TAB/BOTTLE SL PRN (21:45)
[2017-02-04] MEDS ORDERED: ALBUTEROL SULFATE HFA (90 MCG/PUFF) 8 GM MDI (1 MDI/ER DISP) IH PRN (21:45)
[2017-02-04] MEDS ORDERED: (PENDING PHARMACY ID) (Quetiapine Fumarate [Seroquel] 400 MG) PO SCH (21:45)
[2017-02-04] MEDS ORDERED: GLUCAGON,HUMAN RECOMB 1 MG INJ IM PRN (21:51)
[2017-02-04] MEDS ORDERED: DEXTROSE 40% GEL 15 GM TUBE PO PRN ×2 (21:51)
[2017-02-04] MEDS ORDERED: DEXTROSE 50%-WATER 25 GM/50 ML DISP.SYRIN IV PRN ×2 (21:51)
[2017-02-04] MEDS ORDERED: INSULIN REG, HUMAN 100 UNIT/ML 3 ML VIAL (PYX) SUBCUT PRN (21:51)
[2017-02-04] MEDS ORDERED: FENOFIBRATE NANOCRYSTALLIZED 145 MG TABLET PO ONE (22:00)
[2017-02-04] MEDS ORDERED: (PENDING PHARMACY ID) (Melatonin [Melatonin] 3 MG) PO SCH (22:00)
[2017-02-04] MEDS ORDERED: METOPROLOL SUCCINATE 50 MG TAB.SR.24H PO ONE (22:30)
[2017-02-04] MEDS: RANOLAZINE 500 MG TAB.SR.12H PO SCH (22:40)
[2017-02-04] MEDS: CLINDAMYCIN 300 MG/D5W RTU 300 MG/50 ML RTUPB IV SCH (22:41)
[2017-02-04 23:48] LABS: CREATINE KINASE MB 1.84 ng/mL (<4.55)
[2017-02-04 23:52] LABS: TROPONIN I < 0.012 ng/mL
[2017-02-05 04:31] LABS: CREATINE KINASE MB 1.79 ng/mL (<4.55)
[2017-02-05 04:37] LABS: TROPONIN I < 0.012 ng/mL
[2017-02-05] MEDS: CLINDAMYCIN 300 MG/D5W RTU 300 MG/50 ML RTUPB IV SCH ×3 (05:52→21:47)
[2017-02-05] MEDS ORDERED: (PENDING PHARMACY ID) (Lamotrigine [Lamictal] 200 MG) PO SCH (08:00)
[2017-02-05] MEDS: FUROSEMIDE 40 MG TABLET PO SCH (11:17)
[2017-02-05] MEDS: FENOFIBRATE NANOCRYSTALLIZED 145 MG TABLET PO SCH (11:18)
[2017-02-05] MEDS: RIVAROXABAN 10 MG TABLET PO SCH (11:18)
[2017-02-05] MEDS: METOPROLOL SUCCINATE 50 MG TAB.SR.24H PO SCH (11:18)
[2017-02-05] MEDS: QUETIAPINE FUMARATE 100 MG TABLET PO SCH (11:18)
[2017-02-05] MEDS: PREGABALIN 100 MG CAPSULE PO SCH ×2 (11:19→18:53)
[2017-02-05] MEDS: LAMOTRIGINE 100 MG TABLET PO SCH (11:20)
[2017-02-05] MEDS: RANOLAZINE 500 MG TAB.SR.12H PO SCH ×2 (11:20→21:47)
[2017-02-05 12:56] LABS: CREATINE KINASE MB 1.89 ng/mL (<4.55)
[2017-02-05 12:59] LABS: TROPONIN I < 0.012 ng/mL
--- NOTE | 2017-02-05 21:15 | PDOC H&P ---
History of Present Illness Admission Date/PCP: 02/04/17 21:47 WILNER ORDAZ MD History of Present Illness: [place] PAGE is a 56 year old male, He has a history of PAD, CVA with left hemiplegia, chronic atrial fibrillation he came to the emergency room for evaluation of atypical chest pain and cellulitis of the left foot. Patient is presently a resident of assisted living facility at [facility]. The 3 sets of cardiac enzymes were negative for acute AR he was admitted for observation and management of his symptoms. Patient continued to smoke cigarettes despite multiple comorbid conditions and cardiovascular syndromes Past Medical History Cardiac Medical History: Reports: Congestive Heart Failure, DVT, Myocardial Infarction, Hyperlipidema, Hypertension Pulmonary Medical History: Reports: Chronic Obstructive Pulmonary Disease (COPD) , Intubation, Pneumonia, Respiratory Failure Neurological Medical History: Denies: Seizures Endocrine Medical History: Reports: Diabetes Mellitus Type 2 GI Medical History: Reports: Gastroesophageal Reflux Disease Musculoskeltal Medical History: Reports: Arthritis Psychiatric Medical History: Reports: Bipolar Disorder, Depression Past Surgical History Past Surgical History: Reports: Appendectomy, Cholecystectomy, Orthopedic Surgery Social History Lives with: Other Smoking Status: Current Every Day Smoker Frequency of Alcohol Use: None Hx Recreational Drug Use: No Drugs: None Hx Prescription Drug Abuse: No Family History Family History: CAD Parental Family History Reviewed: Yes Children Family History Reviewed: Yes Sibling(s) Family History Reviewed.: Yes Medication/Allergy Home Medications: Acetaminophen [Tylenol 325 mg Tablet] 650 mg PO Q4HP PRN 02/04/17 Albuterol Sulfate [Proair HFA] 1 puff IH Q4HP PRN 02/04/17 Buprenorphine HCl [Subutex 8 mg Sublingual Tablet] 8 mg SL BID 02/04/17 Fenofibrate Nanocrystallized [Tricor 145 mg Tablet] 145 mg PO DAILY 02/04/17 Furosemide [Lasix 40 mg Tablet] 40 mg PO QAM 02/04/17 Lamotrigine [Lamictal] 200 mg PO QAM 02/04/17 Mag Hydrox/Al Hydrox/Simeth [Maalox Suspension] 30 ml PO Q4HP PRN 02/04/17 Melatonin 3 mg PO QHS 02/04/17 Metoprolol Succinate [Toprol Xl 50 mg Tab.sr] 50 mg PO DAILY 02/04/17 Nitroglycerin [Nitrostat 0.4 mg (1/150 Gr) Tabs 25/Bottle] 1 tab SL Q5MP PRN Pregabalin [Lyrica] 300 mg PO BID 02/04/17 Quetiapine Fumarate [Seroquel] 400 mg PO DAILY 02/04/17 Ranolazine [Ranexa] 1,000 mg PO BID 02/04/17 Rivaroxaban [Xarelto] 20 mg PO DAILY 02/04/17 Umeclidinium Brm/Vilanterol Tr [Anoro Ellipta 62.5-25 Mcg INH] 1 inh PO DAILY Allergies/Adverse Reactions: ketorolac tromethamine [From Toradol] Allergy (Unknown, Verified 11/20/16 15:34) morphine [Morphine] Allergy (Unknown, Verified 11/20/16 15:34) acetaminophen [From Tylenol] Allergy (Verified 11/20/16 15:34) lorazepam [From Ativan] Adverse Reaction (Verified 11/20/16 15:34) Review of Systems Constitutional: PRESENT: fever(s) Eyes: ABSENT: visual disturbances Ears: ABSENT: hearing changes Cardiovascular: PRESENT: chest pain Respiratory: ABSENT: cough, hemoptysis Gastrointestinal: ABSENT: abdominal pain, constipation, diarrhea, hematemesis, hematochezia, nausea, vomiting Genitourinary: ABSENT: dysuria, hematuria Musculoskeletal: ABSENT: joint swelling Integumentary: ABSENT: rash, wounds Neurological: ABSENT: abnormal gait, abnormal speech, confusion, dizziness, focal weakness, syncope Psychiatric: ABSENT: anxiety, depression, homidical ideation, suicidal ideation Endocrine: ABSENT: cold intolerance, heat intolerance, menstrual abnormalities, polydipsia, polyuria Hematologic/Lymphatic: ABSENT: easy bleeding, easy bruising, lymphadenopathy Physical Exam Vital Signs: Temp Pulse Resp BP Pulse Ox 97.6 F 58 L 20 101/68 96 02/05/17 19:21 02/05/17 19:21 02/05/17 19:21 02/05/17 19:21 02/05/17 19:21 Intake & Output 02/04/17 02/05/17 02/06/17 06:59 06:59 06:59 Intake Total 575 720 Output Total 625 1000 Balance -50 -280 Weight 117.6 kg General appearance: PRESENT: no acute distress, well-developed, well-nourished Head exam: PRESENT: atraumatic, normocephalic Eye exam: PRESENT: conjunctiva pink, EOMI, PERRLA Ear exam: PRESENT: normal external ear exam Mouth exam: PRESENT: moist, tongue midline Neck exam: PRESENT: full ROM Respiratory exam: PRESENT: rhonchi Cardiovascular exam: PRESENT: RRR, +S1, +S2 Pulses: PRESENT: other - There is diminished pulses of the left foot is cool GI/Abdominal exam: PRESENT: normal bowel sounds, soft Rectal exam: PRESENT: deferred Extremities exam: PRESENT: other - There is redness swelling of left foot Neurological exam: PRESENT: alert, motor sensory deficit - Left-sided hemiplegia Psychiatric exam: PRESENT: appropriate affect, normal mood Skin exam: PRESENT: dry, intact, warm. ABSENT: cyanosis, rash Results Laboratory Results: 02/04/17 02/04/17 02/05/17 22:30 22:30 04:00 Creatine Kinase 129 120 CK-MB (CK-2) 1.84 Troponin I < 0.012 02/05/17 02/05/17 02/05/17 04:00 11:50 11:50 Creatine Kinase 126 CK-MB (CK-2) 1.79 1.89 Troponin I < 0.012 < 0.012 Impressions: Chest X-Ray 02/04/17 17:07 IMPRESSION: Right IJ tubing. Tip overlying the SVC. No pneumothorax. Assessment & Plan - Diagnosis (1) Chest pain Qualifiers: Chest pain type: unspecified Qualified Code(s): R07.9 - Chest pain, unspecified Is this a current diagnosis for this admission?: Yes (2) Cellulitis and abscess of foot Is this a current diagnosis for this admission?: Yes Plan: Patient is admitted for management with IV antibiotic (3) PAD (peripheral artery disease) Is this a current diagnosis for this admission?: Yes (4) Atrial fibrillation Qualifiers: Atrial fibrillation type: paroxysmal Qualified Code(s): I48.0 - Paroxysmal atrial fibrillation Is this a current diagnosis for this admission?: Yes (5) Chronic diastolic heart failure Is this a current diagnosis for this admission?: Yes (6) Chronic obstructive pulmonary disease Qualifiers: COPD type: unspecified COPD Qualified Code(s): J44.9 - Chronic obstructive pulmonary disease, unspecified Is this a current diagnosis for this admission?: Yes (7) Chronic respiratory failure Qualifiers: Respiratory failure complication: hypercapnia Qualified Code(s): J96.12 - Chronic respiratory failure with hypercapnia Is this a current diagnosis for this admission?: Yes
[2017-02-06] MEDS: CLINDAMYCIN 300 MG/D5W RTU 300 MG/50 ML RTUPB IV SCH ×2 (05:44→13:10)
[2017-02-06] MEDS: FUROSEMIDE 40 MG TABLET PO SCH (08:23)
[2017-02-06] MEDS: LAMOTRIGINE 100 MG TABLET PO SCH (08:24)
[2017-02-06] MEDS: PREGABALIN 100 MG CAPSULE PO SCH (09:29)
[2017-02-06] MEDS: RIVAROXABAN 10 MG TABLET PO SCH (09:29)
[2017-02-06] MEDS: METOPROLOL SUCCINATE 50 MG TAB.SR.24H PO SCH (09:29)
[2017-02-06] MEDS: QUETIAPINE FUMARATE 100 MG TABLET PO SCH (09:30)
[2017-02-06] MEDS: FENOFIBRATE NANOCRYSTALLIZED 145 MG TABLET PO SCH (09:30)
[2017-02-06] MEDS: RANOLAZINE 500 MG TAB.SR.12H PO SCH (09:32)
[2017-02-06] MEDS ORDERED: NORMAL SALINE 1000 ML 1,000 ML IV PRN (12:15)
--- NOTE | 2017-02-06 12:58 | XCELERA REPORT ---
[address] [address] Lower Extremity Arterial Evaluation Name: [place] PAGE Age: 56 yrs Gender: Male : 1960 Patient Status: Inpatient Patient Location: [address] [place] [address] Study Date: 02/06/2017 09:55 AM Procedure: A color flow and duplex scan of the lower extremity arteries was performed bilaterally with velocity and waveform analysis. Ankle brachial indicies performed. Reason For Study: PAD Ordering Physician: WILNER ORDAZ Performed By: Harish Kelsey Measurements and Calculations Right Left SECURITY SYSTEMS MANAGER PSV 168.9 161.1 cm/sec Prox PFA PSV -134.6 -166.0 cm/sec Dist SFA PSV -113.9 -156.2 cm/sec Dist Pop A PSV 128.1 144.4 cm/sec Prox RULA PSV 77.6 cm/sec Dist RULA PSV 70.7 53.1 cm/sec Dist LEAD PHARMACY TECHNICIAN PSV -72.2 46.2 cm/sec Adilson Pedis PSV -101.7 -72.9 cm/sec Right Side Arterial Evaluation Normal velocity and triphasic waveforms noted from the Common Femoral artery to the infregeniculate vessels. 0 % stenosis noted. Ankle Brachial index is 1.41. Left Side Arterial Evaluation Normal velocity and triphasic waveforms noted from the Common Femoral artery to the Anterior Tibial artery. Biphasic with preserved velocity in the Posterior Tibial artery. . 0-19 % stenosis noted. In the Posterior Tibial artery. Ankle Brachial index is 1.36. Interpretation Summary No hemodynamically significant lesions in the right lower extremity only, on duplex imaging, at rest. Mild hemodynamically significant lesions in the left lower extremity only, on duplex imaging, at rest. : WILNER ORDAZ > Zaid Garrett
[2017-02-06 15:07] VITALS: BP 112/72
--- NOTE | 2017-02-06 15:39 | PDOC TRANSFER SUMMARY ---
General - Admit/Disc Date/PCP Admission Date/Primary Care Provider: 02/04/17 21:47 WILNER ORDAZ MD Discharge Date: 02/06/17 - Discharge Diagnosis (1) Chest pain Is this a current diagnosis for this admission?: Yes (2) Cellulitis and abscess of foot Is this a current diagnosis for this admission?: Yes (3) PAD (peripheral artery disease) Is this a current diagnosis for this admission?: Yes (4) Atrial fibrillation Is this a current diagnosis for this admission?: Yes (5) Chronic diastolic heart failure Is this a current diagnosis for this admission?: Yes (6) Chronic obstructive pulmonary disease Is this a current diagnosis for this admission?: Yes (7) Chronic respiratory failure Is this a current diagnosis for this admission?: Yes - Additional Information Discharge Diet: Diabetic Home Medications: Acetaminophen [Tylenol 325 mg Tablet] 650 mg PO Q4HP PRN 02/04/17 Albuterol Sulfate [Proair HFA] 1 puff IH Q4HP PRN 02/04/17 Buprenorphine HCl [Subutex 8 mg Sublingual Tablet] 8 mg SL BID 02/04/17 Fenofibrate Nanocrystallized [Tricor 145 mg Tablet] 145 mg PO DAILY 02/04/17 Furosemide [Lasix 40 mg Tablet] 40 mg PO QAM 02/04/17 Lamotrigine [Lamictal] 200 mg PO QAM 02/04/17 Mag Hydrox/Al Hydrox/Simeth [Maalox Suspension] 30 ml PO Q4HP PRN 02/04/17 Melatonin 3 mg PO QHS 02/04/17 Metoprolol Succinate [Toprol Xl 50 mg Tab.sr] 50 mg PO DAILY 02/04/17 Nitroglycerin [Nitrostat 0.4 mg (1/150 Gr) Tabs 25/Bottle] 1 tab SL Q5MP PRN Pregabalin [Lyrica] 300 mg PO BID 02/04/17 Quetiapine Fumarate [Seroquel] 400 mg PO DAILY 02/04/17 Ranolazine [Ranexa] 1,000 mg PO BID 02/04/17 Rivaroxaban [Xarelto] 20 mg PO DAILY 02/04/17 Umeclidinium Brm/Vilanterol Tr [Anoro Ellipta 62.5-25 Mcg INH] 1 inh PO DAILY Clindamycin HCl 300 mg PO Q8H #21 capsule 02/06/17 History of Present Illness Admission Date/PCP: 02/04/17 21:47 WILNER ORDAZ MD History of Present Illness: [place] PAGE is a 56 year old male, He has a history of PAD, CVA with left hemiplegia, chronic atrial fibrillation he came to the emergency room for evaluation of atypical chest pain and cellulitis of the left foot. Patient is presently a resident of assisted living facility at [facility]. The 3 sets of cardiac enzymes were negative for acute PR he was admitted for observation and management of his symptoms. Patient continued to smoke cigarettes despite multiple comorbid conditions and cardiovascular syndromes Hospital Course Hospital Course: Patient was admitted for the management of chest pain, cellulitis of the left foot, he was treated with IV antibiotic clindamycin. 3 sets of cardiac enzymes were negative for any acute PR. He has history of PAD, arterial Doppler was done, it did not show any significant hemodynamic lesion., He had episode of low blood pressure requiring IV fluid therapy Physical Exam Vital Signs: Temp Pulse Resp BP Pulse Ox 98 F 80 18 112/72 97 02/06/17 15:01 02/06/17 15:01 02/06/17 15:01 02/06/17 15:01 02/06/17 15:01 Intake & Output 02/05/17 02/06/17 02/07/17 06:59 06:59 06:59 Intake Total 575 2440 300 Output Total 625 2250 1200 Balance -50 190 -900 Weight 117.6 kg 116.8 kg General appearance: PRESENT: no acute distress Eye exam: PRESENT: PERRLA Respiratory exam: PRESENT: clear to auscultation jarett Cardiovascular exam: PRESENT: +S1, +S2 GI/Abdominal exam: PRESENT: soft Neurological exam: PRESENT: alert, CN II-XII grossly intact, motor sensory deficit - There is left-sided hemiparesis Results Laboratory Results: 02/04/17 22:30 Nasophary (Mrsa Only) MRSA Surveillance Culture - Final MRSA RECOVERED 02/04/17 02/04/17 02/05/17 22:30 22:30 04:00 Creatine Kinase 129 120 CK-MB (CK-2) 1.84 Troponin I < 0.012 02/05/17 02/05/17 02/05/17 04:00 11:50 11:50 Creatine Kinase 126 CK-MB (CK-2) 1.79 1.89 Troponin I < 0.012 < 0.012 Impressions: Chest X-Ray 02/04/17 17:07 IMPRESSION: Right IJ tubing. Tip overlying the SVC. No pneumothorax.
== END 2017-02-06 17:09 | disposition home health service (06) ==
LOC: ER 14:46 → UNDOADMOB 18:49 → INTOOBSV 18:49 → EH 18:49 → 4N 20:37 → EH 21:47 → OBSVTOIN 21:47 → 4N 21:47 → INTOOBSV 21:47 → 4N 02-05 08:37
PROVIDERS: ADMIT Internal Medicine; ATTEND Internal Medicine
PROC: HZ31ZZZ Individual Counseling for Substance Abuse Treatment, Behavioral (ICD-10-PCS; principal; 2017-02-04)
PROC: 02HV33Z Insertion of Infusion Device into Superior Vena Cava, Percutaneous Approach (ICD-10-PCS; 2017-02-04)
PROC: B548ZZA Ultrasonography of Superior Vena Cava, Guidance (ICD-10-PCS; 2017-02-04)
DX: R07.89 Other chest pain (principal); L02.612 Cutaneous abscess of left foot; L03.116 Cellulitis of left lower limb; I73.9 Peripheral vascular disease, unspecified; I48.2 Chronic atrial fibrillation; I69.354 Hemiplegia and hemiparesis following cerebral infarction affecting left non-dominant side; I50.32 Chronic diastolic (congestive) heart failure; I11.0 Hypertensive heart disease with heart failure; I44.4 Left anterior fascicular block; J44.9 Chronic obstructive pulmonary disease, unspecified; F17.210 Nicotine dependence, cigarettes, uncomplicated; J96.12 Chronic respiratory failure with hypercapnia; I95.9 Hypotension, unspecified; E11.9 Type 2 diabetes mellitus without complications; E78.5 Hyperlipidemia, unspecified; I25.2 Old myocardial infarction; Z82.49 Family history of ischemic heart disease and other diseases of the circulatory system; Z86.718 Personal history of other venous thrombosis and embolism; Z90.49 Acquired absence of other specified parts of digestive tract; Z89.422 Acquired absence of other left toe(s); Z79.899 Other long term (current) drug therapy; Z79.02 Long term (current) use of antithrombotics/antiplatelets
CPT/HCPCS: 93005; 99406; 99285; 96374; 36415; 82553 ×2; 82962 ×3; 82550 ×2; 85025; 80053; 84484 ×2; 93925 ×2; 71010; 93010; 36556; 76937; G0378 ×3; C1751; J3490 ×3; A9270 ×19; J1170; J7030; J2543

== ENCOUNTER 2017-02-18 13:27 | Emergency (ER) | payer MEDICARE, MEDICAID ==
[2017-02-18 14:01] VITALS: BP 114/84
--- NOTE | 2017-02-18 15:02 | RADIOLOGY REPORT (SQ) ---
EXAM DESCRIPTION: CHEST PA/LAT COMPLETED DATE/TIME: 02/18/2017 2:48 pm REASON FOR STUDY: fall/pain COMPARISON: 05/22/2016 EXAM PARAMETERS: NUMBER OF VIEWS: two views TECHNIQUE: Digital Frontal and Lateral radiographic views of the chest acquired. RADIATION DOSE: NA LIMITATIONS: none FINDINGS: LUNGS AND PLEURA: There is subsegmental atelectasis in the lung bases. There is no infilt rate or effusion. There is no pneumothorax. MEDIASTINUM AND HILAR STRUCTURES: No masses or contour abnormalities. HEART AND VASCULAR STRUCTURES: Heart normal size. No evidence for failure. BONES: Old rib fractures on the right. HARDWARE: None in the chest. OTHER: No other significant finding. IMPRESSION: NO SIGNIFICANT RADIOGRAPHIC FINDING IN THE CHEST. TECHNICAL DOCUMENTATION: JOB ID: [id number] [employer]- All Rights Reserved
--- NOTE | 2017-02-18 15:03 | RADIOLOGY REPORT (SQ) ---
EXAM DESCRIPTION: WRIST LEFT 3 VIEWS COMPLETED DATE/TIME: 02/18/2017 2:48 pm REASON FOR STUDY: fall/pain COMPARISON: None. NUMBER OF VIEWS: Three views. TECHNIQUE: AP, lateral, and oblique radiographic images acquired of the left wrist. LIMITATIONS: None. FINDINGS: MINERALIZATION: Normal. BONES: There is a nondisplaced comminuted fracture of the distal radius and there is a fracture of th e ulnar styloid. SOFT TISSUES: No soft tissue swelling. No foreign body. OTHER: No other significant finding. IMPRESSION: Fractures as described. TECHNICAL DOCUMENTATION: JOB ID: [id number] [employer]- All Rights Reserved
[2017-02-18] MEDS ORDERED: OXYCODONE-ACETAMINOPHEN 5-325 MG TABLET PO ONE (15:41)
--- NOTE | 2017-02-18 15:49 | ER Document Report ---
ED General - General Chief Complaint: Shortness Of Breath Stated Complaint: FALL WRIST,LEG PAIN Time Seen by Provider: 02/18/17 14:16 Mode of Arrival: Wheelchair Information source: Patient Notes: Patient presents with severe left wrist pain. Patient states this happened approximately 2 hours before arrival. He states he lost his balance and fell and landed on his left arm. He states he also injured his right lower leg. Patient states that he fell because he lost his balance. He states he has had several previous strokes that have caused him to have weakness on the left side as well as complete paralysis of the left upper extremity. He states this is what made him fall. He states the pain is constant and severe. It radiates up the left arm. It is worse if it is moved and better when it is rested. It is sharp. He denies any loss of consciousness. TRAVEL OUTSIDE OF THE [place] IN LAST 30 DAYS: No - Related Data Allergies/Adverse Reactions: ketorolac tromethamine [From Toradol] Allergy (Unknown, Verified 11/20/16 15:34) morphine [Morphine] Allergy (Unknown, Verified 11/20/16 15:34) acetaminophen [From Tylenol] Allergy (Verified 11/20/16 15:34) lorazepam [From Ativan] Adverse Reaction (Verified 11/20/16 15:34) Past Medical History - Social History Smoking Status: Current Every Day Smoker Chew tobacco use (# tins/day): No Frequency of alcohol use: None Drug Abuse: None Family History: CAD Patient has suicidal ideation: No Patient has homicidal ideation: No - Past Medical History Cardiac Medical History: Reports: Hx Congestive Heart Failure, Hx DVT, Hx Heart Attack, Hx Hypercholesterolemia, Hx Hypertension Pulmonary Medical History: Reports: Hx COPD, Hx Pneumonia, Hx Intubation, Hx Respiratory Failure Neurological Medical History: Reports: Hx Cerebrovascular Accident. Denies: Hx Seizures Endocrine Medical History: Reports: Hx Diabetes Mellitus Type 2 Renal/ Medical History: Reports: Hx Kidney Stones. Denies: Hx Peritoneal Dialysis GI Medical History: Reports: Hx Gastroesophageal Reflux Disease Musculoskeltal Medical History: Reports Hx Arthritis Psychiatric Medical History: Reports: Hx Bipolar Disorder, Hx Depression Denies: Hx Schizophrenia Past Surgical History: Reports: Hx Appendectomy, Hx Cholecystectomy, Hx Orthopedic Surgery - Immunizations Immunizations up to date: Yes Hx Diphtheria, Pertussis, Tetanus Vaccination: Yes Hx Pneumococcal Vaccination: 05/13/11 Review of Systems - Review of Systems Constitutional: denies: Chills, Fever Cardiovascular: denies: Chest pain, Palpitations Gastrointestinal: denies: Abdominal pain, Vomiting Neurological/Psychological: denies: Lost consciousness, Headaches -: Yes All other systems reviewed and negative Physical Exam - Vital signs Vitals: Temp Pulse Resp BP Pulse Ox 98.3 F 90 20 114/84 97 02/18/17 13:58 02/18/17 13:58 02/18/17 13:58 02/18/17 13:58 02/18/17 13:58 Interpretation: Normal - General General appearance: Appears well, Alert - HEENT Head: Normocephalic, Atraumatic Eyes: Normal Pupils: PERRL - Respiratory Respiratory status: No respiratory distress Chest status: Nontender Breath sounds: Normal Chest palpation: Normal - Cardiovascular Rhythm: Regular Heart sounds: Normal auscultation Murmur: No - Abdominal Inspection: Normal Distension: No distension Bowel sounds: Normal Tenderness: Nontender Organomegaly: No organomegaly - Back Back: Normal, Nontender - Extremities General upper extremity: Edema, Normal color, Normal temperature, Other - Left upper extremity has swelling to the hand and wrist. Wrist is tender to palpation. I do not palpate a radial pulse however I can get one with Doppler. Capillary refill is normal. Hand is warm. I cannot do a neurological motor exam because patient has a previous paralysis of this extremity secondary to a stroke. Patient also states that it is been swollen for about 3 months and is not sure why. General lower extremity: Nontender, Edema, Normal color, Normal ROM, Normal temperature. No: Ezekiel's sign - Neurological Neuro grossly intact: Yes Cognition: Normal Orientation: AAOx4 [place] Coma Scale Eye Opening: Spontaneous [place] Coma Scale Verbal: Oriented Manuelito Coma Scale Motor: Obeys Commands [place] Coma Scale Total: 15 Speech: Normal Sensory: Normal - Psychological Associated symptoms: Normal affect, Normal mood - Skin Skin Temperature: Warm Skin Moisture: Dry Skin Color: Normal, Other - Except patient does have a small abrasion to the right lower lateral leg. Course - Re-evaluation Re-evalutation: 02/18/17 15:53 Although patient has a decreased pulse -exam is somewhat difficult secondary to chronic paralysis and edema of this extremity. Other signs of compartment syndrome such as paresthesias, cold extremity, decreased capillary refill, are not present. Patient does have a good pulse with Doppler. At this time I have given him precautions about compartment syndrome. - Vital Signs Vital signs: Temp Pulse Resp BP Pulse Ox 98.3 F 90 20 114/84 97 02/18/17 13:58 02/18/17 13:58 02/18/17 13:58 02/18/17 13:58 02/18/17 13:58 - Diagnostic Test Radiology reviewed: Image reviewed, Reports reviewed - Patient has a distal radius and ulnar fracture. Chest x-ray was unremarkable for new pathology. Procedures - Immobilization Left Wrist Time completed: 15:48 Pre-Proc Neuro Vasc Exam: Other - Patient does have a decreased radial pulse as mentioned in physical exam there is no change after immobilization. Immobilizer type: Sugar tong, Sling Performed by: Provider assisted, RN Post-Proc Neuro Vasc Exam: Other Alignment checked and good: Yes Discharge - Discharge Clinical Impression: Distal radius fracture, left, Distal end of ulna fracture, closed Condition: Stable Disposition: HOME, SELF-CARE Instructions: Fractured Radius and Ulna ([facility]), Compartment Syndrome Cautions ( [facility]) Additional Instructions: You need to call Dr. De La Torre as soon as possible to arrange follow up. Prescriptions: Oxycodone HCl/Acetaminophen [Percocet 5-325 mg Tablet] 1 - 2 tab PO Q4H PRN #15 tablet PRN Reason: Referrals: ACE PEREZ MD [ACTIVE STAFF] - Follow up tomorrow
== END 2017-02-18 16:30 | disposition home or self-care (01) ==
LOC: ER 13:27
PROC: 2W3DX1Z Immobilization of Left Lower Arm using Splint (ICD-10-PCS; principal; 2017-02-18)
DX: S52.612A Displaced fracture of left ulna styloid process, initial encounter for closed fracture (principal); S52.592A Other fractures of lower end of left radius, initial encounter for closed fracture; S80.811A Abrasion, right lower leg, initial encounter; W19.XXXA Unspecified fall, initial encounter; Y93.89 Activity, other specified; R60.9 Edema, unspecified; I69.354 Hemiplegia and hemiparesis following cerebral infarction affecting left non-dominant side; I10 Essential (primary) hypertension; I25.2 Old myocardial infarction; J44.9 Chronic obstructive pulmonary disease, unspecified; E11.9 Type 2 diabetes mellitus without complications; F17.200 Nicotine dependence, unspecified, uncomplicated; Z88.8 Allergy status to other drugs, medicaments and biological substances; Z88.5 Allergy status to narcotic agent; Z88.6 Allergy status to analgesic agent
CPT/HCPCS: 99284; 71020; 73110; 29125; A9270

== ENCOUNTER 2017-04-21 01:28 | Emergency (ER) | payer MEDICARE, MEDICAID ==
[2017-04-21] MEDS ORDERED: DIPH/PERTUSS(ACELL)/TETANUS VAC/PF 0.5 ML SYR (>=10YO) IM ONE (01:45)
[2017-04-21] MEDS ORDERED: OXYCODONE-ACETAMINOPHEN 5-325 MG TABLET PO ONE (01:47)
[2017-04-21] MEDS ORDERED: BACITRACIN ZINC OINTMENT 15 GM TP ONE (01:48)
--- NOTE | 2017-04-21 01:50 | ER Document Report ---
ED General - General Chief Complaint: Toe Injury Stated Complaint: TOE PAIN Time Seen by Provider: 04/21/17 01:44 Mode of Arrival: Stretcher Information source: Patient, Emergency Med Personnel TRAVEL OUTSIDE OF THE [place] IN LAST 30 DAYS: No - HPI Notes: Patient is a 56-year-old male confined to a motorized wheelchair, nonambulatory , presents with report that he accidentally drove his wheelchair up underneath the dresser and injured his right great toenail which was partially amputated. There was minimal amount of bleeding. He denies any bony tenderness. He reports no other injury. He is unaware of his last tetanus shot. - Related Data Allergies/Adverse Reactions: ketorolac tromethamine [From Toradol] Allergy (Unknown, Verified 11/20/16 15:34) morphine [Morphine] Allergy (Unknown, Verified 11/20/16 15:34) acetaminophen [From Tylenol] Allergy (Verified 11/20/16 15:34) lorazepam [From Ativan] Adverse Reaction (Verified 11/20/16 15:34) Past Medical History - General Information source: Patient, Transfer Record - Social History Smoking Status: Current Every Day Smoker Frequency of alcohol use: None Drug Abuse: None Lives with: Shelter Family History: CAD Patient has suicidal ideation: No Patient has homicidal ideation: No - Past Medical History Cardiac Medical History: Reports: Hx Congestive Heart Failure, Hx DVT, Hx Heart Attack, Hx Hypercholesterolemia, Hx Hypertension Pulmonary Medical History: Reports: Hx COPD, Hx Pneumonia, Hx Intubation, Hx Respiratory Failure Neurological Medical History: Reports: Hx Cerebrovascular Accident. Denies: Hx Seizures Endocrine Medical History: Reports: Hx Diabetes Mellitus Type 2 Renal/ Medical History: Reports: Hx Kidney Stones. Denies: Hx Peritoneal Dialysis GI Medical History: Reports: Hx Gastroesophageal Reflux Disease Musculoskeltal Medical History: Reports Hx Arthritis Psychiatric Medical History: Reports: Hx Bipolar Disorder, Hx Depression Denies: Hx Schizophrenia Past Surgical History: Reports: Hx Appendectomy, Hx Cholecystectomy, Hx Orthopedic Surgery - Immunizations Immunizations up to date: Yes Hx Diphtheria, Pertussis, Tetanus Vaccination: Yes Hx Pneumococcal Vaccination: 05/13/11 Review of Systems - Review of Systems Notes: REVIEW OF SYSTEMS: CONSTITUTIONAL : Denies fever, chills, or sweats. Denies recent illness. EENT: Denies eye, ear, throat, or mouth pain or symptoms. Denies nasal or sinus congestion or discharge. Denies throat, tongue, or mouth swelling or difficulty swallowing. CARDIOVASCULAR: Denies chest pain. Denies palpitations or racing or irregular heart beat. Denies ankle edema. RESPIRATORY: Denies cough, cold, or chest congestion. Denies shortness of breath, difficulty breathing, or wheezing. GASTROINTESTINAL: Denies abdominal pain or distention. Denies nausea, vomiting , or diarrhea. Denies blood in vomitus, stools, or per rectum. Denies black, tarry stools. Denies constipation. GENITOURINARY: Denies difficulty urinating, painful urination, burning, frequency, blood in urine, or discharge. MUSCULOSKELETAL: Denies back or neck pain or stiffness. Denies joint pain or swelling. SKIN: Isolated toenail avulsion on the right great toe. HEMATOLOGIC : Denies easy bruising or bleeding. LYMPHATIC: Denies swollen, enlarged glands. NEUROLOGICAL: Denies confusion or altered mental status. Denies passing out or loss of consciousness. Denies dizziness or lightheadedness. Denies headache. Denies weakness or paralysis or loss of use of either side. Denies problems with gait or speech. Denies sensory loss, numbness, or tingling. Denies seizures. PSYCHIATRIC: Denies anxiety or stress. Denies depression, suicidal ideation, or homicidal ideation. ALL OTHER SYSTEMS REVIEWED AND NEGATIVE. Dictation was performed using [employer] voice recognition software Physical Exam - Vital signs Vitals: Temp Pulse Resp BP Pulse Ox 98.4 F 87 20 102/72 94 04/21/17 01:41 04/21/17 01:41 04/21/17 01:41 04/21/17 01:41 04/21/17 01:41 - Notes Notes: PHYSICAL EXAMINATION: GENERAL: Well-appearing, well-nourished and in no acute distress. HEAD: Atraumatic, normocephalic. EYES: Pupils equal round and reactive to light, extraocular movements intact, sclera anicteric, conjunctiva are normal. ENT: Nares patent, oropharynx clear without exudates. Moist mucous membranes. NECK: Normal range of motion, supple without lymphadenopathy LUNGS: Coarse breath sounds bilaterally. No significant wheezes or rales. HEART: Regular rate and rhythm without murmurs ABDOMEN: Soft, nontender, nondistended abdomen. No guarding, no rebound. No masses appreciated. Musculoskeletal: Normal range of motion. No cyanosis. 2+ bilateral lower extremity edema which patient states is chronic. NEUROLOGICAL: Cranial nerves grossly intact. no gross unilateral motor or sensory deficits noted. PSYCH: Normal mood, normal affect. SKIN: Warm, Dry, normal turgor. Patient has near complete avulsion of the right great toe nail. The toenail is barely hanging and was very gently removed during exam. The nail bed had no bleeding and appeared otherwise reasonably intact. There is no proximal erythema or adenopathy. There is no obvious laceration. There was a good range of motion to the toe without any bony tenderness noted. No proximal erythema or adenopathy. It is notable that the patient has no great toenail on the left, stating he had a similar injury previously with his motorized wheelchair in the past. Course - Re-evaluation Re-evalutation: 04/21/17 02:04 Wound area was cleaned and antibiotic ointment was applied. Patient was given Percocet and a tetanus shot. No clinical suggestion for neurovascular compromise or bony injury. No tendon injury. - Vital Signs Vital signs: Temp Pulse Resp BP Pulse Ox 98.4 F 87 20 102/72 94 04/21/17 01:41 04/21/17 01:41 04/21/17 01:41 04/21/17 01:41 04/21/17 01:41 Discharge - Discharge Clinical Impression: Toenail avulsion Qualifiers: Encounter type: initial encounter Qualified Code(s): S91.209A - Unspecified open wound of unspecified toe(s) with damage to nail, initial encounter Condition: Stable Disposition: HOME, SELF-CARE Instructions: Dressing Instructions for Open Wounds ([facility]) Additional Instructions: Apply antibiotic ointment to the wound twice a day. Keep the wound clean and dry. Return to the emergency department in case of fever, red streaks, severe pain or swelling. Referrals: DIVINA MANSFIELD DPM [ACTIVE STAFF] - Follow up as needed
[2017-04-21 03:18] VITALS: BP 113/69
== END 2017-04-21 03:16 | disposition home or self-care (01) ==
LOC: ER 01:28
DX: S91.209A Unspecified open wound of unspecified toe(s) with damage to nail, initial encounter (principal); W22.09XA Striking against other stationary object, initial encounter; Y92.009 Unspecified place in unspecified non-institutional (private) residence as the place of occurrence of the external cause; F17.200 Nicotine dependence, unspecified, uncomplicated; I50.9 Heart failure, unspecified; E78.00 Pure hypercholesterolemia, unspecified; I11.0 Hypertensive heart disease with heart failure; J44.9 Chronic obstructive pulmonary disease, unspecified; E11.9 Type 2 diabetes mellitus without complications; K21.9 Gastro-esophageal reflux disease without esophagitis; Z86.73 Personal history of transient ischemic attack (TIA), and cerebral infarction without residual deficits; I25.2 Old myocardial infarction; Z86.718 Personal history of other venous thrombosis and embolism; Z87.442 Personal history of urinary calculi; Z88.6 Allergy status to analgesic agent; Z90.49 Acquired absence of other specified parts of digestive tract; Z23 Encounter for immunization
CPT/HCPCS: 99283; 90471; 90715; A9270; J3490

== ENCOUNTER 2017-06-05 10:43 | Inpatient (IN) | payer MEDICARE, MEDICAID ==
--- NOTE | 2017-06-05 11:15 | ER Document Report ---
ED Respiratory Problem - General Mode of Arrival: Stretcher Information source: Patient TRAVEL OUTSIDE OF THE [place] IN LAST 30 DAYS: No - HPI Onset: This morning <MINNIE ALVAREZ - Last Filed: 06/06/17 09:09> <DAVIDDIVINA Gwendolyn - Last Filed: 06/11/17 20:46> - General Chief Complaint: Breathing Difficulty Stated Complaint: DIFFICULTY BREATHING Notes: Patient is a 56 year old male with a history of CHF, ME, type 2 diabetes, renal failure, and COPD presents to the emergency department via EMS from an assisted living facility complaining of shortness of breath. EMS states they were called to the scene due to the patient behaving abnormally and confused. At bedside patient is on BiPAP and states he has been having shortness of breath that has progressively gotten worse this morning. Upon arrival to the emergency department the patient was 79% on room air. Patient denies any pain or oxygen use at home. EMS gave the patient 975 of Tylenol due to a fever of 101.8. Patient currently takes Xarelto. Patient's PCP is Dr. Carlos. (MINNIE ALVAREZ) - Related Data Allergies/Adverse Reactions: ketorolac tromethamine [From Toradol] Allergy (Unknown, Verified 11/20/16 15:34) morphine [Morphine] Allergy (Unknown, Verified 11/20/16 15:34) acetaminophen [From Tylenol] Allergy (Verified 11/20/16 15:34) lorazepam [From Ativan] Adverse Reaction (Verified 11/20/16 15:34) Past Medical History - General Information source: Patient - Social History Smoking Status: Current Every Day Smoker Family History: CAD Patient has suicidal ideation: No Patient has homicidal ideation: No - Past Medical History Cardiac Medical History: Reports: Hx Congestive Heart Failure, Hx DVT, Hx Heart Attack, Hx Hypercholesterolemia, Hx Hypertension Pulmonary Medical History: Reports: Hx COPD, Hx Pneumonia, Hx Intubation, Hx Respiratory Failure Neurological Medical History: Reports: Hx Cerebrovascular Accident Endocrine Medical History: Reports: Hx Diabetes Mellitus Type 2 Renal/ Medical History: Reports: Hx Kidney Stones GI Medical History: Reports: Hx Gastroesophageal Reflux Disease Musculoskeltal Medical History: Reports Hx Arthritis Psychiatric Medical History: Reports: Hx Bipolar Disorder, Hx Depression Past Surgical History: Reports: Hx Appendectomy, Hx Cholecystectomy, Hx Orthopedic Surgery - Immunizations Immunizations up to date: Yes Hx Diphtheria, Pertussis, Tetanus Vaccination: Yes Hx Pneumococcal Vaccination: 05/13/11 <MINNIE ALVAREZ - Last Filed: 06/06/17 09:09> Review of Systems - Review of Systems Constitutional: No symptoms reported EENT: No symptoms reported Cardiovascular: No symptoms reported Respiratory: See HPI, Short of breath Gastrointestinal: No symptoms reported Genitourinary: No symptoms reported Male Genitourinary: No symptoms reported Musculoskeletal: No symptoms reported Skin: No symptoms reported Hematologic/Lymphatic: No symptoms reported Neurological/Psychological: See HPI, Confusion - per EMS -: Yes All other systems reviewed and negative <MINNIE ALVAREZ - Last Filed: 06/06/17 09:09> Physical Exam <MINNIE ALVAREZ - Last Filed: 06/06/17 09:09> <DAVIDDIVINA Snow - Last Filed: 06/11/17 20:46> - Vital signs Vitals: Resp BP Pulse Ox 15 112/82 83 L 06/05/17 10:49 06/05/17 10:49 06/05/17 10:49 - Notes Notes: GENERAL: Alert, interacts well. Respiratory distress. HEAD: Normocephalic, atraumatic. EYES: Appear normal. Pupils equal, round, and reactive to light. ENT: Moist mucus membranes, tongue midline. NECK: Full range of motion. Supple. Trachea midline. LUNGS: Coarse breath sounds. Respiratory distress. HEART: Tachycardic. No murmurs, gallops, or rubs. ABDOMEN: Soft, non-tender. Non-distended. Normal bowel sounds. EXTREMITIES: Moves all 4 extremities spontaneously. Stasis dermatitis in the BLE , +2 pitting edema. Left hand is erythematous with swollen digits, not tender to palpation, FROM of wrist and digits. NEUROLOGICAL: Alert and oriented x3. Normal speech. PSYCH: Normal affect, normal mood. (MINNIE ALVAREZ) Course - Laboratory Result Diagrams: 06/06/17 05:52 06/06/17 05:52 - EKG Interpretation by Pr EKG shows normal: Sinus rhythm Rate: Tachycardia Rhythm: NSR - Consults Dr. Ferrer Time consulted: 12:10 - Admits patient to Tele. <MINNIE ALVAREZ - Last Filed: 06/06/17 09:09> - Laboratory Result Diagrams: 06/07/17 05:58 06/07/17 05:58 <DIVINA HERNANDEZ - Last Filed: 06/11/17 20:46> - Vital Signs Vital signs: Temp Pulse Resp BP Pulse Ox 98.2 F 76 16 133/88 H 92 06/07/17 15:33 06/07/17 20:03 06/07/17 20:03 06/07/17 15:33 06/07/17 20:03 - Laboratory Laboratory results interpreted by me: 06/05/17 06/05/17 10:50 10:50 WBC 17.8 H Hgb 11.2 L Hct 34.8 L MCV 75 L MCH 24.1 L RDW 18.3 H Seg Neuts % (Manual) 85 H Lymphocytes % (Manual) 7 L Abs Neuts (Manual) 15.8 H BUN 24 H Creatinine 1.34 H Est GFR (Non-Af Amer) 55 L Glucose 123 H Discharge - Discharge Admitting Provider: Hospitalist - [facility] Unit Admitted: Telemetry <MINNIE ALVAREZ - Last Filed: 06/06/17 09:09> <DIVINA HERNANDEZ - Last Filed: 06/11/17 20:46> - Discharge Clinical Impression: Shortness of breath, Influenza B Pneumonia Qualifiers: Pneumonia type: due to unspecified organism Laterality: bilateral Lung location : lower lobe of lung Qualified Code(s): J18.9 - Pneumonia, unspecified organism Condition: Fair Disposition: ADMITTED INPATIENT Scribe Attestation: 06/11/17 20:46 I personally performed the services described documentation, reviewed and edited the documentation which was dictated to describe my presence, and it accurately records my words and actions. (DIVINA HERNANDEZ) Scribe Documentation - Scribe Written by Kezia:: Kezia Lizarraga, 06/05/2017 11:26 acting as scribe for :: David <MINNIE ALVAREZ - Last Filed: 06/06/17 09:09>
[2017-06-05 11:19] LABS: HEMATOCRIT 34.8 % (37.9-51.0); HEMOGLOBIN 11.2 g/dL (13.5-17.0); MEAN CORPUSCULAR HEMOGLOBIN 24.1 pg (27.0-33.4); MEAN CORPUSCULAR HGB CONC 32.2 g/dL (32.0-36.0); MEAN CORPUSCULAR VOLUME 75 fl (80-97); PLATELET COUNT 188 10^3/uL (150-450); RED BLOOD COUNT 4.64 10^6/uL (4.35-5.55); RED CELL DISTRIBUTION WIDTH 18.3 % (11.5-14.0); WHITE BLOOD COUNT 17.8 10^3/uL (4.0-10.5)
--- NOTE | 2017-06-05 11:29 | RADIOLOGY REPORT (SQ) ---
EXAM DESCRIPTION: CHEST SINGLE VIEW COMPLETED DATE/TIME: 06/05/2017 11:17 am REASON FOR STUDY: shortness of breath, room air sat 79 COMPARISON: Chest films 02/18/2017, 02/04/2017 CT chest 07/04/2016 EXAM PARAMETERS: NUMBER OF VIEWS: One view. TECHNIQUE: Single frontal radiographic view of the chest acquired. RADIATION DOSE: NA LIMITATIONS: Lordotic portable chest film, obese patient FINDINGS: LUNGS AND PLEURA: Chronic appearing scarring in the right lung base. No gross perihilar pulmonary edema, pneumothorax, pleural effusions, or dense consolidation worrisome for pneumonia. MEDIASTINUM AND HILAR STRUCTURES: No masses. Contour normal. HEART AND VASCULAR STRUCTURES: Cardiac silhouette size accentuated by lordotic portable technique. B orderline cardiomegaly BONES: No acute findings. HARDWARE: None in the chest. OTHER: No other significant finding. IMPRESSION: Limited study. Atelectasis or scarring at the right lung base. Otherwise unremarkable TECHNICAL DOCUMENTATION: JOB ID: [id number] [employer]- All Rights Reserved
[2017-06-05 11:31] LABS: ALANINE AMINOTRANSFERASE 32 U/L (21-72); ALBUMIN 3.9 g/dL (3.5-5.0); ALKALINE PHOSPHATASE 49 U/L (38-126); ANION GAP 9 (5-19); ASPARTATE AMINO TRANSFERASE 18 U/L (17-59); BILIRUBIN,DIRECT 0.2 mg/dL (0.0-0.4); BILIRUBIN,TOTAL 0.5 mg/dL (0.2-1.3); BLOOD UREA NITROGEN 24 mg/dL (7-20); CALCIUM 9.5 mg/dL (8.4-10.2); CARBON DIOXIDE 27 mmol/L (22-30); CHLORIDE 103 mmol/L (98-107); GLUCOSE 123 mg/dL (75-110); POTASSIUM 4.9 mmol/L (3.6-5.0); SODIUM 139.2 mmol/L (137-145); TOTAL PROTEIN 6.9 g/dL (6.3-8.2)
[2017-06-05 11:46] LABS: NT PRO BNP 125 pg/mL (5-900)
[2017-06-05 11:47] LABS: TROPONIN I < 0.012 ng/mL
[2017-06-05 11:48] LABS: ABSOLUTE LYMPHOCYTES# (MANUAL) 1.2 10^3/uL (0.5-4.7); ABSOLUTE MONOCYTES # (MANUAL) 0.5 10^3/uL (0.1-1.4); ABSOLUTE NEUTROPHILS# (MANUAL) 15.8 10^3/uL (1.7-8.2); ANISOCYTOSIS 2+; BAND NEUTROPHILS % (MANUAL) 4 % (3-5); BASOPHILS % (MANUAL) 1 % (0-2); EOSINOPHILS % (MANUAL) 0 % (0-6); HYPOCHROMASIA SLIGHT; LYMPHOCYTES % (MANUAL) 7 % (13-45); MONOCYTES % (MANUAL) 3 % (3-13); OVALOCYTES SLIGHT; PLATELET COMMENT ADEQUATE; POIKILOCYTOSIS SLIGHT; SEGMENTED NEUTROPHILS % (MAN) 85 % (42-78); TOTAL CELLS COUNTED 100; TOXIC GRANULATION 1+; TOXIC VACUOLATION PRESENT
[2017-06-05] MEDS ORDERED: NORMAL SALINE 1000 ML 250 ML IV PRN (11:58)
[2017-06-05] MEDS ORDERED: PIPERACILLIN/TAZOBACTAM 3.375 GM VIAL IV ONE (12:06)
[2017-06-05] MEDS ORDERED: VANCOMYCIN HCL INJ 1000 MG VIAL IV ONE (12:07)
[2017-06-05 12:29] LABS: A TYPE INFLUENZA AG NEGATIVE (NEGATIVE); B INFLUENZA AG POSITIVE (NEGATIVE)
[2017-06-05 12:36] LABS: VENOUS BLOOD BASE EXCESS 1.4 mmol/L; VENOUS BLOOD HCO3 26.8 mmol/L (20-32); VENOUS BLOOD PCO2 45.4 mmHg (35-63); VENOUS BLOOD PH 7.39 (7.30-7.42)
[2017-06-05] MEDS ORDERED: OSELTAMIVIR PHOSPHATE 75 MG CAPSULE PO ONE (12:41)
[2017-06-05] MEDS ORDERED: FUROSEMIDE INJ/PF 100 MG/10 ML SDV IV ONE (12:43)
[2017-06-05] MEDS ORDERED: ONDANSETRON HCL INJ/PF 4 MG/2 ML SDV IV PRN (13:00)
[2017-06-05] MEDS ORDERED: ALBUTEROL SULFATE 0.083% NEB 2.5 MG/3 ML AMPUL NEB PRN (13:00)
[2017-06-05 13:12] LABS: APPEARANCE,URINE CLEAR; BILIRUBIN,URINE NEGATIVE (NEGATIVE); COLOR,URINE STRAW; GLUCOSE, URINE NEGATIVE (NEGATIVE); KETONES,URINE NEGATIVE (NEGATIVE); LEUKOCYTE ESTERASE,URINE NEGATIVE (NEGATIVE); NITRITE,URINE NEGATIVE (NEGATIVE); PROTEIN,URINE NEGATIVE (NEGATIVE); URINE SPECIFIC GRAVITY 1.005; UROBILINOGEN,URINE NEGATIVE mg/dL (<2.0)
[2017-06-05] MEDS ORDERED: FUROSEMIDE INJ/PF 20 MG/2 ML SDV IV SCH (13:15)
[2017-06-05] MEDS ORDERED: GLUCAGON,HUMAN RECOMB 1 MG INJ IM PRN (13:20)
[2017-06-05] MEDS ORDERED: DEXTROSE 50%-WATER 25 GM/50 ML DISP.SYRIN IV PRN ×2 (13:20)
[2017-06-05] MEDS ORDERED: DEXTROSE 40% GEL 15 GM TUBE PO PRN ×2 (13:20)
[2017-06-05] MEDS ORDERED: METHYLPREDNISOLONE INJ 40 MG/1 ML SDV IV SCH (13:30)
[2017-06-05] MEDS: IPRATROPIUM/ALBUTEROL 0.5-2.5 MG/3 ML AMPUL NEB SCH ×2 (15:21→20:34)
[2017-06-05] MEDS: HEPARIN SOD (PORCINE) 5,000 UNIT/ML 1 ML SYRINGE SUBCUT SCH ×2 (16:24→22:09)
[2017-06-05] MEDS ORDERED: FUROSEMIDE INJ/PF 40 MG/4 ML SDV IV SCH (18:00)
[2017-06-05] MEDS ORDERED: NITROGLYCERIN 0.4 MG/TAB 25 TAB/BOTTLE SL PRN (18:14)
[2017-06-05] MEDS: OSELTAMIVIR PHOSPHATE 75 MG CAPSULE PO SCH (18:20)
[2017-06-05] MEDS: METHYLPREDNISOLONE INJ 40 MG/1 ML SDV IV SCH (18:20)
--- NOTE | 2017-06-05 18:33 | PDOC H&P ---
History of Present Illness Admission Date/PCP: June 05, 2017 Patient complains of: Unable to obtain due to mental status History of Present Illness: DAVIS PAGE is a 56 year old male who arrived to emergency room via ambulance after getting call from local local assisted living facility. EMS was called because patient appeared to be confused and short of breath. Upon arrival to emergency room patient was saturating at 79% on room air. Patient required to be placed on BiPAP. Patient was also found to be febrile. During the course of evaluation in emergency room patient tested positive for influenza B. The hospitalist service was contacted for the purpose of managing respiratory failure. It is not worth it to mention that history gathering had been difficult due to mental status. Past Medical History Cardiac Medical History: Reports: Congestive Heart Failure, DVT, Myocardial Infarction, Hyperlipidema, Hypertension Pulmonary Medical History: Reports: Chronic Obstructive Pulmonary Disease (COPD) , Intubation, Pneumonia, Respiratory Failure Neurological Medical History: Denies: Seizures Endocrine Medical History: Reports: Diabetes Mellitus Type 2 GI Medical History: Reports: Gastroesophageal Reflux Disease Musculoskeltal Medical History: Reports: Arthritis Psychiatric Medical History: Reports: Bipolar Disorder, Depression Past Surgical History Past Surgical History: Reports: Appendectomy, Cholecystectomy, Orthopedic Surgery Social History Smoking Status: Current Every Day Smoker Frequency of Alcohol Use: None Hx Recreational Drug Use: No Drugs: None Hx Prescription Drug Abuse: No - Advance Directive Resuscitation Status: Full Code Family History Family History: CAD Parental Family History Reviewed: Yes Children Family History Reviewed: Yes Sibling(s) Family History Reviewed.: Yes Medication/Allergy Home Medications: Acetaminophen [Tylenol 325 mg Tablet] 650 mg PO Q4HP PRN 06/05/17 Albuterol Sulfate [Proair HFA] 1 puff IH Q4HP PRN 06/05/17 Buprenorphine HCl [Subutex 8 mg Sublingual Tablet] 8 mg SL Q12 06/05/17 Calcium Carbonate [Calcium] 1,200 mg PO DAILY 06/05/17 Fenofibrate Nanocrystallized [Tricor 145 mg Tablet] 145 mg PO DAILY 06/05/17 Furosemide [Lasix 40 mg Tablet] 60 mg PO DAILY 06/05/17 Lamotrigine [Lamictal] 50 mg PO DAILY 06/05/17 Mag Hydrox/Al Hydrox/Simeth [Maalox Suspension] 30 ml PO Q4HP PRN 06/05/17 Melatonin [Melatin] 3 mg PO QHS 06/05/17 Metoprolol Succinate [Toprol Xl 50 mg Tab.sr] 50 mg PO DAILY 06/05/17 Nitroglycerin [Nitrostat 0.4 mg (1/150 Gr) Tabs 25/Bottle] 1 tab SL Q5MP PRN Potassium Chloride [Klor-Con M20] 20 meq PO DAILY 06/05/17 Pregabalin [Lyrica] 300 mg PO Q12 06/05/17 Quetiapine Fumarate [Seroquel] 800 mg PO QHS 06/05/17 Ranolazine [Ranexa 500 mg Tab.sr] 500 mg PO Q12 06/05/17 Rivaroxaban [Xarelto] 20 mg PO DAILY 06/05/17 Umeclidinium Brm/Vilanterol Tr [Anoro Ellipta 62.5-25 Mcg INH] 1 puff IH DAILY 06/05/17 Allergies/Adverse Reactions: ketorolac tromethamine [From Toradol] Allergy (Unknown, Verified 11/20/16 15:34) morphine [Morphine] Allergy (Unknown, Verified 11/20/16 15:34) acetaminophen [From Tylenol] Allergy (Verified 11/20/16 15:34) lorazepam [From Ativan] Adverse Reaction (Verified 11/20/16 15:34) Review of Systems ROS unobtainable: Due to mental status Physical Exam Vital Signs: Temp Pulse Resp BP Pulse Ox 19 106/79 96 06/05/17 12:44 06/05/17 12:44 06/05/17 12:44 Intake & Output 06/04/17 06/05/17 06/06/17 06:59 06:59 06:59 Weight 115.666 kg General appearance: PRESENT: no acute distress, morbidly obese Head exam: PRESENT: atraumatic, normocephalic Eye exam: PRESENT: conjunctiva pink, EOMI, PERRLA Ear exam: PRESENT: normal external ear exam Mouth exam: PRESENT: moist, neck supple Neck exam: ABSENT: JVD, lymphadenopathy, tenderness, thyromegaly Respiratory exam: PRESENT: clear to auscultation jarett Cardiovascular exam: PRESENT: RRR. ABSENT: diastolic murmur, systolic murmur Vascular exam: PRESENT: normal capillary refill GI/Abdominal exam: PRESENT: normal bowel sounds, other - Edema noted to pelvic area. ABSENT: tenderness Rectal exam: PRESENT: deferred Extremities exam: PRESENT: full ROM, other - 4+ pitting edema. ABSENT: joint swelling, tenderness Neurological exam: PRESENT: alert, other - Somnolent but arousable and responding when calling his name Skin exam: PRESENT: dry, normal color Results Laboratory Results: 06/05/17 10:50 06/05/17 10:50 06/05/17 06/05/17 06/05/17 10:50 10:50 10:50 WBC 17.8 H RBC 4.64 Hgb 11.2 L Hct 34.8 L MCV 75 L MCH 24.1 L MCHC 32.2 RDW 18.3 H Plt Count 188 Seg Neutrophils % Not Reportable Lymphocytes % Not Reportable Monocytes % Not Reportable Eosinophils % Not Reportable Basophils % Not Reportable Absolute Neutrophils Not Reportable Absolute Lymphocytes Not Reportable Absolute Monocytes Not Reportable Absolute Eosinophils Not Reportable Absolute Basophils Not Reportable VBG pH VBG pCO2 VBG HCO3 VBG Base Excess Sodium 139.2 Potassium 4.9 Chloride 103 Carbon Dioxide 27 Anion Gap 9 BUN 24 H Creatinine 1.34 H Est GFR ( Amer) > 60 Est GFR (Non-Af Amer) 55 L Glucose 123 H Lactic Acid 1.7 Calcium 9.5 Magnesium Total Bilirubin 0.5 AST 18 ALT 32 Alkaline Phosphatase 49 Total Protein 6.9 Albumin 3.9 Urine Color Urine Appearance Urine pH Ur Specific [place] Urine Protein Urine Glucose (UA) Urine Ketones Urine Blood Urine Nitrite Ur Leukocyte Esterase Urine WBC (Auto) Urine RBC (Auto) 06/05/17 06/05/17 06/05/17 10:50 10:50 12:53 WBC RBC Hgb Hct MCV MCH MCHC RDW Plt Count Seg Neutrophils % Lymphocytes % Monocytes % Eosinophils % Basophils % Absolute Neutrophils Absolute Lymphocytes Absolute Monocytes Absolute Eosinophils Absolute Basophils VBG pH 7.39 VBG pCO2 45.4 VBG HCO3 26.8 VBG Base Excess 1.4 Sodium Potassium Chloride Carbon Dioxide Anion Gap BUN Creatinine Est GFR ( Amer) Est GFR (Non-Af Amer) Glucose Lactic Acid Calcium Magnesium 1.9 Total Bilirubin AST ALT Alkaline Phosphatase Total Protein Albumin Urine Color STRAW Urine Appearance CLEAR Urine pH 7.0 Ur Specific [place] 1.005 Urine Protein NEGATIVE Urine Glucose (UA) NEGATIVE Urine Ketones NEGATIVE Urine Blood NEGATIVE Urine Nitrite NEGATIVE Ur Leukocyte Esterase NEGATIVE Urine WBC (Auto) 0 Urine RBC (Auto) 1 06/05/17 10:50 Troponin I < 0.012 NT-Pro-B Natriuret Pep 125 Impressions: Chest X-Ray 06/05/17 11:02 IMPRESSION: Limited study. Atelectasis or scarring at the right lung base. Otherwise unremarkable Assessment & Plan - Diagnosis (1) Influenza B Is this a current diagnosis for this admission?: Yes Plan: To order Tamiflu (2) Encephalopathy Is this a current diagnosis for this admission?: Yes Plan: Likely relates to hypoxemia. Will continue BiPAP (3) Acute and chronic respiratory failure Qualifiers: Respiratory failure complication: hypoxia and hypercapnia Qualified Code(s) : J96.21 - Acute and chronic respiratory failure with hypoxia; J96.22 - Acute and chronic respiratory failure with hypercapnia; J96.22 - Acute and chronic respiratory failure with hypercapnia; J96.22 - Acute and chronic respiratory failure with hypercapnia Is this a current diagnosis for this admission?: Yes Plan: Will continue BiPAP (4) Anasarca Is this a current diagnosis for this admission?: Yes Plan: Likely this relates to biventricular failure.. To place on IV Lasix and will monitor closely as he may display cardiorenal syndrome (5) Anemia Qualifiers: Anemia type: unspecified type Qualified Code(s): D64.9 - Anemia, unspecified Is this a current diagnosis for this admission?: Yes Plan: Long-standing and to trend (6) Chronic atrial fibrillation Is this a current diagnosis for this admission?: Yes Plan: Continue Xarelto as outpatient (7) Morbid obesity with BMI of 50.0-59.9, adult Is this a current diagnosis for this admission?: Yes Plan: Suspect patient may be pickwickian (8) CKD (chronic kidney disease) stage 2, GFR 60-89 ml/min Is this a current diagnosis for this admission?: Yes Plan: Will trend since will be placed on IV Lasix (9) Bipolar disorder Qualifiers: Active/Remission status: remission status unspecified Qualified Code(s): F31.9 - Bipolar disorder, unspecified Is this a current diagnosis for this admission?: Yes Plan: Will continue outpatient regimen since concern about decompensation - Time Time Spent: 50 to 70 Minutes Medications reviewed and adjusted accordingly: Yes Anticipated discharge: Acute Rehab Within: within 72 hours - Inpatient Certification Based on my medical assessment, after consideration of the patient's comorbidities, presenting symptoms, or acuity I expect that the services needed warrant INPATIENT care.: Yes I certify that my determination is in accordance with my understanding of Medicare's requirements for reasonable and necessary INPATIENT services [42 CFR 412.3e].: Yes Medical Necessity: Need Close Monitoring Due to Risk of Patient Decompensation, Need For Continuous Telemetry Monitoring
[2017-06-05] MEDS ORDERED: BUPRENORPHINE HCL 8 MG SL SCH (22:00)
[2017-06-05] MEDS ORDERED: (PENDING PHARMACY ID) (Quetiapine Fumarate [Seroquel] 800 MG) PO SCH (22:00)
[2017-06-05] MEDS ORDERED: BUPRENORPHINE HCL 2 MG SUBLINGUAL TABLET SL SCH (22:00)
[2017-06-05] MEDS: QUETIAPINE FUMARATE 100 MG TABLET PO SCH (22:04)
[2017-06-05] MEDS: BUPRENORPHINE HCL 2 MG SUBLINGUAL TABLET SL SCH (22:06)
[2017-06-05] MEDS: PREGABALIN 100 MG CAPSULE PO SCH (22:07)
[2017-06-05] MEDS: RANOLAZINE 500 MG TAB.SR.12H PO SCH (22:08)
[2017-06-06] MEDS ORDERED: NORMAL SALINE 1000 ML 1,000 ML IV PRN (01:11)
[2017-06-06] MEDS ORDERED: NORMAL SALINE 1000 ML 1,000 ML IV ONE (01:11)
[2017-06-06] MEDS: METHYLPREDNISOLONE INJ 40 MG/1 ML SDV IV SCH ×3 (03:10→21:44)
[2017-06-06] MEDS: HEPARIN SOD (PORCINE) 5,000 UNIT/ML 1 ML SYRINGE SUBCUT SCH (05:16)
[2017-06-06 06:24] LABS: HEMATOCRIT 34.4 % (37.9-51.0); HEMOGLOBIN 10.8 g/dL (13.5-17.0); MEAN CORPUSCULAR HEMOGLOBIN 23.8 pg (27.0-33.4); MEAN CORPUSCULAR HGB CONC 31.4 g/dL (32.0-36.0); MEAN CORPUSCULAR VOLUME 76 fl (80-97); PLATELET COUNT 177 10^3/uL (150-450); RED BLOOD COUNT 4.55 10^6/uL (4.35-5.55)
[2017-06-06 06:45] LABS: ANION GAP 9 (5-19); BLOOD UREA NITROGEN 25 mg/dL (7-20); CARBON DIOXIDE 27 mmol/L (22-30); CHLORIDE 106 mmol/L (98-107); GLUCOSE 150 mg/dL (75-110); MAGNESIUM 2.2 mg/dL (1.6-2.3); SODIUM 142.2 mmol/L (137-145)
[2017-06-06 06:54] LABS: ABSOLUTE LYMPHOCYTES# (MANUAL) 0.7 10^3/uL (0.5-4.7); ABSOLUTE MONOCYTES # (MANUAL) 0.1 10^3/uL (0.1-1.4); ABSOLUTE NEUTROPHILS# (MANUAL) 13.2 10^3/uL (1.7-8.2); BAND NEUTROPHILS % (MANUAL) 1 % (3-5); BASOPHILS % (MANUAL) 0 % (0-2); EOSINOPHILS % (MANUAL) 0 % (0-6); LYMPHOCYTES % (MANUAL) 5 % (13-45); MONOCYTES % (MANUAL) 1 % (3-13); SEGMENTED NEUTROPHILS % (MAN) 93 % (42-78); TOTAL CELLS COUNTED 100
[2017-06-06 06:55] LABS: ANISOCYTOSIS 1+; PLATELET COMMENT ADEQUATE; TOXIC GRANULATION SLIGHT
[2017-06-06] MEDS: IPRATROPIUM/ALBUTEROL 0.5-2.5 MG/3 ML AMPUL NEB SCH ×3 (08:42→20:02)
[2017-06-06] MEDS ORDERED: (PENDING PHARMACY ID) (Lamotrigine [Lamictal] 50 MG) PO SCH (10:00)
[2017-06-06] MEDS ORDERED: (PENDING PHARMACY ID) (Calcium Carbonate [Calcium] 1,200 MG) PO SCH (10:00)
[2017-06-06] MEDS ORDERED: (PENDING PHARMACY ID) (Potassium Chloride [Klor-Con M20] 20 MEQ) PO SCH (10:00)
[2017-06-06] MEDS: FENOFIBRATE NANOCRYSTALLIZED 145 MG TABLET PO SCH (10:47)
[2017-06-06] MEDS: RIVAROXABAN 10 MG TABLET PO SCH (10:51)
[2017-06-06] MEDS: RANOLAZINE 500 MG TAB.SR.12H PO SCH ×2 (10:51→21:44)
[2017-06-06] MEDS: POTASSIUM CHLORIDE 10 MEQ TABLET.SA PO SCH (10:51)
[2017-06-06] MEDS: PREGABALIN 100 MG CAPSULE PO SCH ×2 (10:51→21:43)
[2017-06-06] MEDS: LAMOTRIGINE 25 MG TAB.CHEW PO SCH (10:51)
[2017-06-06] MEDS: METOPROLOL SUCCINATE 50 MG TAB.SR.24H PO SCH (10:51)
[2017-06-06] MEDS: CALCIUM CARBONATE 500 MG TABLET PO SCH (10:51)
[2017-06-06] MEDS: DOCUSATE SODIUM 100 MG CAPSULE PO SCH (10:53)
[2017-06-06 11:49] LABS: ARTERIAL BLOOD BASE EXCESS 2.4 mmol/L; ARTERIAL BLOOD H2CO3 1.25 mmol/L (1.05-1.35); ARTERIAL BLOOD O2 SATURATION 91.4 % (94-98); ARTERIAL BLOOD PCO2 41.6 mmHg (35-45); ARTERIAL BLOOD PH 7.43 (7.35-7.45); ARTERIAL BLOOD PO2 59.4 mmHg (80-100); ARTERIAL BLOOD TOTAL CO2 28.3 mmol/L (23-27)
[2017-06-06 11:50] LABS: ARTERIAL BLOOD FIO2 4L
--- NOTE | 2017-06-06 11:56 | EKG REPORT ---
SEVERITY:- ABNORMAL ECG - SINUS TACHYCARDIA VENTRICULAR PREMATURE COMPLEX BORDERLINE LEFT AXIS DEVIATION LOW VOLTAGE THROUGHOUT BORDERLINE T ABNORMALITIES, ANTERIOR LEADS : Confirmed by: Carl Goldstein 06-Jun-2017 11:55:27
[2017-06-06] MEDS ORDERED: NICOTINE 21 MG/24 HR PATCH.TD24 TD PRN (12:57)
--- NOTE | 2017-06-06 13:14 | PDOC PROGRESS REPORT ---
Subjective Progress Note for:: 06/06/17 Subjective:: Patient states that he feels better and would like to go home he denies using oxygen. He denies getting flu vaccine. He admits that he wants to go back so he can smoke. Review of systems All organ systems evaluated and negative except as in subjective All laboratories and significant diagnostics have been reviewed Reason For Visit: ACUTE RESPIRATORY FAILURE INFLUENZA B, ANASARCA Physical Exam Vital Signs: Temp Pulse Resp BP Pulse Ox 97.5 F 86 10 L 98/65 L 93 06/06/17 04:00 06/06/17 04:00 06/06/17 04:00 06/06/17 04:00 06/06/17 04:00 Intake & Output 06/05/17 06/06/17 06/07/17 06:59 06:59 06:59 Intake Total 363 Output Total 3750 Balance -3387 Weight 123.1 kg General appearance: PRESENT: no acute distress, cooperative, morbidly obese Head exam: PRESENT: atraumatic, normocephalic Eye exam: PRESENT: EOMI, PERRLA Ear exam: PRESENT: normal external ear exam, TM's normal bilaterally Mouth exam: PRESENT: moist, neck supple Neck exam: PRESENT: full ROM. ABSENT: JVD, lymphadenopathy, tenderness Respiratory exam: PRESENT: decreased breath sounds. ABSENT: clear to auscultation jarett Cardiovascular exam: PRESENT: RRR. ABSENT: diastolic murmur, systolic murmur Vascular exam: PRESENT: normal capillary refill GI/Abdominal exam: PRESENT: normal bowel sounds, soft. ABSENT: tenderness - 3+ edema Extremities exam: PRESENT: full ROM. ABSENT: clubbing Musculoskeletal exam: PRESENT: ambulatory Neurological exam: PRESENT: alert, awake, oriented to person, oriented to place , oriented to time, oriented to situation, reflexes normal, CN II-XII grossly intact Psychiatric exam: PRESENT: appropriate affect, normal mood Skin exam: PRESENT: intact, normal color Results Laboratory Results: 06/06/17 05:52 06/06/17 05:52 06/06/17 06/06/17 05:52 05:52 WBC 14.0 H RBC 4.55 Hgb 10.8 L Hct 34.4 L MCV 76 L MCH 23.8 L MCHC 31.4 L RDW 18.0 H Plt Count 177 Seg Neutrophils % Not Reportable Lymphocytes % Not Reportable Monocytes % Not Reportable Eosinophils % Not Reportable Basophils % Not Reportable Absolute Neutrophils Not Reportable Absolute Lymphocytes Not Reportable Absolute Monocytes Not Reportable Absolute Eosinophils Not Reportable Absolute Basophils Not Reportable Sodium 142.2 Potassium 4.0 Chloride 106 Carbon Dioxide 27 Anion Gap 9 BUN 25 H Creatinine 1.11 Est GFR ( Amer) > 60 Est GFR (Non-Af Amer) > 60 Glucose 150 H Calcium 9.0 Magnesium 2.2 06/05/17 06/05/17 14:55 18:30 Troponin I < 0.012 0.020 Impressions: Chest X-Ray 06/05/17 11:02 IMPRESSION: Limited study. Atelectasis or scarring at the right lung base. Otherwise unremarkable Assessment & Plan - Diagnosis (1) Influenza B Is this a current diagnosis for this admission?: Yes Plan: Continue Tamiflu (2) Encephalopathy Is this a current diagnosis for this admission?: Yes Plan: Due to hypoxemia. Improved since admission. (3) Acute and chronic respiratory failure Qualifiers: Respiratory failure complication: hypoxia and hypercapnia Qualified Code(s) : J96.21 - Acute and chronic respiratory failure with hypoxia; J96.22 - Acute and chronic respiratory failure with hypercapnia; J96.22 - Acute and chronic respiratory failure with hypercapnia; J96.22 - Acute and chronic respiratory failure with hypercapnia Is this a current diagnosis for this admission?: Yes Plan: Acute component mostly resolved with patient remaining hypoxemic patient removing BiPAP. Will continue with oxygen supplementation. To consult case management as patient more likely will require oxygen supplementation on discharge (4) Anasarca Is this a current diagnosis for this admission?: Yes Plan: Likely this relates to biventricular failure. Of Lasix due to decrease blood pressure. Echocardiogram result pending (5) Anemia Qualifiers: Anemia type: unspecified type Qualified Code(s): D64.9 - Anemia, unspecified Is this a current diagnosis for this admission?: Yes Plan: Stable (6) Chronic atrial fibrillation Is this a current diagnosis for this admission?: Yes Plan: Continue Xarelto as outpatient (7) Morbid obesity with BMI of 50.0-59.9, adult Is this a current diagnosis for this admission?: Yes Plan: Suspect patient may be pickwickian (8) CKD (chronic kidney disease) stage 2, GFR 60-89 ml/min Is this a current diagnosis for this admission?: Yes Plan: Stable (9) Bipolar disorder Qualifiers: Active/Remission status: remission status unspecified Qualified Code(s): F31.9 - Bipolar disorder, unspecified Is this a current diagnosis for this admission?: Yes Plan: Will continue outpatient regimen since concern about decompensation (10) Tobacco abuse Is this a current diagnosis for this admission?: Yes Plan: To place on nicotine patch (11) Tobacco abuse counseling Is this a current diagnosis for this admission?: Yes Plan: Educated about quitting - Time Time Spent with patient: 15-24 minutes Medications reviewed and adjusted accordingly: Yes Anticipated discharge: Other - SHAMA Within: within 24 hours - Inpatient Certification Based on my medical assessment, after consideration of the patient's comorbidities, presenting symptoms, or acuity I expect that the services needed warrant INPATIENT care.: Yes I certify that my determination is in accordance with my understanding of Medicare's requirements for reasonable and necessary INPATIENT services [42 CFR 412.3e].: Yes Medical Necessity: Need Close Monitoring Due to Risk of Patient Decompensation
[2017-06-06] MEDS: INSULIN LISPRO 100 UNIT/ML 3 ML VIAL SUBCUT PRN ×2 (13:48→17:35)
[2017-06-06] MEDS: BUPRENORPHINE HCL 2 MG SUBLINGUAL TABLET SL SCH ×2 (14:59→21:43)
[2017-06-06] MEDS: OSELTAMIVIR PHOSPHATE 75 MG CAPSULE PO SCH (17:35)
[2017-06-06] MEDS: QUETIAPINE FUMARATE 100 MG TABLET PO SCH (21:44)
[2017-06-07] MEDS: INSULIN LISPRO 100 UNIT/ML 3 ML VIAL SUBCUT PRN ×4 (00:27→17:47)
[2017-06-07 06:18] LABS: ABSOLUTE LYMPHOCYTES (AUTO) 0.6 10^3/uL (0.5-4.7); ABSOLUTE MONOCYTES (AUTO) 0.4 10^3/uL (0.1-1.4); ABSOLUTE NEUT (AUTO) 10.2 10^3/uL (1.7-8.2); BASOPHILS % (AUTO) 0.4 % (0-2); HEMATOCRIT 33.8 % (37.9-51.0); HEMOGLOBIN 10.8 g/dL (13.5-17.0); LYMPHOCYTES % (AUTO) 5.5 % (13-45); MEAN CORPUSCULAR HEMOGLOBIN 24.1 pg (27.0-33.4); MEAN CORPUSCULAR HGB CONC 31.9 g/dL (32.0-36.0); MEAN CORPUSCULAR VOLUME 75 fl (80-97); MONOCYTES % (AUTO) 3.3 % (3-13); PLATELET COUNT 186 10^3/uL (150-450); RED BLOOD COUNT 4.49 10^6/uL (4.35-5.55); RED CELL DISTRIBUTION WIDTH 18.1 % (11.5-14.0); SEGMENTED NEUTROPHILS % (AUTO) 90.8 % (42-78); TOTAL CELLS COUNTED % (AUTO) 100 %; WHITE BLOOD COUNT 11.3 10^3/uL (4.0-10.5)
[2017-06-07 06:31] LABS: ANION GAP 10 (5-19); BLOOD UREA NITROGEN 28 mg/dL (7-20); CALCIUM 9.2 mg/dL (8.4-10.2); CARBON DIOXIDE 25 mmol/L (22-30); CHLORIDE 107 mmol/L (98-107); GLUCOSE 192 mg/dL (75-110); MAGNESIUM 2.3 mg/dL (1.6-2.3); POTASSIUM 4.6 mmol/L (3.6-5.0); SODIUM 141.6 mmol/L (137-145)
[2017-06-07] MEDS: IPRATROPIUM/ALBUTEROL 0.5-2.5 MG/3 ML AMPUL NEB SCH ×3 (08:07→20:02)
[2017-06-07] MEDS: METHYLPREDNISOLONE INJ 40 MG/1 ML SDV IV SCH (10:47)
[2017-06-07] MEDS: DOCUSATE SODIUM 100 MG CAPSULE PO SCH (10:47)
[2017-06-07] MEDS: LAMOTRIGINE 25 MG TAB.CHEW PO SCH (10:47)
[2017-06-07] MEDS: RANOLAZINE 500 MG TAB.SR.12H PO SCH (10:47)
[2017-06-07] MEDS: PREGABALIN 100 MG CAPSULE PO SCH (10:47)
[2017-06-07] MEDS: METOPROLOL SUCCINATE 50 MG TAB.SR.24H PO SCH (10:47)
[2017-06-07] MEDS: FENOFIBRATE NANOCRYSTALLIZED 145 MG TABLET PO SCH (10:47)
[2017-06-07] MEDS: BUPRENORPHINE HCL 2 MG SUBLINGUAL TABLET SL SCH (10:47)
[2017-06-07] MEDS: CALCIUM CARBONATE 500 MG TABLET PO SCH (10:47)
[2017-06-07] MEDS: POTASSIUM CHLORIDE 10 MEQ TABLET.SA PO SCH (10:47)
[2017-06-07] MEDS: RIVAROXABAN 10 MG TABLET PO SCH (10:47)
--- NOTE | 2017-06-07 14:31 | PDOC DISCHARGE SUMMARY ---
General - Admit/Disc Date/PCP Admission Date/Primary Care Provider: 06/05/17 13:43 Discharge Date: 06/07/17 - Discharge Diagnosis (1) Influenza B Is this a current diagnosis for this admission?: Yes (2) Encephalopathy Is this a current diagnosis for this admission?: Yes (3) Acute and chronic respiratory failure Is this a current diagnosis for this admission?: Yes (4) Anasarca Is this a current diagnosis for this admission?: Yes (5) Anemia Is this a current diagnosis for this admission?: Yes (6) Chronic atrial fibrillation Is this a current diagnosis for this admission?: Yes (7) Morbid obesity with BMI of 50.0-59.9, adult Is this a current diagnosis for this admission?: Yes (8) CKD (chronic kidney disease) stage 2, GFR 60-89 ml/min Is this a current diagnosis for this admission?: Yes (9) Bipolar disorder Is this a current diagnosis for this admission?: Yes (10) Tobacco abuse Is this a current diagnosis for this admission?: Yes (11) Tobacco abuse counseling Is this a current diagnosis for this admission?: Yes - Additional Information Resuscitation Status: Full Code Prescriptions: Oseltamivir Phosphate [Tamiflu 75 mg Capsule] 75 mg PO QPM #2 capsule Home Medications: Acetaminophen [Tylenol 325 mg Tablet] 650 mg PO Q4HP PRN 06/05/17 Albuterol Sulfate [Proair HFA] 1 puff IH Q4HP PRN 06/05/17 Buprenorphine HCl [Subutex 8 mg Sublingual Tablet] 8 mg SL Q12 06/05/17 Calcium Carbonate [Calcium] 1,200 mg PO DAILY 06/05/17 Fenofibrate Nanocrystallized [Tricor 145 mg Tablet] 145 mg PO DAILY 06/05/17 Furosemide [Lasix 40 mg Tablet] 60 mg PO DAILY 06/05/17 Lamotrigine [Lamictal] 50 mg PO DAILY 06/05/17 Mag Hydrox/Al Hydrox/Simeth [Maalox Suspension] 30 ml PO Q4HP PRN 06/05/17 Melatonin [Melatin] 3 mg PO QHS 06/05/17 Metoprolol Succinate [Toprol Xl 50 mg Tab.sr] 50 mg PO DAILY 06/05/17 Nitroglycerin [Nitrostat 0.4 mg (1/150 Gr) Tabs 25/Bottle] 1 tab SL Q5MP PRN Potassium Chloride [Klor-Con M20] 20 meq PO DAILY 06/05/17 Pregabalin [Lyrica] 300 mg PO Q12 06/05/17 Quetiapine Fumarate [Seroquel] 800 mg PO QHS 06/05/17 Ranolazine [Ranexa 500 mg Tab.sr] 500 mg PO Q12 06/05/17 Rivaroxaban [Xarelto] 20 mg PO DAILY 06/05/17 Umeclidinium Brm/Vilanterol Tr [Anoro Ellipta 62.5-25 Mcg INH] 1 puff IH DAILY 06/05/17 Oseltamivir Phosphate [Tamiflu 75 mg Capsule] 75 mg PO QPM #2 capsule 06/07/17 History of Present Illness History of Present Illness: DAVIS PAGE is a 56 year old male who arrived to emergency room via ambulance after getting call from local local assisted living facility. EMS was called because patient appeared to be confused and short of breath. Upon arrival to emergency room patient was saturating at 79% on room air. Patient required to be placed on BiPAP. Patient was also found to be febrile. During the course of evaluation in emergency room patient tested positive for influenza B. The hospitalist service was contacted for the purpose of managing respiratory failure. It is not worth it to mention that history gathering had been difficult due to mental status. Hospital Course Hospital Course: Patient was placed initially on BiPAP which as patient improved proceeded to remove it from its face. However patient required contact continuation of supplementation with oxygen. On discharge he is to continue 2 L of O2 by nasal cannula and recommend primary care provider to evaluate if may continue needing oxygen supplementation. He was treated with Lasix IV on admission which then had to discontinue because of mild asymptomatic hypotension. Patient likely an element of right-sided failure possibly due to sleep apnea. Recommend primary care provider to evaluate patient for sleep apnea if had not done so. Patient had been educated about quitting smoking. On admission patient tested positive for influenza B and he was started on Tamiflu with 2 days remaining of therapy on discharge. Patient is to resume outpatient medication regimen. Since patient had achieved maximum benefit of hospitalization stay prompted to discharge under stable condition Physical Exam Vital Signs: Temp Pulse Resp BP Pulse Ox 98.3 F 90 16 95/64 L 91 L 06/07/17 04:27 06/07/17 04:27 06/07/17 04:27 06/07/17 04:27 06/07/17 04:27 Intake & Output 06/06/17 06/07/17 06/08/17 06:59 06:59 06:59 Intake Total 363 1560 Output Total 3750 2024 Balance -9851 -441 Weight 123.1 kg 116.3 kg General appearance: PRESENT: no acute distress, cooperative, morbidly obese Head exam: PRESENT: atraumatic, normocephalic Eye exam: PRESENT: conjunctiva pink, EOMI, PERRLA Ear exam: PRESENT: normal external ear exam, TM's normal bilaterally Mouth exam: PRESENT: moist, neck supple Neck exam: PRESENT: full ROM, JVD. ABSENT: tenderness, thyromegaly Respiratory exam: PRESENT: clear to auscultation jarett Cardiovascular exam: PRESENT: RRR. ABSENT: diastolic murmur, systolic murmur Vascular exam: PRESENT: normal capillary refill GI/Abdominal exam: PRESENT: normal bowel sounds, soft. ABSENT: tenderness Extremities exam: PRESENT: full ROM, +2 edema. ABSENT: clubbing Musculoskeletal exam: PRESENT: ambulatory, full ROM Neurological exam: PRESENT: alert, awake, oriented to person, oriented to place , oriented to time, oriented to situation, CN II-XII grossly intact Psychiatric exam: PRESENT: appropriate affect, normal mood Skin exam: PRESENT: dry, normal color Results Laboratory Results: 06/07/17 05:58 06/07/17 05:58 06/06/17 06/07/17 06/07/17 11:30 05:58 05:58 WBC 11.3 H RBC 4.49 Hgb 10.8 L Hct 33.8 L MCV 75 L MCH 24.1 L MCHC 31.9 L RDW 18.1 H Plt Count 186 Seg Neutrophils % 90.8 H Lymphocytes % 5.5 L Monocytes % 3.3 Eosinophils % 0.0 Basophils % 0.4 Absolute Neutrophils 10.2 H Absolute Lymphocytes 0.6 Absolute Monocytes 0.4 Absolute Eosinophils 0.0 Absolute Basophils 0.0 Carbonic Acid 1.25 HCO3/H2CO3 Ratio 21:1 ABG pH 7.43 ABG pCO2 41.6 ABG pO2 59.4 L ABG HCO3 27.0 H ABG O2 Saturation 91.4 L ABG Base Excess 2.4 FiO2 4L Sodium 141.6 Potassium 4.6 Chloride 107 Carbon Dioxide 25 Anion Gap 10 BUN 28 H Creatinine 0.89 Est GFR ( Amer) > 60 Est GFR (Non-Af Amer) > 60 Glucose 192 H Calcium 9.2 Magnesium 2.3 06/05/17 06/05/17 14:55 18:30 Troponin I < 0.012 0.020 Impressions: Chest X-Ray 06/05/17 11:02 IMPRESSION: Limited study. Atelectasis or scarring at the right lung base. Otherwise unremarkable Plan Discharge Plan: Discharge to assisted living facility Time Spent: Less than 30 Minutes
[2017-06-07 16:38] VITALS: BP 133/88
[2017-06-07] MEDS: OSELTAMIVIR PHOSPHATE 75 MG CAPSULE PO SCH (17:47)
--- NOTE | 2017-06-07 19:31 | XCELERA REPORT ---
[address] [address] Transthoracic Echocardiogram Report Name: DAVIS PAGE Age: 56 yrs Gender: Male : 1960 Patient Status: Inpatient Patient Location: [address] [place] [address] Study Date: 06/07/2017 09:48 AM Height: 70 in Weight: 255 lb BSA: 2.3 m2 Procedure: A complete two-dimensional transthoracic echocardiogram was performed (2D, M-mode, spectral and color flow Doppler). The study was technically difficult with many images being suboptimal in quality. Reason For Study: [email or web address] Ordering Physician: DIOMEDES BARRAGAN Performed By: Jessica Marks Interpretation Summary The study was technically difficult with many images being suboptimal in quality. The left ventricular ejection fraction is normal. LV diastolic function could not be adequately assessed. There is borderline concentric left ventricular hypertrophy. The left ventricle is grossly normal size. Wall motion cannot be accurately commented on, but no definite regional wall motion abnormalities noted. The right ventricular systolic function is normal. The left atrial size is normal. The right atrium is normal. There is no mitral regurgitation noted. There is no mitral valve stenosis. There is no aortic valve stenosis No aortic regurgitation is present. There is a trace or physiologic amount of tricuspid regurgitation Tricuspid regurgitation jet envelope not well defined to measure RV systolic pressure accurately. The aortic root is not well visualized but is probably normal size. The inferior vena cava was not well visualized There is no pericardial effusion. MMode/2D Measurements & Calculations RVDd: 3.1 cm LVIDd: 4.3 cm FS: 28.9 % Ao root diam: 3.5 cm IVSd: 1.00 cm LVIDs: 3.0 cm EDV(Teich): 81.1 ml LVPWd: 0.98 cmESV(Teich): 35.8 ml Ao root area: 9.7 cm2 EF(Teich): 55.9 % LA dimension: 3.4 cm LVOT diam: 2.0 cm LVOT area: 3.3 cm2 Doppler Measurements & Calculations MV E max lani: MV P1/2t max lani: Ao V2 max: LV V1 max P.3 cm/sec 92.8 cm/sec 118.9 cm/sec 4.5 mmHg MV A max lani: MV P1/2t: 73.1 msec Ao max PG: LV V1 max: 72.1 cm/sec MVA(P1/2t): 3.0 cm2 5.7 mmHg 106.6 cm/sec MV E/A: 1.3 MV dec slope: JENNIFER(V,D): 2.9 cm2 371.9 cm/sec2 PA V2 max: 99.7 cm/sec PA max P.0 mmHg Left Ventricle The left ventricle is grossly normal size. There is borderline concentric left ventricular hypertrophy. The left ventricular ejection fraction is normal. LV diastolic function could not be adequately assessed. Wall motion cannot be accurately commented on, but no definite regional wall motion abnormalities noted. Right Ventricle The right ventricle is grossly normal size. There is normal right ventricular wall thickness. The right ventricular systolic function is normal. Atria The right atrium is normal. The left atrial size is normal. Interarterial septum not well visualized and not well dopplered. Cannot comment on ASD/PFO presence. Mitral Valve The mitral valve is grossly normal. There is no mitral valve stenosis. There is no mitral regurgitation noted. Aortic Valve The aortic valve is not well visualized secondary to technical limitations. There is no aortic valve stenosis. No aortic regurgitation is present. Tricuspid Valve The tricuspid valve is not well visualized secondary to technical limitations. There is no tricuspid stenosis. There is a trace or physiologic amount of tricuspid regurgitation. Tricuspid regurgitation jet envelope not well defined to measure RV systolic pressure accurately. Pulmonic Valve The pulmonic valve is not well visualized. Great Vessels The aortic root is not well visualized but is probably normal size. The inferior vena cava was not well visualized. Effusions There is no pericardial effusion. : DIOMEDES BARRAGAN > Carl Goldstein
== END 2017-06-07 20:31 | DRG 865 ==
LOC: ER 10:43 → EH 13:43 → 3S 06-06 02:37
PROVIDERS: ADMIT Family Medicine; ATTEND Family Medicine
PROC: 5A09457 Assistance with Respiratory Ventilation, 24-96 Consecutive Hours, Continuous Positive Airway Pressure (ICD-10-PCS; principal; 2017-06-05)
PROC: 3E0F73Z Introduction of Anti-inflammatory into Respiratory Tract, Via Natural or Artificial Opening (ICD-10-PCS; 2017-06-05)
DX: J10.81 Influenza due to other identified influenza virus with encephalopathy (principal); J96.21 Acute and chronic respiratory failure with hypoxia; J96.22 Acute and chronic respiratory failure with hypercapnia; Z68.43 Body mass index [BMI] 50.0-59.9, adult; I13.0 Hypertensive heart and chronic kidney disease with heart failure and stage 1 through stage 4 chronic kidney disease, or unspecified chronic kidney disease; I48.2 Chronic atrial fibrillation; E66.01 Morbid (severe) obesity due to excess calories; N18.2 Chronic kidney disease, stage 2 (mild); F31.9 Bipolar disorder, unspecified; F17.210 Nicotine dependence, cigarettes, uncomplicated; I95.9 Hypotension, unspecified; G47.30 Sleep apnea, unspecified; E78.00 Pure hypercholesterolemia, unspecified; D63.1 Anemia in chronic kidney disease; J44.9 Chronic obstructive pulmonary disease, unspecified; E11.22 Type 2 diabetes mellitus with diabetic chronic kidney disease; K21.9 Gastro-esophageal reflux disease without esophagitis; M19.90 Unspecified osteoarthritis, unspecified site; Z86.73 Personal history of transient ischemic attack (TIA), and cerebral infarction without residual deficits; I25.2 Old myocardial infarction; Z79.899 Other long term (current) drug therapy; Z99.81 Dependence on supplemental oxygen; Z86.718 Personal history of other venous thrombosis and embolism; Z90.49 Acquired absence of other specified parts of digestive tract; Z88.6 Allergy status to analgesic agent; Z88.8 Allergy status to other drugs, medicaments and biological substances; Z82.49 Family history of ischemic heart disease and other diseases of the circulatory system
CPT/HCPCS: 36415; 36600; 71045; 80048; 80053; 81001; 82140; 82803; 82962; 83605; 83735; 83880; 84484; 85025; 87040; 87804; 93005; 93010; 93306; 94640; 94660; 96365; 96375; 99285; J0571; J1644; J1815; J1940; J2543; J2920; J3370; J3490; J7030; J7620

== ENCOUNTER 2017-06-11 12:57 | Emergency (ER) | payer MEDICARE, MEDICAID ==
--- NOTE | 2017-06-11 14:58 | ER Document Report ---
HPI - HPI Patient complains to provider of: Low oxygen saturation Onset: Just prior to arrival Onset/Duration: Sudden Quality of pain: No pain Pain Level: Denies Context: Patient is a resident of [facility] in [facility]. A home health nurse came to evaluate patient and noticed that patient was not wearing his oxygen and that his oxygen saturation was in the low 80s. Oxygen was applied and it only went up to 87-92%. Per the home health protocol they are required to have a patient sent to the hospital for evaluation. Patient presently denies any cough, cold symptoms, dyspnea, chest pain or fever. Patient does have home oxygen that he is supposed to wear, but states that he does not always wear it and that he is still smoking 1 pack per day. She states he takes his oxygen off whenever he smokes. States that he does not have any complaints is uncertain why the had to send him here for evaluation. Associated Symptoms: None. denies: Chest pain, Nonproductive cough, Productive cough, Headache, Nausea, Vomiting Exacerbated by: Denies Relieved by: Denies Similar symptoms previously: No Recently seen / treated by doctor: Yes - ROS ROS below otherwise negative: Yes Systems Reviewed and Negative: Yes All other systems reviewed and negative - CONSTITUTIONAL Constitutional: DENIES: Fever, Chills - NEURO Neurology: DENIES: Headache - CARDIOVASCULAR Cardiovascular: DENIES: Chest pain - RESPIRATORY Respiratory: DENIES: Trouble Breathing, Coughing - GASTROINTESTINAL Gastrointestinal: DENIES: Patient vomiting - REPRODUCTIVE Reproductive: DENIES: : - MUSCULOSKELETAL Musculoskeletal: DENIES: Back Pain - DERM Skin Color: Normal Skin Problems: None Past Medical History - General Information source: Patient - Social History Smoking Status: Current Every Day Smoker Smoking Education Provided: Yes Frequency of alcohol use: None Drug Abuse: None Lives with: [facility] - Assisted-living Family History: Reviewed & Not Pertinent, CAD Patient has suicidal ideation: No Patient has homicidal ideation: No - Past Medical History Cardiac Medical History: Reports: Hx Congestive Heart Failure, Hx DVT, Hx Heart Attack, Hx Hypercholesterolemia, Hx Hypertension Pulmonary Medical History: Reports: Hx COPD, Hx Pneumonia, Hx Intubation, Hx Respiratory Failure Neurological Medical History: Reports: Hx Cerebrovascular Accident. Denies: Hx Seizures Endocrine Medical History: Reports: Hx Diabetes Mellitus Type 2 Renal/ Medical History: Reports: Hx Kidney Stones. Denies: Hx Peritoneal Dialysis GI Medical History: Reports: Hx Gastroesophageal Reflux Disease Musculoskeltal Medical History: Reports Hx Arthritis Psychiatric Medical History: Reports: Hx Bipolar Disorder, Hx Depression Denies: Hx Schizophrenia Past Surgical History: Reports: Hx Appendectomy, Hx Cholecystectomy, Hx Orthopedic Surgery - Immunizations Immunizations up to date: Yes Hx Diphtheria, Pertussis, Tetanus Vaccination: Yes Hx Pneumococcal Vaccination: 05/13/11 Vertical Provider Document - CONSTITUTIONAL Agree With Documented VS: Yes Exam Limitations: No Limitations General Appearance: WD/WN, No Apparent Distress Notes: Left-sided weakness - INFECTION CONTROL TRAVEL OUTSIDE OF THE [place] IN LAST 30 DAYS: No - HEENT HEENT: Atraumatic, Normal ENT Exam, Normocephalic - NECK Neck: Normal Inspection, Supple. negative: Lymphadenopathy-Left, Lymphadenopathy-Right - RESPIRATORY Respiratory: Breath Sounds Normal, No Respiratory Distress, Chest Non-Tender. negative: Rhonchi, Wheezing O2 Sat by Pulse Oximetry: 94 - CARDIOVASCULAR Cardiovascular: Regular Rate, Regular Rhythm, No Murmur - GI/ABDOMEN Gastrointestinal: Abdomen Soft, Abdomen Non-Tender - BACK Back: Normal Inspection - MUSCULOSKELETAL/EXTREMETIES Musculoskeletal/Extremeties: LISA CONNELLY - NEURO Level of Consciousness: Awake, Alert, Appropriate Motor/Sensory: No Motor Deficit - DERM Integumentary: Warm, Dry Course - Re-evaluation Re-evalutation: 06/11/17 14:40 Spoke with home health rig supervisor who states that home health nurse found patient with his oxygen saturation in the low to mid 80s her visit. Patient at this time was not wearing his home oxygen. Nurse rig supervisor reports that nurse placed the oxygen on patient but the highest oxygen saturation she got was 87-92 %. Per home health protocol this requires patient to be evaluated. Patient presently denies any complaints, no shortness of breath, no dyspnea, no chest pain no cough or cold symptoms at this time. Patient does acknowledge that he still smokes 1 pack per day of cigarettes and that he takes his oxygen off whenever he smokes to avoid fire hazards. 06/11/17 14:[address] loomis regarding patient presentation, recommends obtaining chest x-ray, no additional labs advised at this time given patient without any complaints or objective dyspnea with stable vital signs. 06/11/17 15:41 Patient in room oxygen off after he returned from x-ray. Oxygen saturation 89% on room air. Patient continues to deny any difficulty breathing or chest pain. Oxygen applied, oxygen saturation returned to the 90s - Vital Signs Vital signs: Temp Pulse Resp BP Pulse Ox 97.6 F 100 20 113/85 94 06/11/17 13:08 06/11/17 13:08 06/11/17 13:08 06/11/17 13:08 06/11/17 13:08 - Diagnostic Test Radiology reviewed: Reports reviewed Discharge - Discharge Clinical Impression: reported low oxygen saturation, History of COPD Condition: Stable Disposition: HOME, SELF-CARE Instructions: Chronic Obstructive Lung Disease ([facility]) Additional Instructions: Return immediately for any new or worsening symptoms Followup with your primary care provider, call tomorrow to make a followup appointment Wear your oxygen at home as directed Referrals: SANDHYA ENG MD [NO LOCAL MD] - Follow up tomorrow
--- NOTE | 2017-06-11 15:24 | RADIOLOGY REPORT (SQ) ---
EXAM DESCRIPTION: CHEST PA/LAT COMPLETED DATE/TIME: 06/11/2017 3:11 pm REASON FOR STUDY: reported low sats COMPARISON: CT chest 07/25/2016 Chest films 09/10/2016, 11/20/2016, 02/04/2017, 02/18/2017 EXAM PARAMETERS: NUMBER OF VIEWS: two views TECHNIQUE: Digital Frontal and Lateral radiographic views of the chest acquired. RADIATION DOSE: NA LIMITATIONS: none FINDINGS: LUNGS AND PLEURA: Bandlike scarring in the right lateral lung base related old healed ches t trauma with old healed rib fractures. No fluffy alveolar infiltrates worrisome for edema or pneumonia. No pleural effusions. No pneumotho rax. MEDIASTINUM AND HILAR STRUCTURES: No masses or contour abnormalities. HEART AND VASCULAR STRUCTURES: Heart normal size. No evidence for failure. BONES: Stable T3 vertebra plana compression deformity. Multiple old healed right lateral rib fractur es. HARDWARE: Inferior vena cava filter below the hemidiaphragms. OTHER: No other significant finding. IMPRESSION: No acute findings TECHNICAL DOCUMENTATION: JOB ID: [id number] [email or web address] All Rights Reserved
[2017-06-11 16:17] VITALS: BP 143/89
== END 2017-06-11 17:07 | disposition home or self-care (01) ==
LOC: ER 12:57
DX: J44.9 Chronic obstructive pulmonary disease, unspecified (principal); R06.02 Shortness of breath; Z99.81 Dependence on supplemental oxygen; F17.200 Nicotine dependence, unspecified, uncomplicated
CPT/HCPCS: 71046; 99285

== ENCOUNTER 2017-06-21 17:30 | Emergency (ER) | payer MEDICARE, MEDICAID ==
--- NOTE | 2017-06-21 19:51 | ER Document Report ---
ED General - General Chief Complaint: Weakness Stated Complaint: GENERAL WEAKNESS Time Seen by Provider: 06/21/17 19:22 Mode of Arrival: Ambulatory Information source: Patient Notes: 56-year-old male multiple medical histories presents with complaints of 1 day duration of cough congestion fevers chills sore throat. Patient unsure if he has been exposed to the flu TRAVEL OUTSIDE OF THE [place] IN LAST 30 DAYS: No - HPI Onset: Yesterday Onset/Duration: Persistent Quality of pain: Achy Severity: Mild Pain Level: 1 Associated symptoms: Body/muscle aches, Productive cough, Fever, Weakness Exacerbated by: Denies Relieved by: Denies Similar symptoms previously: No Recently seen / treated by doctor: Yes - Related Data Allergies/Adverse Reactions: ketorolac tromethamine [From Toradol] Allergy (Unknown, Verified 06/21/17 17:31) morphine [Morphine] Allergy (Unknown, Verified 06/21/17 17:31) acetaminophen [From Tylenol] Allergy (Verified 06/21/17 17:31) lorazepam [From Ativan] Adverse Reaction (Verified 06/21/17 17:31) Past Medical History - Social History Smoking Status: Current Every Day Smoker Cigarette use (# per day): Yes Chew tobacco use (# tins/day): No Smoking Education Provided: Yes - Patient counselled regarding cessation for 4 minutes Frequency of alcohol use: None Drug Abuse: None Family History: Reviewed & Not Pertinent, CAD Patient has suicidal ideation: No Patient has homicidal ideation: No - Past Medical History Cardiac Medical History: Reports: Hx Congestive Heart Failure, Hx DVT, Hx Heart Attack, Hx Hypercholesterolemia, Hx Hypertension Pulmonary Medical History: Reports: Hx COPD, Hx Pneumonia, Hx Intubation, Hx Respiratory Failure Neurological Medical History: Reports: Hx Cerebrovascular Accident. Denies: Hx Seizures Endocrine Medical History: Reports: Hx Diabetes Mellitus Type 2 Renal/ Medical History: Reports: Hx Kidney Stones. Denies: Hx Peritoneal Dialysis GI Medical History: Reports: Hx Gastroesophageal Reflux Disease Musculoskeltal Medical History: Reports Hx Arthritis Psychiatric Medical History: Reports: Hx Bipolar Disorder, Hx Depression Denies: Hx Schizophrenia Past Surgical History: Reports: Hx Appendectomy, Hx Cholecystectomy, Hx Orthopedic Surgery - Immunizations Immunizations up to date: Yes Hx Diphtheria, Pertussis, Tetanus Vaccination: Yes Hx Pneumococcal Vaccination: 05/13/11 Review of Systems - Review of Systems Notes: REVIEW OF SYSTEMS: CONSTITUTIONAL : Denies fever, chills, or sweats. Denies recent illness. EENT: Denies eye, ear, throat, or mouth pain or symptoms. Denies nasal or sinus congestion or discharge. Denies throat, tongue, or mouth swelling or difficulty swallowing. CARDIOVASCULAR: Denies chest pain. Denies palpitations or racing or irregular heart beat. Denies ankle edema. RESPIRATORY: Admits to cough congestion GASTROINTESTINAL: Denies abdominal pain or distention. Denies nausea, vomiting , or diarrhea. Denies blood in vomitus, stools, or per rectum. Denies black, tarry stools. Denies constipation. GENITOURINARY: Denies difficulty urinating, painful urination, burning, frequency, blood in urine, or discharge. MUSCULOSKELETAL: Denies back or neck pain or stiffness. Denies joint pain or swelling. SKIN: Denies rash, lesions or sores. HEMATOLOGIC : Denies easy bruising or bleeding. LYMPHATIC: Denies swollen, enlarged glands. NEUROLOGICAL: Denies confusion or altered mental status. Denies passing out or loss of consciousness. Denies dizziness or lightheadedness. Denies headache. Denies weakness or paralysis or loss of use of either side. Denies problems with gait or speech. Denies sensory loss, numbness, or tingling. Denies seizures. PSYCHIATRIC: Denies anxiety or stress. Denies depression, suicidal ideation, or homicidal ideation. ALL OTHER SYSTEMS REVIEWED AND NEGATIVE. Dictation was performed using [employer] voice recognition software PHYSICAL EXAMINATION: GENERAL: chroniclly ill appearing , no difference from baseline HEAD: Atraumatic, normocephalic. EYES: Pupils equal round and reactive to light, extraocular movements intact, sclera anicteric, conjunctiva are normal. ENT: Nares patent, oropharynx clear without exudates. Moist mucous membranes. NECK: Normal range of motion, supple without lymphadenopathy LUNGS: Breath sounds clear to auscultation bilaterally and equal. No wheezes rales or rhonchi. HEART: Regular rate and rhythm without murmurs ABDOMEN: Soft, nontender, nondistended abdomen. No guarding, no rebound. No masses appreciated. Musculoskeletal: Normal range of motion, no pitting or edema. No cyanosis. NEUROLOGICAL: chronic defict, no new complaints PSYCH: Normal mood, normal affect. SKIN: Warm, Dry, normal turgor, no rashes or lesions noted. Physical Exam - Vital signs Vitals: Temp Pulse Resp BP Pulse Ox 98.4 F 101 H 20 167/118 H 96 06/21/17 17:47 06/21/17 17:47 06/21/17 17:47 06/21/17 17:47 06/21/17 17:47 Course - Re-evaluation Re-evalutation: 06/21/17 20:30 Initially upon arrival patient was noted to be tachycardic however on reevaluation patient is in no distress, he looks well, chest x-ray was performed no pneumonia was noted, given patient's complaints I will therefore treat him as the fluids we do not have the capabilities to test at this time, he does have enough comorbidities that treatment with Tamiflu does outweigh the risks which have been discussed with the patient After performing a Medical Screening Examination, I estimate there is LOW risk for ACUTE CORONARY SYNDROME, PULMONARY EMBOLI, RESPIRATORY FAILURE, SEPSIS OR MENINGITIS, thus I consider the discharge disposition reasonable. I have reevaluated this patient multiple times and no significant life threatening changes are noted. The patient and I have discussed the diagnosis and risks, and we agree with discharging home with close follow-up. We also discussed returning to the Emergency Department immediately if new or worsening symptoms occur. We have discussed the symptoms which are most concerning (e.g., changing or worsening pain, trouble swallowing or breathing, neck stiffness, fever) that necessitate immediate return. - Vital Signs Vital signs: Temp Pulse Resp BP Pulse Ox 98.4 F 101 H 20 167/118 H 96 06/21/17 17:47 06/21/17 17:47 06/21/17 17:47 06/21/17 17:47 06/21/17 17:47 - Diagnostic Test Radiology reviewed: Image reviewed, Reports reviewed - No acute abnormality Discharge - Discharge Clinical Impression: Flu-like symptoms, Productive cough Condition: Stable Disposition: HOME, SELF-CARE Instructions: Influenza ([facility]) Additional Instructions: Return immediately if there are any other concerns Prescriptions: Oseltamivir Phosphate [Tamiflu 75 mg Capsule] 75 mg PO BID #10 capsule
--- NOTE | 2017-06-21 20:22 | RADIOLOGY REPORT (SQ) ---
EXAM DESCRIPTION: CHEST SINGLE VIEW COMPLETED DATE/TIME: 06/21/2017 8:06 pm REASON FOR STUDY: productive cough COMPARISON: 06/11/2017. EXAM PARAMETERS: NUMBER OF VIEWS: One view. TECHNIQUE: Single frontal radiographic view of the chest acquired. RADIATION DOSE: NA LIMITATIONS: None. FINDINGS: LUNGS AND PLEURA: No opacities, masses or pneumothorax. No pleural effusion. MEDIASTINUM AND HILAR STRUCTURES: No masses. Contour normal. HEART AND VASCULAR STRUCTURES: Heart normal in size. Normal vasculature. BONES: No acute findings. Old rib fractures. HARDWARE: None in the chest. OTHER: No other significant finding. IMPRESSION: NO ACUTE RADIOGRAPHIC FINDING IN THE CHEST. TECHNICAL DOCUMENTATION: JOB ID: [id number] [employer]- All Rights Reserved
[2017-06-21] MEDS ORDERED: OSELTAMIVIR PHOSPHATE 75 MG CAPSULE PO ONE (21:16)
[2017-06-21 21:26] VITALS: BP 166/116
[2017-06-21] MEDS ORDERED: ACETAMINOPHEN 325 MG TABLET PO ONE (22:05)
[2017-06-21] MEDS ORDERED: ACETAMINOPHEN 325 MG TABLET ONE (22:05)
== END 2017-06-21 22:07 | disposition home or self-care (01) ==
LOC: ER 17:30
DX: R05 Cough (principal); R53.1 Weakness; M79.1 Myalgia; R50.9 Fever, unspecified; F17.210 Nicotine dependence, cigarettes, uncomplicated; I50.9 Heart failure, unspecified; E78.00 Pure hypercholesterolemia, unspecified; I11.0 Hypertensive heart disease with heart failure; Z86.718 Personal history of other venous thrombosis and embolism; I25.2 Old myocardial infarction; Z90.49 Acquired absence of other specified parts of digestive tract
CPT/HCPCS: 99406; 99285; 71045; A9270 ×2; J3490

== ENCOUNTER 2017-07-08 16:43 | Emergency (ER) | payer MEDICARE, MEDICAID ==
[2017-07-08] MEDS ORDERED: VANCOMYCIN HCL INJ 1000 MG VIAL IV ONE (17:26)
--- NOTE | 2017-07-08 17:27 | ER Document Report ---
ED Medical Screen (RME) - General Chief Complaint: Wound Infection Stated Complaint: LEFT LEG INJURY Time Seen by Provider: 07/08/17 17:25 Notes: sent in by home health nurse due to possible cellulitis TRAVEL OUTSIDE OF THE [place] IN LAST 30 DAYS: No - Related Data Allergies/Adverse Reactions: ketorolac tromethamine [From Toradol] Allergy (Unknown, Verified 07/08/17 16:44) morphine [Morphine] Allergy (Unknown, Verified 07/08/17 16:44) acetaminophen [From Tylenol] Allergy (Verified 07/08/17 16:44) lorazepam [From Ativan] Adverse Reaction (Verified 07/08/17 16:44) Past Medical History - Social History Chew tobacco use (# tins/day): No Frequency of alcohol use: None Drug Abuse: None - Past Medical History Cardiac Medical History: Reports: Hx Congestive Heart Failure, Hx DVT, Hx Heart Attack, Hx Hypercholesterolemia, Hx Hypertension Pulmonary Medical History: Reports: Hx COPD, Hx Pneumonia, Hx Intubation, Hx Respiratory Failure Neurological Medical History: Reports: Hx Cerebrovascular Accident. Denies: Hx Seizures Endocrine Medical History: Reports: Hx Diabetes Mellitus Type 2 Renal/ Medical History: Reports: Hx Kidney Stones. Denies: Hx Peritoneal Dialysis GI Medical History: Reports: Hx Gastroesophageal Reflux Disease Musculoskeltal Medical History: Reports Hx Arthritis Psychiatric Medical History: Reports: Hx Bipolar Disorder, Hx Depression Denies: Hx Schizophrenia Past Surgical History: Reports: Hx Appendectomy, Hx Cholecystectomy, Hx Orthopedic Surgery - Immunizations Immunizations up to date: Yes Hx Diphtheria, Pertussis, Tetanus Vaccination: Yes History of Influenza Vaccine for 02/2017 - 07/2017 Season: Yes Physical Exam - Vital signs Vitals: Temp Pulse Resp BP Pulse Ox 98.1 F 93 22 H 130/82 H 91 L 07/08/17 16:49 07/08/17 16:49 07/08/17 16:49 07/08/17 16:49 07/08/17 16:49 Course - Vital Signs Vital signs: Temp Pulse Resp BP Pulse Ox 98.1 F 93 22 H 130/82 H 91 L 07/08/17 16:49 07/08/17 16:49 07/08/17 16:49 07/08/17 16:49 07/08/17 16:49
[2017-07-08 19:07] LABS: ABSOLUTE EOSINOPHILS # (AUTO) 0.1 10^3/uL (0.0-0.6); ABSOLUTE LYMPHOCYTES (AUTO) 1.3 10^3/uL (0.5-4.7); ABSOLUTE MONOCYTES (AUTO) 0.8 10^3/uL (0.1-1.4); ABSOLUTE NEUT (AUTO) 6.2 10^3/uL (1.7-8.2); BASOPHILS % (AUTO) 0.5 % (0-2); EOSINOPHILS % (AUTO) 1.5 % (0-6); HEMATOCRIT 36.3 % (37.9-51.0); HEMOGLOBIN 11.7 g/dL (13.5-17.0); LYMPHOCYTES % (AUTO) 15.1 % (13-45); MEAN CORPUSCULAR HEMOGLOBIN 24.3 pg (27.0-33.4); MEAN CORPUSCULAR HGB CONC 32.1 g/dL (32.0-36.0); MEAN CORPUSCULAR VOLUME 76 fl (80-97); MONOCYTES % (AUTO) 9.3 % (3-13); PLATELET COUNT 194 10^3/uL (150-450); RED BLOOD COUNT 4.79 10^6/uL (4.35-5.55); RED CELL DISTRIBUTION WIDTH 19.3 % (11.5-14.0); SEGMENTED NEUTROPHILS % (AUTO) 73.6 % (42-78); TOTAL CELLS COUNTED % (AUTO) 100 %; WHITE BLOOD COUNT 8.5 10^3/uL (4.0-10.5)
[2017-07-08 19:16] LABS: ALANINE AMINOTRANSFERASE 34 U/L (21-72); ALKALINE PHOSPHATASE 58 U/L (38-126); ANION GAP 9 (5-19); ASPARTATE AMINO TRANSFERASE 17 U/L (17-59); BILIRUBIN,DIRECT 0.4 mg/dL (0.0-0.4); BILIRUBIN,TOTAL 0.4 mg/dL (0.2-1.3); BLOOD UREA NITROGEN 19 mg/dL (7-20); CALCIUM 8.8 mg/dL (8.4-10.2); CARBON DIOXIDE 26 mmol/L (22-30); CHLORIDE 106 mmol/L (98-107); GLUCOSE 94 mg/dL (75-110); POTASSIUM 4.5 mmol/L (3.6-5.0); SODIUM 140.7 mmol/L (137-145); TOTAL PROTEIN 6.8 g/dL (6.3-8.2)
[2017-07-08] MEDS ORDERED: CEPHALEXIN 500 MG CAPSULE PO ONE (20:14)
[2017-07-08] MEDS ORDERED: IPRATROPIUM/ALBUTEROL 0.5-2.5 MG/3 ML AMPUL NEB ONE (20:14)
[2017-07-08] MEDS ORDERED: SULFAMETHOXAZOLE/TRIMETHOPRIM 800-160 MG TABLET PO ONE (20:14)
--- NOTE | 2017-07-08 20:19 | ER Document Report ---
ED Wound - General Chief Complaint: Wound Infection Stated Complaint: LEFT LEG INJURY Time Seen by Provider: 07/08/17 17:25 Notes: Patient is a 56-year-old male comes emergency department for chief complaint of wound to his left outer lower leg area, he states he scraped it on something a couple weeks ago, he cannot remember, he states that over the past couple of days the area has become red and tender to the touch. He has had some clear drainage, no foul smell, no fever or chills, no nausea or vomiting. He does smoke, he does have insulin-dependent diabetes, hx of DVT (on xarelto). He is at assisted living, nurse evaluated him today and was concerned and told him to come be evaluated. He denies any other complaints. TRAVEL OUTSIDE OF THE [place] IN LAST 30 DAYS: No - Related Data Allergies/Adverse Reactions: ketorolac tromethamine [From Toradol] Allergy (Unknown, Verified 07/08/17 16:44) morphine [Morphine] Allergy (Unknown, Verified 07/08/17 16:44) acetaminophen [From Tylenol] Allergy (Verified 07/08/17 16:44) lorazepam [From Ativan] Adverse Reaction (Verified 07/08/17 16:44) Past Medical History - General Information source: Patient - Social History Smoking Status: Current Every Day Smoker Chew tobacco use (# tins/day): No Smoking Education Provided: Yes - <3 min Frequency of alcohol use: None Drug Abuse: None Lives with: [facility] Family History: Reviewed & Not Pertinent, CAD Patient has suicidal ideation: No Patient has homicidal ideation: No - Past Medical History Cardiac Medical History: Reports: Hx Congestive Heart Failure, Hx DVT, Hx Heart Attack, Hx Hypercholesterolemia, Hx Hypertension Pulmonary Medical History: Reports: Hx COPD, Hx Pneumonia, Hx Intubation, Hx Respiratory Failure Neurological Medical History: Reports: Hx Cerebrovascular Accident. Denies: Hx Seizures Endocrine Medical History: Reports: Hx Diabetes Mellitus Type 2 Renal/ Medical History: Reports: Hx Kidney Stones. Denies: Hx Peritoneal Dialysis GI Medical History: Reports: Hx Gastroesophageal Reflux Disease Musculoskeltal Medical History: Reports Hx Arthritis Psychiatric Medical History: Reports: Hx Bipolar Disorder, Hx Depression Denies: Hx Schizophrenia Past Surgical History: Reports: Hx Appendectomy, Hx Cholecystectomy, Hx Orthopedic Surgery - Immunizations Immunizations up to date: Yes Hx Diphtheria, Pertussis, Tetanus Vaccination: Yes Hx Pneumococcal Vaccination: 05/13/11 Review of Systems - Review of Systems Constitutional: No symptoms reported EENT: No symptoms reported Cardiovascular: No symptoms reported Respiratory: No symptoms reported Gastrointestinal: No symptoms reported Genitourinary: No symptoms reported Male Genitourinary: No symptoms reported Musculoskeletal: See HPI Skin: See HPI Hematologic/Lymphatic: No symptoms reported Neurological/Psychological: No symptoms reported Physical Exam - Vital signs Vitals: Temp Pulse Resp BP Pulse Ox 98.1 F 93 22 H 130/82 H 91 L 07/08/17 16:49 07/08/17 16:49 07/08/17 16:49 07/08/17 16:49 07/08/17 16:49 - General General appearance: Appears well In distress: None - HEENT Head: Normocephalic, Atraumatic Eyes: Normal Conjunctiva: Normal Extraocular movements intact: Yes Eyelashes: Normal Pupils: PERRL Sinus: Normal Nasal: Normal Mouth/Lips: Normal Mucous membranes: Normal Pharynx: Normal Neck: Normal - Respiratory Respiratory status: No respiratory distress. No: Respiratory distress, Labored , Tachypnea Breath sounds: Normal, Wheezing - There are some scattered expiratory wheezes throughout, no rhonchi. No: Decreased air movement, Nonproductive cough - Cardiovascular Rhythm: Regular. No: Tachycardia Heart sounds: Normal auscultation, S1 appreciated, S2 appreciated - Abdominal Inspection: Normal Tenderness: Nontender - Back Back: Normal, Nontender - Extremities General upper extremity: Normal inspection, Nontender, Normal ROM, Normal strength General lower extremity: Other - Left lateral tibial area with 2 small superficial abrasions, mild surrounding erythema, very small amount of clear fluid leaking from the abrasions, no purulent discharge, no induration, minimal tenderness to the area. Area does not smell foul. No edema. Normal distal neurovascular exam. Normal lower extremity exam otherwise. 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 No foul smell, purulent drainage, significant tenderness, induration, or other abnormality noted. Normal distal neurovascular exam. No edema in the left leg compared to the right, patient is on Xarelto for lower extremity DVTs. No leukocytosis, chemistry unremarkable, afebrile. Patient will be started on oral antibiotics, discussed wound care, patient lives at assisted living, states he will get this rechecked closely, discussed return precautions in detail, patient states satisfaction and agreement. Patient with expiratory wheezes on initial evaluation, given DuoNeb for this, patient states he takes regular treatments, he continues to smoke, he states his breathing is normal. Oxygen saturation at 91%, patient states this is his baseline and he wears oxygen at night. Patient does not appear to be in any respiratory distress. Discussed smoking cessation, discussed return precautions for respiratory symptoms as well. Patient states understanding and agreement. - Vital Signs Vital signs: Temp Pulse Resp BP Pulse Ox 98.1 F 93 22 H 130/82 H 91 L 07/08/17 16:49 07/08/17 16:49 07/08/17 16:49 07/08/17 16:49 07/08/17 16:49 - Laboratory Result Diagrams: 07/08/17 18:45 07/08/17 18:45 Laboratory results interpreted by me: 07/08/17 18:45 Hgb 11.7 L Hct 36.3 L MCV 76 L MCH 24.3 L RDW 19.3 H Discharge - Discharge Clinical Impression: Cellulitis Qualifiers: Site of cellulitis: extremity Site of cellulitis of extremity: lower extremity Laterality: left Qualified Code(s): L03.116 - Cellulitis of left lower limb Condition: Stable Disposition: HOME, SELF-CARE Additional Instructions: The skin avulsion on the left lower outer leg has surrounding cellulitis or infection in the skin. No other abnormality is seen. Take Bactrim and Keflex antibiotics as prescribed, keep wound cleaned and dressed, stop smoking. Change dressing daily. Have the wound rechecked within the next 2-3 days. Return immediately if you worsen including spreading redness, discolored drainage, fever of 100 or greater, or any other concerning or worsening symptoms. Prescriptions: Cephalexin Monohydrate [Keflex 500 mg Capsule] 500 mg PO QID #28 capsule Sulfamethoxazole/Trimethoprim [Bactrim Ds Tablet] 1 each PO BID #14 tablet
[2017-07-09 00:25] VITALS: BP 154/115
== END 2017-07-09 00:27 | disposition home or self-care (01) ==
LOC: ER 16:43
DX: L03.116 Cellulitis of left lower limb (principal); I50.9 Heart failure, unspecified; F17.200 Nicotine dependence, unspecified, uncomplicated; E78.00 Pure hypercholesterolemia, unspecified; I10 Essential (primary) hypertension; J44.9 Chronic obstructive pulmonary disease, unspecified; E11.9 Type 2 diabetes mellitus without complications; Z86.73 Personal history of transient ischemic attack (TIA), and cerebral infarction without residual deficits; Z86.718 Personal history of other venous thrombosis and embolism; I25.2 Old myocardial infarction; Z87.442 Personal history of urinary calculi; Z90.49 Acquired absence of other specified parts of digestive tract; Z88.6 Allergy status to analgesic agent; Z79.02 Long term (current) use of antithrombotics/antiplatelets; Z79.4 Long term (current) use of insulin
CPT/HCPCS: 94640; 99284; 36415; 85025; 80053; A9270 ×3; J7620

== ENCOUNTER 2020-01-26 15:43 | Inpatient (IN) | payer MEDICARE, MEDICAID ==
--- NOTE | 2020-01-26 15:56 | ER Document Report ---
ED General - General Stated Complaint: ALTERED MENTAL STATUS Time Seen by Provider: 01/26/20 15:48 Primary Care Provider: BRAIN JOSEPH NP [Primary Care Provider] - Follow up as needed TRAVEL OUTSIDE OF THE [place] IN LAST 30 DAYS: No - HPI Notes: 59-year-old male presents with altered mental status. Information is primarily obtained via EMS. EMS states that around 930 this morning longterm had noticed that he was not as responsive as usual, not answering his many questions, was in and out of it and had some episodes of shaking. His symptoms resolved however returned again around 1:30 PM, therefore prompting ED visit. EMS states that he would respond to questions with clear speech, they do not appreciate any right-sided deficits. Patient is known to be paralyzed on the left side from a previous stroke. Patient currently denies complaints, he denies weakness or numbness on the right side. States that left side is at its baseline. - Related Data Allergies/Adverse Reactions: ketorolac tromethamine [From Toradol] Allergy (Unknown, Verified 07/08/17 16:44) morphine [Morphine] Allergy (Unknown, Verified 07/08/17 16:44) acetaminophen [From Tylenol] Allergy (Verified 07/08/17 16:44) lorazepam [From Ativan] Adverse Reaction (Verified 07/08/17 16:44) Past Medical History - General Information source: Patient - Social History Smoking Status: Current Every Day Smoker Family History: Reviewed & Not Pertinent, CAD - Past Medical History Cardiac Medical History: Reports: Hx Congestive Heart Failure, Hx DVT, Hx Heart Attack, Hx Hypercholesterolemia, Hx Hypertension Pulmonary Medical History: Reports: Hx COPD, Hx Pneumonia, Hx Intubation, Hx Respiratory Failure Neurological Medical History: Reports: Hx Cerebrovascular Accident. Denies: Hx Seizures Endocrine Medical History: Reports: Hx Diabetes Mellitus Type 2 Renal/ Medical History: Reports: Hx Kidney Stones. Denies: Hx Peritoneal Dialysis GI Medical History: Reports: Hx Gastroesophageal Reflux Disease Musculoskeletal Medical History: Reports Hx Arthritis Psychiatric Medical History: Reports: Hx Bipolar Disorder, Hx Depression Denies: Hx Schizophrenia Past Surgical History: Reports: Hx Appendectomy, Hx Cholecystectomy, Hx Orthopedic Surgery - Immunizations Immunizations up to date: Yes Hx Diphtheria, Pertussis, Tetanus Vaccination: Yes Hx Pneumococcal Vaccination: 05/13/11 Review of Systems - Review of Systems Constitutional: denies: Fever EENT: No symptoms reported Cardiovascular: denies: Chest pain Respiratory: denies: Short of breath Gastrointestinal: denies: Abdominal pain Genitourinary: No symptoms reported Musculoskeletal: No symptoms reported Skin: No symptoms reported Hematologic/Lymphatic: Other - On anticoagulation Neurological/Psychological: denies: Weakness, Numbness Physical Exam - Vital signs Vitals: Temp 98.1 F 01/26/20 15:44 - General General appearance: Appears well, Alert In distress: None - HEENT Head: Normocephalic, Atraumatic Extraocular movements intact: Yes Pupils: PERRL - Respiratory Breath sounds: Normal - Cardiovascular Rhythm: Regular Heart sounds: Normal auscultation Normal capillary refill: Yes - Abdominal Inspection: Obese Tenderness: Nontender - Genitourinary Scrotum: No: Swelling, Redness - Extremities General lower extremity: No: Edema - Neurological Notes: Examined patient initially in hallway via concern for code stroke. Patient has clear speech, face is symmetric, gaze is conjugate. He did not follow commands to stick out his tongue. He has a strong right hand grasp, is able to push against resistance. Questionable weakness on the right leg, was able to however it above the bed. Left side paralytic with contracture. - Psychological Associated symptoms: Normal affect - Skin Skin Temperature: Warm Notes: Superficial wound to left fifth toe Course - Re-evaluation Re-evalutation: 59-year-old male arrives from longterm with concerns for altered mental status. Given that there were some speech issues reported, he was activated as a code stroke. 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 His speech is clear and face is symmetric, has intact strength to arm and leg. Additionally he is on Xarelto therefore would not be a TPA candidate. Concern for encephalopathic process, toxic versus metabolic. CT head was negative for bleed. Will proceed to MRI to fully rule out acute process. 01/26/20 16:53 Into reexamine patient. He remains alert and oriented x4. Speech clear, face symmetric, full motor to right side. Able to lift arm and leg up off bed. He is pending MRI at this time. Lower suspicion for stroke. I discussed with him again what happened today, he states that nothing is wrong and that the people at the longterm were giving him a hard time. He denies chest pain, shortness of breath, abdominal pain. Did a wound check, he has a blister to the left pinky toe and a scab to the left forearm. No obvious areas of cellulitis. States that he is on Lamictal for mood, not seizure. 01/26/20 17:11 Labs have resulted. He does have hyponatremia present, new since compared to 2018. Additionally his creatinine has markedly improved increase, 3.9 from normal value in 2018. Will give 1 L of normal saline now. MRI pending. Will cancel CTAs at this time given his marked BEATA and low suspicion for LVO. 01/26/20 20:12 Patient eating sandwich. Made aware of need for urine 01/26/20 20:[address] Garcia for admission - Vital Signs Vital signs: Temp Pulse Resp BP Pulse Ox 98.1 F 74 17 95/84 L 79 L 01/26/20 15:44 01/26/20 18:00 01/26/20 20:00 01/26/20 19:55 01/26/20 20:00 - Laboratory Result Diagrams: 01/26/20 16:15 01/26/20 16:15 Laboratory results interpreted by me: 01/26/20 01/26/20 01/26/20 16:15 16:15 16:15 WBC 10.8 H RBC 4.21 L Hgb 13.0 L Hct 37.1 L RDW 14.9 H Lymph % (Auto) 9.3 L Absolute Neuts (auto) 8.6 H Seg Neutrophils % 80.2 H PT 17.8 H APTT 36.4 H Sodium 127.9 L Chloride 91 L Carbon Dioxide 21 L BUN 76 H Creatinine 3.92 H Est GFR ( Amer) 19 L Est GFR (MDRD) Non-Af 16 L Glucose 186 H POC Glucose 01/26/20 16:50 WBC RBC Hgb Hct RDW Lymph % (Auto) Absolute Neuts (auto) Seg Neutrophils % PT APTT Sodium Chloride Carbon Dioxide BUN Creatinine Est GFR ( Amer) Est GFR (MDRD) Non-Af Glucose POC Glucose 180 H - Diagnostic Test Radiology reviewed: Image reviewed, Reports reviewed - EKG Interpretation by Me Additional EKG results interpreted by me: EKG is interpreted by me. Sinus rhythm, rate 74. Narrow QRS, QTC within normal limits. Low voltage. No ST segment elevation. Discharge - Discharge Clinical Impression: Acute metabolic encephalopathy, BEATA (acute kidney injury) Disposition: ADMITTED INPATIENT Admitting Provider: Jose (Hospitalist) Unit Admitted: Medical Floor Referrals: BRAIN JOSEPH, CAT SITTER [Primary Care Provider] - Follow up as needed
--- NOTE | 2020-01-26 16:12 | RADIOLOGY REPORT (SQ) ---
EXAM DESCRIPTION: CT HEAD WITHOUT IMAGES COMPLETED DATE/TIME: 01/26/2020 3:58 pm REASON FOR STUDY: weakness COMPARISON: 09/13/2016 TECHNIQUE: Axial images acquired through the brain without intravenous contrast. Images reviewed wi th bone, brain and subdural windows. Additional sagittal and coronal reconstructions were generated. Images stored on PACS. All CT scanners at this facility use dose modulation, iterative reconstruction, and/or weight based d osing when appropriate to reduce radiation dose to as low as reasonably achievable (ALARA). [facility]: Dose Right [facility]: CareDose [facility]: Dose Right [facility]: Teradose 4D [facility]: Content Raven RADIATION DOSE: CT Rad equipment meets quality standard of care and radiation dose reduction techniq ues were employed. CTDIvol: 53.2 mGy. DLP: 1044 mGy-cm.mGy. LIMITATIONS: None. FINDINGS: VENTRICLES: Chronic dilatation of the right lateral ventricle. CEREBRUM: No masses. No hemorrhage. No midline shift. Areas of low density in the white matter mos t likely due to chronic micro-vascular ischemic change. No evidence for acute infarction. CEREBELLUM: No masses. No hemorrhage. No alteration of density. No evidence for acute infarction. EXTRAAXIAL SPACES: Age-related involutional change. No fluid collections. No masses. ORBITS AND GLOBE: No intra- or extraconal masses. Normal contour of globe without masses. CALVARIUM: No fracture. PARANASAL SINUSES: No fluid or mucosal thickening. SOFT TISSUES: No mass or hematoma. OTHER: No other significant finding. IMPRESSION: Chronic ischemic changes. EVIDENCE OF ACUTE STROKE: NO. TECHNICAL DOCUMENTATION: JOB ID: [id number] Quality ID # [id number]: Final reports with documentation of one or more dose reduction techniques (e.g., Au tomated exposure control, adjustment of the mA and/or kV according to patient size, use of iterative reconstruction technique) 2010 [employer]- All Rights Reserved Reading location - IP/workstation name: [email or web address]
--- NOTE | 2020-01-26 16:25 | RADIOLOGY REPORT (SQ) ---
EXAM DESCRIPTION: CHEST SINGLE VIEW IMAGES COMPLETED DATE/TIME: 01/26/2020 4:02 pm REASON FOR STUDY: weakness COMPARISON: 06/21/2017 EXAM PARAMETERS: NUMBER OF VIEWS: One view. TECHNIQUE: Single frontal radiographic view of the chest acquired. RADIATION DOSE: NA LIMITATIONS: Positioning. FINDINGS: LUNGS AND PLEURA: Right basilar scarring. Chronic elevation right diaphragm. MEDIASTINUM AND HILAR STRUCTURES: No mass identified. HEART AND VASCULAR STRUCTURES: Heart normal in size. Normal vasculature. BONES: No acute findings. HARDWARE: None in the chest. OTHER: No other significant finding. IMPRESSION: NO ACUTE RADIOGRAPHIC FINDING IN THE CHEST. TECHNICAL DOCUMENTATION: JOB ID: [id number] 2010 [employer]- All Rights Reserved Reading location - IP/workstation name: [email or web address]
[2020-01-26 16:35] LABS: INTERNATIONAL RATION (INR) 1.45
[2020-01-26 16:36] LABS: PARTIAL THROMBOPLASTIN TIME 36.4 SEC (23.5-35.8)
[2020-01-26 16:38] LABS: PROTHROMBIN TIME 17.8 SEC (11.4-15.4)
[2020-01-26 16:39] LABS: ABSOLUTE BASOPHILS # (AUTO) 0.1 10^3/uL (0.0-0.2); ABSOLUTE EOSINOPHILS # (AUTO) 0.1 10^3/uL (0.0-0.6); ABSOLUTE MONOCYTES (AUTO) 0.9 10^3/uL (0.1-1.4); ABSOLUTE NEUT (AUTO) 8.6 10^3/uL (1.7-8.2); EOSINOPHILS % (AUTO) 1.4 % (0-6); HEMATOCRIT 37.1 % (37.9-51.0); LYMPHOCYTES % (AUTO) 9.3 % (13-45); MEAN CORPUSCULAR HEMOGLOBIN 30.9 pg (27.0-33.4); MEAN CORPUSCULAR VOLUME 88 fl (80-97); MONOCYTES % (AUTO) 8.1 % (3-13); PLATELET COUNT 197 10^3/uL (150-450); RED BLOOD COUNT 4.21 10^6/uL (4.35-5.55); RED CELL DISTRIBUTION WIDTH 14.9 % (11.5-14.0); SEGMENTED NEUTROPHILS % (AUTO) 80.2 % (42-78); TOTAL CELLS COUNTED % (AUTO) 100 %; WHITE BLOOD COUNT 10.8 10^3/uL (4.0-10.5)
[2020-01-26 16:51] LABS: ALBUMIN 3.9 g/dL (3.5-5.0); ALKALINE PHOSPHATASE 94 U/L (38-126); ANION GAP 16 (5-19); ASPARTATE AMINO TRANSFERASE 20 U/L (17-59); BILIRUBIN,DIRECT 0.4 mg/dL (0.0-0.4); BILIRUBIN,TOTAL 0.7 mg/dL (0.2-1.3); BLOOD UREA NITROGEN 76 mg/dL (7-20); CALCIUM 8.6 mg/dL (8.4-10.2); CARBON DIOXIDE 21 mmol/L (22-30); CHLORIDE 91 mmol/L (98-107); CREATINE KINASE 109 U/L (55-170); GLUCOSE 186 mg/dL (75-110); POTASSIUM 4.4 mmol/L (3.6-5.0); TOTAL PROTEIN 6.6 g/dL (6.3-8.2)
[2020-01-26] MEDS ORDERED: NORMAL SALINE 1000 ML 1,000 ML IV ONE ×2 (17:08→20:42)
[2020-01-26] MEDS ORDERED: HYDROMORPHONE HCL 2 MG TABLET PO ONE (20:13)
[2020-01-26] MEDS ORDERED: ACETAMINOPHEN 325 MG TABLET PO PRN (21:50)
[2020-01-26] MEDS ORDERED: MAGNESIUM HYDROXIDE SUSP 30 ML UDCUP PO PRN (21:50)
[2020-01-26] MEDS ORDERED: MAG HYDROX/AL HYDROX/SIMETH SUSP 30 ML UDCUP PO PRN (21:50)
[2020-01-26] MEDS ORDERED: LORAZEPAM INJ 2 MG/1 ML VIAL IV PRN (21:50)
[2020-01-26] MEDS ORDERED: GUAIFENESIN SYRP 200 MG/10 ML UDC PO PRN (21:50)
[2020-01-26] MEDS ORDERED: ZINC OXIDE 20% OINTMENT 28.35 GM TOP PRN (21:53)
[2020-01-26] MEDS ORDERED: DEXTROSE 40% GEL 15 GM TUBE PO PRN ×2 (21:53)
[2020-01-26] MEDS ORDERED: GLUCAGON,HUMAN RECOMB 1 MG INJ IM PRN (21:53)
[2020-01-26] MEDS ORDERED: DEXTROSE 50%-WATER 25 GM/50 ML DISP.SYRIN IV PRN ×2 (21:53)
[2020-01-26] MEDS ORDERED: HYDROMORPHONE HCL INJ/PF 2 MG/ML AMPULE IV PRN ×4 (21:53→22:34)
[2020-01-26] MEDS ORDERED: HYDRALAZINE HCL INJ/PF 20 MG/1 ML SDV IV PRN (22:00)
[2020-01-26] MEDS ORDERED: LEVALBUTEROL HCL NEB 0.63 MG/3 ML AMPUL NEB PRN (22:02)
[2020-01-26] MEDS ORDERED: PROMETHAZINE HCL INJ 25 MG/1 ML VIAL IV PRN (22:02)
--- NOTE | 2020-01-26 23:22 | RADIOLOGY REPORT (SQ) ---
EXAM DESCRIPTION: MR BRAIN WITHOUT IV CONTRAST COMPLETED DATE/TME: 01/26/2020 16:09 CLINICAL HISTORY: 59 years, Male, eval acute CVA COMPARISON: CT brain 01/26/2020 TECHNIQUE: 384 Images stored on PACS. LIMITATIONS: None. FINDINGS: Sagittal midline anatomic structures show an unremarkable appearance to the pituitary and suprasellar regions. Motion artifact degrades image quality and does limit this exam. The globes appear intact. The paranasal sinuses and mastoid air cells are well aerated. Normal flow void in visualized intracranial vessels. Visualized cranial nerve complex these are grossly unremarkable. Diffusion-weighted images show no evidence for acute infarct. There is no acute intracranial hemorrhage. However, there is a well-circumscribed 2.4 x 2.0 x 2.0 cm mixed signal intensity mass of the right cerebellopontine angle with mild associated mass effect. This is extra-axial in location. This is primarily isointense to brain parenchyma on T1 sequences and slightly hyperintense on T2 sequences. Foci of signal void on gradient sequences within the lesion. Given its location, schwannoma is considered as is a meningioma and other lesions. No evidence for intra-axial mass. No midline shift. Diffuse atrophy. Ex vacuo dilatation of the right lateral ventricle, as before with areas of encephalomalacia in the right frontal parietal region. IMPRESSION: No acute intracranial abnormality. Motion artifact. Ex vacuo dilatation of the right lateral ventricle with areas of encephalomalacia, as before. Mild diffuse atrophy. Right cerebellopontine angle mass, which is nonspecific but given its location likely reflects schwannoma or meningioma. This could be confirmed with postcontrast imaging. Other etiologies are felt less likely but not excluded. copyright 2011 [employer]- All Rights Reserved
[2020-01-26] MEDS: RANOLAZINE 500 MG TAB.SR.12H PO SCH (23:38)
[2020-01-26] MEDS: QUETIAPINE FUMARATE 100 MG TABLET PO SCH (23:38)
[2020-01-26] MEDS: MELATONIN 5 MG TABLET PO PRN (23:38)
[2020-01-26] MEDS: ATORVASTATIN CALCIUM 20 MG TABLET PO SCH (23:38)
[2020-01-26] MEDS: HYDROMORPHONE HCL INJ/PF 2 MG/ML AMPULE IV PRN (23:39)
[2020-01-26] MEDS: GABAPENTIN 400 MG CAPSULE PO SCH (23:39)
[2020-01-27] MEDS ORDERED: INSULIN GLARGINE,HUM.REC.ANLOG 1,000 UNIT/10 ML VIAL (PYX) SUBCUT ONE (00:06)
[2020-01-27] MEDS: INSULIN GLARGINE,HUM.REC.ANLOG 1,000 UNIT/10 ML VIAL SUBCUT SCH ×3 (00:14→21:22)
--- NOTE | 2020-01-27 00:36 | PDOC H&P ---
History of Present Illness Admission Date/PCP: 01/26/20 20:48 BRAIN JOSEPH NP Patient complains of: Altered mental status History of Present Illness: DAVIS PAGE is a 59 year old male who presented to the emergency room with acute altered mental status. Patient was observed by staff at the [facility] where he [facility] to be less verbally responsive and acutely confused resulting in his transport to the emergency room via EMS for evaluation. Patient is confused and unable to provide reliable medical history. He is noted to have a left ignacio-paresis. In the emergency room the patient was found to have a negative CT scan of the head but was noted to have an elevated serum creatinine of 3.92 and a BUN 76. He was subsequently admitted to the hospital for further evaluation and treatment. Past Medical History Past Medical History: Due to the patient's acute confusion all information here is obtained from the best available reliable source. Cardiac Medical History: Reports: Atrial Fibrillation, Congestive Heart Failure, Coronary Artery Disease, DVT, Myocardial Infarction, Hyperlipidema, Hypertension, Peripheral Vascular Disease Denies: Pulmonary Embolism Pulmonary Medical History: Reports: Chronic Obstructive Pulmonary Disease (COPD), Intubation, Pneumonia, Respiratory Failure EENT Medical History: Denies: Cataracts, Ears - Hearing aids Neurological Medical History: Reports: Ischemic CVA, Other - Diabetic peripheral neuropathy Denies: Hemorrhagic CVA, Seizures Endocrine Medical History: Reports: Diabetes Mellitus Type 2, Obesity Denies: Diabetes Mellitus Type 1, Hyperthyroidism, Hypothyroidism Renal/ Medical History: Denies: Chronic Kidney Disease, Nephrolithiasis Malignancy Medical History: Reports: None GI Medical History: Reports: Gastroesophageal Reflux Disease Denies: Cirrhosis, Hepatitis, Peptic Ulcer Disease Musculoskeltal Medical History: Reports: Arthritis, Other - Chronic pain syndrome Denies: Fibromyalgia, Gout Skin Medical History: Denies: Eczema, Psoriasis Psychiatric Medical History: Reports: Bipolar Disorder, Depression, Substance Abuse, Tobacco Dependency, Other - Prescription narcotic dependence Denies: Alcohol Dependency Traumatic Medical History: Reports: None Hematology: Denies: Anemia, Bleeding Tendencies Infectious Medical History: Reports: Methicillin-Resistant Staph Aureus Past Surgical History Past Surgical History: Due to the patient's acute confusion all information here is obtained from the best available reliable source. Past Surgical History: Reports: Appendectomy, Cholecystectomy, Orthopedic Surgery, Other - Suprapubic catheter placement Social History Information Source: [facility] Records Lives with: [facility] Smoking Status: Former Smoker Electronic Cigarette use?: No Frequency of Alcohol Use: None Hx Recreational Drug Use: Yes Drugs: Cocaine Hx Prescription Drug Abuse: No Past Social History Note: Due to the patient's acute confusion all information here is obtained from the best available reliable source. - Advance Directive Resuscitation Status: Full Code Surrogate healthcare decision maker:: Ghazala Rodney Family History Family History: CAD Parental Family History Reviewed: Yes Children Family History Reviewed: No Sibling(s) Family History Reviewed.: Yes Medication/Allergy Home Medications: Acetaminophen [Tylenol 325 mg Tablet] 650 mg PO Q6HP PRN 06/05/17 Furosemide [Lasix 40 mg Tablet] 40 mg PO BID 06/05/17 Lamotrigine [Lamictal] 100 mg PO DAILY 06/05/17 Metoprolol Succinate [Toprol Xl 50 mg Tab.sr] 100 mg PO DAILY 06/05/17 Potassium Chloride [Klor-Con M20] 20 meq PO DAILY 06/05/17 Quetiapine Fumarate [Seroquel] 400 mg PO QHS 06/05/17 Ranolazine [Ranexa 500 mg Tab.sr] 500 mg PO Q12 06/05/17 Rivaroxaban [Xarelto] 20 mg PO QPM 06/05/17 Atorvastatin Calcium [Lipitor 20 mg Tablet] 20 mg PO QHS 01/26/20 Fluticasone/Salmeterol [Advair 250-50 Diskus 14 Dose/Diskus] 1 puff IH Q12 01/26/20 Gabapentin [Neurontin] 800 mg PO Q8 01/26/20 Glipizide [Glucotrol 5 mg Tablet] 5 mg PO DAILY 01/26/20 Hydromorphone HCl [Dilaudid 2 mg Tablet] 2 mg PO Q8 01/26/20 Insulin Glargine,Hum.rec.anlog [Lantus Insulin 100 Unit/1 ml 10 ml] 5 unit SQ Q12 01/26/20 Insulin Lispro [Humalog Insulin (Lispro) 100 unit/mL] See Protocol SQ ACHS 01/26/20 Lisinopril [Prinivil 10 mg Tablet] 10 mg PO DAILY 01/26/20 Loratadine [Claritin 10 mg Tablet] 10 mg PO DAILY 01/26/20 Magnesium Hydroxide [Milk of Magnesia 30 ml Udcup] 30 ml PO DAILYP PRN 01/26/20 Melatonin [Melatonin 5 mg Tablet] 10 mg PO HSP PRN 01/26/20 Metolazone [Zaroxolyn 2.5 mg Tablet] 2.5 mg PO MOWEFR@1000 01/26/20 Pantoprazole Sodium [Protonix [address] Tablet] 20 mg PO DAILY 01/26/20 Paroxetine HCl [Paxil] 10 mg PO DAILY 01/26/20 Sennosides [Senna] 17.2 mg PO BID 01/26/20 Silver Chloride [Silver Gel] 1 applic TOP Q2DAYS 01/26/20 Zinc Oxide [Zinc Oxide 20% Ointment 28.35 gm] 1 applic TOP Q2HP PRN 01/26/20 Allergies/Adverse Reactions: ketorolac tromethamine [From Toradol] Allergy (Unknown, Verified 07/08/17 16:44) morphine [Morphine] Allergy (Unknown, Verified 07/08/17 16:44) acetaminophen [From Tylenol] Allergy (Verified 07/08/17 16:44) lorazepam [From Ativan] Adverse Reaction (Verified 07/08/17 16:44) Review of Systems ROS unobtainable: Due to mental status - Acute confusion Physical Exam Vital Signs: Temp Pulse Resp BP Pulse Ox 98.1 F 74 17 95/84 L 79 L 01/26/20 15:44 01/26/20 18:00 01/26/20 20:00 01/26/20 19:55 01/26/20 20:00 Intake & Output 01/24/20 01/25/20 01/26/20 23:59 23:59 23:59 Intake Total 1000 Balance 1000 Weight 125.3 kg General appearance: PRESENT: no acute distress, cooperative, other - Mildly lethargic, confused responses Head exam: PRESENT: atraumatic, normocephalic Eye exam: PRESENT: conjunctiva pink. ABSENT: conjunctival injection, scleral icterus Ear exam: PRESENT: normal external ear exam. ABSENT: bleeding, drainage Mouth exam: PRESENT: dry mucosa, neck supple Neck exam: ABSENT: thyromegaly, tracheal deviation Respiratory exam: PRESENT: clear to auscultation jarett, prolonged expiratory phas - Minimally prolonged expiratory phase in all hartman, symmetrical, unlabored Cardiovascular exam: PRESENT: RRR. ABSENT: clicks, rubs Pulses: PRESENT: normal radial pulses, normal dorsalis pedis pul Vascular exam: PRESENT: normal capillary refill. ABSENT: pallor GI/Abdominal exam: PRESENT: normal bowel sounds, soft Rectal exam: PRESENT: deferred Extremities exam: ABSENT: joint swelling, pedal edema Musculoskeletal exam: PRESENT: other - Left hemiparesis is noted. ABSENT: deformity, dislocation Neurological exam: PRESENT: altered - Acutely confused and mildly lethargic, motor sensory deficit - Left hemiparesis Psychiatric exam: PRESENT: other - Acutely confused and mildly lethargic Skin exam: PRESENT: dry, intact, warm. ABSENT: jaundice, rash, urticaria Results Laboratory Results: 01/26/20 16:15 01/26/20 16:15 01/26/20 01/26/20 01/26/20 16:15 16:15 16:15 WBC 10.8 H RBC 4.21 L Hgb 13.0 L Hct 37.1 L MCV 88 MCH 30.9 MCHC 35.0 RDW 14.9 H Plt Count 197 Seg Neutrophils % 80.2 H Sodium 127.9 L Potassium 4.4 Chloride 91 L Carbon Dioxide 21 L Anion Gap 16 BUN 76 H Creatinine 3.92 H Est GFR ( Amer) 19 L Glucose 186 H Serum Osmolality 293 Calcium 8.6 Total Bilirubin 0.7 AST 20 Alkaline Phosphatase 94 Total Protein 6.6 Albumin 3.9 01/26/20 01/26/20 16:15 16:15 Creatine Kinase 109 Troponin I < 0.012 Impressions: Chest X-Ray 01/26/20 15:47 IMPRESSION: NO ACUTE RADIOGRAPHIC FINDING IN THE CHEST. Head CT 01/26/20 15:47 IMPRESSION: Chronic ischemic changes. EVIDENCE OF ACUTE STROKE: NO. Assessment and Plan - Diagnosis (1) Acute kidney injury superimposed on chronic kidney disease Is this a current diagnosis for this admission?: Yes (2) Acute metabolic encephalopathy Is this a current diagnosis for this admission?: Yes (3) Hemiplegia affecting left nondominant side Qualifiers: Hemiplegia type: unspecified type Hemiplegia etiology: cerebrovascular Cerebrovascular disease type: unspecified Is this a current diagnosis for this admission?: Yes (4) Chronic obstructive pulmonary disease Qualifiers: COPD type: unspecified COPD Qualified Code(s): J44.9 - Chronic obstructive pulmonary disease, unspecified Is this a current diagnosis for this admission?: Yes (5) Hypertension Qualifiers: Hypertension type: essential hypertension Qualified Code(s): I10 - Essential (primary) hypertension Is this a current diagnosis for this admission?: Yes (6) PAD (peripheral artery disease) Is this a current diagnosis for this admission?: Yes (7) Coronary artery disease Qualifiers: Coronary Disease-Associated Artery/Lesion type: [place] artery [place] vs. transplanted heart: [place] heart Associated angina: without angina Qualified Code(s): I25.10 - Atherosclerotic heart disease of [place] coronary artery without angina pectoris Is this a current diagnosis for this admission?: Yes (8) Paroxysmal atrial fibrillation Is this a current diagnosis for this admission?: Yes (9) Diabetes mellitus type 2 in obese Is this a current diagnosis for this admission?: Yes (10) Morbid obesity Is this a current diagnosis for this admission?: Yes - Plan Summary Summary: Patient will be admitted to the medical floor he will receive routine supportive and symptomatic cares. He will be treated with IV fluids utilizing LR at 167 m L/h. He will receive Dilaudid 0.5 to 2 mg IV every 3 hours as needed for pain. Serial metabolic profiles will be obtained. Nephrology consultation will be obtained with Dr. Lantigua. Before meals and at bedtime Accu-Cheks will be performed with sliding scale insulin for hyperglycemia and with a hypoglycemic protocol in place. CBCs, metabolic profiles, magnesium levels and additional laboratory and/or radiographic evaluations will be obtained as needed. He will be on a diabetic, cardiac and prerenal restricted diet. Home medications will be resumed as appropriate. - Time Time Spent with patient: Less than 15 minutes Medications reviewed and adjusted accordingly: Yes Anticipated Discharge Disposition: Halfway Facility Anticipated Discharge Timeframe: within 72 hours - Inpatient Certification Based on my medical assessment, after consideration of the patient's comorbidities, presenting symptoms, or acuity I expect that the services needed warrant INPATIENT care.: Yes I certify that my determination is in accordance with my understanding of Medicare's requirements for reasonable and necessary INPATIENT services [42 CFR 412.3e].: Yes Medical Necessity: Significant Comorbidiites Make Outpatient Treatment Too Risky, Need Close Monitoring Due to Risk of Patient Decompensation, Need For IV Fluids, Risk of Complication if Not Cared For in Hospital
[2020-01-27 00:37] LABS: APPEARANCE,URINE CLEAR; BILIRUBIN,URINE NEGATIVE (NEGATIVE); COLOR,URINE YELLOW; GLUCOSE, URINE >=500 mg/dL (NEGATIVE); KETONES,URINE NEGATIVE (NEGATIVE); PROTEIN,URINE NEGATIVE (NEGATIVE); UROBILINOGEN,URINE NEGATIVE mg/dL (<2.0)
--- NOTE | 2020-01-27 00:49 | EKG REPORT ---
SEVERITY:- OTHERWISE NORMAL ECG - SINUS RHYTHM LOW VOLTAGE IN FRONTAL LEADS : Confirmed by: Carl Goldstein 27-Jan-2020 00:48:36
[2020-01-27 00:50] LABS: URINE AMPHETAMINES SCREEN NEGATIVE; URINE BARBITURATES SCREEN NEGATIVE; URINE BENZODIAZEPINES SCREEN NEGATIVE; URINE COCAINE SCREEN NEGATIVE; URINE MARIJUANA (THC) SCREEN NEGATIVE; URINE METHADONE SCREEN NEGATIVE; URINE PHENCYCLIDINE SCREEN NEGATIVE
[2020-01-27 00:55] LABS: URINE CREATININE 70.2 mg/dL (22-328)
[2020-01-27] MEDS: HYDROMORPHONE HCL INJ/PF 2 MG/ML AMPULE IV PRN ×3 (03:05→09:58)
[2020-01-27] MEDS: RINGERS SOLUTION,LACTATED 1,000 ML IV PRN ×3 (03:09→15:48)
[2020-01-27 04:27] LABS: HEMATOCRIT 37.4 % (37.9-51.0); HEMOGLOBIN 13.1 g/dL (13.5-17.0); MEAN CORPUSCULAR HEMOGLOBIN 30.7 pg (27.0-33.4); MEAN CORPUSCULAR HGB CONC 34.9 g/dL (32.0-36.0); MEAN CORPUSCULAR VOLUME 88 fl (80-97); PLATELET COUNT 176 10^3/uL (150-450); RED BLOOD COUNT 4.25 10^6/uL (4.35-5.55); WHITE BLOOD COUNT 11.1 10^3/uL (4.0-10.5)
[2020-01-27 04:28] LABS: VENOUS BLOOD BASE EXCESS -4.8 mmol/L; VENOUS BLOOD HCO3 22.2 mmol/L (20-32); VENOUS BLOOD PCO2 48.3 mmHg (35-63); VENOUS BLOOD PH 7.28 (7.30-7.42)
[2020-01-27 04:43] LABS: ANION GAP 14 (5-19); BLOOD UREA NITROGEN 78 mg/dL (7-20); CALCIUM 8.8 mg/dL (8.4-10.2); CARBON DIOXIDE 22 mmol/L (22-30); CHLORIDE 93 mmol/L (98-107); CHOLESTEROL 275.58 mg/dL (0-200); GLUCOSE 208 mg/dL (75-110); POTASSIUM 4.6 mmol/L (3.6-5.0)
[2020-01-27 05:01] LABS: DIRECT LDL < 30 mg/dL (<100); TRIGLYCERIDES 668 mg/dL (<150)
[2020-01-27] MEDS: GABAPENTIN 400 MG CAPSULE PO SCH ×3 (05:12→21:16)
[2020-01-27] MEDS: INSULIN REG, HUMAN 100 UNIT/ML 3 ML VIAL (PYX) SUBCUT SCH ×4 (07:58→21:22)
[2020-01-27] MEDS: DOCUSATE SODIUM 100 MG CAPSULE PO SCH ×2 (09:22→17:21)
[2020-01-27] MEDS: GLIPIZIDE 5 MG TABLET PO SCH (09:26)
[2020-01-27] MEDS: PAROXETINE HCL 20 MG TABLET PO SCH (09:26)
[2020-01-27] MEDS: PANTOPRAZOLE SODIUM 20 MG TABLET.DR PO SCH (09:28)
[2020-01-27] MEDS: RANOLAZINE 500 MG TAB.SR.12H PO SCH ×2 (09:28→21:16)
[2020-01-27] MEDS: LAMOTRIGINE 100 MG TABLET PO SCH (09:28)
[2020-01-27] MEDS: LORATADINE 10 MG TABLET PO SCH (09:28)
[2020-01-27] MEDS: FLUTICASONE/VILANTEROL 200-25 MCG/DOSE IH SCH (09:29)
[2020-01-27] MEDS: METOPROLOL SUCCINATE 50 MG TAB.SR.24H PO SCH (09:30)
[2020-01-27] MEDS ORDERED: RINGERS SOLUTION,LACTATED 1,000 ML IV ONE (09:30)
[2020-01-27] MEDS ORDERED: RIVAROXABAN 10 MG TABLET PO SCH (17:00)
[2020-01-27] MEDS: APIXABAN 2.5 MG TABLET PO SCH (17:32)
[2020-01-27 17:52] LABS: ANION GAP 12 (5-19); BLOOD UREA NITROGEN 77 mg/dL (7-20); CALCIUM 8.3 mg/dL (8.4-10.2); CARBON DIOXIDE 23 mmol/L (22-30); CHLORIDE 94 mmol/L (98-107); GLUCOSE 181 mg/dL (75-110); POTASSIUM 4.5 mmol/L (3.6-5.0)
--- NOTE | 2020-01-27 18:18 | PDOC PROGRESS REPORT ---
Subjective Progress Note for:: 01/27/20 Subjective:: Patient is resting in bed. He is somnolent during exam. When asked if he needed assistance with adjusting himself in bed he responded yes, otherwise he does not engage in conversation. Reason For Visit: ACUTE KIDNEY INJURY SUPERIMPOSED ON CHRONIC KIDNEY Physical Exam Vital Signs: Temp Pulse Resp BP Pulse Ox 98.2 F 106 H 21 H 142/85 H 91 L 01/27/20 11:39 01/27/20 11:39 01/27/20 11:39 01/27/20 11:39 01/27/20 11:39 Intake & Output 01/26/20 01/27/20 01/28/20 06:59 06:59 06:59 Intake Total 1000 2320 Output Total 200 Balance 800 2320 Weight 125.3 kg General appearance: PRESENT: no acute distress, obese, other - Confused responses. Head exam: PRESENT: atraumatic, normocephalic Eye exam: PRESENT: conjunctiva pink. ABSENT: conjunctival injection, scleral icterus Ear exam: PRESENT: normal external ear exam. ABSENT: bleeding, drainage Mouth exam: PRESENT: dry mucosa, tongue midline Neck exam: PRESENT: full ROM. ABSENT: thyromegaly, tracheal deviation Respiratory exam: PRESENT: clear to auscultation jarett, prolonged expiratory phas - minimally prolonged in all [place]. ABSENT: crackles, rhonchi, tachypnea, wheezes Cardiovascular exam: PRESENT: RRR, +S1, +S2. ABSENT: diastolic murmur, gallop, systolic murmur Pulses: PRESENT: normal radial pulses GI/Abdominal exam: PRESENT: normal bowel sounds. ABSENT: distended, firm, guarding, tenderness Rectal exam: PRESENT: deferred Extremities exam: ABSENT: full ROM - left hemiparesis noted. Otherwise full ROM of right side., joint swelling, pedal edema Musculoskeletal exam: ABSENT: deformity, dislocation Neurological exam: PRESENT: altered - Acutely confused. Somnoloent on exam., motor sensory deficit Psychiatric exam: PRESENT: other - confused. Somnolent. Skin exam: PRESENT: dry, intact, other - Hyperpigmentation of bilateral lower extremities consistent with chronic disease process.. ABSENT: rash Results Laboratory Results: 01/27/20 04:10 01/27/20 04:10 01/26/20 01/26/20 01/26/20 16:15 16:15 16:15 WBC 10.8 H RBC 4.21 L Hgb 13.0 L Hct 37.1 L MCV 88 MCH 30.9 MCHC 35.0 RDW 14.9 H Plt Count 197 Seg Neutrophils % 80.2 H VBG pH VBG pCO2 VBG HCO3 VBG Base Excess Sodium 127.9 L Potassium 4.4 Chloride 91 L Carbon Dioxide 21 L Anion Gap 16 BUN 76 H Creatinine 3.92 H Est GFR ( Amer) 19 L Glucose 186 H Serum Osmolality 293 Lactic Acid Calcium 8.6 Magnesium Total Bilirubin 0.7 AST 20 Alkaline Phosphatase 94 Total Protein 6.6 Albumin 3.9 Triglycerides Cholesterol LDL Cholesterol Direct HDL Cholesterol TSH Urine Color Urine Appearance Urine pH Ur Specific [place] Urine Protein Urine Glucose (UA) Urine Ketones Urine Blood Urine RBC (Auto) Urine Osmolality 01/26/20 01/27/20 01/27/20 23:51 00:22 00:22 WBC RBC Hgb Hct MCV MCH MCHC RDW Plt Count Seg Neutrophils % VBG pH VBG pCO2 VBG HCO3 VBG Base Excess Sodium Potassium Chloride Carbon Dioxide Anion Gap BUN Creatinine Est GFR ( Amer) Glucose Serum Osmolality Lactic Acid 2.3 H Calcium Magnesium Total Bilirubin AST Alkaline Phosphatase Total Protein Albumin Triglycerides Cholesterol LDL Cholesterol Direct HDL Cholesterol TSH Urine Color YELLOW Urine Appearance CLEAR Urine pH 5.0 Ur Specific [place] 1.010 Urine Protein NEGATIVE Urine Glucose (UA) >=500 H Urine Ketones NEGATIVE Urine Blood NEGATIVE Urine RBC (Auto) 1 Urine Osmolality 358 01/27/20 01/27/20 01/27/20 04:10 04:10 04:10 WBC 11.1 H RBC 4.25 L Hgb 13.1 L Hct 37.4 L MCV 88 MCH 30.7 MCHC 34.9 RDW 15.0 H Plt Count 176 Seg Neutrophils % VBG pH VBG pCO2 VBG HCO3 VBG Base Excess Sodium 129.0 L Potassium 4.6 Chloride 93 L Carbon Dioxide 22 Anion Gap 14 BUN 78 H Creatinine 3.86 H Est GFR ( Amer) 19 L Glucose 208 H Serum Osmolality Lactic Acid 1.6 Calcium 8.8 Magnesium 3.2 H Total Bilirubin AST Alkaline Phosphatase Total Protein Albumin Triglycerides 668 H Cholesterol 275.58 H LDL Cholesterol Direct < 30 HDL Cholesterol 49 TSH Urine Color Urine Appearance Urine pH Ur Specific [place] Urine Protein Urine Glucose (UA) Urine Ketones Urine Blood Urine RBC (Auto) Urine Osmolality 01/27/20 01/27/20 01/27/20 04:10 04:10 08:00 WBC RBC Hgb Hct MCV MCH MCHC RDW Plt Count Seg Neutrophils % VBG pH 7.28 L VBG pCO2 48.3 VBG HCO3 22.2 VBG Base Excess -4.8 Sodium Potassium Chloride Carbon Dioxide Anion Gap BUN Creatinine Est GFR ( Amer) Glucose Serum Osmolality Lactic Acid 2.3 H Calcium Magnesium Total Bilirubin AST Alkaline Phosphatase Total Protein Albumin Triglycerides Cholesterol LDL Cholesterol Direct HDL Cholesterol TSH 1.06 Urine Color Urine Appearance Urine pH Ur Specific [place] Urine Protein Urine Glucose (UA) Urine Ketones Urine Blood Urine RBC (Auto) Urine Osmolality 01/26/20 01/26/20 16:15 16:15 Creatine Kinase 109 Troponin I < 0.012 Impressions: Chest X-Ray 01/26/20 15:47 IMPRESSION: NO ACUTE RADIOGRAPHIC FINDING IN THE CHEST. Head CT 01/26/20 15:47 IMPRESSION: Chronic ischemic changes. EVIDENCE OF ACUTE STROKE: NO. Head MRI 01/26/20 16:09 IMPRESSION: No acute intracranial abnormality. Motion artifact. Ex vacuo dilatation of the right lateral ventricle with areas of encephalomalacia, as before. Mild diffuse atrophy. Right cerebellopontine angle mass, which is nonspecific but given its location likely reflects schwannoma or meningioma. This could be confirmed with postcontrast imaging. Other etiologies are felt less likely but not excluded. copyright 2011 [employer]- All Rights Reserved Assessment and Plan - Diagnosis (1) Acute metabolic encephalopathy Is this a current diagnosis for this admission?: Yes (2) Acute kidney injury Is this a current diagnosis for this admission?: Yes (3) Elevated lactic acid level Is this a current diagnosis for this admission?: Yes (4) Hyponatremia Is this a current diagnosis for this admission?: Yes (5) Hemiplegia affecting left nondominant side Qualifiers: Hemiplegia type: unspecified type Hemiplegia etiology: cerebrovascular Cerebrovascular disease type: unspecified Is this a current diagnosis for this admission?: Yes (6) Hypertension Qualifiers: Hypertension type: essential hypertension Qualified Code(s): I10 - Essential (primary) hypertension Is this a current diagnosis for this admission?: Yes (7) Chronic obstructive pulmonary disease Qualifiers: COPD type: unspecified COPD Qualified Code(s): J44.9 - Chronic obstructive pulmonary disease, unspecified Is this a current diagnosis for this admission?: Yes (8) Coronary artery disease Qualifiers: Coronary Disease-Associated Artery/Lesion type: [place] artery [place] vs. transplanted heart: [place] heart Associated angina: without angina Qualified Code(s): I25.10 - Atherosclerotic heart disease of [place] coronary artery without angina pectoris Is this a current diagnosis for this admission?: Yes (9) PAD (peripheral artery disease) Is this a current diagnosis for this admission?: Yes (10) Paroxysmal atrial fibrillation Is this a current diagnosis for this admission?: Yes (11) Diabetes mellitus type 2 in obese Is this a current diagnosis for this admission?: Yes (12) Obesity Qualifiers: Obesity type: unspecified obesity type Is this a current diagnosis for this admission?: Yes - Plan Summary Summary: Mr. Bill Grijalva is a 59 year old male who presented to the ED on 01/26/2020 with acute altered mental status. Patient is a resident at [facility] where he was found to be acutely altered with decreased verbal responsiveness and confusion. Stroke work up completed in the ED. Ct was negative for acute event. MRI of the brain noted no acute interracial event. Patient does have history of left hemiplegia secondary to previous stroke, otherwise no new focal neurologica l deficits were noted. Patient admitted to the hospitalist service to receive IV fluids and obtain further evaluation as needed. He is on a diabetic cardiac and pre-renal restricted diet. Home medications were be resumed as appropriate. Acute metabolic encephalopathy Patient continues to appear Encephalopathic though noted improvement with fluids. Continue with IV fluids. Continue to monitor and correct electrolytes. Acute kidney injury Noted elevation in BUN (78) and Cr (4.50), both are significantly elevated compared to most recent available labs in 2018. Suspect secondary to dehydration and/or medication. Continue to monitor for improvement with fluids. Nephrology consulted. Investigate further evaluation pending progression of labs and nephrology consult. Elevated lactic acid level Lactic acid initally elevated at 2.3, this improved to 1.5 with fluids. Continue to monitor. Hyponatremia Patient continues to be hyponatremic though values are progressively improving with fluids. Continue to monitor. Hemiplegia affecting left nondominant side History of left sided hemiplegia secondary to stroke. No attention necessary at this time. Hypertension Blood pressure has been ranging low 100s/80s with a single elevated reading of 142/80. He is not currently taking any of his home hypertension medications. Continue to withhold home HTN medications Continue to monitor. Event his systolic blood pressure is greater than 160 we can utilize hydralazine. Chronic obstructive pulmonary disease Continue with home treatment regimen. Coronary artery disease Continue with home treatment regimen. PAD (peripheral artery disease) Continue with home treatment regimen. Paroxysmal atrial fibrillation Currently in normal sinus rhythm. Continue to monitor. Continue with home treatment regimen including anticoagulation and statin therapy. Diabetes mellitus type 2 in obese Blood sugars have been ranging from 180-250. Hemoglobin A1c 10.8. Patient is placed on a consistent carb diet. Accu-Cheks before meals and at bedtime with Humalog for sliding scale coverage. Hypoglycemia protocol in place. Registered dietitian certified adapted physical educator consulted. Obesity Patient's current BMI is 42. Once patient is alert and oriented plan to discuss appropriate lifestyle changes. . - Time Time Spent with patient: 15-24 minutes Medications reviewed and adjusted accordingly: Yes Anticipated Discharge Disposition: [facility] Anticipated Discharge Timeframe: unknown
--- NOTE | 2020-01-27 20:03 | PDOC CONSULTATION ---
Consultation Consult Date: 01/27/20 Provider Consulted: Maria A WOODALL Consult reason:: BEATA History of Present Illness Admission Date/PCP: 01/26/20 20:48 BRAIN JOSEPH NP History of Present Illness: DAVIS PAGE is a 59 year old male with a past history of significant comorbidities that includes diabetes mellitus/hypertension/CAD/bipolar disorder was admitted with altered mental status from the retirement. Patient is currently awake and more responsive than what was in his initial admission notes. He was worked up and found to have a negative CT scan of the head but he was incidentally found to have a BUN/creatinine of 76/3.9. He has been put on IV fluids. Patient denies any history of chest pain or shortness of breath. No abdominal pains. Denies dysuria hematuria difficulty to urinate. Patient's history is not the best for obvious reasons. Labs and medications were reviewed. Discussions were done with the treating nurse. Past Medical History Cardiac Medical History: Reports: Atrial Fibrillation, Coronary Artery Disease, DVT, Hyperlipidemia, Hypertension-primary, Myocardial Infarction, Peripheral Vascular Disease Denies: Pulmonary Embolism Pulmonary Medical History: Reports: Chronic Obstructive Pulmonary Disease (COPD), Intubation, Pneumonia, Respiratory Failure EENT Medical History: Denies: Cataracts, Ears - Hearing aids Neurological Medical History: Reports: Ischemic CVA, Other - Diabetic peripheral neuropathy Denies: Hemorrhagic CVA, Seizures Endocrine Medical History: Reports: Diabetes Mellitus Type 2, Obesity Denies: Diabetes Mellitus Type 1, Hyperthyroidism, Hypothyroidism Complications of Diabetes: Reports: None Renal/ Medical History: Denies: Nephrolithiasis Malignancy Medical History: Reports: None GI Medical History: Reports: Gastroesophageal Reflux Disease Denies: Cirrhosis, Hepatitis, Peptic Ulcer Disease Musculoskeltal Medical History: Reports: Arthritis, Other - Chronic pain syndrome Denies: Fibromyalgia, Gout Skin Medical History: Denies: Eczema, Psoriasis Psychiatric Medical History: Reports: Bipolar Disorder, Depression, Substance Abuse, Tobacco Dependency, Other - Prescription narcotic dependence Denies: Alcohol Dependency Traumatic Medical History: Reports: None Infectious Medical History: 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 Children Family History Reviewed: No Sibling(s) Family History Reviewed.: No Medication/Allergy Home Medications: Acetaminophen [Tylenol 325 mg Tablet] 650 mg PO Q6HP PRN 06/05/17 Furosemide [Lasix 40 mg Tablet] 40 mg PO BID 06/05/17 Lamotrigine [Lamictal] 100 mg PO DAILY 06/05/17 Metoprolol Succinate [Toprol Xl 50 mg Tab.sr] 100 mg PO DAILY 06/05/17 Potassium Chloride [Klor-Con M20] 20 meq PO DAILY 06/05/17 Quetiapine Fumarate [Seroquel] 400 mg PO QHS 06/05/17 Ranolazine [Ranexa 500 mg Tab.sr] 500 mg PO Q12 06/05/17 Rivaroxaban [Xarelto] 20 mg PO QPM 06/05/17 Atorvastatin Calcium [Lipitor 20 mg Tablet] 20 mg PO QHS 01/26/20 Fluticasone/Salmeterol [Advair 250-50 Diskus 14 Dose/Diskus] 1 puff IH Q12 01/26/20 Gabapentin [Neurontin] 800 mg PO Q8 01/26/20 Glipizide [Glucotrol 5 mg Tablet] 5 mg PO DAILY 01/26/20 Hydromorphone HCl [Dilaudid 2 mg Tablet] 2 mg PO Q8 01/26/20 Insulin Glargine,Hum.rec.anlog [Lantus Insulin 100 Unit/1 ml 10 ml] 5 unit SQ Q12 01/26/20 Insulin Lispro [Humalog Insulin (Lispro) 100 unit/mL] See Protocol SQ ACHS 01/26/20 Lisinopril [Prinivil 10 mg Tablet] 10 mg PO DAILY 01/26/20 Loratadine [Claritin 10 mg Tablet] 10 mg PO DAILY 01/26/20 Magnesium Hydroxide [Milk of Magnesia 30 ml Udcup] 30 ml PO DAILYP PRN 01/26/20 Melatonin [Melatonin 5 mg Tablet] 10 mg PO HSP PRN 01/26/20 Metolazone [Zaroxolyn 2.5 mg Tablet] 2.5 mg PO MOWEFR@1000 01/26/20 Pantoprazole Sodium [Protonix [address] Tablet] 20 mg PO DAILY 01/26/20 Paroxetine HCl [Paxil] 10 mg PO DAILY 01/26/20 Sennosides [Senna] 17.2 mg PO BID 01/26/20 Silver Chloride [Silver Gel] 1 applic TOP Q2DAYS 01/26/20 Zinc Oxide [Zinc Oxide 20% Ointment 28.35 gm] 1 applic TOP Q2HP PRN 01/26/20 Allergies/Adverse Reactions: ketorolac tromethamine [From Toradol] Allergy (Unknown, Verified 07/08/17 16:44) morphine [Morphine] Allergy (Unknown, Verified 07/08/17 16:44) acetaminophen [From Tylenol] Allergy (Verified 07/08/17 16:44) lorazepam [From Ativan] Adverse Reaction (Verified 07/08/17 16:44) Review of Systems ROS unobtainable: Due to mental status Constitutional: PRESENT: anorexia, fatigue, weakness. ABSENT: chills, fever(s), headache(s) Nose, Mouth, and Throat: ABSENT: mouth pain, sore throat Cardiovascular: PRESENT: dyspnea on exertion. ABSENT: chest pain, edema, orthropnea, palpitations Gastrointestinal: PRESENT: constipation. ABSENT: abdominal pain, coffee ground emesis, diarrhea, dysphagia, heartburn, hematemesis Genitourinary: ABSENT: dysuria, hematuria Musculoskeletal: ABSENT: deformity Integumentary: ABSENT: lesions, pruritus, rash Neurological: ABSENT: abnormal movements, focal weakness, lack of coordination Hematologic/Lymphatic: ABSENT: easy bruising, lymphadenopathy Physical Exam Vital Signs: Temp Pulse Resp BP Pulse Ox 98.0 F 120 H 20 124/83 91 L 01/27/20 15:28 01/27/20 15:28 01/27/20 15:28 01/27/20 15:28 01/27/20 15:28 Intake & Output 01/26/20 01/27/20 01/28/20 06:59 06:59 06:59 Intake Total 1000 3320 Output Total 200 Balance 800 3320 Weight 125.3 kg General appearance: PRESENT: no acute distress, disheveled Eye exam: PRESENT: EOMI, PERRLA. ABSENT: scleral icterus Ear exam: PRESENT: normal external ear exam Mouth exam: PRESENT: neck supple. ABSENT: moist Neck exam: ABSENT: lymphadenopathy, meningismus, tenderness, thyromegaly, tracheal deviation Respiratory exam: PRESENT: clear to auscultation jarett, decreased breath sounds. ABSENT: crackles Cardiovascular exam: PRESENT: +S1, +S2 GI/Abdominal exam: PRESENT: normal bowel sounds, soft. ABSENT: organomegaly, tenderness Extremities exam: ABSENT: pedal edema Neurological exam: PRESENT: awake, oriented to person. ABSENT: oriented to place, oriented to time Psychiatric exam: PRESENT: depressed Skin exam: ABSENT: erythema, mottled, rash Results Laboratory Results: 01/27/20 04:10 01/27/20 04:10 01/26/20 01/26/20 01/26/20 16:15 16:15 16:15 WBC 10.8 H RBC 4.21 L Hgb 13.0 L Hct 37.1 L MCV 88 MCH 30.9 MCHC 35.0 RDW 14.9 H Plt Count 197 Seg Neutrophils % 80.2 H VBG pH VBG pCO2 VBG HCO3 VBG Base Excess Sodium 127.9 L Potassium 4.4 Chloride 91 L Carbon Dioxide 21 L Anion Gap 16 BUN 76 H Creatinine 3.92 H Est GFR ( Amer) 19 L Glucose 186 H Serum Osmolality 293 Lactic Acid Calcium 8.6 Magnesium Total Bilirubin 0.7 AST 20 Alkaline Phosphatase 94 Total Protein 6.6 Albumin 3.9 Triglycerides Cholesterol LDL Cholesterol Direct HDL Cholesterol TSH Urine Color Urine Appearance Urine pH Ur Specific [place] Urine Protein Urine Glucose (UA) Urine Ketones Urine Blood Urine RBC (Auto) Urine Osmolality 01/26/20 01/27/20 01/27/20 23:51 00:22 00:22 WBC RBC Hgb Hct MCV MCH MCHC RDW Plt Count Seg Neutrophils % VBG pH VBG pCO2 VBG HCO3 VBG Base Excess Sodium Potassium Chloride Carbon Dioxide Anion Gap BUN Creatinine Est GFR ( Amer) Glucose Serum Osmolality Lactic Acid 2.3 H Calcium Magnesium Total Bilirubin AST Alkaline Phosphatase Total Protein Albumin Triglycerides Cholesterol LDL Cholesterol Direct HDL Cholesterol TSH Urine Color YELLOW Urine Appearance CLEAR Urine pH 5.0 Ur Specific [place] 1.010 Urine Protein NEGATIVE Urine Glucose (UA) >=500 H Urine Ketones NEGATIVE Urine Blood NEGATIVE Urine RBC (Auto) 1 Urine Osmolality 358 01/27/20 01/27/20 01/27/20 04:10 04:10 04:10 WBC 11.1 H RBC 4.25 L Hgb 13.1 L Hct 37.4 L MCV 88 MCH 30.7 MCHC 34.9 RDW 15.0 H Plt Count 176 Seg Neutrophils % VBG pH VBG pCO2 VBG HCO3 VBG Base Excess Sodium 129.0 L Potassium 4.6 Chloride 93 L Carbon Dioxide 22 Anion Gap 14 BUN 78 H Creatinine 3.86 H Est GFR ( Amer) 19 L Glucose 208 H Serum Osmolality Lactic Acid 1.6 Calcium 8.8 Magnesium 3.2 H Total Bilirubin AST Alkaline Phosphatase Total Protein Albumin Triglycerides 668 H Cholesterol 275.58 H LDL Cholesterol Direct < 30 HDL Cholesterol 49 TSH Urine Color Urine Appearance Urine pH Ur Specific [place] Urine Protein Urine Glucose (UA) Urine Ketones Urine Blood Urine RBC (Auto) Urine Osmolality 01/27/20 01/27/20 01/27/20 04:10 04:10 08:00 WBC RBC Hgb Hct MCV MCH MCHC RDW Plt Count Seg Neutrophils % VBG pH 7.28 L VBG pCO2 48.3 VBG HCO3 22.2 VBG Base Excess -4.8 Sodium Potassium Chloride Carbon Dioxide Anion Gap BUN Creatinine Est GFR ( Amer) Glucose Serum Osmolality Lactic Acid 2.3 H Calcium Magnesium Total Bilirubin AST Alkaline Phosphatase Total Protein Albumin Triglycerides Cholesterol LDL Cholesterol Direct HDL Cholesterol TSH 1.06 Urine Color Urine Appearance Urine pH Ur Specific [place] Urine Protein Urine Glucose (UA) Urine Ketones Urine Blood Urine RBC (Auto) Urine Osmolality 01/26/20 01/26/20 16:15 16:15 Creatine Kinase 109 Troponin I < 0.012 Impressions: Chest X-Ray 01/26/20 15:47 IMPRESSION: NO ACUTE RADIOGRAPHIC FINDING IN THE CHEST. Head CT 01/26/20 15:47 IMPRESSION: Chronic ischemic changes. EVIDENCE OF ACUTE STROKE: NO. Head MRI 01/26/20 16:09 IMPRESSION: No acute intracranial abnormality. Motion artifact. Ex vacuo dilatation of the right lateral ventricle with areas of encephalomalacia, as before. Mild diffuse atrophy. Right cerebellopontine angle mass, which is nonspecific but given its location likely reflects schwannoma or meningioma. This could be confirmed with postcontrast imaging. Other etiologies are felt less likely but not excluded. copyright 2010 [employer]- All Rights Reserved Assessment & Plan - Diagnosis (1) Acute kidney injury Is this a current diagnosis for this admission?: Yes Plan: Most likely patient has prerenal BEATA as patient is clinically dry. Besides that is retirement medications could also have contributed. I am going to adjust his medications to GFR of less than 20 cc/min. Convert his fluids to normal saline. Get renal US. Dose medications to a GFR of < 25 CC/MIN. Convert Xarelto to Eliquis. No acute indications for renal replacements. (2) Diabetes mellitus type 2 in obese Is this a current diagnosis for this admission?: Yes Plan: As per hospitalist. (3) Hyponatremia Is this a current diagnosis for this admission?: Yes Plan: Convert IVF to NS and monitor. (4) Morbid obesity Is this a current diagnosis for this admission?: Yes Plan: Status Quo. (5) Atrial fibrillation Qualifiers: Atrial fibrillation type: paroxysmal Qualified Code(s): I48.0 - Paroxysmal atrial fibrillation Plan: Now rate controlled. (6) Bipolar disorder Qualifiers: Active/Remission status: remission status unspecified Qualified Code(s): F31.9 - Bipolar disorder, unspecified Plan: Status quo. (7) Hypertension Qualifiers: Hypertension type: essential hypertension Qualified Code(s): I10 - Essential (primary) hypertension Is this a current diagnosis for this admission?: Yes Plan: Low normal.Monitor.
[2020-01-27] MEDS: METOPROLOL TARTRATE PF/INJ 5 MG/5 ML SDV IV PRN (21:16)
[2020-01-27] MEDS: ATORVASTATIN CALCIUM 20 MG TABLET PO SCH (21:17)
[2020-01-27] MEDS: QUETIAPINE FUMARATE 100 MG TABLET PO SCH (21:18)
[2020-01-27] MEDS: NORMAL SALINE 1000 ML 1,000 ML IV PRN (21:32)
[2020-01-28] MEDS: HYDROMORPHONE HCL INJ/PF 2 MG/ML AMPULE IV PRN ×4 (01:09→20:10)
[2020-01-28] MEDS: INSULIN REG, HUMAN 100 UNIT/ML 3 ML VIAL (PYX) SUBCUT SCH ×4 (09:19→21:23)
[2020-01-28] MEDS: APIXABAN 2.5 MG TABLET PO SCH ×2 (09:35→18:46)
[2020-01-28] MEDS: LAMOTRIGINE 100 MG TABLET PO SCH (09:35)
[2020-01-28] MEDS: METOPROLOL SUCCINATE 50 MG TAB.SR.24H PO SCH (09:35)
[2020-01-28] MEDS: PAROXETINE HCL 20 MG TABLET PO SCH (09:35)
[2020-01-28] MEDS: RANOLAZINE 500 MG TAB.SR.12H PO SCH ×2 (09:35→21:12)
[2020-01-28] MEDS: GLIPIZIDE 5 MG TABLET PO SCH (09:36)
[2020-01-28] MEDS: DOCUSATE SODIUM 100 MG CAPSULE PO SCH ×2 (09:37→18:39)
[2020-01-28] MEDS: PANTOPRAZOLE SODIUM 20 MG TABLET.DR PO SCH (09:37)
[2020-01-28] MEDS: GABAPENTIN 400 MG CAPSULE PO SCH ×2 (09:37→21:12)
[2020-01-28] MEDS: LORATADINE 10 MG TABLET PO SCH (09:37)
[2020-01-28] MEDS: INSULIN GLARGINE,HUM.REC.ANLOG 1,000 UNIT/10 ML VIAL SUBCUT SCH ×2 (09:38→21:22)
[2020-01-28] MEDS: FLUTICASONE/VILANTEROL 200-25 MCG/DOSE IH SCH (09:45)
[2020-01-28] MEDS: NORMAL SALINE 1000 ML 1,000 ML IV PRN (09:45)
--- NOTE | 2020-01-28 12:49 | PDOC PROGRESS REPORT ---
Subjective Progress Note for:: 01/28/20 Reason For Visit: Patient seen this morning. He is generally doing fair but he says he is not feeling as good as he thought he was doing yesterday. He is not able to elaborate a whole lot further. On pointed questioning he thinks his breathing is a bit more difficult. He denies any abdominal pains. He says he had a bowel movement this morning. Therefore discussions were done with the treating nurse Sabina. Apparently he has been having some difficulty in urination. The patient has apparently refused all of his medications since last night along with lab draws for this morning earlier. He also refused imaging studies of his kidneys and bladder. Labs and medications were reviewed. Physical Exam Vital Signs: Temp Pulse Resp BP Pulse Ox 98.1 F 114 H 20 104/80 97 01/28/20 07:30 01/28/20 10:42 01/28/20 10:42 01/28/20 07:30 01/28/20 10:42 Intake & Output 01/27/20 01/28/20 01/29/20 06:59 06:59 06:59 Intake Total 1000 4320 1000 Output Total 200 Balance 800 4320 1000 Weight 125.3 kg 124.2 kg General appearance: PRESENT: no acute distress Respiratory exam: PRESENT: decreased breath sounds. ABSENT: clear to auscultation jarett - Harsh vesicular breath sounds., crackles Cardiovascular exam: PRESENT: +S1, +S2 GI/Abdominal exam: PRESENT: normal bowel sounds, soft. ABSENT: organomegaly, tenderness Extremities exam: ABSENT: pedal edema Neurological exam: PRESENT: alert, awake, oriented to person, oriented to place Psychiatric exam: PRESENT: appropriate affect Results Laboratory Results: 01/27/20 04:10 01/27/20 17:17 01/27/20 01/27/20 17:17 17:17 Sodium 129.4 L Potassium 4.5 Chloride 94 L Carbon Dioxide 23 Anion Gap 12 BUN 77 H Creatinine 4.50 H Est GFR ( Amer) 16 L Glucose 181 H Lactic Acid 1.5 Calcium 8.3 L 01/26/20 01/26/20 16:15 16:15 Creatine Kinase 109 Troponin I < 0.012 Impressions: Chest X-Ray 01/26/20 15:47 IMPRESSION: NO ACUTE RADIOGRAPHIC FINDING IN THE CHEST. Head CT 01/26/20 15:47 IMPRESSION: Chronic ischemic changes. EVIDENCE OF ACUTE STROKE: NO. Head MRI 01/26/20 16:09 IMPRESSION: No acute intracranial abnormality. Motion artifact. Ex vacuo dilatation of the right lateral ventricle with areas of encephalomalacia, as before. Mild diffuse atrophy. Right cerebellopontine angle mass, which is nonspecific but given its location likely reflects schwannoma or meningioma. This could be confirmed with postcontrast imaging. Other etiologies are felt less likely but not excluded. copyright 2011 [employer]- All Rights Reserved Assessment & Plan - Diagnosis (1) Acute kidney injury Is this a current diagnosis for this admission?: Yes Plan: Most likely patient has prerenal BEATA as patient is clinically dry. Get renal US. Dose medications to a GFR of < 25 CC/MIN. We will cut back IV fluids to 50 cc an hour. Get a chest x-ray. Discussed with Sabina the treating nurse. No acute indications for renal replacements. (2) Diabetes mellitus type 2 in obese Is this a current diagnosis for this admission?: Yes Plan: As per hospitalist. (3) Hyponatremia Is this a current diagnosis for this admission?: Yes Plan: Stable. monitor. (4) Morbid obesity Is this a current diagnosis for this admission?: Yes Plan: Status Quo. (5) Atrial fibrillation Qualifiers: Qualified Code(s): I48.0 - Paroxysmal atrial fibrillation Plan: Now rate controlled. (6) Bipolar disorder Qualifiers: Qualified Code(s): F31.9 - Bipolar disorder, unspecified Plan: Status quo. (7) Hypertension Qualifiers: Qualified Code(s): I10 - Essential (primary) hypertension Is this a current diagnosis for this admission?: Yes Plan: Low normal.Monitor.
[2020-01-28 13:16] LABS: HEMATOCRIT 37.5 % (37.9-51.0); HEMOGLOBIN 12.7 g/dL (13.5-17.0); MEAN CORPUSCULAR HEMOGLOBIN 30.2 pg (27.0-33.4); MEAN CORPUSCULAR HGB CONC 33.9 g/dL (32.0-36.0); MEAN CORPUSCULAR VOLUME 89 fl (80-97); PLATELET COUNT 159 10^3/uL (150-450); RED CELL DISTRIBUTION WIDTH 15.7 % (11.5-14.0); WHITE BLOOD COUNT 10.2 10^3/uL (4.0-10.5)
[2020-01-28 13:24] LABS: ANION GAP 13 (5-19); BLOOD UREA NITROGEN 76 mg/dL (7-20); CALCIUM 8.4 mg/dL (8.4-10.2); CARBON DIOXIDE 22 mmol/L (22-30); CHLORIDE 100 mmol/L (98-107); GLUCOSE 124 mg/dL (75-110); POTASSIUM 4.6 mmol/L (3.6-5.0)
--- NOTE | 2020-01-28 14:29 | RADIOLOGY REPORT (SQ) ---
EXAM DESCRIPTION: U/S RETROPERITON (RENAL/AORTA) IMAGES COMPLETED DATE/TIME: 01/28/2020 2:04 pm REASON FOR STUDY: BEATA COMPARISON: 10/01/2015 TECHNIQUE: Dynamic and static grayscale images acquired of the kidneys and bladder and recorded on P ACS. Additional selected color Doppler and spectral images recorded. LIMITATIONS: Overlying bowel gas. FINDINGS: RIGHT KIDNEY: Normal size. Increased cortical echogenicity. No solid or suspicious ma sses. No hydronephrosis. No calcifications. LEFT KIDNEY: Normal size. Increased cortical echogenicity. No solid or suspicious masses. No h ydronephrosis. No calcifications. BLADDER: No masses. OTHER: No other significant finding. IMPRESSION: CHRONIC MEDICAL RENAL DISEASE. NO HYDRONEPHROSIS. TECHNICAL DOCUMENTATION: JOB ID: [id number] 2010 [employer]- All Rights Reserved Reading location - IP/workstation name: [email or web address]
--- NOTE | 2020-01-28 14:41 | PDOC PROGRESS REPORT ---
Subjective Progress Note for:: 01/28/20 Subjective:: Patient is resting in bed. He engages in conversation. He primarily complains of left hip pain but also confirms headache, lower abdominal pain and pain/difficulty with urination. He is unable to tell me how often he is urinating a day. Discussed with nurse, she states patient is wearing a brief that needed to be changed twice per energy broker. Patient otherwise denies vision changes, chest pain, cough, shortness of breath, nausea, vomiting or diarrhea. Patient initially refused labs, imaging and rehab. After discussion with the patient h has agreed to labs, imaging and rehab. Reason For Visit: ACUTE KIDNEY INJURY SUPERIMPOSED ON CHRONIC KIDNEY Physical Exam Vital Signs: Temp Pulse Resp BP Pulse Ox 98.1 F 114 H 20 104/80 97 01/28/20 07:30 01/28/20 10:42 01/28/20 10:42 01/28/20 07:30 01/28/20 10:42 Intake & Output 01/27/20 01/28/20 01/29/20 06:59 06:59 06:59 Intake Total 1000 4320 1000 Output Total 200 Balance 800 4320 1000 Weight 125.3 kg 124.2 kg General appearance: PRESENT: no acute distress, cooperative, obese Head exam: PRESENT: atraumatic, normocephalic Eye exam: PRESENT: conjunctiva pink. ABSENT: scleral icterus Ear exam: PRESENT: normal external ear exam. ABSENT: bleeding, drainage Mouth exam: PRESENT: dry mucosa, tongue midline Neck exam: PRESENT: full ROM. ABSENT: lymphadenopathy, tenderness Respiratory exam: PRESENT: clear to auscultation jarett, prolonged expiratory phas - Minimally prolonged in all [place], unlabored. ABSENT: crackles, rhonchi, tachypnea, wheezes Cardiovascular exam: PRESENT: RRR, +S1, +S2. ABSENT: diastolic murmur, gallop, rubs, systolic murmur Pulses: PRESENT: normal radial pulses GI/Abdominal exam: PRESENT: tenderness - lower abdomen. ABSENT: firm, guarding, rebound Rectal exam: PRESENT: deferred Gentrourinary exam: PRESENT: indwelling catheter Extremities exam: PRESENT: full ROM - Left hemiparesis noted, pedal edema. ABSENT: tenderness Musculoskeletal exam: ABSENT: deformity, dislocation Neurological exam: PRESENT: alert, awake, oriented to person, oriented to place, motor sensory deficit Psychiatric exam: PRESENT: appropriate affect, normal mood Skin exam: PRESENT: dry, intact, other - Hyperpigmentation of bilateral lower extremities consistent with chronic disease process. ABSENT: rash Results Laboratory Results: 01/27/20 04:10 01/27/20 17:17 01/27/20 01/27/20 17:17 17:17 Sodium 129.4 L Potassium 4.5 Chloride 94 L Carbon Dioxide 23 Anion Gap 12 BUN 77 H Creatinine 4.50 H Est GFR ( Amer) 16 L Glucose 181 H Lactic Acid 1.5 Calcium 8.3 L 01/26/20 01/26/20 16:15 16:15 Creatine Kinase 109 Troponin I < 0.012 Impressions: Chest X-Ray 01/26/20 15:47 IMPRESSION: NO ACUTE RADIOGRAPHIC FINDING IN THE CHEST. Head CT 01/26/20 15:47 IMPRESSION: Chronic ischemic changes. EVIDENCE OF ACUTE STROKE: NO. Head MRI 01/26/20 16:09 IMPRESSION: No acute intracranial abnormality. Motion artifact. Ex vacuo dilatation of the right lateral ventricle with areas of encephalomalacia, as before. Mild diffuse atrophy. Right cerebellopontine angle mass, which is nonspecific but given its location likely reflects schwannoma or meningioma. This could be confirmed with postcontrast imaging. Other etiologies are felt less likely but not excluded. copyright 2011 [employer]- All Rights Reserved Assessment and Plan - Diagnosis (1) Acute metabolic encephalopathy Is this a current diagnosis for this admission?: Yes (2) Acute kidney injury Is this a current diagnosis for this admission?: Yes (3) Elevated lactic acid level Is this a current diagnosis for this admission?: Yes (4) Hyponatremia Is this a current diagnosis for this admission?: Yes (5) Hypermagnesemia Is this a current diagnosis for this admission?: Yes (6) Difficult or painful urination Is this a current diagnosis for this admission?: Yes (7) Hemiplegia affecting left nondominant side Qualifiers: Hemiplegia type: unspecified type Hemiplegia etiology: cerebrovascular Cerebrovascular disease type: unspecified Is this a current diagnosis for this admission?: Yes (8) Hypertension Qualifiers: Hypertension type: essential hypertension Qualified Code(s): I10 - Essential (primary) hypertension Is this a current diagnosis for this admission?: Yes (9) Chronic obstructive pulmonary disease Qualifiers: COPD type: unspecified COPD Qualified Code(s): J44.9 - Chronic obstructive pulmonary disease, unspecified Is this a current diagnosis for this admission?: Yes (10) Coronary artery disease Qualifiers: Coronary Disease-Associated Artery/Lesion type: [place] artery [place] vs. transplanted heart: [place] heart Associated angina: without angina Qualified Code(s): I25.10 - Atherosclerotic heart disease of [place] coronary artery without angina pectoris Is this a current diagnosis for this admission?: Yes (11) PAD (peripheral artery disease) Is this a current diagnosis for this admission?: Yes (12) Paroxysmal atrial fibrillation Is this a current diagnosis for this admission?: Yes (13) Diabetes mellitus type 2 in obese Is this a current diagnosis for this admission?: Yes (14) Obesity Qualifiers: Obesity type: unspecified obesity type Is this a current diagnosis for this admission?: Yes - Plan Summary Summary: Mr. Bill Grijalva is a 59 year old male who presented to the ED on 01/26/2020 with acute altered mental status. Patient is a resident at [facility] where he was found to be acutely altered with decreased verbal responsiveness and confusion. Stroke work up completed in the ED. Ct was negative for acute event. MRI of the brain noted no acute interracial event. Patient does have history of left hemiplegia secondary to previous stroke, otherwise no new focal neurological deficits were noted. Patient admitted to the hospitalist service to receive IV fluids and obtain further evaluation as needed. He is on a diabetic cardiac and pre-renal restricted diet. Home medications were be resumed as appropriate. Acute metabolic encephalopathy Overall significant improvement in patient presentation. Patient was seen by speech therapy, pre-existing left-sided facial weakness noted from prior stroke, otherwise patient was found to be able to functionally communicate. Continue with IV fluids. Continue to monitor and correct electrolytes. Acute kidney injury Noted improvement in BUN (76) and Cr (3.51) with fluids. I suspect secondary to dehydration and/or medication. No protein noted on UA 01/27/2020. In order to monitor I/Os folly catheter was ordered. Continue to monitor for improvement with NS. Nephrology consulted. Patient medications to GFR < 25 cc/min ny Dr. White. Renal US significant for chronic medical renal disease, no hydronephrosis. Elevated lactic acid level: Resolved. Hyponatremia: Noted improvement in sodium with fluids (134.6). Continue to monitor. Continue with normal saline. Hypermagnesemia: Magnesium elevated on initial labs. This has improved, though remains elevated. Continue with NS. Continue to monitor for improvement. Difficulty or pain with urination: UA with reflex ordered. UA from 01/26 significant for gluoce > 500 and trace leukocyte esterase, otherwise unremarkable. Hemiplegia affecting left nondominant side History of left sided hemiplegia secondary to stroke. No attention necessary at this time. Hypertension Blood pressure readings remain low/normal. Medications have been adjusted to dose appropriate for GFR <25 cc/min. Continue to monitor. Event his systolic blood pressure is greater than 160 we can utilize hydralazine. Chronic obstructive pulmonary disease Continue with home treatment regimen. Coronary artery disease Continue with home treatment regimen. PAD (peripheral artery disease) Continue with home treatment regimen. Atrial fibrillation Rate controlled Currently in normal sinus rhythm. Continue to monitor. Dr. White has converted Xarelto to Eliquis. Diabetes mellitus type 2 in obese Blood sugars have been ranging from 180-250. Hemoglobin A1c 10.8. Patient is placed on a consistent carb diet. Accu-Cheks before meals and at bedtime with Humalog for sliding scale coverage. Hypoglycemia protocol in place. Registered dietitian life skills educator consulted. Obesity Patient's current BMI is 42. Discussed life style and appropriate dietary changes with the patient. He confirmed understanding is agreeable. Will continue to have open and frequent conversations with patient regarding diet. . - Time Time Spent with patient: 15-24 minutes Medications reviewed and adjusted accordingly: Yes [facility]tic[facility] Anticipated Discharge Timeframe: unknown, pending patient progresion
[2020-01-28] MEDS: METOPROLOL TARTRATE PF/INJ 5 MG/5 ML SDV IV PRN (21:12)
[2020-01-28] MEDS: ATORVASTATIN CALCIUM 20 MG TABLET PO SCH (21:12)
[2020-01-28] MEDS: QUETIAPINE FUMARATE 100 MG TABLET PO SCH (21:23)
[2020-01-29 00:14] LABS: APPEARANCE,URINE CLEAR; BILIRUBIN,URINE NEGATIVE (NEGATIVE); COLOR,URINE YELLOW; GLUCOSE, URINE >=500 mg/dL (NEGATIVE); KETONES,URINE NEGATIVE (NEGATIVE); PROTEIN,URINE 30 mg/dL (NEGATIVE); UROBILINOGEN,URINE NEGATIVE mg/dL (<2.0)
[2020-01-29] MEDS: NORMAL SALINE 1000 ML 1,000 ML IV PRN (02:24)
[2020-01-29 06:26] LABS: HEMATOCRIT 35.3 % (37.9-51.0); MEAN CORPUSCULAR HEMOGLOBIN 30.3 pg (27.0-33.4); MEAN CORPUSCULAR HGB CONC 34.1 g/dL (32.0-36.0); MEAN CORPUSCULAR VOLUME 89 fl (80-97); PLATELET COUNT 152 10^3/uL (150-450); RED BLOOD COUNT 3.97 10^6/uL (4.35-5.55); RED CELL DISTRIBUTION WIDTH 15.2 % (11.5-14.0); WHITE BLOOD COUNT 7.3 10^3/uL (4.0-10.5)
[2020-01-29 06:53] LABS: ANION GAP 10 (5-19); BLOOD UREA NITROGEN 60 mg/dL (7-20); CALCIUM 8.4 mg/dL (8.4-10.2); CARBON DIOXIDE 24 mmol/L (22-30); CHLORIDE 103 mmol/L (98-107); GLUCOSE 97 mg/dL (75-110); POTASSIUM 3.8 mmol/L (3.6-5.0)
[2020-01-29] MEDS: INSULIN REG, HUMAN 100 UNIT/ML 3 ML VIAL (PYX) SUBCUT SCH ×4 (09:45→23:06)
[2020-01-29] MEDS: GABAPENTIN 400 MG CAPSULE PO SCH ×2 (09:55→23:11)
[2020-01-29] MEDS: APIXABAN 2.5 MG TABLET PO SCH ×2 (09:55→17:09)
[2020-01-29] MEDS: PAROXETINE HCL 20 MG TABLET PO SCH (09:55)
[2020-01-29] MEDS: DOCUSATE SODIUM 100 MG CAPSULE PO SCH ×2 (09:55→17:09)
[2020-01-29] MEDS: PANTOPRAZOLE SODIUM 20 MG TABLET.DR PO SCH (09:55)
[2020-01-29] MEDS: LAMOTRIGINE 100 MG TABLET PO SCH (09:56)
[2020-01-29] MEDS: RANOLAZINE 500 MG TAB.SR.12H PO SCH ×2 (09:56→23:11)
[2020-01-29] MEDS: LORATADINE 10 MG TABLET PO SCH (09:56)
[2020-01-29] MEDS: GLIPIZIDE 5 MG TABLET PO SCH (09:56)
[2020-01-29] MEDS: FLUTICASONE/VILANTEROL 200-25 MCG/DOSE IH SCH (09:57)
[2020-01-29] MEDS: INSULIN GLARGINE,HUM.REC.ANLOG 1,000 UNIT/10 ML VIAL SUBCUT SCH ×2 (09:58→23:06)
--- NOTE | 2020-01-29 10:38 | PDOC PROGRESS REPORT ---
Subjective Progress Note for:: 01/29/20 Subjective:: Patient is resting in bed. He is significantly more engaged in the conversation today compared to previous days. He continues to complain of lower abdominal discomfort but denies dysuria today. He has been moving from the bed to the chair with PT. Otherwise denies headache, chest pain, cough, shortness of breath, nausea, vomiting, diarrhea. Discussed patient with the nurse. She states that patient reported hallucinations to the night custodian nurses. The patient denies hallucinations upon questioning today. Reason For Visit: ACUTE KIDNEY INJURY SUPERIMPOSED ON CHRONIC KIDNEY Physical Exam Vital Signs: Temp Pulse Resp BP Pulse Ox 97.7 F 83 20 107/71 96 01/29/20 07:21 01/29/20 07:21 01/29/20 07:21 01/29/20 07:21 01/29/20 04:01 Intake & Output 01/28/20 01/29/20 01/30/20 06:59 06:59 06:59 Intake Total 4320 1855 Output Total 2200 Balance 4320 -345 Weight 124.2 kg 126 kg General appearance: PRESENT: cooperative, obese Head exam: PRESENT: atraumatic, normocephalic Eye exam: PRESENT: conjunctiva pink. ABSENT: scleral icterus Mouth exam: PRESENT: dry mucosa, tongue midline Neck exam: PRESENT: full ROM. ABSENT: thyromegaly Cardiovascular exam: PRESENT: RRR, +S1, +S2. ABSENT: diastolic murmur, systolic murmur, tachycardia Pulses: PRESENT: normal radial pulses GI/Abdominal exam: PRESENT: normal bowel sounds, soft, tenderness - lower abdomen. ABSENT: distended, firm, guarding, rigid Rectal exam: PRESENT: deferred Extremities exam: ABSENT: calf tenderness, pedal edema Musculoskeletal exam: PRESENT: other - Hemiplegic left side Neurological exam: PRESENT: alert, awake, oriented to person, oriented to place, oriented to time Psychiatric exam: PRESENT: appropriate affect, normal mood Skin exam: PRESENT: dry, warm, other - Hyperpigmentation of bilateral lower extremities. [place] appearance to skin.. ABSENT: jaundice, rash Results Laboratory Results: 01/29/20 05:56 01/29/20 05:56 01/28/20 01/28/20 01/28/20 12:27 12:27 23:51 WBC 10.2 RBC 4.20 L Hgb 12.7 L Hct 37.5 L MCV 89 MCH 30.2 MCHC 33.9 RDW 15.7 H Plt Count 159 Sodium 134.6 L Potassium 4.6 Chloride 100 Carbon Dioxide 22 Anion Gap 13 BUN 76 H Creatinine 3.51 H Est GFR ( Amer) 22 L Glucose 124 H Calcium 8.4 Magnesium 2.9 H Urine Color YELLOW Urine Appearance CLEAR Urine pH 5.0 Ur Specific [place] 1.010 Urine Protein 30 H Urine Glucose (UA) >=500 H Urine Ketones NEGATIVE Urine Blood MODERATE H Urine RBC (Auto) 16 01/29/20 01/29/20 05:56 05:56 WBC 7.3 RBC 3.97 L Hgb 12.0 L Hct 35.3 L MCV 89 MCH 30.3 MCHC 34.1 RDW 15.2 H Plt Count 152 Sodium 137.2 Potassium 3.8 Chloride 103 Carbon Dioxide 24 Anion Gap 10 BUN 60 H Creatinine 2.00 H Est GFR ( Amer) 41 L Glucose 97 Calcium 8.4 Magnesium 2.9 H Urine Color Urine Appearance Urine pH Ur Specific [place] Urine Protein Urine Glucose (UA) Urine Ketones Urine Blood Urine RBC (Auto) 01/27/20 00:22 Clean Catch Midstream Urine Culture - Final Mixed Urogenital [place] 01/26/20 01/26/20 16:15 16:15 Creatine Kinase 109 Troponin I < 0.012 Impressions: Chest X-Ray 01/26/20 15:47 IMPRESSION: NO ACUTE RADIOGRAPHIC FINDING IN THE CHEST. Head CT 01/26/20 15:47 IMPRESSION: Chronic ischemic changes. EVIDENCE OF ACUTE STROKE: NO. Head MRI 01/26/20 16:09 IMPRESSION: No acute intracranial abnormality. Motion artifact. Ex vacuo dilatation of the right lateral ventricle with areas of encephalomalacia, as before. Mild diffuse atrophy. Right cerebellopontine angle mass, which is nonspecific but given its location likely reflects schwannoma or meningioma. This could be confirmed with postcontrast imaging. Other etiologies are felt less likely but not excluded. copyright 2011 [employer]- All Rights Reserved Renal Ultrasound 01/28/20 00:00 IMPRESSION: CHRONIC MEDICAL RENAL DISEASE. NO HYDRONEPHROSIS. Assessment and Plan - Diagnosis (1) Acute metabolic encephalopathy Is this a current diagnosis for this admission?: Yes (2) Acute kidney injury Is this a current diagnosis for this admission?: Yes (3) Elevated lactic acid level Is this a current diagnosis for this admission?: Yes (4) Hyponatremia Is this a current diagnosis for this admission?: Yes (5) Hypermagnesemia Is this a current diagnosis for this admission?: Yes (6) Difficult or painful urination Is this a current diagnosis for this admission?: Yes (7) Hemiplegia affecting left nondominant side Qualifiers: Hemiplegia type: unspecified type Hemiplegia etiology: cerebrovascular Cerebrovascular disease type: unspecified Is this a current diagnosis for this admission?: Yes (8) Hypertension Qualifiers: Hypertension type: essential hypertension Qualified Code(s): I10 - Essential (primary) hypertension Is this a current diagnosis for this admission?: Yes (9) Chronic obstructive pulmonary disease Qualifiers: COPD type: unspecified COPD Qualified Code(s): J44.9 - Chronic obstructive pulmonary disease, unspecified Is this a current diagnosis for this admission?: Yes (10) Coronary artery disease Qualifiers: Coronary Disease-Associated Artery/Lesion type: [place] artery [place] vs. transplanted heart: [place] heart Associated angina: without angina Qualified Code(s): I25.10 - Atherosclerotic heart disease of [place] coronary artery without angina pectoris Is this a current diagnosis for this admission?: Yes (11) PAD (peripheral artery disease) Is this a current diagnosis for this admission?: Yes (12) Paroxysmal atrial fibrillation Is this a current diagnosis for this admission?: Yes (13) Diabetes mellitus type 2 in obese Is this a current diagnosis for this admission?: Yes (14) Obesity Qualifiers: Obesity type: unspecified obesity type Is this a current diagnosis for this admission?: Yes - Plan Summary Summary: Mr. Bill Grijalva is a 59 year old male who presented to the ED on 01/26/2020 with acute altered mental status. Patient is a resident at [facility] where he was found to be acutely altered with decreased verbal responsiveness and confusion. Stroke work up completed in the ED. Ct was negative for acute event. MRI of the brain noted no acute interracial event. Patient does have history of left hemiplegia secondary to previous stroke, otherwise no new focal neurological deficits were noted. Patient admitted to the hospitalist service to receive IV fluids and obtain further evaluation as needed. He is on a diabetic cardiac and pre-renal restricted diet. Home medications were be resumed and adjusted as appropriate. Acute metabolic encephalopathy Overall significant improvement in patient presentation. Suspect this was metabolic in nature as he was hyponatremic on initial evaluation with acute kidney injury. He continues to improve with fluids. We will continue with IV fluids and continue to monitor and correct electrolytes. Acute kidney injury Received and reviewed patient's most recent lab work dated 01/26/2020 from [facility]. BUN, creatinine, GFR, sodium all within normal limits. This further supports diagnosis of acute kidney injury. I suspect cause to be prerenal secondary to severe dehydration and/or medications. Home medications include furosemide 40 mg twice daily. Infectious etiology less likely as patient's white blood cell count is within normal limits. No indication of infection in urine. Blood cultures negative. Urine culture negative. -Current treatment includes normal saline. -BUN and creatinine levels continue to improve with fluids. Proteinuria noted on UA 01/28/2020. -Rudd catheter placed I's and O's monitored, has a net balance of -345, this is without being on a diuretic. -Nephrology continues to follow. Patient medications adjusted to GFR < 25 cc/min by Dr. White. -Renal US significant for chronic medical renal disease, no hydronephrosis. Elevated lactic acid level: Resolved. Hyponatremia: Resolved. Continue to monitor. Continue with normal saline. Hypermagnesemia: Magnesium levels continue to be consistently elevated at 2.9. Continue to monitor for improvement with fluids. Difficulty or pain with urination: Patient denies symptoms today. UA unremarkable. Urine culture grew mixed urogenital gentry. No treatment necessary at this time. Hemiplegia affecting left nondominant side: History of left sided hemiplegia secondary to stroke. No attention necessary at this time. He is working with physical therapy at this time to have him moving from bed to chair. Hypertension Blood pressure readings remain low/normal, this is without utilizing any of his home blood pressure medications. Medications have been adjusted to dose appropriate for GFR <25 cc/min, consider discontinuing home blood pressure medications upon discharge. Continue to monitor. Event his systolic blood pressure is greater than 160 we can utilize hydralazine. Chronic obstructive pulmonary disease: Continue with home treatment regimen. Coronary artery disease: Continue with home treatment regimen. PAD (peripheral artery disease): Continue with home treatment regimen. Atrial fibrillation: Continues to be rate controlled presently in normal sinus rhythm continue to monitor Dr. White has converted Xarelto to Eliquis. Continue with atorvastatin. Diabetes mellitus type 2 in obese Blood sugars have been ranging from 90-170. Hemoglobin A1c 10.8. Patient is placed on a consistent carb diet. Accu-Cheks before meals and at bedtime with Humalog for sliding scale coverage. Hypoglycemia protocol in place. Registered dietitian family life educator consulted. Obesity Patient's current BMI is 42. Discussed life style and appropriate dietary changes with the patient. He confirmed understanding is agreeable. Will continue to have open and frequent conversations with patient regarding diet. . - Time Time Spent with patient: 15-24 minutes Medications reviewed and adjusted accordingly: Yes Anticipated Discharge Disposition: [facility] Anticipated Discharge Timeframe: within 72 hours - pending renal improvment
--- NOTE | 2020-01-29 11:07 | PDOC PROGRESS REPORT ---
Subjective Progress Note for:: 01/29/20 Reason For Visit: Patient seen in the hospital today. He is much more awake and responsive to questions appropriately. He denies any complaints of chest pain, fever or chills. Shortness of breath he feels is better. He is more agreeable to lab draws and he also consented to have a Rudd catheter placed yesterday which is producing 2+ liter of urine output. Labs and medications were reviewed with the patient and the treating nurse Sabina. Ultrasound reviewed shows no obstructive uropathy. It shows that he has improving renal numbers as well. Physical Exam Vital Signs: Temp Pulse Resp BP Pulse Ox 97.7 F 83 20 107/71 96 01/29/20 07:21 01/29/20 07:21 01/29/20 07:21 01/29/20 07:21 01/29/20 04:01 Intake & Output 01/28/20 01/29/20 01/30/20 06:59 06:59 06:59 Intake Total 4320 1855 Output Total 2200 Balance 4320 -345 Weight 124.2 kg 126 kg General appearance: PRESENT: no acute distress Respiratory exam: PRESENT: clear to auscultation jarett, decreased breath sounds. ABSENT: crackles Cardiovascular exam: PRESENT: +S1, +S2 GI/Abdominal exam: PRESENT: normal bowel sounds, soft. ABSENT: organomegaly, tenderness Extremities exam: ABSENT: pedal edema Neurological exam: PRESENT: alert, awake, oriented to person, oriented to place Psychiatric exam: PRESENT: appropriate affect Results Laboratory Results: 01/29/20 05:56 01/29/20 05:56 01/28/20 01/28/20 01/28/20 12:27 12:27 23:51 WBC 10.2 RBC 4.20 L Hgb 12.7 L Hct 37.5 L MCV 89 MCH 30.2 MCHC 33.9 RDW 15.7 H Plt Count 159 Sodium 134.6 L Potassium 4.6 Chloride 100 Carbon Dioxide 22 Anion Gap 13 BUN 76 H Creatinine 3.51 H Est GFR ( Amer) 22 L Glucose 124 H Calcium 8.4 Magnesium 2.9 H Urine Color YELLOW Urine Appearance CLEAR Urine pH 5.0 Ur Specific [place] 1.010 Urine Protein 30 H Urine Glucose (UA) >=500 H Urine Ketones NEGATIVE Urine Blood MODERATE H Urine RBC (Auto) 16 01/29/20 01/29/20 05:56 05:56 WBC 7.3 RBC 3.97 L Hgb 12.0 L Hct 35.3 L MCV 89 MCH 30.3 MCHC 34.1 RDW 15.2 H Plt Count 152 Sodium 137.2 Potassium 3.8 Chloride 103 Carbon Dioxide 24 Anion Gap 10 BUN 60 H Creatinine 2.00 H Est GFR ( Amer) 41 L Glucose 97 Calcium 8.4 Magnesium 2.9 H Urine Color Urine Appearance Urine pH Ur Specific [place] Urine Protein Urine Glucose (UA) Urine Ketones Urine Blood Urine RBC (Auto) 01/27/20 00:22 Clean Catch Midstream Urine Culture - Final Mixed Urogenital Jeannie 01/26/20 01/26/20 16:15 16:15 Creatine Kinase 109 Troponin I < 0.012 Impressions: Chest X-Ray 01/26/20 15:47 IMPRESSION: NO ACUTE RADIOGRAPHIC FINDING IN THE CHEST. Head CT 01/26/20 15:47 IMPRESSION: Chronic ischemic changes. EVIDENCE OF ACUTE STROKE: NO. Head MRI 01/26/20 16:09 IMPRESSION: No acute intracranial abnormality. Motion artifact. Ex vacuo dilatation of the right lateral ventricle with areas of encephalomalacia, as before. Mild diffuse atrophy. Right cerebellopontine angle mass, which is nonspecific but given its location likely reflects schwannoma or meningioma. This could be confirmed with postcontrast imaging. Other etiologies are felt less likely but not excluded. copyright 2011 [employer]- All Rights Reserved Renal Ultrasound 01/28/20 00:00 IMPRESSION: CHRONIC MEDICAL RENAL DISEASE. NO HYDRONEPHROSIS. Assessment & Plan - Diagnosis (1) Acute kidney injury Is this a current diagnosis for this admission?: Yes Plan: Nonoliguric with improving renal output and now he has also an indwelling Rudd catheter. Continue current guidelines. Discussed with Sabina the treating nurse. No acute indications for renal replacements. (2) Diabetes mellitus type 2 in obese Is this a current diagnosis for this admission?: Yes Plan: As per hospitalist. (3) Hyponatremia Is this a current diagnosis for this admission?: Yes Plan: Resolved. (4) Morbid obesity Is this a current diagnosis for this admission?: Yes Plan: Status Quo. (5) Atrial fibrillation Qualifiers: Atrial fibrillation type: paroxysmal Qualified Code(s): I48.0 - Paroxysmal atrial fibrillation Plan: Now rate controlled. (6) Bipolar disorder Qualifiers: Active/Remission status: remission status unspecified Qualified Code(s): F31.9 - Bipolar disorder, unspecified Plan: Status quo. (7) Hypertension Qualifiers: Hypertension type: essential hypertension Qualified Code(s): I10 - Essential (primary) hypertension Is this a current diagnosis for this admission?: Yes Plan: Low normal.Monitor.
[2020-01-29] MEDS: PANTOT AC/MIN OIL/PET HY-PHL OINT 50 GM TOP SCH (12:00)
[2020-01-29] MEDS: HYDROMORPHONE HCL INJ/PF 2 MG/ML AMPULE IV PRN ×2 (12:53→23:20)
[2020-01-29] MEDS: METOPROLOL SUCCINATE 50 MG TAB.SR.24H PO SCH (13:26)
[2020-01-29] MEDS: QUETIAPINE FUMARATE 100 MG TABLET PO SCH (23:10)
[2020-01-29] MEDS: ATORVASTATIN CALCIUM 20 MG TABLET PO SCH (23:11)
[2020-01-30] MEDS: HYDROMORPHONE HCL INJ/PF 2 MG/ML AMPULE IV PRN ×2 (03:36→18:20)
[2020-01-30 06:45] LABS: ANION GAP 10 (5-19); CALCIUM 8.7 mg/dL (8.4-10.2); CARBON DIOXIDE 23 mmol/L (22-30); CHLORIDE 103 mmol/L (98-107); GLUCOSE 123 mg/dL (75-110); POTASSIUM 3.9 mmol/L (3.6-5.0)
[2020-01-30 07:09] LABS: BLOOD UREA NITROGEN 34 mg/dL (7-20)
[2020-01-30 07:16] LABS: HEMATOCRIT 34.7 % (37.9-51.0); HEMOGLOBIN 11.9 g/dL (13.5-17.0); MEAN CORPUSCULAR HEMOGLOBIN 30.5 pg (27.0-33.4); MEAN CORPUSCULAR HGB CONC 34.3 g/dL (32.0-36.0); MEAN CORPUSCULAR VOLUME 89 fl (80-97); PLATELET COUNT 165 10^3/uL (150-450); RED BLOOD COUNT 3.91 10^6/uL (4.35-5.55); RED CELL DISTRIBUTION WIDTH 15.3 % (11.5-14.0); WHITE BLOOD COUNT 7.8 10^3/uL (4.0-10.5)
[2020-01-30 07:17] LABS: APPEARANCE,URINE CLEAR; BILIRUBIN,URINE NEGATIVE (NEGATIVE); COLOR,URINE YELLOW; GLUCOSE, URINE >=500 mg/dL (NEGATIVE); KETONES,URINE 20 mg/dL (NEGATIVE); LEUKOCYTE ESTERASE,URINE TRACE (NEGATIVE); NITRITE,URINE NEGATIVE (NEGATIVE); PROTEIN,URINE 30 mg/dL (NEGATIVE); URINE SPECIFIC GRAVITY 1.014; UROBILINOGEN,URINE NEGATIVE mg/dL (<2.0)
[2020-01-30] MEDS: INSULIN REG, HUMAN 100 UNIT/ML 3 ML VIAL (PYX) SUBCUT SCH ×4 (10:19→23:26)
[2020-01-30] MEDS: FLUTICASONE/VILANTEROL 200-25 MCG/DOSE IH SCH (12:00)
[2020-01-30] MEDS: PANTOT AC/MIN OIL/PET HY-PHL OINT 50 GM TOP SCH (12:01)
[2020-01-30] MEDS: LORATADINE 10 MG TABLET PO SCH (12:09)
[2020-01-30] MEDS: RANOLAZINE 500 MG TAB.SR.12H PO SCH ×2 (12:09→23:35)
[2020-01-30] MEDS: METOPROLOL SUCCINATE 50 MG TAB.SR.24H PO SCH (12:09)
[2020-01-30] MEDS: DOCUSATE SODIUM 100 MG CAPSULE PO SCH ×2 (12:09→17:55)
[2020-01-30] MEDS: GLIPIZIDE 5 MG TABLET PO SCH (12:09)
[2020-01-30] MEDS: PAROXETINE HCL 20 MG TABLET PO SCH (12:09)
[2020-01-30] MEDS: INSULIN GLARGINE,HUM.REC.ANLOG 1,000 UNIT/10 ML VIAL SUBCUT SCH ×2 (12:10→23:36)
[2020-01-30] MEDS: GABAPENTIN 400 MG CAPSULE PO SCH ×2 (12:10→23:35)
[2020-01-30] MEDS: LAMOTRIGINE 100 MG TABLET PO SCH (12:10)
[2020-01-30] MEDS: APIXABAN 2.5 MG TABLET PO SCH ×2 (12:10→17:55)
[2020-01-30] MEDS: PANTOPRAZOLE SODIUM 20 MG TABLET.DR PO SCH (12:11)
--- NOTE | 2020-01-30 13:57 | PDOC PROGRESS REPORT ---
Subjective Progress Note for:: 01/30/20 Subjective:: Patient reports severe pain in his low back. His kidney function is greatly improved. Anticipate return to [facility] facility tomorrow. Reason For Visit: ACUTE KIDNEY INJURY SUPERIMPOSED ON CHRONIC KIDNEY Physical Exam Vital Signs: Temp Pulse Resp BP Pulse Ox 98.2 F 112 H 20 138/94 H 89 L 01/30/20 10:50 01/30/20 10:50 01/30/20 10:50 01/30/20 10:50 01/30/20 10:50 Intake & Output 01/29/20 01/30/20 01/31/20 06:59 06:59 06:59 Intake Total 1855 905 120 Output Total 2200 3850 500 Balance -345 -2945 -380 Weight 126 kg 123.5 kg General appearance: PRESENT: cooperative, morbidly obese, well-developed, other - Moderate distress from back pain Head exam: PRESENT: atraumatic, normocephalic Ear exam: PRESENT: normal external ear exam. ABSENT: bleeding, drainage Mouth exam: PRESENT: moist, tongue midline Respiratory exam: PRESENT: clear to auscultation jarett, symmetrical, unlabored. ABSENT: prolonged expiratory phas, rales, rhonchi, tachypnea, wheezes Cardiovascular exam: PRESENT: RRR, +S1, +S2. ABSENT: bradycardia, diastolic murmur, irregular rhythm, systolic murmur, tachycardia GI/Abdominal exam: PRESENT: normal bowel sounds, soft, other - Protuberant abdomen. ABSENT: guarding, tenderness Rectal exam: PRESENT: deferred Gentrourinary exam: ABSENT: indwelling catheter Extremities exam: PRESENT: +1 edema Musculoskeletal exam: PRESENT: other - Left hemiplegia Neurological exam: PRESENT: alert, awake, oriented to person, oriented to place, oriented to time, oriented to situation, CN II-XII grossly intact, motor sensory deficit - Left hemiplegia. ABSENT: altered Psychiatric exam: PRESENT: appropriate affect - Affect reflects his discomfort. ABSENT: agitated, anxious Focused psych exam: ABSENT: delusional, paranoid, restlessness Skin exam: PRESENT: dry, normal color, warm. ABSENT: rash Results Laboratory Results: 01/30/20 05:56 01/30/20 05:56 01/30/20 01/30/20 01/30/20 05:56 05:56 06:50 WBC 7.8 RBC 3.91 L Hgb 11.9 L Hct 34.7 L MCV 89 MCH 30.5 MCHC 34.3 RDW 15.3 H Plt Count 165 Sodium 136.3 L Potassium 3.9 Chloride 103 Carbon Dioxide 23 Anion Gap 10 BUN 34 H D Creatinine 1.13 Est GFR ( Amer) > 60 Glucose 123 H Calcium 8.7 Magnesium 2.4 H Urine Color YELLOW Urine Appearance CLEAR Urine pH 6.0 Ur Specific [place] 1.014 Urine Protein 30 H Urine Glucose (UA) >=500 H Urine Ketones 20 H Urine Blood MODERATE H Urine Nitrite NEGATIVE Ur Leukocyte Esterase TRACE H Urine WBC (Auto) 13 Urine RBC (Auto) 40 01/26/20 01/26/20 16:15 16:15 Creatine Kinase 109 Troponin I < 0.012 Impressions: Chest X-Ray 01/26/20 15:47 IMPRESSION: NO ACUTE RADIOGRAPHIC FINDING IN THE CHEST. Head CT 01/26/20 15:47 IMPRESSION: Chronic ischemic changes. EVIDENCE OF ACUTE STROKE: NO. Head MRI 01/26/20 16:09 IMPRESSION: No acute intracranial abnormality. Motion artifact. Ex vacuo dilatation of the right lateral ventricle with areas of encephalomalacia, as before. Mild diffuse atrophy. Right cerebellopontine angle mass, which is nonspecific but given its location likely reflects schwannoma or meningioma. This could be confirmed with postcontrast imaging. Other etiologies are felt less likely but not excluded. copyright 2011 [employer]- All Rights Reserved Renal Ultrasound 01/28/20 00:00 IMPRESSION: CHRONIC MEDICAL RENAL DISEASE. NO HYDRONEPHROSIS. Assessment and Plan - Diagnosis (1) Acute metabolic encephalopathy Is this a current diagnosis for this admission?: Yes (2) Acute kidney injury Is this a current diagnosis for this admission?: Yes (3) Elevated lactic acid level Is this a current diagnosis for this admission?: Yes (4) Hypermagnesemia Is this a current diagnosis for this admission?: Yes (5) Hyponatremia Is this a current diagnosis for this admission?: Yes (6) Difficult or painful urination Is this a current diagnosis for this admission?: Yes (7) Chronic obstructive pulmonary disease Qualifiers: COPD type: unspecified COPD Qualified Code(s): J44.9 - Chronic obstructive pulmonary disease, unspecified Is this a current diagnosis for this admission?: Yes (8) Coronary artery disease Qualifiers: Coronary Disease-Associated Artery/Lesion type: [place] artery [place] vs. transplanted heart: [place] heart Associated angina: without angina Qualified Code(s): I25.10 - Atherosclerotic heart disease of [place] coronary artery without angina pectoris Is this a current diagnosis for this admission?: Yes (9) Hemiplegia affecting left nondominant side Qualifiers: Hemiplegia type: unspecified type Hemiplegia etiology: cerebrovascular Cerebrovascular disease type: unspecified Is this a current diagnosis for this admission?: Yes (10) Hypertension Qualifiers: Hypertension type: essential hypertension Qualified Code(s): I10 - Essential (primary) hypertension Is this a current diagnosis for this admission?: Yes (11) Diabetes mellitus type 2 in obese Is this a current diagnosis for this admission?: Yes (12) PAD (peripheral artery disease) Is this a current diagnosis for this admission?: Yes (13) Paroxysmal atrial fibrillation Is this a current diagnosis for this admission?: Yes (14) Morbid obesity Is this a current diagnosis for this admission?: Yes (15) Back pain Qualifiers: Back pain location: low back pain Chronicity: chronic Back pain laterality: midline Sciatica presence: without sciatica Qualified Code(s): M54.5 - Low back pain; G89.29 - Other chronic pain Is this a current diagnosis for this admission?: Yes - Plan Summary Summary: Mr. Bill Grijalva is a 59 year old male who presented to the ED on 01/26/2020 with acute altered mental status. Patient is a resident at [facility] where he was found to be acutely altered with decreased verbal responsiveness and confusion. Stroke work up completed in the ED. Ct was negative for acute event. MRI of the brain noted no acute interracial event. Patient does have history of left hemiplegia secondary to previous stroke, otherwise no new focal neurological deficits were noted. Patient admitted to the hospitalist service to receive IV fluids and obtain further evaluation as needed. He is on a diabetic cardiac and pre-renal restricted diet. Home medications were be resumed and adjusted as appropriate. Acute metabolic encephalopathy Overall significant improvement in patient presentation. Suspect this was metabolic in nature as he was hyponatremic on initial evaluation with acute kidney injury. He continues to improve with fluids. We will continue with IV fluids and continue to monitor and correct electrolytes. Renal function is normal and the serum sodium is corrected. The patient's metabolic encephalopathy has resolved. Acute kidney injury Received and reviewed patient's most recent lab work dated 01/26/2020 from [facility]. BUN, creatinine, GFR, sodium all within normal limits. This further supports diagnosis of acute kidney injury. I suspect cause to be prerenal secondary to severe dehydration and/or medications. Home medications include furosemide 40 mg twice daily. Infectious etiology less likely as patient's white blood cell count is within normal limits. No indication of infection in urine. Blood cultures negative. Urine culture negative. -Current treatment includes normal saline. -BUN and creatinine levels continue to improve with fluids. Proteinuria noted on UA 01/28/2020. -Rudd catheter placed I's and O's monitored, has a net balance of -345, this is without being on a diuretic. -Nephrology continues to follow. Patient medications adjusted to GFR < 25 cc/min by Dr. White. -Renal US significant for chronic medical renal disease, no hydronephrosis. Renal function is back to normal. Will return to home medication regimen in anticipation of return to [facility] facility tomorrow. Likewise Rudd catheter has been discontinued. Elevated lactic acid level: Resolved. Hyponatremia: Resolved. Continue to monitor. Continue with normal saline. Hypermagnesemia: Magnesium levels have improved to 2.4. Continue to monitor for improvement with fluids. Difficulty or pain with urination: Patient denies symptoms today. UA unremarkable. Urine culture grew mixed urogenital gentry. No treatment necessary at this time. Hemiplegia affecting left nondominant side: History of left sided hemiplegia secondary to stroke. No attention necessary at this time. He is working with physical therapy at this time to have him moving from bed to chair. Continue physical therapy at this time. Hypertension Blood pressure readings remain low/normal, this is without utilizing any of his home blood pressure medications. Medications have been adjusted to dose appropriate for GFR <25 cc/min, consider discontinuing home blood pressure medications upon discharge. Will determine discharge medications tomorrow. He will likely need low-dose diuretics but he needs to be monitored more closely. Chronic obstructive pulmonary disease: Continue with home treatment regimen. Coronary artery disease: Continue with home treatment regimen. PAD (peripheral artery disease): Continue with home treatment regimen. Atrial fibrillation: Continues to be rate controlled presently in normal sinus rhythm continue to monitor Dr. White has converted Xarelto to Eliquis. Continue with atorvastatin. Diabetes mellitus type 2 in obese Blood sugars have been ranging from 90-170. Hemoglobin A1c 10.8. Patient is placed on a consistent carb diet. Accu-Cheks before meals and at bedtime with Humalog for sliding scale coverage. Hypoglycemia protocol in place. Registered dietitian hematology nurse educator consulted. Morbid Obesity Patient's current BMI is 42. Discussed life style and appropriate dietary changes with the patient. He confirmed understanding is agreeable. Will continue to have open and frequent conversations with patient regarding diet. Back pain The patient states that he has chronic back pain. He is on oral Dilaudid at the [facility] facility. I will give him a single IV dose of 2 mg of Dilaudid and then return to his previous pain management regimen. - Time Time Spent with patient: 15-24 minutes Medications reviewed and adjusted accordingly: Yes Anticipated Discharge Disposition: Senior Living Facility Anticipated Discharge Timeframe: within 48 hours
[2020-01-30] MEDS: ATORVASTATIN CALCIUM 20 MG TABLET PO SCH (23:35)
[2020-01-30] MEDS: HYDROMORPHONE HCL 2 MG TABLET PO SCH (23:36)
[2020-01-30] MEDS: QUETIAPINE FUMARATE 100 MG TABLET PO SCH (23:38)
[2020-01-31 05:23] LABS: ALBUMIN 3.3 g/dL (3.5-5.0); ANION GAP 7 (5-19); BLOOD UREA NITROGEN 23 mg/dL (7-20); CALCIUM 8.8 mg/dL (8.4-10.2); CARBON DIOXIDE 26 mmol/L (22-30); CHLORIDE 105 mmol/L (98-107); GLUCOSE 114 mg/dL (75-110); PHOSPHORUS 2.7 mg/dL (2.5-4.5); POTASSIUM 4.1 mmol/L (3.6-5.0)
[2020-01-31] MEDS: HYDROMORPHONE HCL 2 MG TABLET PO SCH ×2 (08:38→13:21)
[2020-01-31] MEDS: INSULIN REG, HUMAN 100 UNIT/ML 3 ML VIAL (PYX) SUBCUT SCH ×4 (08:41→22:05)
[2020-01-31] MEDS: RANOLAZINE 500 MG TAB.SR.12H PO SCH ×2 (10:43→23:30)
[2020-01-31] MEDS: LAMOTRIGINE 100 MG TABLET PO SCH (10:43)
[2020-01-31] MEDS: DOCUSATE SODIUM 100 MG CAPSULE PO SCH ×2 (10:43→17:12)
[2020-01-31] MEDS: PAROXETINE HCL 20 MG TABLET PO SCH (10:44)
[2020-01-31] MEDS: GLIPIZIDE 5 MG TABLET PO SCH (10:44)
[2020-01-31] MEDS: METOPROLOL SUCCINATE 50 MG TAB.SR.24H PO SCH (10:44)
[2020-01-31] MEDS: PANTOPRAZOLE SODIUM 20 MG TABLET.DR PO SCH (10:47)
[2020-01-31] MEDS: APIXABAN 2.5 MG TABLET PO SCH ×2 (10:47→17:12)
[2020-01-31] MEDS: GABAPENTIN 400 MG CAPSULE PO SCH ×2 (10:49→23:30)
[2020-01-31] MEDS: INSULIN GLARGINE,HUM.REC.ANLOG 1,000 UNIT/10 ML VIAL SUBCUT SCH (10:50)
[2020-01-31] MEDS: FLUTICASONE/VILANTEROL 200-25 MCG/DOSE IH SCH (10:50)
[2020-01-31] MEDS: PANTOT AC/MIN OIL/PET HY-PHL OINT 50 GM TOP SCH (10:51)
[2020-01-31] MEDS: LORATADINE 10 MG TABLET PO SCH (10:52)
[2020-01-31] MEDS ORDERED: HYDROMORPHONE HCL INJ/PF 2 MG/ML AMPULE IV PRN (16:43)
--- NOTE | 2020-01-31 16:43 | PDOC PROGRESS REPORT ---
Subjective Progress Note for:: 01/31/20 Subjective:: Patient is still having significant back pain. We will keep his current schedule but change it to IV. We will plan on transitioning back to [facility] tomorrow. Reason For Visit: ACUTE KIDNEY INJURY SUPERIMPOSED ON CHRONIC KIDNEY Physical Exam Vital Signs: Temp Pulse Resp BP Pulse Ox 97.6 F 103 H 20 131/79 H 97 01/31/20 11:08 01/31/20 11:08 01/31/20 11:08 01/31/20 11:08 01/31/20 11:08 Intake & Output 01/30/20 01/31/20 02/01/20 06:59 06:59 06:59 Intake Total 905 720 240 Output Total 3850 1800 550 Balance -2945 -1080 -310 Weight 123.5 kg 121.6 kg General appearance: PRESENT: cooperative, morbidly obese, other - Moderate distress Head exam: PRESENT: atraumatic, normocephalic Neck exam: ABSENT: carotid bruit, JVD, lymphadenopathy Respiratory exam: PRESENT: clear to auscultation jraett, symmetrical, unlabored. ABSENT: prolonged expiratory phas, rales, rhonchi, tachypnea, wheezes Cardiovascular exam: PRESENT: RRR, +S1, +S2. ABSENT: bradycardia, diastolic murmur, irregular rhythm, systolic murmur, tachycardia GI/Abdominal exam: PRESENT: soft, other - Protuberant abdomen. ABSENT: guarding, tenderness Rectal exam: PRESENT: deferred Gentrourinary exam: PRESENT: indwelling catheter Extremities exam: PRESENT: pedal edema Musculoskeletal exam: ABSENT: normal inspection Neurological exam: PRESENT: alert, awake, oriented to person, oriented to place, oriented to time, oriented to situation, motor sensory deficit - Left hemiplegia. ABSENT: altered Psychiatric exam: PRESENT: appropriate affect - Affect reflects his current discomfort. ABSENT: agitated, anxious Focused psych exam: ABSENT: delusional, paranoid, restlessness Skin exam: PRESENT: dry, normal color, warm. ABSENT: rash Results Laboratory Results: 01/30/20 05:56 01/31/20 04:36 01/31/20 04:36 Sodium 137.7 Potassium 4.1 Chloride 105 Carbon Dioxide 26 Anion Gap 7 BUN 23 H Creatinine 0.91 Est GFR ( Amer) > 60 Glucose 114 H Calcium 8.8 Phosphorus 2.7 Magnesium 2.2 Albumin 3.3 L 01/26/20 01/26/20 16:15 16:15 Creatine Kinase 109 Troponin I < 0.012 Impressions: Chest X-Ray 01/26/20 15:47 IMPRESSION: NO ACUTE RADIOGRAPHIC FINDING IN THE CHEST. Head CT 01/26/20 15:47 IMPRESSION: Chronic ischemic changes. EVIDENCE OF ACUTE STROKE: NO. Head MRI 01/26/20 16:09 IMPRESSION: No acute intracranial abnormality. Motion artifact. Ex vacuo dilatation of the right lateral ventricle with areas of encephalomalacia, as before. Mild diffuse atrophy. Right cerebellopontine angle mass, which is nonspecific but given its location likely reflects schwannoma or meningioma. This could be confirmed with postcontrast imaging. Other etiologies are felt less likely but not excluded. copyright 2011 [employer]- All Rights Reserved Renal Ultrasound 01/28/20 00:00 IMPRESSION: CHRONIC MEDICAL RENAL DISEASE. NO HYDRONEPHROSIS. Assessment and Plan - Diagnosis (1) Acute metabolic encephalopathy Is this a current diagnosis for this admission?: Yes (2) Acute kidney injury Is this a current diagnosis for this admission?: Yes (3) Elevated lactic acid level Is this a current diagnosis for this admission?: Yes (4) Hypermagnesemia Is this a current diagnosis for this admission?: Yes (5) Hyponatremia Is this a current diagnosis for this admission?: Yes (6) Difficult or painful urination Is this a current diagnosis for this admission?: Yes (7) Chronic obstructive pulmonary disease Qualifiers: COPD type: unspecified COPD Qualified Code(s): J44.9 - Chronic obstructive pulmonary disease, unspecified Is this a current diagnosis for this admission?: Yes (8) Coronary artery disease Qualifiers: Coronary Disease-Associated Artery/Lesion type: rosebud artery Council vs. transplanted heart: rosebud heart Associated angina: without angina Qualified Code(s): I25.10 - Atherosclerotic heart disease of rosebud coronary artery without angina pectoris Is this a current diagnosis for this admission?: Yes (9) Hemiplegia affecting left nondominant side Qualifiers: Hemiplegia type: unspecified type Hemiplegia etiology: cerebrovascular Cerebrovascular disease type: unspecified Is this a current diagnosis for this admission?: Yes (10) Hypertension Qualifiers: Hypertension type: essential hypertension Qualified Code(s): I10 - Essential (primary) hypertension Is this a current diagnosis for this admission?: Yes (11) Diabetes mellitus type 2 in obese Is this a current diagnosis for this admission?: Yes (12) PAD (peripheral artery disease) Is this a current diagnosis for this admission?: Yes (13) Paroxysmal atrial fibrillation Is this a current diagnosis for this admission?: Yes (14) Morbid obesity Is this a current diagnosis for this admission?: Yes (15) Back pain Qualifiers: Back pain location: low back pain Chronicity: chronic Back pain laterality: midline Sciatica presence: without sciatica Qualified Code(s): M54.5 - Low back pain; G89.29 - Other chronic pain Is this a current diagnosis for this admission?: Yes - Plan Summary Summary: Mr. Bill Grijalva is a 59 year old male who presented to the ED on 01/26/2020 with acute altered mental status. Patient is a resident at [facility] where he was found to be acutely altered with decreased verbal responsiveness and confusion. Stroke work up completed in the ED. Ct was negative for acute event. MRI of the brain noted no acute interracial event. Patient does have history of left hemiplegia secondary to previous stroke, otherwise no new focal neurological deficits were noted. Patient admitted to the hospitalist service to receive IV fluids and obtain further evaluation as needed. He is on a diabetic cardiac and pre-renal restricted diet. Home medications were be resumed and adjusted as appropriate. Acute metabolic encephalopathy Overall significant improvement in patient presentation. Suspect this was metabolic in nature as he was hyponatremic on initial evaluation with acute kidney injury. He continues to improve with fluids. We will continue with IV fluids and continue to monitor and correct electrolytes. Renal function is normal and the serum sodium is corrected. The patient's metabolic encephalopathy has resolved. Acute kidney injury Received and reviewed patient's most recent lab work dated 01/26/2020 from [facility]. BUN, creatinine, GFR, sodium all within normal limits. This further supports diagnosis of acute kidney injury. I suspect cause to be prerenal secondary to severe dehydration and/or medications. Home medications include furosemide 40 mg twice daily. Infectious etiology less likely as patient's white blood cell count is within normal limits. No indication of infection in urine. Blood cultures negative. Urine culture negative. -Current treatment includes normal saline. -BUN and creatinine levels continue to improve with fluids. Proteinuria noted on UA 01/28/2020. -Rudd catheter placed I's and O's monitored, has a net balance of -345, this is without being on a diuretic. -Nephrology continues to follow. Patient medications adjusted to GFR < 25 cc/min by Dr. White. -Renal US significant for chronic medical renal disease, no hydronephrosis. Renal function is back to normal. Will return to home medication regimen in anticipation of return to snf facility tomorrow. Likewise Rudd catheter has been discontinued. Elevated lactic acid level: Resolved. Hyponatremia: Resolved. Continue to monitor. Continue with normal saline. Hypermagnesemia: Magnesium levels have improved to 2.4. Continue to monitor for improvement with fluids. Difficulty or pain with urination: Patient denies symptoms today. UA unremarkable. Urine culture grew mixed urogenital gentry. No treatment necessary at this time. Hemiplegia affecting left nondominant side: History of left sided hemiplegia secondary to stroke. No attention necessary at this time. He is working with physical therapy at this time to have him moving from bed to chair. Continue physical therapy at this time. Hypertension Blood pressure readings remain low/normal, this is without utilizing any of his home blood pressure medications. Medications have been adjusted to dose appropriate for GFR <25 cc/min, consider discontinuing home blood pressure medications upon discharge. Will determine discharge medications tomorrow. He will likely need low-dose diuretics but he needs to be monitored more closely. Chronic obstructive pulmonary disease: Continue with home treatment regimen. Coronary artery disease: Continue with home treatment regimen. PAD (peripheral artery disease): Continue with home treatment regimen. Atrial fibrillation: Continues to be rate controlled presently in normal sinus rhythm continue to monitor Dr. White has converted Xarelto to Eliquis. Continue with atorvastatin. Diabetes mellitus type 2 in obese Blood sugars have been ranging from 90-170. Hemoglobin A1c 10.8. Patient is placed on a consistent carb diet. Accu-Cheks before meals and at bedtime with Humalog for sliding scale coverage. Hypoglycemia protocol in place. Registered dietitian asthma educator consulted. Morbid Obesity Patient's current BMI is 42. Discussed life style and appropriate dietary changes with the patient. He confirmed understanding is agreeable. Will continue to have open and frequent conversations with patient regarding diet. Back pain The patient states that he has chronic back pain. He is on oral Dilaudid at the sn[facility] facility. I will give him a single IV dose of 2 mg of Dilaudid and then return to his previous pain management regimen. Oral Dilaudid not very effective at this time. Will change to IV on the same schedule. The patient will transfer back to [facility] tomorrow. We will discontinue the Rudd catheter and allow him to have a bedside commode. - Time Time Spent with patient: 15-24 minutes Medications reviewed and adjusted accordingly: Yes Anticipated Discharge Disposition: Senior Living Facility Anticipated Discharge Timeframe: within 24 hours
[2020-01-31] MEDS ORDERED: INSULIN GLARGINE,HUM.REC.ANLOG 1,000 UNIT/10 ML VIAL SUBCUT SCH (22:00)
[2020-01-31] MEDS: QUETIAPINE FUMARATE 100 MG TABLET PO SCH (23:25)
[2020-01-31] MEDS: MELATONIN 5 MG TABLET PO PRN (23:30)
[2020-01-31] MEDS: ATORVASTATIN CALCIUM 20 MG TABLET PO SCH (23:30)
[2020-02-01] MEDS: INSULIN REG, HUMAN 100 UNIT/ML 3 ML VIAL (PYX) SUBCUT SCH ×2 (07:21→11:58)
[2020-02-01] MEDS: APIXABAN 2.5 MG TABLET PO SCH (09:34)
[2020-02-01] MEDS: LORATADINE 10 MG TABLET PO SCH (09:34)
[2020-02-01] MEDS: DOCUSATE SODIUM 100 MG CAPSULE PO SCH (09:34)
[2020-02-01] MEDS: FLUTICASONE/VILANTEROL 200-25 MCG/DOSE IH SCH (09:34)
[2020-02-01] MEDS: GLIPIZIDE 5 MG TABLET PO SCH (09:34)
[2020-02-01] MEDS: METOPROLOL SUCCINATE 50 MG TAB.SR.24H PO SCH (09:35)
[2020-02-01] MEDS: GABAPENTIN 400 MG CAPSULE PO SCH (09:35)
[2020-02-01] MEDS: PANTOPRAZOLE SODIUM 20 MG TABLET.DR PO SCH (09:35)
[2020-02-01] MEDS: PAROXETINE HCL 20 MG TABLET PO SCH (09:35)
[2020-02-01] MEDS: LAMOTRIGINE 100 MG TABLET PO SCH (09:35)
[2020-02-01] MEDS: RANOLAZINE 500 MG TAB.SR.12H PO SCH (09:35)
[2020-02-01] MEDS ORDERED: INSULIN GLARGINE,HUM.REC.ANLOG 1,000 UNIT/10 ML VIAL SUBCUT SCH (10:00)
--- NOTE | 2020-02-01 10:30 | PDOC TRANSFER SUMMARY ---
Impression - Admit/DC Date/PCP Admission Date/Primary Care Provider: 01/26/20 20:48 BRAIN JOSEPH NP Discharge Date: 02/01/20 - Discharge Diagnosis (1) Acute metabolic encephalopathy Is this a current diagnosis for this admission?: Yes (2) Acute kidney injury Is this a current diagnosis for this admission?: Yes (3) Elevated lactic acid level Is this a current diagnosis for this admission?: Yes (4) Hyponatremia Is this a current diagnosis for this admission?: Yes (5) Hypermagnesemia Is this a current diagnosis for this admission?: Yes (6) Difficult or painful urination Is this a current diagnosis for this admission?: Yes (7) Hemiplegia affecting left nondominant side Is this a current diagnosis for this admission?: Yes (8) Hypertension Is this a current diagnosis for this admission?: Yes (9) Chronic obstructive pulmonary disease Is this a current diagnosis for this admission?: Yes (10) Coronary artery disease Is this a current diagnosis for this admission?: Yes (11) PAD (peripheral artery disease) Is this a current diagnosis for this admission?: Yes (12) Paroxysmal atrial fibrillation Is this a current diagnosis for this admission?: Yes (13) Diabetes mellitus type 2 in obese Is this a current diagnosis for this admission?: Yes (14) Obesity Is this a current diagnosis for this admission?: Yes - Assessment Summary: Mr. Bill Grijalva is a 59 year old male who presented to the ED on 01/26/2020 with acute altered mental status. Patient is a resident at [facility] where he was found to be acutely altered with decreased verbal responsiveness and confusion. Stroke work up completed in the ED. Ct was negative for acute event. MRI of the brain noted no acute interracial event. Patient does have history of left hemiplegia secondary to previous stroke, otherwise no new focal neurological deficits were noted. Patient admitted to receive IV fluids and obtain further evaluation as needed. He was followed by both hospitalist team and nephrology. He is on a diabetic cardiac and pre-renal restricted diet. Home medications were adjusted as appropriate. Acute metabolic encephalopathy Overall significant improvement in patient presentation. Suspect this was metabolic in nature as he was hyponatremic on initial evaluation with acute kidney injury. Renal function is normal and the serum sodium is corrected. The patient's metabolic encephalopathy has resolved. Acute kidney injury Received and reviewed patient's most recent lab work dated 01/26/2020 from [facility]. BUN, creatinine, GFR, sodium all within normal limits. This further supports diagnosis of acute kidney injury. I suspect cause to be prerenal secondary to severe dehydration and/or medications. Infectious etiology less likely as patient's white blood cell count is within normal limits. No indication of infection in urine. Blood cultures negative. Urine culture negative. -Nephrology adjusted medications to GFR < 25 cc/min by Dr. White. -Renal US significant for chronic medical renal disease, no hydronephrosis. Renal function is back to normal. Discontinue Lasix, lisinopril, toes, and potassium. He was not receiving these during his visit and vital signs were stable. Continue to monitor vital signs and kidney function. Recommend follow- up basic metabolic panel and magnesium on or Saturday. Elevated lactic acid level: Resolved. Hyponatremia: Resolved. Hypermagnesemia: Magnesium levels have improved. Follow uup Magnesium level on /Saturday. Difficulty or pain with urination: Patient denies symptoms today. UA unremarkable. Urine culture grew mixed urogenital gentry. No treatment necessary at this time. Hemiplegia affecting left nondominant side: History of left sided hemiplegia secondary to stroke. No attention necessary at this time. He is working with physical therapy at this time to have him moving from bed to chair. Continue physical therapy at this time. Hypertension Blood pressure readings remain low/normal, this is without utilizing any of his home blood pressure medications. Medications have been adjusted to dose appropriate for GFR <25 cc/min. Discontinue Lasix, lisinopril, toes, and potassium. He was not receiving these during his visit and vital signs were stable. Continue to monitor blood pressure closely. Chronic obstructive pulmonary disease: Continue with home treatment regimen. Coronary artery disease: Continue with home treatment regimen. PAD (peripheral artery disease): Continue with home treatment regimen. Atrial fibrillation: Continues to be rate controlled presently in normal sinus rhythm continue to monitor He may resume Xrelto. Continue with atorvastatin. Diabetes mellitus type 2 in obese Blood sugars have been ranging from 90-170. Hemoglobin A1c 10.8. Continue with home treatment regimen. Recommend monitoring closely. Morbid Obesity Patient's current BMI is 42. Discussed life style and appropriate dietary changes with the patient. He confirmed understanding is agreeable. Will continue to have open and frequent conversations with patient regarding diet. Back pain The patient states that he has chronic back pain. [facility]. Provided prescription for six Dilaudid 2 mg tablets upon discharge. The patient will transfer back to [facility] today. - Additional Information Resuscitation Status: Full Code Discharge Diet: Cardiac, Diabetic Discharge Activity: Activity As Tolerated Referrals: [facility] [Outside] BRAIN JOSEPH, MERCHANDISING SPECIALIST [Primary Care Provider] - Follow up as needed Prescriptions: Hydromorphone HCl [Dilaudid 2 mg Tablet] 2 mg PO Q8 #6 Home Medications: Acetaminophen [Tylenol 325 mg Tablet] 650 mg PO Q6HP PRN 06/05/17 Lamotrigine [Lamictal] 100 mg PO DAILY 06/05/17 Metoprolol Succinate [Toprol Xl 50 mg Tab.sr] 100 mg PO DAILY 06/05/17 Quetiapine Fumarate [Seroquel] 400 mg PO QHS 06/05/17 Ranolazine [Ranexa 500 mg Tab.sr] 500 mg PO Q12 06/05/17 Rivaroxaban [Xarelto] 20 mg PO QPM 06/05/17 Atorvastatin Calcium [Lipitor 20 mg Tablet] 20 mg PO QHS 01/26/20 Fluticasone/Salmeterol [Advair 250-50 Diskus 14 Dose/Diskus] 1 puff IH Q12 01/26/20 Gabapentin [Neurontin] 800 mg PO Q8 01/26/20 Glipizide [Glucotrol 5 mg Tablet] 5 mg PO DAILY 01/26/20 Insulin Glargine,Hum.rec.anlog [Lantus Insulin 100 Unit/1 ml 10 ml] 5 unit SQ Q12 01/26/20 Insulin Lispro [Humalog Insulin (Lispro) 100 unit/mL] See Protocol SQ ACHS 01/26/20 Loratadine [Claritin 10 mg Tablet] 10 mg PO DAILY 01/26/20 Magnesium Hydroxide [Milk of Magnesia 30 ml Udcup] 30 ml PO DAILYP PRN 01/26/20 Melatonin [Melatonin 5 mg Tablet] 10 mg PO HSP PRN 01/26/20 Pantoprazole Sodium [Protonix [address] Tablet] 20 mg PO DAILY 01/26/20 Paroxetine HCl [Paxil] 10 mg PO DAILY 01/26/20 Sennosides [Senna] 17.2 mg PO BID 01/26/20 Silver Chloride [Silver Gel] 1 applic TOP Q2DAYS 01/26/20 Zinc Oxide [Zinc Oxide 20% Ointment 28.35 gm] 1 applic TOP Q2HP PRN 01/26/20 Docusate Sodium [Colace 100 mg Capsule] 100 mg PO BID capsule 02/01/20 Hydromorphone HCl [Dilaudid 2 mg Tablet] 2 mg PO Q8 #6 02/01/20 Insulin Glargine,Hum.rec.anlog [Lantus Insulin 100 Unit/1 ml 10 ml] 7 unit SUBCUT DAILY unit 02/01/20 Pantot AC/Min Oil/Pet Hy-Phl [Aquaphor W-Mary Heal Oint 50 gm] 1 applic TOP DAILY tube 02/01/20 History of Present Illiness History of Present Illness: BILL GRIJALVA is a 59 year old male Physical Exam Vital Signs: Temp Pulse Resp BP Pulse Ox 98.0 F 110 H 19 113/72 95 02/01/20 08:19 02/01/20 08:19 02/01/20 08:19 02/01/20 08:19 02/01/20 08:19 Intake & Output 01/31/20 02/01/20 02/02/20 06:59 06:59 06:59 Intake Total 720 1339 Output Total 1800 1800 Balance -1080 -461 Weight 121.6 kg 122.8 kg General appearance: PRESENT: no acute distress, cooperative, obese Head exam: PRESENT: atraumatic, normocephalic Eye exam: PRESENT: conjunctiva pink. ABSENT: scleral icterus Ear exam: PRESENT: normal external ear exam. ABSENT: bleeding, drainage Mouth exam: PRESENT: moist, tongue midline Neck exam: PRESENT: full ROM. ABSENT: tenderness, thyromegaly Respiratory exam: PRESENT: clear to auscultation jarett, symmetrical, unlabored. ABSENT: tachypnea, wheezes Cardiovascular exam: PRESENT: RRR, +S1, +S2. ABSENT: diastolic murmur, systolic murmur, tachycardia Pulses: PRESENT: normal radial pulses GI/Abdominal exam: PRESENT: normal bowel sounds, soft, other - Pertuberant abdmen. ABSENT: ascites, distended, firm, guarding, tenderness Rectal exam: PRESENT: deferred Extremities exam: ABSENT: clubbing, tenderness Musculoskeletal exam: PRESENT: other - Hemiplegia left side, chronic. Neurological exam: PRESENT: alert, awake, oriented to person, oriented to place, oriented to time Psychiatric exam: PRESENT: appropriate affect, normal mood Skin exam: PRESENT: dry, warm, other - Hyperpigmentation bilateral lower extremities. Results Laboratory Results: WBC 7.8 10^3/uL (4.0-10.5) 01/30/20 05:56 RBC 3.91 10^6/uL (4.35-5.55) L 01/30/20 05:56 Hgb 11.9 g/dL (13.5-17.0) L 01/30/20 05:56 Hct 34.7 % (37.9-51.0) L 01/30/20 05:56 MCV 89 fl (80-97) 01/30/20 05:56 MCH 30.5 pg (27.0-33.4) 01/30/20 05:56 MCHC 34.3 g/dL (32.0-36.0) 01/30/20 05:56 RDW 15.3 % (11.5-14.0) H 01/30/20 05:56 Plt Count 165 10^3/uL (150-450) 01/30/20 05:56 Lymph % (Auto) 9.3 % (13-45) L 01/26/20 16:15 [place] % (Auto) 8.1 % (3-13) 01/26/20 16:15 Eos % (Auto) 1.4 % (0-6) 01/26/20 16:15 Baso % (Auto) 1.0 % (0-2) 01/26/20 16:15 Absolute Neuts (auto) 8.6 10^3/uL (1.7-8.2) H 01/26/20 16:15 Absolute Lymphs (auto) 1.0 10^3/uL (0.5-4.7) 01/26/20 16:15 Absolute Monos (auto) 0.9 10^3/uL (0.1-1.4) 01/26/20 16:15 Absolute Eos (auto) 0.1 10^3/uL (0.0-0.6) 01/26/20 16:15 Absolute Basos (auto) 0.1 10^3/uL (0.0-0.2) 01/26/20 16:15 Seg Neutrophils % 80.2 % (42-78) H 01/26/20 16:15 PT 17.8 SEC (11.4-15.4) H 01/26/20 16:15 INR 1.45 01/26/20 16:15 APTT 36.4 SEC (23.5-35.8) H 01/26/20 16:15 VBG pH 7.28 (7.30-7.42) L 01/27/20 04:10 VBG pCO2 48.3 mmHg (35-63) 01/27/20 04:10 VBG HCO3 22.2 mmol/L (20-32) 01/27/20 04:10 VBG Base Excess -4.8 mmol/L 01/27/20 04:10 Sodium 137.7 mmol/L (137-145) 01/31/20 04:36 Potassium 4.1 mmol/L (3.6-5.0) 01/31/20 04:36 Chloride 105 mmol/L (98-107) 01/31/20 04:36 Carbon Dioxide 26 mmol/L (22-30) 01/31/20 04:36 Anion Gap 7 (5-19) 01/31/20 04:36 BUN 23 mg/dL (7-20) H 01/31/20 04:36 Creatinine 0.91 mg/dL (0.52-1.25) 01/31/20 04:36 Est GFR ( Amer) > 60 (>60) 01/31/20 04:36 Est GFR (MDRD) Non-Af > 60 (>60) 01/31/20 04:36 Glucose 114 mg/dL (75-110) H 01/31/20 04:36 POC Glucose 132 mg/dL (70-110) H 02/01/20 06:20 Hemoglobin A1c % 10.8 % (4.7-6.0) H 01/27/20 04:10 Serum Osmolality 293 mOsm/kg (275-301) 01/26/20 16:15 Lactic Acid 1.5 mmol/L (0.7-2.1) 01/27/20 17:17 Calcium 8.8 mg/dL (8.4-10.2) 01/31/20 04:36 Phosphorus 2.7 mg/dL (2.5-4.5) 01/31/20 04:36 Magnesium 2.2 mg/dL (1.6-2.3) 01/31/20 04:36 Total Bilirubin 0.7 mg/dL (0.2-1.3) 01/26/20 16:15 Direct Bilirubin 0.4 mg/dL (0.0-0.4) 01/26/20 16:15 Neonat Total Bilirubin Not Reportable 01/26/20 16:15 Neonat Direct Bilirubin Not Reportable 01/26/20 16:15 Neonat Indirect Bili Not Reportable 01/26/20 16:15 AST 20 U/L (17-59) 01/26/20 16:15 ALT 19 U/L (<50) 01/26/20 16:15 Alkaline Phosphatase 94 U/L (38-126) 01/26/20 16:15 Creatine Kinase 109 U/L (55-170) 01/26/20 16:15 Troponin I < 0.012 ng/mL 01/26/20 16:15 Total Protein 6.6 g/dL (6.3-8.2) 01/26/20 16:15 Albumin 3.3 g/dL (3.5-5.0) L 01/31/20 04:36 Triglycerides 668 mg/dL (<150) H 01/27/20 04:10 Cholesterol 275.58 mg/dL (0-200) H 01/27/20 04:10 LDL Cholesterol Direct < 30 mg/dL (<100) 01/27/20 04:10 VLDL Cholesterol, Calc UNABLE TO CALCULATE 01/27/20 04:10 HDL Cholesterol 49 mg/dL (>40) 01/27/20 04:10 TSH 1.06 uIU/mL (0.47-4.68) 01/27/20 04:10 Urine Color YELLOW 01/30/20 06:50 Urine Appearance CLEAR 01/30/20 06:50 Urine pH 6.0 (5.0-9.0) 01/30/20 06:50 Ur Specific [place] 1.014 01/30/20 06:50 Urine Protein 30 mg/dL (NEGATIVE) H 01/30/20 06:50 Urine Glucose (UA) >=500 mg/dL (NEGATIVE) H 01/30/20 06:50 Urine Ketones 20 mg/dL (NEGATIVE) H 01/30/20 06:50 Urine Blood MODERATE (NEGATIVE) H 01/30/20 06:50 Urine Nitrite NEGATIVE (NEGATIVE) 01/30/20 06:50 Urine Nitrite (Reflex) NEGATIVE (NEGATIVE) 01/28/20 23:51 Urine Bilirubin NEGATIVE (NEGATIVE) 01/30/20 06:50 Urine Urobilinogen NEGATIVE mg/dL (<2.0) 01/30/20 06:50 Ur Leukocyte Esterase TRACE (NEGATIVE) H 01/30/20 06:50 Leukocyte Esterase Rfl NEGATIVE (NEGATIVE) 01/28/20 23:51 Urine WBC (Auto) 13 /HPF 01/30/20 06:50 Urine RBC (Auto) 40 /HPF 01/30/20 06:50 U Hyaline Cast (Auto) 1 /LPF 01/28/20 23:51 Urine Bacteria (Auto) TRACE /HPF 01/28/20 23:51 Urine WBC (Reflex) 2 /HPF 01/28/20 23:51 Squamous Epi Cells Auto <1 /HPF 01/30/20 06:50 Urine Mucus (Auto) RARE /LPF 01/28/20 23:51 Urine Osmolality 358 mOsm/kg (300-900) 01/27/20 00:22 Urine Creatinine 70.2 mg/dL (22-328) 01/27/20 00:22 Urine Sodium 75 mmol/L (30-90) 01/28/20 23:51 Urine Ascorbic Acid NEGATIVE (NEGATIVE) 01/30/20 06:50 Urine Opiates Screen UNCONFIRMED POSITIVE 01/27/20 00:22 Urine Methadone Screen NEGATIVE 01/27/20 00:22 Ur Barbiturates Screen NEGATIVE 01/27/20 00:22 Lamotrigine 1.8 ug/mL (2.0-20.0) L 01/26/20 16:15 Ur Phencyclidine Scrn NEGATIVE 01/27/20 00:22 Ur Amphetamines Screen NEGATIVE 01/27/20 00:22 U Benzodiazepines Scrn NEGATIVE 01/27/20 00:22 Urine Cocaine Screen NEGATIVE 01/27/20 00:22 U Marijuana (THC) Screen NEGATIVE 01/27/20 00:22 Serum Alcohol < 10 mg/dL (NONE DETECTED) 01/26/20 16:15 COVID-19 Source See comment 01/27/20 18:20 COVID-19 (CESIA) Not Detected (Not Detect) 01/27/20 18:20 01/26/20 16:15 Troponin I < 0.012 Impressions: Chest X-Ray 01/26/20 15:47 IMPRESSION: NO ACUTE RADIOGRAPHIC FINDING IN THE CHEST. Head CT 01/26/20 15:47 IMPRESSION: Chronic ischemic changes. EVIDENCE OF ACUTE STROKE: NO. Head MRI 01/26/20 16:09 IMPRESSION: No acute intracranial abnormality. Motion artifact. Ex vacuo dilatation of the right lateral ventricle with areas of encephalomalacia, as before. Mild diffuse atrophy. Right cerebellopontine angle mass, which is nonspecific but given its location likely reflects schwannoma or meningioma. This could be confirmed with postcontrast imaging. Other etiologies are felt less likely but not excluded. copyright 2011 [employer]- All Rights Reserved Renal Ultrasound 01/28/20 00:00 IMPRESSION: CHRONIC MEDICAL RENAL DISEASE. NO HYDRONEPHROSIS. Plan Health Concerns: Acute kidney failure developing over a short period of time with multiple medical comorbidities. Plan of Treatment: Monitor vital signs and renal function on new medication regimen. Continue physical therapy. Goals: Control of hypertension with maintenance of normal renal function. Time Spent: Greater than 30 Minutes Stroke Is this a Stroke Patient?: No Acute Heart Failure Is this a Heart Failure Patient?: No
[2020-02-01] MEDS: PANTOT AC/MIN OIL/PET HY-PHL OINT 50 GM TOP SCH (11:57)
[2020-02-01 12:27] VITALS: BP 119/87
[2020-02-01] MEDS ORDERED: HYDROMORPHONE HCL 2 MG TABLET PO ONE (12:30)
[2020-02-01] MEDS ORDERED: HYDROMORPHONE HCL INJ/PF 2 MG/ML AMPULE IV ONE (12:30)
== END 2020-02-01 13:05 | DRG 682 ==
LOC: ER 15:43 → EH 20:48 → 4S 23:10
PROVIDERS: ADMIT Emergency Medicine; ATTEND Hospitalist
DX: N17.9 Acute kidney failure, unspecified (principal); G93.41 Metabolic encephalopathy; E87.1 Hypo-osmolality and hyponatremia; I69.354 Hemiplegia and hemiparesis following cerebral infarction affecting left non-dominant side; Z68.41 Body mass index [BMI] 40.0-44.9, adult; E83.41 Hypermagnesemia; E11.22 Type 2 diabetes mellitus with diabetic chronic kidney disease; E11.51 Type 2 diabetes mellitus with diabetic peripheral angiopathy without gangrene; I48.0 Paroxysmal atrial fibrillation; E86.0 Dehydration; R74.0 Nonspecific elevation of levels of transaminase and lactic acid dehydrogenase [LDH]; R30.0 Dysuria; J44.9 Chronic obstructive pulmonary disease, unspecified; I25.10 Atherosclerotic heart disease of native coronary artery without angina pectoris; T50.905A Adverse effect of unspecified drugs, medicaments and biological substances, initial encounter; I12.9 Hypertensive chronic kidney disease with stage 1 through stage 4 chronic kidney disease, or unspecified chronic kidney disease; N18.9 Chronic kidney disease, unspecified; E66.01 Morbid (severe) obesity due to excess calories; M54.9 Dorsalgia, unspecified; L81.9 Disorder of pigmentation, unspecified; F31.9 Bipolar disorder, unspecified; E78.5 Hyperlipidemia, unspecified; K21.9 Gastro-esophageal reflux disease without esophagitis; G89.4 Chronic pain syndrome; K59.00 Constipation, unspecified; M19.90 Unspecified osteoarthritis, unspecified site; S90.425A Blister (nonthermal), left lesser toe(s), initial encounter; Z11.59 Encounter for screening for other viral diseases; Z79.01 Long term (current) use of anticoagulants; Z79.4 Long term (current) use of insulin; Z79.899 Other long term (current) drug therapy; Z86.718 Personal history of other venous thrombosis and embolism; I25.2 Old myocardial infarction; Z87.891 Personal history of nicotine dependence; Z86.14 Personal history of Methicillin resistant Staphylococcus aureus infection; Z88.6 Allergy status to analgesic agent; Z88.8 Allergy status to other drugs, medicaments and biological substances
CPT/HCPCS: 36415; 70450; 70551; 71045; 76770; 80048; 80053; 80061; 80069; 80175; 80307; 81001; 82550; 82570; 82803; 82962; 83036; 83605; 83735; 83930; 83935; 84300; 84443; 84484; 85025; 85027; 85610; 85730; 87040; 87086; 87635; 93005; 93010; 96360; 99285; C9803; J0360; J1170; J1815; J3490; J7030; J7120